=== PATIENT | male | born 1935 | race Caucasian/White ===

== ENCOUNTER 2017-02-15 12:23 | Inpatient (IN) | payer BC, OTHER ==
[~2017-02-15] VITALS: Ht 182.9 cm; Wt 60.8 kg
[~2017-02-15 12:23] MED LIST: ACET-1256 PO; ASPCH81X PO; B-COTAB53 PO; DUTA0.5C PO; GLC500 PO; GLUC500C4 PO; IRBE-37 PO; METO1TAB31 PO; MINEOIL26; MULT-506 PO; OMEGCAP2 PO
[2017-02-15] MEDS ORDERED: SODIUM CHLORIDE 0.9% 1000ML 1,000 ML IV SCH (13:22)
--- NOTE | 2017-02-15 13:40 | EMERGENCY ROOM VISIT NOTE ---
History Report prepared by Elizabeth: Neal Whitaker Under the Supervision of: Dr. Silvio Otoole M.D. First contact with patient: 13:17 Chief Complaint: ILLNESS Stated Complaint: CHEST PAIN,SOB,NUMBNESS IN HAND,CONFUSION History of Present Illness The patient is an 81 year old male who presents to the Emergency Room with complaints of sudden, constant, shortness of breath and word searching beginning 3.5 hours ago. The patient states that he has trouble finding his words and chest pain that radiates into his shoulders. He reports that both of his hands felt an electric charge that was more severe in the left hand than right. The patient notes that he has a history of a cranial bleed after a fall several years ago requiring a Chloe hole procedure. He denies vision changes, hearing changes, headaches, and difficulty walking. The patient states that he has a history of chronic leukemia and is on chemotherapy. 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 The patient states that he is on Procrit because he has a chronic hemoglobin of 10.8. He denies a history of a blood transfusion. He reports that he returned home from a cruise to [place] and visiting friends in [place] within the past month. Source of History: patient Onset: 3.5 hours ago Position: head, chest Quality: other (word searching and SOB) Timing: constant, other (sudden) Associated Symptoms: + chest pain, No headache Note: Associated symptoms: shoulder pain, electrical shot to both hands Denies: vision changes, hearing changes, and difficulty walking Review of Systems All systems have been listed, reviewed, and are negative other than those previously mentioned. Please see Additional Medical History Sheet. Past Medical & Surgical Medical Problems: (1) Benign hypertension (2) Chronic leukemia (3) Diabetes Surgical Problems: (1) History of chloe hole surgery Family History Diabetes mellitus Heart disease Hypertension Social History Smoking Status: Never Smoker Marital Status: Housing Status: lives with family Occupation Status: employed Current/Historical Medications Scheduled Acetaminophen (Tylenol), 500 MG PO TID PRN Allopurinol (Allopurinol), 200 MG PO DAILY Aspirin (Aspirin Chewable), 81 MG PO DAILY B-Complex W/ Folic Acid (B Complex), 1 TAB PO DAILY Dutasteride (Avodart), 0.5 MG PO DAILY Glucosamine Sulfate (Glucosamine), 1 CAP PO DAILY Hydroxyurea (Hydrea Cap), 1,000 MG PO QDD Irbesartan (Irbesartan), 37.5 MG PO DAILY Megestrol Acetate (Megace Oral), 20 MG PO DAILY Multivitamin (Multivitamin), 1 TAB PO DAILY Allergies Coded Allergies: Lisinopril (Verified Allergy, Unknown, ., 02/15/17) Tamsulosin (Unverified Allergy, Unknown, EDEMA FACE,LIPS,TONGUE, 02/15/17) Physical Exam Vital Signs Date Time Temp Pulse Resp B/P (MAP) Pulse Ox O2 Delivery O2 Flow Rate FiO2 02/15/17 16:17 124/78 02/15/17 16:08 110 25 97 02/15/17 16:02 121/74 02/15/17 15:53 118 22 98 02/15/17 15:47 130/75 02/15/17 15:38 103 24 98 02/15/17 15:23 102 26 100 02/15/17 15:17 133/90 02/15/17 15:08 102 23 02/15/17 15:02 121/80 02/15/17 14:53 104 21 02/15/17 14:47 131/78 02/15/17 14:47 104 22 131/78 99 Room Air 02/15/17 14:38 102 23 02/15/17 14:32 143/86 02/15/17 14:29 106 21 140/77 99 Room Air 02/15/17 14:23 101 24 99 02/15/17 14:17 140/77 02/15/17 14:12 102 23 114/80 99 Room Air 02/15/17 14:08 94 22 99 02/15/17 14:02 114/80 02/15/17 14:01 99 29 122/70 99 Room Air 02/15/17 13:53 105 22 99 02/15/17 13:47 122/70 02/15/17 13:42 99 29 130/75 94 Room Air 02/15/17 13:40 130/75 02/15/17 13:27 107 02/15/17 13:23 99 22 98 02/15/17 13:08 96 21 99 02/15/17 13:02 116/69 02/15/17 12:53 99 21 98 02/15/17 12:50 99 Room Air 02/15/17 12:43 130/70 02/15/17 12:35 36.7 115 20 121/67 99 Room Air Physical Exam GENERAL: Patient awake, alert, oriented x 3. Patient follows commands. Patient does not appear toxic. Patient is adequately hydrated and well- nourished. Patient is in no distress and word searching. SKIN: No erythema, pallor, cyanosis or rash HEENT: Normal head, pupils equal, reactive to light and accommodation. Oral cavity and posterior pharynx appear normal. Neck: Without adenopathy, no neck vein distention. LUNGS: Clear to auscultation. No wheezes, no rales, no rhonchi. HEART: Regular rate. No murmurs. No gallops. No rubs CHEST: Monitor on the left upper chest wall. ABDOMEN: No masses, no rebound, no hepatomegaly or splenomegaly. EXTREMITIES: No signs of trauma. No pedal or pretibial edema. No calf or thigh tenderness. NEUROLOGIC: Cranial nerves II-XII within normal limits. No gross motor sensory function deficits. Patient is word searching Medical Decision & Procedures ER Provider Diagnostic Interpretation: Radiology results as stated below per my review and radiologist interpretation: HEAD WITHOUT CONTRAST (CT) CT DOSE: 537.48 mGy.cm HISTORY: Mental status change Stroke TECHNIQUE: Multiaxial CT images of the head were performed without the use of intravenous contrast. A dose lowering technique was utilized adhering to the principles of ALARA. Comparison: 05/18/2009 Findings: The paranasal sinuses and mastoid air cells are clear. Evidence for prior chloe holes involving the parietal convexities. Findings of cerebellar as well as cerebral atrophy. No evidence for acute intracranial hemorrhage. No midline shift. No evidence for an acute subdural hematoma. Impression: Chronic and postoperative change. No acute process. The above report was generated using voice recognition software. It may contain grammatical, syntax or spelling errors. Electronically signed by: Miles Barber M.D. 02/15/2017 1:39 PM Dictated Date/Time: 02/15/2017 1:37 PM CHEST ONE VIEW PORTABLE CLINICAL HISTORY: Stroke mental status change COMPARISON STUDY: 01/26/2009 FINDINGS: Mild cardiomegaly. Small parenchymal infiltrate left base. Small infiltrate right base. Lungs otherwise appear clear. IMPRESSION: Moderate cardiomegaly. Small bibasilar parenchymal infiltrates. The above report was generated using voice recognition software. It may contain grammatical, syntax or spelling errors. Electronically signed by: Miles Barber M.D. 02/15/2017 2:09 PM Dictated Date/Time: 02/15/2017 2:09 PM Laboratory Results 02/15/17 13:40 Red Blood Count 3.13, Mean Corpuscular Volume 94.9, Mean Corpuscular Hemoglobin 32.6, Mean Corpuscular Hemoglobin Concent 34.3 02/15/17 13:40 Test 02/15/17 13:40 02/15/17 13:46 White Blood Count 54.36 K/uL (4.8-10.8) Red Blood Count 3.13 M/uL (4.7-6.1) Hemoglobin 10.2 g/dL (14.0-18.0) Hematocrit 29.7 % (42-52) Mean Corpuscular Volume 94.9 fL (80-100) Mean Corpuscular Hemoglobin 32.6 pg (25-34) Mean Corpuscular Hemoglobin Concent 34.3 g/dl (32-36) Platelet Count 83 K/uL (130-400) RDW Standard Deviation 67.4 fL (36.4-46.3) RDW Coefficient of Variation 19.6 % (11.5-14.5) Neutrophils % (Manual) 27.3 % Lymphocytes % (Manual) 10.0 % Monocytes % (Manual) 55.5 % Basophils % (Manual) 0.9 % (0-2) Metamyelocytes % 1.8 % Myelocytes % 4.5 % Neutrophils # (Manual) 14.84 K/uL (1.4-6.5) Total Absolute Neutrophils 14.84 K/uL (1.4-6.5) Lymphocytes # (Manual) 5.44 K/uL (1.2-3.4) Total Absolute Lymphocytes 5.44 K/uL (1.2-3.4) Monocytes # (Manual) 30.17 K/uL (0.11-0.59) Basophils # (Manual) 0.49 K/uL (0-0.2) Metamyelocytes # 0.98 K/uL (0-0) Myelocytes # 2.45 K/uL (0-0) Hypogranular Neutrophils 2+ Platelet Estimate DECREASED Anisocytosis PRESENT Tear Drop Cells 1+ Prothrombin Time 11.2 SECONDS (9.0-12.0) Prothromb Time International Ratio 1.0 (0.9-1.1) Activated Partial Thromboplast Time 30.4 SECONDS (21.0-31.0) Partial Thromboplastin Ratio 1.2 Anion Gap 7.0 mmol/L (3-11) Est Creatinine Clear Calc Drug Dose 36.6 ml/min Estimated GFR () 49.9 Estimated GFR (Non- 43.0 BUN/Creatinine Ratio 22.6 (10-20) Calcium Level 8.5 mg/dl (8.5-10.1) Total Creatine Kinase 58 U/L (39-308) Creatine Kinase MB 1.9 ng/ml (0.5-3.6) Creatine Kinase MB Ratio 3.3 (0-3.0) Troponin I < 0.015 ng/ml (0-0.045) Bedside Prothrombin Time INR 1.2 (0.9-1.1) Laboratory results as stated above per my review. Medications Administered Medications (Trade) Dose Ordered Sig/Jarvis Route Start Time Stop Time Status Last Admin Dose Admin Sodium Chloride 1,000 ml @ 50 mls/hr Q20H IV 02/15/17 13:22 02/15/17 17:56 DC 02/15/17 13:22 50 MLS/HR Aspirin (Aspirin Chew) 81 mg NOW STAT PO 02/15/17 15:00 02/15/17 15:03 DC 02/15/17 15:53 81 MG Sodium Chloride 1,000 ml @ 300 mls/hr Q3H20M STAT IV 02/15/17 15:00 02/15/17 17:56 DC 02/15/17 16:02 300 MLS/HR Levetiracetam (Keppra Tab) 500 mg ONE ONCE PO 02/15/17 15:00 02/15/17 15:03 DC 02/15/17 15:54 500 MG ECG Indication: chest pain Rate (beats per minute): 99 Rhythm: normal sinus Findings: no acute ischemic change, no ectopy ED Course 1318: Past medical records reviewed. The patient was evaluated in room C01B. A complete history and physical examination was performed. 1322: Ordered Sodium Chloride 1000 ml @ 50 mls/hr IV 1457: I discussed the patients case with [facility]. He suggested that patient be evaluated by the hospitalist, given 81mg of aspirin, 500mg of Keppra now and in six hours, and IV fluid. He also suggests the patient have an EEG within the next day or two. 1500: Ordered Levetiracetam 500mg PO, Sodium Chloride 1000 ml @ 300 mls/hr IV, Aspirin 81mg PO 1507: I discussed the patient's case with Maciej [facility] Hospitalist. The patient will be evaluated for further treatment. 1532: Upon reevaluation, the patient is resting.I discussed today's findings with him. He verbalized agreement of the treatment plan. The patient will be evaluated for further treatment. Medical Decision I considered multiple diagnoses including: CVA, TIA, anemia, metabolic disorder , anxiety, hyperventilation, chronic leukemia. The patient had a phasic episode which began around 11 AM associated with some numbness primarily in the left hand. The patient arrived here less than 2 hours later and a stroke alert was called. NIH stroke score was very low and therefore the patient was not a good candidate for TPA. Consultation was obtained of the [facility] neurologist via [facility]. Multiple labs, EKG and imaging were evaluated. Please see above. The patient' s symptoms improved markedly while here in the ED. The patient was given Keppra for possible seizure-type activity. He was also given 81 mg of aspirin and a fluid bolus. I discussed care with the patient, his , the [facility] neurologist and the hospitalist. Medication Reconcilliation Current Medication List: was personally reviewed by me Blood Pressure Screening Patient's blood pressure: Normal blood pressure Blood pressure disposition: Did not require urgent referral Consults Time Called: 1456 Consulting Physician: [facility] Returned Call: [phone] I discussed the patients case with [facility]. He suggested that patient be evaluated by the hospitalist, given 80mg of aspirin, 500mg of Keppra now and in six hours, and IV fluid. He also suggests the patient have an EEG within the next day or two. Additional Consults: Time Called: 1505 Consulted Physician: Damien Pratt Hospitalist Returned Call: [phone] Additional Comments: I discussed the patient's case with Dr. Denis, [facility] Hospitalist. The patient will be evaluated for further treatment. Impression Primary Impression: Aphasia Critical Care I have personally spent greater than 35 minutes of critical care time in the direct management of this patient. This includes bedside care, interpretation of diagnostic studies, and testing, discussion with consultants, patient, and family members, and other required patient management activities. This 35 minutes is in excess of all separately billable procedures. Scribe Attestation The scribe's documentation has been prepared under my direction and personally reviewed by me in its entirety. I confirm that the note above accurately reflects all work, treatment, procedures, and medical decision making performed by me. Departure Information Dispostion Being Evaluated By Hospitalist Referrals Jones Stone (PCP) Patient Instructions My [facility]
[2017-02-15] MEDS ORDERED: HYDR500C3 PO (13:45)
[2017-02-15] MEDS ORDERED: ALL100 PO (13:45)
[2017-02-15] MEDS ORDERED: IRBE1TAB46 PO (13:45)
[2017-02-15] MEDS ORDERED: MEGE40SU PO (13:45)
[2017-02-15 14:07] LABS: PARTIAL THROMBOPLASTIN RATIO 1.2; PROTHROMBIN TIME (PATIENT) 11.2 SECONDS (9.0-12.0)
[2017-02-15 14:11] LABS: BLOOD UREA NITROGEN 34 mg/dl (7-18); BUN/CREATININE RATIO 22.6 (10-20); CALCIUM 8.5 mg/dl (8.5-10.1); CARBON DIOXIDE 23 mmol/L (21-32); CHLORIDE 102 mmol/L (98-107); GLUCOSE 125 mg/dl (70-99); POTASSIUM 4.9 mmol/L (3.5-5.1); SODIUM 132 mmol/L (136-145)
--- NOTE | 2017-02-15 14:11 | DIAGNOSTIC IMAGING REPORT ---
CHEST ONE VIEW PORTABLE CLINICAL HISTORY: Stroke mental status change COMPARISON STUDY: 01/26/2009 FINDINGS: Mild cardiomegaly. Small parenchymal infiltrate left base. Small infiltrate right base. Lungs otherwise appear clear. IMPRESSION: Moderate cardiomegaly. Small bibasilar parenchymal infiltrates. The above report was generated using voice recognition software. It may contain grammatical, syntax or spelling errors. Electronically signed by: Miles Barber M.D. 02/15/2017 2:09 PM Dictated Date/Time: 02/15/2017 2:09 PM
[2017-02-15 14:16] LABS: CKMB/CK RATIO 3.3 (0-3.0)
[2017-02-15 14:26] LABS: HEMATOCRIT 29.7 % (42-52); MEAN CELL VOLUME 94.9 fL (80-100); MEAN CORPUSCULAR HEMOGLOBIN 32.6 pg (25-34); MEAN CORPUSCULAR HGB CONC 34.3 g/dl (32-36); PLATELET COUNT 83 K/uL (130-400); RED BLOOD COUNT 3.13 M/uL (4.7-6.1); WHITE BLOOD COUNT 54.36 K/uL (4.8-10.8)
[2017-02-15 14:40] LABS: ANISOCYTOSIS PRESENT; BASO ABS # 0.49 K/uL (0-0.2); BASOPHIL % 0.9 % (0-2); COMPLETE YES; LYMPH ABS # 5.44 K/uL (1.2-3.4); META ABS # 0.98 K/uL (0-0); METAMYELOCYTE % 1.8 %; MYELOCYTE % 4.5 %; NEUTROPHILS % 27.3 %; PLT ESTIMATE DECREASED; TEAR DROP CELLS 1+
[2017-02-15] MEDS ORDERED: SODIUM CHLORIDE 0.9% 1000ML 1,000 ML IV STA (15:00)
[2017-02-15] MEDS ORDERED: ASPIRIN 81 MG CHEW PO STA (15:00)
[2017-02-15] MEDS ORDERED: LEVETIRACETAM 500 MG TAB PO ONE (15:00)
[2017-02-15] MEDS ORDERED: METOPROLOL TARTRATE 25 MG TAB PO ONE (17:04)
[2017-02-15 17:34] VITALS: BP 99/69; PULSE 117; TEMP 36.8; Ht 182.9 cm; Wt 60.8 kg
[2017-02-15] MEDS ORDERED: HydrALAZINE HCL 20 MG/ML VIAL IV. PRN (17:45)
[2017-02-15] MEDS ORDERED: METOPROLOL TARTRATE 1 MG/ML VIAL IV PRN (17:45)
--- NOTE | 2017-02-15 17:53 | Cardiology Consultation ---
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 I had recent seen the patient is a new outpatient consult a few days ago on 02/12/17. He is a resident of [facility] and at baseline is very physically active. He recently traveled to [place] in [place]. He typically spends the winter on [place] in [place]. At the time of his recent visit, he was concerned about shortness of breath that occurred been progressive over the last 2 weeks. He described an event that occurred a few days before the appointment when he was sitting upright in a reclining chair. He went to get up and suddenly "saw black "and lost postural tone. He had no prolonged loss of consciousness was backed to being himself within a few minutes. He has a long-standing history of being treated with metoprolol succinate 25 mg daily as well as irbesartan for tachycardia and hypertension. Recently his medications were reduced due to concerns of low blood pressure and ultimately the metoprolol was discontinued and Avapro dose had been cut in half. It is noted that he does have a history of frequent ventricular ectopy as well as frequent supraventricular ectopy as noted on a previous outpatient Holter monitor in 2014. 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 He had been placed on Hydrea under the guidance of Dr. Fox of hematology and his white blood cell count had improved from the 80,000 range to the 37,000 range recently. He has a history of anemia with recent baseline hemoglobin in the 10 g/dL range, and has a history of recent thrombocytopenia. He had been receiving Procrit on an as-needed basis for anemia because he also has stage III chronic kidney disease. The patient had been counseled to participate in a two-week 0 teletypesetter monitor which she is wearing, and he was tentatively scheduled for an outpatient echocardiogram in our office next week. In the interim time, today he complained of chest discomfort to his spouse this morning, and was found to have difficulty finding his words. I noted when I saw him the other day that he had a little bit of trouble telling me about his history and his spouse needed to fill in many of the details, but today he is significantly different as he is having difficulty expressing his thoughts. He recognizes me, and otherwise is able to move his extremities and to follow commands such as showing 2 fingers with each hand on command. 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 Past Medical/Surgical History Problem List: Medical Problems: (1) Benign hypertension (2) Chronic leukemia (3) Diabetes Surgical Problems: (1) History of chloe hole surgery History Past Medical History: 1. Frequent supraventricular and ventricular ectopy noted on prior Holter monitor 2. Hypertension 3. Anemia in the setting of stage III chronic kidney disease 4. Myeloproliferative disorder, chronic myelomonocytic leukemia with leukocytosis, and thrombus and a PT Past Surgical History: 1. Carpal tunnel surgery 2011 2. Right cataract removal 2009 3. Left cataract removal 2010 4. Right total hip replacement 2001 5. 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 Family History: Mother: in her 80's, of stroke. Father: at age 56, of massive myocardial infarction Siblings: sister, as infant , 3 days old Review Of Systems See above for pertinent positives & negatives. A total of 10 systems reviewed and were otherwise negative. Allergies Coded Allergies: Lisinopril (Verified Allergy, Unknown, ., 02/15/17) Tamsulosin (Unverified Allergy, Unknown, EDEMA FACE,LIPS,TONGUE, 02/15/17) Medications Reported Home Medications Medications Dose Route/Sig Max Daily Dose Days Date Category Hydrea Cap (Hydroxyurea) 500 Mg Cap 1,000 Mg PO QDD 02/15/17 Reported Allopurinol 100 Mg Tab 200 Mg PO DAILY 02/15/17 Reported Megace Oral (Megestrol Acetate) 40 Mg/Ml Kristen 20 Mg PO DAILY 02/15/17 Reported Irbesartan 75 Mg Tab 37.5 Mg PO DAILY 02/15/17 Reported B Complex (B-Complex W/ Folic Acid) 1 Tab Tab 1 Tab PO DAILY 01/22/15 Reported Glucosamine (Glucosamine Sulfate) 500 Mg Cap 1 Cap PO DAILY 11/20/14 Reported Aspirin Chewable (Aspirin) 81 Mg Chew 81 Mg PO DAILY 11/20/14 Reported Avodart (Dutasteride) 0.5 Mg Cap 0.5 Mg PO DAILY 11/20/14 Reported Multivitamin (Multivitamins) Tab 1 Tab PO DAILY 01/26/09 Reported Tylenol (Acetaminophen) 500 Mg Tab 500 Mg PO TID PRN 01/26/09 Reported Physical Exam Vital Signs (Last 8hrs): Last 8 Hrs Date Time Temp Pulse Resp B/P (MAP) Pulse Ox O2 Delivery O2 Flow Rate FiO2 02/15/17 17:25 115 18 119/79 96 02/15/17 17:02 119/80 02/15/17 16:53 125 27 97 02/15/17 16:47 128/78 02/15/17 16:38 121 25 97 02/15/17 16:32 111/91 02/15/17 16:23 120 26 97 02/15/17 16:17 124/78 02/15/17 16:08 110 25 97 02/15/17 16:02 121/74 02/15/17 15:53 118 22 98 02/15/17 15:47 130/75 02/15/17 15:38 103 24 98 02/15/17 15:23 102 26 100 02/15/17 15:17 133/90 02/15/17 15:08 102 23 02/15/17 15:02 121/80 02/15/17 14:53 104 21 02/15/17 14:47 131/78 02/15/17 14:47 104 22 131/78 99 Room Air 02/15/17 14:38 102 23 02/15/17 14:32 143/86 02/15/17 14:29 106 21 140/77 99 Room Air 02/15/17 14:23 101 24 99 02/15/17 14:17 140/77 02/15/17 14:12 102 23 114/80 99 Room Air 02/15/17 14:08 94 22 99 02/15/17 14:02 114/80 02/15/17 14:01 99 29 122/70 99 Room Air 02/15/17 13:53 105 22 99 02/15/17 13:47 122/70 02/15/17 13:42 99 29 130/75 94 Room Air 02/15/17 13:40 130/75 02/15/17 13:27 107 02/15/17 13:23 99 22 98 02/15/17 13:08 96 21 99 02/15/17 13:02 116/69 02/15/17 12:53 99 21 98 02/15/17 12:50 99 Room Air 02/15/17 12:43 130/70 02/15/17 12:35 36.7 115 20 121/67 99 Room Air General Appearance: awake , oriented Head: Normocephalic Atraumatic. Eyes: PERRLA, EOMI, conjunctiva and sclera clear Neck: Supple. No carotid bruits noted. No JVD. No HJD. Respiratory: Breath sounds clear to auscultation bilaterally. No w/r/r. Cardiovascular: tachycardic, no murmurs Abdomen: Normal bowel sounds, soft nontender. no abdominal bruits. Extremities: No edema, no clubbing or cyanosis. distal pulses 2/4 bilaterally. Neuro: expressive aphasia, moves all 4 extremities. Data Last Resulted 02/15/17 13:40 Red Blood Count 3.13, Mean Corpuscular Volume 94.9, Mean Corpuscular Hemoglobin 32.6, Mean Corpuscular Hemoglobin Concent 34.3 Last Resulted 02/15/17 13:40 Past 24 Hours Test 02/15/17 13:40 Range/Units Creatine Kinase MB 1.9 0.5-3.6 ng/ml Creatine Kinase MB Ratio 3.3 H 0-3.0 Prothromb Time International Ratio 1.0 0.9-1.1 Prothrombin Time 11.2 9.0-12.0 SECONDS Total Creatine Kinase 58 39-308 U/L Troponin I < 0.015 0-0.045 ng/ml EKG performed the emergency department today revealed sinus tachycardia at 130 bpm, with significant ST segment changes. A limited, focused, bedside echocardiogram was performed independently at the bedside in the emergency room by the undersigned and revealed normal to hyperdynamic biventricular systolic function with a small circumferential pericardial effusion, tenderness stranding was noted in the pericardial space adjacent to the right atrium. There is no evident tamponade physiology. Assessment & Plan CT of the brain revealed postoperative changes with past history of peripheral holes due to remote traumatic subdural hematoma. No acute changes Impression: 1. Chest discomfort, per patient, it is worse when he lies supine and when he takes a deep breath and, and given echocardiogram findings, is consistent with pericarditis 2. Sinus tachycardia 3. Change in mental status, dysarthria 4. Chronic myelomonocytic leukemia, anemia, leukocytosis, thrombocytopenia Recommendations: Per review of his emergency room chart, emergency room provider had discussed his case with thelneurologist at [facility] who recommended administering aspirin and Keppra as well as IV fluids and to consider an EEG. I would recommend we have neurology see him here tomorrow. My personal impression is that the patient has new dysarthria that is an acute change compared to when I had seen him on 02/12/17, I would recommend proceeding with an MRI of the brain with and without contrast for workup of stroke. Given his sinus tachycardia and small circumflex pericardial effusion, I had advised Dr. Stephens , that since that visit as already 5:47 PM Thursday, the perhaps we should try to schedule the MRI for tomorrow morning because I would be concerned that if we made arrangements now that he would end up going off the floor for a prolonged period of time in the middle of the night and I think that would be ill-advised at present. For the sinus tachycardia, I recommend proceeding with low dose metoprolol 12.5 mg twice a day, first dose tonight, and neck cyst is tomorrow morning. I discussed this with his nurse in the emergency room and asked for to be administered as soon as it was available. We have to be careful not to suppress his blood pressure too much because of the small circumferential pericardial effusion. Unfortunately, the typical treatments for this are contraindicated in this patient. He is not a candidate for nonsteroidal anti-inflammatory treatment because of his kidney disease and concerns of acute stroke, he is not a candidate for high-dose aspirin due to potential for bleeding complications given his thrombocytopenia, he is not a candidate for colchicine because it has the potential for myelosuppression, and I would not want to give him corticosteroids until we have the MRI of the brain back rule out acute stroke. This was explained to the patient, and he is comfortable enough with this that he did not feel he needed additional treatment for the chest pain at present. Case discussed with Dr Stephens by phone. Will obtain formal complete echocardiogram tomorrow. It is OK to remove the Zio monitor for the MRI. Nolan Pollard,
--- NOTE | 2017-02-15 19:27 | History and Physical ---
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 Clayton Fox of hemeoncology who presented with multiple cardiac and neurological symptoms from home with early differential diagnosis of seizure as per emergency room physician in coordination with neurology teleconference with neurologist at [facility] vs stroke vs hyperviscosity complications from leukemia and also found to have tachycardia. There are various histories of what happened at home prior to admission. As per the HPI given to me from the patient and his at bedside ([phone]), patient was reading a book when he found that the text did not make sense to him. Denies changes in vision. Started having difficulty with finding words with his speech, but no obvious facial motor weakness or slurred speech or facial droop as per the patient's . Patient's denies that he was staring into space. Patient appears by this history to recognize these symptoms and did not lose consciousness and was able to follow directions and ambulate. But with these symptoms, also developed concurrently left upper extremity tremors which are new in onset. When patient evaluated in the ED, stroke alert was called. Patient had negative head CT for intracranial bleed (of note patient had history of subdural hematoma around 7 years ago which needed to be relieved by chloe holes). Was given aspirin. After consultation and evaluation with [facility] neurology by the ED physician, it was decided that patient more likely had seizure symptoms rather than stroke and the patient was given Keppra 500 mg per oral x 1 as loading dose for seizure treatment. This was also happening in context of tachycardia between 110s to 120s which was not treated in the emergency department and also chest discomfort. At the request of internal medicine hospitalist, patient then evaluated by financial operations consultant Dr. Pollard who had previously placed a Zio XT monitor as outpatient recently when patient had been seen for tachycardia and also history of relative hypotension and presyncopal symptoms. Production Metal Sprayer obtained bedside transthoracic echo of the heart and preliminary results communicated to me by Dr. Pollard of pericarditis and he also started patient on Beta juani. Have consulted neurology Dr. Niño who recommended brain MRI and carotid ultrasound when patient less tachycardic. However patent has titanium rip hip as per history and likely contraindicated for MRI. Have consulted hemoncology with Dr. Gregg who has low suspicion that patient's elevated cell counts would lead to hyperviscosity related neurological/vascular etiologies explaining for symptoms. Patient passed dysphagia screening by nursing but will keep NPO except medications Past Medical/Surgical History Medical Problems: (1) Benign hypertension Status: Chronic (2) Chronic leukemia Status: Chronic (3) Diabetes Status: Chronic Surgical Problems: (1) History of chloe hole surgery Status: Resolved Family History Diabetes mellitus Heart disease Hypertension Social History Smoking Status: Never Smoker Marital Status: Occupational Status: employed Immunizations History of Influenza Vaccine: N/A History of Tetanus Vaccine?: Unknown History of Pneumococcal: Yes Pneumococcal Date: Dec 22, 2008 History of Hepatitis B Vaccine: No Multi-Drug Resistant Organisms History of MDRO: No Allergies Coded Allergies: Lisinopril (Verified Allergy, Unknown, ., 02/15/17) Tamsulosin (Unverified Allergy, Unknown, EDEMA FACE,LIPS,TONGUE, 02/15/17) Home Medications Scheduled Acetaminophen (Tylenol), 500 MG PO TID PRN Allopurinol (Allopurinol), 200 MG PO DAILY Aspirin (Aspirin Chewable), 81 MG PO DAILY B-Complex W/ Folic Acid (B Complex), 1 TAB PO DAILY Dutasteride (Avodart), 0.5 MG PO DAILY Glucosamine Sulfate (Glucosamine), 1 CAP PO DAILY Hydroxyurea (Hydrea Cap), 1,000 MG PO QDD Irbesartan (Irbesartan), 37.5 MG PO DAILY Megestrol Acetate (Megace Oral), 20 MG PO DAILY Multivitamin (Multivitamin), 1 TAB PO DAILY Review of Systems Constitutional: No fever Eyes: + problem reported (comprehension of reading text without vision deficits ) ENT: + problem reported (word finding difficulties without slurred speech), No sore throat, No trouble swallowing Respiratory: No cough, No shortness of breath, No dyspnea on exertion, No dyspnea at rest Cardiovascular: + chest pain (pain with deep breaths), + palpitations ( tachycardia) Abdomen: No pain, No nausea, No vomiting, No diarrhea, No constipation Neurologic: + problem reported (left upper extremity tremors) Psychiatric: No substance abuse Hematologic / Lymphatic: No abnormal bleeding/bruising Integumentary: No rash Physical Exam Vital Signs Date Time Temp Pulse Resp B/P (MAP) Pulse Ox O2 Delivery O2 Flow Rate FiO2 02/15/17 17:34 36.8 117 16 99/69 Room Air 02/15/17 17:25 115 18 119/79 96 02/15/17 17:02 119/80 02/15/17 16:53 125 27 97 02/15/17 16:47 128/78 02/15/17 16:38 121 25 97 02/15/17 16:32 111/91 02/15/17 16:23 120 26 97 02/15/17 16:17 124/78 02/15/17 16:08 110 25 97 02/15/17 16:02 121/74 02/15/17 15:53 118 22 98 02/15/17 15:47 130/75 02/15/17 15:38 103 24 98 02/15/17 15:23 102 26 100 02/15/17 15:17 133/90 02/15/17 15:08 102 23 02/15/17 15:02 121/80 02/15/17 14:53 104 21 02/15/17 14:47 131/78 02/15/17 14:47 104 22 131/78 99 Room Air 02/15/17 14:38 102 23 02/15/17 14:32 143/86 02/15/17 14:29 106 21 140/77 99 Room Air 02/15/17 14:23 101 24 99 02/15/17 14:17 140/77 02/15/17 14:12 102 23 114/80 99 Room Air 02/15/17 14:08 94 22 99 02/15/17 14:02 114/80 02/15/17 14:01 99 29 122/70 99 Room Air 02/15/17 13:53 105 22 99 02/15/17 13:47 122/70 02/15/17 13:42 99 29 130/75 94 Room Air 02/15/17 13:40 130/75 02/15/17 13:27 107 02/15/17 13:23 99 22 98 02/15/17 13:08 96 21 99 02/15/17 13:02 116/69 02/15/17 12:53 99 21 98 02/15/17 12:50 99 Room Air 02/15/17 12:43 130/70 02/15/17 12:35 36.7 115 20 121/67 99 Room Air General Appearance: no apparent distress Head: normocephalic, atraumatic Eyes: normal inspection, PERRL, EOMI ENT: hearing grossly normal, pharynx normal Neck: supple, trachea midline Respiratory/Chest: chest non-tender, lungs clear, normal breath sounds, no respiratory distress, no accessory muscle use Cardiovascular: + tachycardia Abdomen/GI: normal bowel sounds, non tender, soft Back: normal inspection Extremities/Musculoskelatal: normal inspection, no calf tenderness, normal range of motion, non-tender Neurologic/Psych: 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 turbine 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 nml as tested, no motor/sensory deficits, alert, normal mood/affect, oriented x 3 Skin: warm/dry, no rash Diagnostics Laboratory Results Results Past 24 Hours Test 02/15/17 13:40 02/15/17 13:42 02/15/17 13:46 02/15/17 18:10 Range/Units White Blood Count 54.36 4.8-10.8 K/uL Red Blood Count 3.13 4.7-6.1 M/uL Hemoglobin 10.2 14.0-18.0 g/dL Hematocrit 29.7 42-52 % Mean Corpuscular Volume 94.9 80-100 fL Mean Corpuscular Hemoglobin 32.6 25-34 pg Mean Corpuscular Hemoglobin Concent 34.3 32-36 g/dl Platelet Count 83 130-400 K/uL RDW Standard Deviation 67.4 36.4-46.3 fL RDW Coefficient of Variation 19.6 11.5-14.5 % Neutrophils % (Manual) 27.3 % Lymphocytes % (Manual) 10.0 % Monocytes % (Manual) 55.5 % Basophils % (Manual) 0.9 0-2 % Metamyelocytes % 1.8 % Myelocytes % 4.5 % Neutrophils # (Manual) 14.84 1.4-6.5 K/uL Total Absolute Neutrophils 14.84 1.4-6.5 K/uL Lymphocytes # (Manual) 5.44 1.2-3.4 K/uL Total Absolute Lymphocytes 5.44 1.2-3.4 K/uL Monocytes # (Manual) 30.17 0.11-0.59 K/uL Basophils # (Manual) 0.49 0-0.2 K/uL Metamyelocytes # 0.98 0-0 K/uL Myelocytes # 2.45 0-0 K/uL Hypogranular Neutrophils 2+ Platelet Estimate DECREASED Anisocytosis PRESENT Tear Drop Cells 1+ Prothrombin Time 11.2 9.0-12.0 SECONDS Prothromb Time International Ratio 1.0 0.9-1.1 Activated Partial Thromboplast Time 30.4 21.0-31.0 SECONDS Partial Thromboplastin Ratio 1.2 Sodium Level 132 136-145 mmol/L Potassium Level 4.9 3.5-5.1 mmol/L Chloride Level 102 98-107 mmol/L Carbon Dioxide Level 23 21-32 mmol/L Anion Gap 7.0 3-11 mmol/L Blood Urea Nitrogen 34 7-18 mg/dl Creatinine 1.50 0.60-1.40 mg/dl Est Creatinine Clear Calc Drug Dose 36.6 ml/min Estimated GFR () 49.9 Estimated GFR (Non- 43.0 BUN/Creatinine Ratio 22.6 10-20 Random Glucose 125 70-99 mg/dl Calcium Level 8.5 8.5-10.1 mg/dl Total Creatine Kinase 58 39-308 U/L Creatine Kinase MB 1.9 0.5-3.6 ng/ml Creatine Kinase MB Ratio 3.3 0-3.0 Troponin I < 0.015 0-0.045 ng/ml Bedside Glucose 116 188 70-99 mg/dl Bedside Prothrombin Time INR 1.2 0.9-1.1 Diagnostic Radiology CXR negative for infiltrates or congestion CXR normal EKG 12 lead EKG ordered Impression Assessment and Plan 81 year old M with symptoms of word finding difficulties and left upper extremity tremors which are new onset with tachycardia. Neurological symptoms possibly seizure, stroke, hyperviscosity. Tachycardia possible pericarditis/ pericardial effusion Neurological -After consultation and evaluation with [facility] by the ED physician, it was decided that patient more likely had seizure symptoms rather than stroke and the patient was given Keppra 500 mg per oral x 1 as loading dose for seizure treatment -appreciate further neurology consult on Keppra dosing -Have consulted neurology Dr. Niño who recommended brain MRI for stroke workup and carotid ultrasound when patient less tachycardic. However patent has titanium rip hip as per history and likely contraindicated for MRI. -carotid ultrasound ordered when tachycardia resolves -Patient passed dysphagia screening by nursing but will keep NPO except essential oral medications Hydration with IV fluids with dextrose when NPO Cardiology -preliminary TTE results pericarditis , small circumferential pericardial effusion -tachycardia noted before as outpatient and has outpatient Zio XT monitor on left chest -telemetry monitoring -sinus tachycardia: low dose metoprolol 12.5 mg twice a day, parameters for prn IV metoprolol and IV hydralazine for heart and blood pressure control in order sets Hemoncology -Chronic myelomonocytic leukemia -WBC > 50,000 on admission, 1 month ago as per outpatient records WBC around 80, 000 -anemia Hgb 10, thrombocytopenia less than 100,000 platelets -Have consulted hemoncology with Dr. Gregg who has low suspicion that patient's elevated cell counts would lead to hyperviscosity related neurological/vascular etiologies explaining for symptoms. -hold oral hydroxyurea and procrit for now -IV fluids DVT ppx: SCDs Full Code status ([phone], [phone]) Level of Care Telemetry Advanced Directives Existing Living Will: Yes Existing Power of Associate Vice President: Yes Resuscitation Status FULL RESUSCITATION VTE Prophylaxis VTE Risk Assessment Done? Y/N: Yes Risk Level: Moderate Given or contraindicated: SCD's
[2017-02-15 19:50] VITALS: BP 104/69; PULSE 100; TEMP 37; O2SAT 97
[2017-02-15] MEDS: D5W AND NSS 1,000 ML IV SCH (20:40)
[2017-02-15 21:55] LABS: URINE APPEARANCE TURBID (CLEAR); URINE BILIRUBIN NEG (NEG); URINE COLOR DK YELLOW; URINE EPITHELIAL CELL AUTO >30 /lpf (0-5); URINE NITRITE NEG (NEG); URINE SPECIFIC GRAVITY 1.027 (1.000-1.030); UROBILINOGEN NEG (NEG); ZZUR CULT IF INDIC CLEAN CATCH YES
[2017-02-15 21:58] LABS: MANUAL MICROSCOPIC REQUIRED? NO; REVIEW REQ? YES
[2017-02-15 22:07] LABS: URINE PATH CASTS >30 GRANULAR CASTS /lpf (0)
[2017-02-15 23:14] VITALS: BP 93/63; PULSE 99; TEMP 37.1; O2SAT 95
[2017-02-16] VITALS (41 sets, daily range): BP systolic 76–123; BP diastolic 44–75; PULSE 100–143; TEMP 36.6–36.7; O2SAT 93–98
[2017-02-16 06:30] LABS: BUN/CREATININE RATIO 18.7 (10-20); CALCIUM 8.4 mg/dl (8.5-10.1); CREATININE 2.1 mg/dl (0.60-1.40); POTASSIUM 4.4 mmol/L (3.5-5.1)
[2017-02-16 06:33] LABS: ALB/GLOB RATIO 0.6 (0.9-2)
[2017-02-16 06:36] LABS: HEMATOCRIT 29.7 % (42-52); MEAN CELL VOLUME 94.3 fL (80-100); PLATELET COUNT 72 K/uL (130-400); RED BLOOD COUNT 3.15 M/uL (4.7-6.1); WHITE BLOOD COUNT 78.01 K/uL (4.8-10.8)
[2017-02-16 06:37] LABS: COMPLETE YES; LYMPH ABS # 2.03 K/uL (1.2-3.4); LYMPHOCYTE % 2.6 %; MYELOCYTE % 0.4 %; NEUTROPHILS % 27.4 %; PLT ESTIMATE DECREASED; SCHISTOCYTES OCCASIONAL; TEAR DROP CELLS 1+
[2017-02-16] MEDS: D5W AND NSS 1,000 ML IV SCH ×2 (07:40→21:12)
[2017-02-16] MEDS: METOPROLOL TARTRATE 25 MG TAB PO SCH ×2 (07:40→21:42)
--- NOTE | 2017-02-16 12:10 | ECHOCARDIOGRAM REPORT ---
*NOTICE TO RECEIVING [employer] This information is strictly Confidential and protected under [place] law. [place] law prohibits you from making any further disclosure of this information unless further disclosure is expressly permitted by the written consent of the person to whom it pertains or is authorized by law. A general authorization for the release of medical or other information is not sufficient for this purpose. Hospital accepts no responsibility if the information is made available to any other person, INCLUDING THE PATIENT. Interpretation Summary * Name: FÁTIMA RAMIREZ Study Date: 02/16/2017 06:43 AM BP: 110/75 mmHg * Patient Location: C.2T\S\E215\S\1 HR: 113 * : 1935 (M/d/yyy) Gender: Male Height: 72 in * Age: 81 yrs Ethnicity: [place] Weight: 147 lb * Ordering Physician: Adrian Pollard * Referring Physician: Jones Stone * Performed By: Mary Loyola RDCS * * Reason For Study: SINUS TACHYCARDIA, STROKE, PERICARDIAL EFFUSION * BSA: 1.9 m2 * The study was technically adequate. * -- Conclusions -- * Sinsus tachycardia at 115 bpm was present during the echocardiogram examination. * There is a moderate circumferential pericardial effusion. * There is mild diastolic collapse of the left atrium. 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 * The right ventricle is small and underfilled. * Although the pericardial effusion is small in size, findings of interventricular interdependence are concerning for early tamponade physiology. Procedure Details * A contrast injection of Definity was performed to improve assessment of LV function. * Contrast was injected into an intravenous site in the left arm. * One vial of Definity ultrasound contrast was diluted in normal saline to a total volume of 10 ml. A total of '2' ml of solution was administered during imaging. * Lot # [id number] of Definity utilized for procedure. * Expiration date MAR 25. * A saline contrast injection was performed to assess for cardiac shunting. * The injection was performed through an intravenous line in the left arm. * The attending nurse who injected the saline contrast was DARON KLEIN RN. * A total of 20 cc of agitated saline was given. * The attending nurse who injected the contrast agent was DARON KLEIN RN. * A complete two-dimensional transthoracic echocardiogram was performed (2D, M-mode, Doppler and color flow Doppler). Left Ventricle * The left ventricle is normal in size. * There is mild concentric left ventricular hypertrophy. * Left ventricular systolic function is normal. * Ejection Fraction = 50-55%. * Abnormal septal motion is presnet consistent with interventricualar interdependence. Right Ventricle * The right ventricle is small and underfilled. * The right ventricle is hyperdynamic. Atria * The left atrial size is normal. * Right atrial size is normal. * There is no evidence of atrial septal defect, but resolution does not allow assessment for a patent foramen ovale. * The atrial septum is aneurysmal. Mitral Valve * There is moderate mitral annular calcification. * There is no mitral valve stenosis. * There is mild mitral regurgitation. Tricuspid Valve * The tricuspid valve is normal. * There is no tricuspid stenosis. * There is mild tricuspid regurgitation. * Doppler findings do not suggest pulmonary hypertension. Aortic Valve * The aortic valve is trileaflet. * The aortic valve is mildly calcified. * Borderline to mild aortic valve stenosis is present. * There is no significant aortic regurgitation. Pulmonic Valve * The pulmonary valve is not well seen, but the Doppler examination is normal without significant regurgitation or stenosis. Great Vessels * The aortic root and proximal ascending aorta are normal sized. Pericardium/Pleural * There is a moderate circumferential pericardial effusion. There is mild diastolic collapse of the left atrium. Great Vessels * Normal inferior vena cava diameter and respiratory variation suggests normal central venous pressure. * Normal inferior vena cava size and collapsability with sniff indicates a normal right atrial pressure of 3 mmHg Left Ventricular Diastolic Function * Grade I diastolic dysfunction, (abnormal relaxation pattern). MMode 2D Measurements and Calculations IVSd 1.4 cm IVSs 1.8 cm LVIDd 3.7 cm LVIDs 2.6 cm LVPWd 1.6 cm LVPWs 1.8 cm IVS/LVPW 0.87 FS 30.5 % EDV(Teich) 59.2 ml ESV(Teich) 24.4 ml EF(Teich) 58.8 % EDV(cubed) 51.9 ml ESV(cubed) 17.4 ml EF(cubed) 66.5 % % IVS thick 30.2 % % LVPW thick 17.7 % LV mass(C)d 200.3 grams LV mass(C)dI 107.2 grams/m\S\2 LV mass(C)s 182.4 grams LV mass(C)sI 97.6 grams/m\S\2 SV(Teich) 34.8 ml SI(Teich) 18.6 ml/m\S\2 SV(cubed) 34.5 ml SI(cubed) 18.4 ml/m\S\2 Ao root diam 4.1 cm Ao root area 13.3 cm\S\2 LA dimension 3.2 cm LA/Ao 0.78 LVAd ap4 29.7 cm\S\2 LVLd ap4 7.8 cm EDV(MOD-sp4) 91.4 ml EDV(sp4-el) 95.4 ml LVAs ap4 18.2 cm\S\2 LVLs ap4 7.0 cm ESV(MOD-sp4) 39.9 ml ESV(sp4-el) 40.2 ml EF(MOD-sp4) 56.4 % EF(sp4-el) 57.8 % LVAd ap2 29.6 cm\S\2 LVLd ap2 8.4 cm EDV(MOD-sp2) 83.2 ml EDV(sp2-el) 88.6 ml LVAs ap2 19.5 cm\S\2 LVLs ap2 7.6 cm ESV(MOD-sp2) 44.5 ml ESV(sp2-el) 42.6 ml EF(MOD-sp2) 46.5 % EF(sp2-el) 51.9 % LVLd %diff 6.8 % EDV(MOD-bp) 88.8 ml LVLs %diff 7.7 % ESV(MOD-bp) 42.6 ml EF(MOD-bp) 52.0 % SV(MOD-sp4) 51.5 ml SI(MOD-sp4) 27.6 ml/m\S\2 SV(MOD-sp2) 38.6 ml SI(MOD-sp2) 20.7 ml/m\S\2 SV(MOD-bp) 46.2 ml SI(MOD-bp) 24.7 ml/m\S\2 SV(sp4-el) 55.2 ml SI(sp4-el) 29.5 ml/m\S\2 SV(sp2-el) 46.0 ml SI(sp2-el) 24.6 ml/m\S\2 Doppler Measurements and Calculations MV E max crystal 49.5 cm/sec MV A max crystal 76.2 cm/sec MV E/A 0.65 MV dec time 0.15 sec Ao V2 max 121.2 cm/sec Ao max PG 5.9 mmHg Ao max PG (full) 3.3 mmHg LV V1 max PG 2.6 mmHg LV V1 max 80.5 cm/sec TR max crystal 218.5 cm/sec
--- NOTE | 2017-02-16 12:19 | Cardiology Follow-Up ---
Subjective General Date of Service: Feb 16, 2017. Chief Complaint: follow up chest pain, tachycardia Pt evaluation today including: conversation w/ patient History of Present Illness The patient is a 81 year old male seen in cardiology follow-up. He had done well overnight, continued sinus tachycardia in the 115 bpm range was noted overnight, he over did have an episode of nausea status after walking to the bathroom this morning and has vomited) that time he had a change in his rhythm, and repeat EKG revealed atrial fibrillation with rapid ventricular rate. The initial rate was up to 170 bpm, but this is improved to 124 bpm at present. When I talked to the patient in his room, he was comfortable. His expressive aphasia has improved dramatically compared to when I spoke to him yesterday in the emergency room. He is back to the mental status that I observed when I had seen him as an outpatient on 02/12/17. His most recent blood pressure was 104/75 . His leukocytosis is worse in the 70,000 today with hemoglobin of 10??4, and platelet count of 72,000. Erythrocyte sedimentation rate is elevated at 61 mm/ h. Allergies Coded Allergies: Lisinopril (Verified Allergy, Unknown, ., 02/15/17) Tamsulosin (Unverified Allergy, Unknown, EDEMA FACE,LIPS,TONGUE, 02/15/17) Social History Smoking Status: Never Smoker Hx Tobacco Use In Past Year?: No Hx Alcohol Use - Type And Amou: Yes (2oz of scotch daily) Hx Substance Use - Type And Am: No ( ) Problem List Medical Problems: (1) Aphasia Status: Acute Physical Exam Vital Signs Last Vital Signs Documentation Date Time Temp Pulse Resp B/P (MAP) Pulse Ox O2 Delivery O2 Flow Rate FiO2 02/16/17 11:47 36.6 112 19 102/72 (82) 95 Room Air 109 116/70 (85) 117 90/62 (71) Physical Exam Constitutional: Level of Distress: acutely ill Head: normocephalic ENMT: normal ENT inspection, hearing grossly normal Neck: supple Lungs: Auscultation: no wheezing, no rales/crackles, no rhonchi Cardiovascular: Heart Auscultation: tachycardia, II/ ELIZABETH Musculoskeletal: normal Extremities: no edema Neurologic: Gait & Station: pertinent finding (word finding difficulty has resolved..) Assessment and Plan Assessment and Plan Impression: 81-year-old male 1. The patient presented yesterday due to concerns of difficulty expressing himself.- which has improved. 2. Sinus tachycardia, likely physiologic and in response to the pericardial effusion 3. Secondary complaint yesterday was pleuritic chest discomfort, a formal echocardiogram today and interpreted by the undersigned revealed a moderate size circumferential pericardial effusion, with evidence of interventricular independence, concerning for pre-tamponade physiology 4 Sinus tachycardia has now converted to atrial fibrillation Discussion/plan: The patient has a history of chronic myelomonocytic leukemia. Although the amount of pericardial fluid is somewhat small and not amenable to pericardiocentesis, it certainly seems to be having a physiologic effective heart and I think it is driving his tachycardia. The patient had been seen as an outpatient by the undersigned last week for persistent sinus tachycardia and syncopal episode. I do not think the pericardial effusion explains his problems with finding words , it does explain his chest discomfort and recent syncopal episode, likely explains his tachycardia. Unfortunately because of his comorbidities, he is not a candidate for typical medication therapy for pericarditis. He is not a candidate for nonsteroidal anti-inflammatory treatment because of his age and renal insufficiency. He is not a candidate for high-dose aspirin therapy due to thrombocytopenia, and I'm hesitant to treat him with steroids due to his neurologic symptoms. He also reports a past possible allergy or intolerance to prednisone with facial swelling although he is not certain if this was the prednisone or Flomax because apparently he started them both around the same time. I discussed his case with Dr. Bailey thoracic surgery who is going to assess the patient regarding candidacy for pericardial window. Patient is not eaten today because he is nauseous. I'm going to make him nothing by mouth except for medications for the time being pending surgery evaluation, for possible surgical intervention which may take place tomorrow pending optimization of his platelet count. Although he is now noted to have atrial fibrillation, he is not a candidate for anticoagulation. Will hold off on aspirin pending surgery evaluation. I am going to attempt to reach the patient's spouse by cell phone. Await neurology input. Nolan Pollard, DO Laboratory Results Last 24 Hours Test 02/15/17 13:40 02/15/17 13:42 02/15/17 13:46 02/15/17 18:10 White Blood Count 54.36 K/uL Red Blood Count 3.13 M/uL Hemoglobin 10.2 g/dL Hematocrit 29.7 % Mean Corpuscular Volume 94.9 fL Mean Corpuscular Hemoglobin 32.6 pg Mean Corpuscular Hemoglobin Concent 34.3 g/dl Platelet Count 83 K/uL RDW Standard Deviation 67.4 fL RDW Coefficient of Variation 19.6 % Neutrophils % (Manual) 27.3 % Lymphocytes % (Manual) 10.0 % Monocytes % (Manual) 55.5 % Basophils % (Manual) 0.9 % Metamyelocytes % 1.8 % Myelocytes % 4.5 % Neutrophils # (Manual) 14.84 K/uL Total Absolute Neutrophils 14.84 K/uL Lymphocytes # (Manual) 5.44 K/uL Total Absolute Lymphocytes 5.44 K/uL Monocytes # (Manual) 30.17 K/uL Basophils # (Manual) 0.49 K/uL Metamyelocytes # 0.98 K/uL Myelocytes # 2.45 K/uL Hypogranular Neutrophils 2+ Platelet Estimate DECREASED Anisocytosis PRESENT Tear Drop Cells 1+ Prothrombin Time 11.2 SECONDS Prothromb Time International Ratio 1.0 Activated Partial Thromboplast Time 30.4 SECONDS Partial Thromboplastin Ratio 1.2 Sodium Level 132 mmol/L Potassium Level 4.9 mmol/L Chloride Level 102 mmol/L Carbon Dioxide Level 23 mmol/L Anion Gap 7.0 mmol/L Blood Urea Nitrogen 34 mg/dl Creatinine 1.50 mg/dl Est Creatinine Clear Calc Drug Dose 36.6 ml/min Estimated GFR () 49.9 Estimated GFR (Non- 43.0 BUN/Creatinine Ratio 22.6 Random Glucose 125 mg/dl Calcium Level 8.5 mg/dl Total Creatine Kinase 58 U/L Creatine Kinase MB 1.9 ng/ml Creatine Kinase MB Ratio 3.3 Troponin I < 0.015 ng/ml Bedside Glucose 116 mg/dl 188 mg/dl Bedside Prothrombin Time INR 1.2 Test 02/15/17 21:30 02/16/17 05:35 02/16/17 07:16 02/16/17 11:11 Urine Color DK YELLOW Urine Appearance TURBID Urine pH 5.0 Urine Specific [place] 1.027 Urine Protein 2+ Urine Glucose (UA) NEG Urine Ketones TRACE Urine Occult Blood TRACE Urine Nitrite NEG Urine Bilirubin NEG Urine Urobilinogen NEG Urine Leukocyte Esterase NEG Urine WBC (Auto) >30 /hpf Urine RBC (Auto) 0-4 /hpf Urine Hyaline Casts (Auto) >30 /lpf Urine Epithelial Cells (Auto) >30 /lpf Urine Bacteria (Auto) NEG Urine Renal Epithelial Cells /lpf Urine Crystals AMORPHOUS SEDIMENT Urine Pathogenic Casts >30 GRANULAR CASTS /lpf Urine Yeast (Auto) White Blood Count 78.01 K/uL Red Blood Count 3.15 M/uL Hemoglobin 10.4 g/dL Hematocrit 29.7 % Mean Corpuscular Volume 94.3 fL Mean Corpuscular Hemoglobin 33.0 pg Mean Corpuscular Hemoglobin Concent 35.0 g/dl Platelet Count 72 K/uL RDW Standard Deviation 66.1 fL RDW Coefficient of Variation 19.4 % Neutrophils % (Manual) 27.4 % Lymphocytes % (Manual) 2.6 % Monocytes % (Manual) 69.6 % Myelocytes % 0.4 % Neutrophils # (Manual) 21.37 K/uL Total Absolute Neutrophils 21.37 K/uL Lymphocytes # (Manual) 2.03 K/uL Total Absolute Lymphocytes 2.03 K/uL Monocytes # (Manual) 54.29 K/uL Myelocytes # 0.31 K/uL Platelet Estimate DECREASED Tear Drop Cells 1+ Schistocytes OCCASIONAL Erythrocyte Sedimentation Rate 61 mm/hr Sodium Level 131 mmol/L Potassium Level 4.4 mmol/L Chloride Level 102 mmol/L Carbon Dioxide Level 19 mmol/L Anion Gap 10.0 mmol/L Blood Urea Nitrogen 39 mg/dl Creatinine 2.10 mg/dl Est Creatinine Clear Calc Drug Dose 25.8 ml/min Estimated GFR () 33.2 Estimated GFR (Non- 28.7 BUN/Creatinine Ratio 18.7 Random Glucose 169 mg/dl Calcium Level 8.4 mg/dl Total Bilirubin 0.7 mg/dl Aspartate Amino Transf (AST/SGOT) 172 U/L Alanine Aminotransferase (ALT/SGPT) 139 U/L Alkaline Phosphatase 134 U/L Total Protein 7.3 gm/dl Albumin 2.7 gm/dl Globulin 4.6 gm/dl Albumin/Globulin Ratio 0.6 Bedside Glucose 169 mg/dl 194 mg/dl
--- NOTE | 2017-02-16 13:01 | DIAGNOSTIC IMAGING REPORT ---
(LIVER) ABDOMEN LIMITED CLINICAL HISTORY: transaminitis abnormal liver function tests TECHNIQUE: Ultrasound COMPARISON STUDY: None FINDINGS: Small right pleural effusion. Fatty infiltration of the liver. Moderately contracted gallbladder with mild gallbladder wall thickening at 5 mm. No shadowing gallstones. Common bile duct 5 mm. Right kidney is negative for hydronephrosis. IMPRESSION: 1. Small right effusion. 2. Fatty infiltration of liver. 3. Contracted gallbladder. The above report was generated using voice recognition software. It may contain grammatical, syntax or spelling errors. Electronically signed by: Miles Barber M.D. 02/16/2017 1:00 PM Dictated Date/Time: 02/16/2017 12:58 PM
[2017-02-16] MEDS ORDERED: SODIUM CHLORIDE 0.9% PF 50 ML VIAL ONE (13:53)
[2017-02-16] MEDS ORDERED: BUPIVACAINE LIPOSOME 1/3% 266 MG/20 ML VIAL INFIL ONE (13:53)
[2017-02-16] MEDS ORDERED: LIDOCAINE HCL 2% 2 ML VIAL (20MG/ML) ONE (14:00)
[2017-02-16] MEDS ORDERED: GLYCOPYRROLATE INJ 0.2 MG/ML VIAL ONE (14:00)
[2017-02-16] MEDS ORDERED: DEXAMETHASONE SOD INJ 4 MG/ML VIAL ONE (14:00)
[2017-02-16] MEDS ORDERED: ONDANSETRON INJ 2 MG/ML 2 ML VIAL ONE (14:00)
[2017-02-16] MEDS ORDERED: PROPOFOL IV EMULSION 10 MG/ML 20 ML VIAL IV ONE (14:00)
[2017-02-16] MEDS ORDERED: NEOSTIGMINE METHYLSULFATE 5 MG/5 ML SYR ONE (14:00)
[2017-02-16] MEDS ORDERED: FENTANYL CITRATE INJ 50 MCG/1 ML 2 ML VIAL ONE (14:01)
[2017-02-16] MEDS ORDERED: ETOMIDATE 2 MG/ML 20 ML VIAL IV ONE (14:04)
[2017-02-16] MEDS ORDERED: SUCCINYLCHOLINE CHLORIDE 20 MG/ML 10 ML VIAL IV ONE (14:04)
[2017-02-16] MEDS ORDERED: CISATRACURIUM BESYLATE IV SOLN 2 MG/ML 10 ML VIAL ONE (14:04)
--- NOTE | 2017-02-16 14:19 | Medical Consult ---
Consultation Note Date of Service Feb 16, 2017. 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 Clayton Fox. He recently visited [facility] and felt "fine" while he was there. Recently he developed chest pain and had a syncopal episode about 5 days ago. He's been feeling a bit "more tired" over the last 2 weeks has had increasing dyspnea on exertion. He denied peripheral edema. She has had a 30 pound weight loss over the last several months. Denies a change in his bowel habits. He was seen by Dr. Pollard from a cardiology standpoint for sinus tachycardia. An echocardiogram showed some pericardial fluid but its concerning because he has diastolic collapse of the right atrium. I reviewed the echocardiogram with Dr. Pollard and we are concerned about the symptoms from his small pericardial effusion. He has neck vein distention. 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 He has a bump in his liver functions and his creatinine is increasing. I was asked to see him after he went into atrial fibrillation this morning. The patient is awake and alert And by his at the bedside. We had a long discussion. I've been asked to evaluate him for thoracic surgery standpoint for pericardial window. Past medical history: Past medical history 1 myeloproliferative disorder (CML) #2 is strong cytopenia inserted with #1 #3 diabetes mellitus #4 is osteoarthritis 5 is a remote history of pipe smoking surgical history 1 bone marrow about biopsy number next right total hip are passed 2 number next bur holes after subdural hematoma 15 years ago. appendectomy. tonsillectomy. Medications see chart Allergies: Lisinopril, Flomax Social history patient lives with his of many years. He is originally from the [facility]. 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 He taught in [place] for many years. 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 He is active. He lives in [place] [place] and spends his sanchez in [place]. Family medical history: History daughters are healthy. His mother at 83 after a stroke. Father at 53 from a "massive heart attack". His 4 grandchildren are healthy. Review of systems: Patient has weight loss as noted above. She denies any skin breakdown. He's had no visual auditory symptoms. His feels he's been a bit more confused. He does have a bump in his liver function studies as well as his creatinine. He denies fevers or chills. He's had no nausea or vomiting. Does have some chest pain with his dyspnea. Physical exam: This elderly male is awake alert and pleasant. He does have some mild confusion about his past medical history. His is here to fill in the details. His extra ocular movements are intact. His sclerae are pale. Anicteric. He has no nasolabial flattening. His teeth are in good repair. He has evidence of candidiasis. Tongue is midline. He has marked neck vein distention at 0. I detect no carotid bruits. He is moving air fairly well without wheezing. He does have some muffled heart tones. He was also seen to have pulsus paradoxus upon deep inspiration. His abdomen is soft nontender. Has no surgical incisions. He really doesn't have much in way of tenderness except over his right upper quadrant has mild tenderness to deep palpation. I do not detect hepatosplenomegaly. He has palpable femoral pulses. His feet are warm and well perfused has very faint dorsalis pedis pulses. He has no peripheral edema no joint effusions. Neurologically he's awake alert and mildly confused about some details of his social and medical history. He has no focal deficits. He understood 2 through 12 appear to be intact. Assessment/ Plan: Symptomatic pericardial effusion. I had a very long discussion with the patient and his . Regular proceed with a thoracoscopic pericardial window for treatment today. Given the changes in his labs I am hesitant to wait till tomorrow. Dr. Pollard and I discussed this in detail.
[2017-02-16] MEDS ORDERED: KETAMINE HCL INJ 50 MG/ML 10 ML VIAL ONE (14:32)
[2017-02-16] MEDS ORDERED: FENTANYL CITRATE INJ 50 MCG/1 ML 2 ML VIAL IV PRN (15:00)
[2017-02-16] MEDS ORDERED: EpHEDrine SULFATE INJ 50 MG/ML AMP IV PRN ×2 (15:00→17:00)
[2017-02-16] MEDS ORDERED: HYDROmorphone INJ 2 MG/ML SYR/VIAL IV PRN (15:00)
[2017-02-16] MEDS ORDERED: FLUMAZENIL 0.1 MG/1 ML 10 ML VIAL IV PRN (15:00)
[2017-02-16] MEDS ORDERED: NALOXONE HCL 0.4 MG/1 ML VIAL/CARP IV PRN (15:00)
[2017-02-16] MEDS ORDERED: ONDANSETRON INJ 2 MG/ML 2 ML VIAL IV PRN ×2 (15:00→16:00)
[2017-02-16] MEDS ORDERED: PHENYLEPHRINE 100MCG/ML 5ML SYR IV PRN (15:00)
[2017-02-16] MEDS ORDERED: ATROPINE SULFATE 0.1 MG/ML 5ML SYR IV PRN ×2 (15:00→17:00)
[2017-02-16] MEDS ORDERED: LABETALOL HCL IV 5 MG/ML 20ML IV PRN (15:00)
[2017-02-16] MEDS ORDERED: MEPERIDINE HCL 25 MG/ML CARP IV PRN (15:00)
[2017-02-16] MEDS ORDERED: PHENYLEPHRINE 100MCG/ML 5ML SYR ONE (15:57)
[2017-02-16] MEDS ORDERED: EpHEDrine SULFATE 50MG/5ML SYR ONE (15:57)
[2017-02-16] MEDS ORDERED: EpHEDrine SULFATE INJ 50 MG/ML AMP ONE (15:57)
[2017-02-16] MEDS ORDERED: VASOPRESSIN 20 UNIT/ML VIAL ONE (15:57)
[2017-02-16] MEDS ORDERED: MoRPHine SULFATE 2 MG/ML CARP IV PRN (16:00)
--- NOTE | 2017-02-16 16:40 | Progress Note ---
Internal Med Progress Note Date of Service: Feb 16, 2017. Provider Documentation: SUBJECTIVE: at the time of this note, patient still in surgery for pericardial window for treatment of pericardial effusion. patient may be going directly from surgery to ICU when assessed in the morning prior to surgery, patient s/p presyncopal episode when walking from bed to bathroom. patient examined afterwards in bedrest General: was responding well to questions Cardiac: was tachycardic to 120s Lungs: was breathing on room and not hypoxic Abdomen: was nontender, + bowel sounds Exremities: was no edema ASSESSMENT & PLAN: 81 year old M with symptoms of word finding difficulties and left upper extremity tremors which are new onset with tachycardia. Neurological symptoms possibly seizure, stroke, hyperviscosity. Tachycardia possible due to pericarditis/pericardial effusion Cardiology -in surgery for pericardial window - f/u results -heart rate and blood pressure management for post-op Neurological -After consultation and evaluation with [facility] neurology by the ED physician, it was decided that patient more likely had seizure symptoms rather than stroke and the patient was given Keppra 500 mg per oral x 1 as loading dose for seizure treatment -appreciate further neurology consult on Keppra dosing Hydration with IV fluids with dextrose when NPO Hemoncology -Chronic myelomonocytic leukemia on hydroxyurea and procrit at home -WBC > 50,000 on admission, 1 month ago as per outpatient records WBC around 80, 000, prior to surgery his WBC was 80,000 -anemia Hgb 10, thrombocytopenia less than 100,000 platelets on admission -Have consulted hemoncology with Dr. Gregg who has low suspicion that patient's elevated cell counts would lead to hyperviscosity related neurological/vascular etiologies explaining for symptoms. -further hemoncology consultation appreciated DVT ppx: SCDs Full Code status ([id number], [id number]) DISPOSITION: in surgery for pericardial effusion, disposition to ICU afterwards post op. Vital Signs: Date Time Temp Pulse Resp B/P (MAP) Pulse Ox O2 Delivery O2 Flow Rate FiO2 02/16/17 12:00 Room Air 02/16/17 11:47 36.6 112 19 102/72 (82) 95 Room Air 109 116/70 (85) 117 90/62 (71) 02/16/17 08:00 Room Air 02/16/17 07:42 36.7 113 19 110/75 (87) 97 Room Air 02/16/17 04:00 Room Air 02/16/17 04:00 36.7 104 18 104/70 (81) 97 Room Air 02/15/17 23:59 Room Air 02/15/17 23:14 37.1 99 18 93/63 (73) 95 Room Air 02/15/17 20:00 Room Air 02/15/17 19:50 37.0 100 20 104/69 (81) 97 Room Air 02/15/17 17:34 36.8 117 16 99/69 Room Air 02/15/17 17:25 115 18 119/79 96 02/15/17 17:02 119/80 02/15/17 16:53 125 27 97 02/15/17 16:47 128/78 Lab Results: Results Past 24 Hours Test 02/15/17 18:10 02/15/17 21:30 02/16/17 05:35 02/16/17 07:16 Range/Units Bedside Glucose 188 169 70-99 mg/dl Urine Color DK YELLOW Urine Appearance TURBID CLEAR Urine pH 5.0 4.5-7.5 Urine Specific [place] 1.027 1.000-1.030 Urine Protein 2+ NEG Urine Glucose (UA) NEG NEG Urine Ketones TRACE NEG Urine Occult Blood TRACE NEG Urine Nitrite NEG NEG Urine Bilirubin NEG NEG Urine Urobilinogen NEG NEG Urine Leukocyte Esterase NEG NEG Urine WBC (Auto) >30 0-5 /hpf Urine RBC (Auto) 0-4 0-4 /hpf Urine Hyaline Casts (Auto) >30 0-5 /lpf Urine Epithelial Cells (Auto) >30 0-5 /lpf Urine Bacteria (Auto) NEG NEG Urine Renal Epithelial Cells 0-5 /lpf Urine Crystals AMORPHOUS SEDIMENT NONE PRSENT Urine Pathogenic Casts >30 GRANULAR CASTS 0 /lpf Urine Yeast (Auto) NONE PRSENT White Blood Count 78.01 4.8-10.8 K/uL Red Blood Count 3.15 4.7-6.1 M/uL Hemoglobin 10.4 14.0-18.0 g/dL Hematocrit 29.7 42-52 % Mean Corpuscular Volume 94.3 80-100 fL Mean Corpuscular Hemoglobin 33.0 25-34 pg Mean Corpuscular Hemoglobin Concent 35.0 32-36 g/dl Platelet Count 72 130-400 K/uL RDW Standard Deviation 66.1 36.4-46.3 fL RDW Coefficient of Variation 19.4 11.5-14.5 % Neutrophils % (Manual) 27.4 % Lymphocytes % (Manual) 2.6 % Monocytes % (Manual) 69.6 % Myelocytes % 0.4 % Neutrophils # (Manual) 21.37 1.4-6.5 K/uL Total Absolute Neutrophils 21.37 1.4-6.5 K/uL Lymphocytes # (Manual) 2.03 1.2-3.4 K/uL Total Absolute Lymphocytes 2.03 1.2-3.4 K/uL Monocytes # (Manual) 54.29 0.11-0.59 K/uL Myelocytes # 0.31 0-0 K/uL Platelet Estimate DECREASED Tear Drop Cells 1+ Schistocytes OCCASIONAL Erythrocyte Sedimentation Rate 61 0-14 mm/hr Sodium Level 131 136-145 mmol/L Potassium Level 4.4 3.5-5.1 mmol/L Chloride Level 102 98-107 mmol/L Carbon Dioxide Level 19 21-32 mmol/L Anion Gap 10.0 3-11 mmol/L Blood Urea Nitrogen 39 7-18 mg/dl Creatinine 2.10 0.60-1.40 mg/dl Est Creatinine Clear Calc Drug Dose 25.8 ml/min Estimated GFR () 33.2 Estimated GFR (Non- 28.7 BUN/Creatinine Ratio 18.7 10-20 Random Glucose 169 70-99 mg/dl Calcium Level 8.4 8.5-10.1 mg/dl Total Bilirubin 0.7 0.2-1 mg/dl Aspartate Amino Transf (AST/SGOT) 172 15-37 U/L Alanine Aminotransferase (ALT/SGPT) 139 12-78 U/L Alkaline Phosphatase 134 45-117 U/L Total Protein 7.3 6.4-8.2 gm/dl Albumin 2.7 3.4-5.0 gm/dl Globulin 4.6 2.5-4.0 gm/dl Albumin/Globulin Ratio 0.6 0.9-2 Test 02/16/17 11:11 Range/Units Bedside Glucose 194 70-99 mg/dl Microbiology Results 02/15/17 Urine Culture - Preliminary, Resulted NO GROWTH - LESS THAN 1,000 COLONIES/... 02/16/17 Acid Fast Stain, Received Pending 02/16/17 Mycobacterial Culture, Received Pending 02/16/17 Fungal Smear, Received Pending 02/16/17 Fungal Culture, Received Pending 02/16/17 Gram Stain, Received Pending 02/16/17 Bacterial Culture, Received Pending 02/16/17 Fungal Smear, Received Pending 02/16/17 Fungal Culture, Received Pending 02/16/17 Acid Fast Stain, Received Pending 02/16/17 Mycobacterial Culture, Received Pending 02/16/17 Gram Stain, Received Pending 02/16/17 Bacterial Culture, Received Pending 02/16/17 Fungal Smear, Received Pending 02/16/17 Fungal Culture, Received Pending 02/16/17 Acid Fast Stain, Received Pending 02/16/17 Mycobacterial Culture, Received Pending 02/16/17 Gram Stain, Received Pending 02/16/17 Bacterial Culture, Received Pending
--- NOTE | 2017-02-16 16:56 | Nephrology Consultation ---
Nephrology Consultation Date of Consultation: Feb 16, 2017. Attending Physician: Dr Stephens Requesting Physician: Dr Stephens Reason for Consultation: ANOOP History of Present Illness 81 year old male w/ CMML admitted yesterday w/ concern for seizure versus stroke at home after he developed word finding difficulties and difficulties understanding written words as well as LUE tremors. No motor weakness or changes in sensation/vision. 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 His baseline creatinine is mid 1's for at least the past year, with proteinuria in the 1-2 gm daily range. He is on an ARB as an outpt. His WBC in january 2017 as outpt ranged 50K-111K. Note also that in the past month he and his flew to [facility] and took a cruise to [place] then flew home. No leg swelling or severe dyspnea though he does note chronic dry cough (predates trip) and more exertional dyspnea lately as tachycardia has worsened (since arriving home). Has been having progressive wt loss 30 lb for a few mos prior to admission. he had recently been evaluated by cardiology as an outpt for tachycardia and 2 wks of blacking out/orthostatic sx. His BB had been stopped d /t these sx and avapro dose halved. Cardiology evaluated him in ER yesterday and noted to have small pericardial effusion, sinus tach on bedside TTE. MRI was considered but ultimately not done d/t hip hardware; for formal TTE today. he has had a small amount of IVF <> less than 1L overall; currently getting D5NS at 75 mL hourly and is NPO for possible tests. SBP have been 90-120s; HR about the same. His is at bedside and provides much of the hx. Past Medical/Surgical History Medical Problems: (1) Aphasia Status: Acute -proteinuric CKD 3 baseline creatinine mid 1's -CMML follows w/ Dr Pérez -HTN -anemia multifactorial -frequent SVT/ ventricular ectopy on alarm security or surveillance monitor -chloe hole for i-c bleed 2008 w/ head trauma -BL cataracts -R total hip 2002 -carpal tunnel surgery 2012 -remote tobacco abuse Family History Diabetes mellitus Heart disease Hypertension Social History Smoking Status: Never Smoker Alcohol Use: none Drug Use: none Marital Status: Housing Status: lives with family Occupation Status: retired Allergies Coded Allergies: Lisinopril (Verified Allergy, Unknown, ., 02/15/17) Tamsulosin (Unverified Allergy, Unknown, EDEMA FACE,LIPS,TONGUE, 02/15/17) Medications Current Inpatient Medications Medications (Trade) Dose Ordered Sig/Jarvis Route Start Time Stop Time Status Last Admin Dose Admin Metoprolol Tartrate (Lopressor Tab) 12.5 mg BID PO 02/16/17 09:00 03/18/17 08:59 02/16/17 07:40 12.5 MG Metoprolol Tartrate (Lopressor Iv) 5 mg Q6 PRN IV 02/15/17 17:45 03/17/17 17:44 Hydralazine HCl (HydrALAZINE INJ) 5 mg Q6 PRN IV. 02/15/17 17:45 03/17/17 17:44 Dextrose/Sodium Chloride 1,000 ml @ 75 mls/hr [id number] IV 02/15/17 18:24 03/17/17 18:23 02/16/17 07:40 75 MLS/HR Home Meds and Scripts Medications Dose Route/Sig Max Daily Dose Days Date Category Hydrea Cap (Hydroxyurea) 500 Mg Cap 1,000 Mg PO QDD 02/15/17 Reported Allopurinol 100 Mg Tab 200 Mg PO DAILY 02/15/17 Reported Megace Oral (Megestrol Acetate) 40 Mg/Ml Kristen 20 Mg PO DAILY 02/15/17 Reported Irbesartan 75 Mg Tab 37.5 Mg PO DAILY 02/15/17 Reported B Complex (B-Complex W/ Folic Acid) 1 Tab Tab 1 Tab PO DAILY 01/22/15 Reported Glucosamine (Glucosamine Sulfate) 500 Mg Cap 1 Cap PO DAILY 11/20/14 Reported Aspirin Chewable (Aspirin) 81 Mg Chew 81 Mg PO DAILY 11/20/14 Reported Avodart (Dutasteride) 0.5 Mg Cap 0.5 Mg PO DAILY 11/20/14 Reported Multivitamin (Multivitamins) Tab 1 Tab PO DAILY 01/26/09 Reported Tylenol (Acetaminophen) 500 Mg Tab 500 Mg PO TID PRN 01/26/09 Reported Review of Systems Constitutional: + weight loss, + weakness, + fatigue, No fever Eyes: No worsening of vision ENT: No hearing loss, No trouble swallowing, No pain on swallowing Respiratory: + cough, + dyspnea on exertion, No dyspnea at rest Cardiac: + chest pain (BL anterior chest/ cape like, unrelated to exertion or eating), + palpitations, No edema Abdomen: No pain, No nausea, No vomiting, No diarrhea, No constipation Musculoskeletal: No joint pain, No muscle pain, No calf pain Male : + nocturia more than once/night, No dysuria, No urinary frequency, No hematuria Neuro: + see HPI, + balance problems, No memory loss, No weakness Psych: No depression symptoms, No anxiety Heme: No abnormal bleeding/bruising Endo: + fatigue Skin: No rash, No new/changing skin lesions Physical Exam Date Time Temp Pulse Resp B/P (MAP) Pulse Ox O2 Delivery O2 Flow Rate FiO2 02/16/17 08:00 Room Air 02/16/17 07:42 36.7 113 19 110/75 (87) 97 Room Air 02/16/17 04:00 Room Air 02/16/17 04:00 36.7 104 18 104/70 (81) 97 Room Air 02/15/17 23:59 Room Air 02/15/17 23:14 37.1 99 18 93/63 (73) 95 Room Air 02/15/17 20:00 Room Air 02/15/17 19:50 37.0 100 20 104/69 (81) 97 Room Air 02/15/17 17:34 36.8 117 16 99/69 Room Air 02/15/17 17:25 115 18 119/79 96 02/15/17 17:02 119/80 02/15/17 16:53 125 27 97 02/15/17 16:47 128/78 02/15/17 16:38 121 25 97 02/15/17 16:32 111/91 02/15/17 16:23 120 26 97 02/15/17 16:17 124/78 02/15/17 16:08 110 25 97 02/15/17 16:02 121/74 02/15/17 15:53 118 22 98 02/15/17 15:47 130/75 02/15/17 15:38 103 24 98 02/15/17 15:23 102 26 100 02/15/17 15:17 133/90 02/15/17 15:08 102 23 02/15/17 15:02 121/80 02/15/17 14:53 104 21 02/15/17 14:47 131/78 02/15/17 14:47 104 22 131/78 99 Room Air 02/15/17 14:38 102 23 02/15/17 14:32 143/86 02/15/17 14:29 106 21 140/77 99 Room Air 02/15/17 14:23 101 24 99 02/15/17 14:17 140/77 02/15/17 14:12 102 23 114/80 99 Room Air 02/15/17 14:08 94 22 99 02/15/17 14:02 114/80 02/15/17 14:01 99 29 122/70 99 Room Air 02/15/17 13:53 105 22 99 02/15/17 13:47 122/70 02/15/17 13:42 99 29 130/75 94 Room Air 02/15/17 13:40 130/75 02/15/17 13:27 107 02/15/17 13:23 99 22 98 02/15/17 13:08 96 21 99 02/15/17 13:02 116/69 02/15/17 12:53 99 21 98 02/15/17 12:50 99 Room Air 02/15/17 12:43 130/70 02/15/17 12:35 36.7 115 20 121/67 99 Room Air General Appearance: WD/WN, no apparent distress, + thin, + pertinent finding ( on RA, oriented x 3, no obvious word finding problems but ? slight psychomotor delay) Eyes: EOMI ENT: normal ENT inspection Neck: supple Respiratory/Chest: lungs clear, + decreased breath sounds Cardiovascular: no edema, + tachycardia (regularly spaced) Abdomen: normal bowel sounds, non tender, soft, + pertinent finding (no vega) Extremities: normal inspection, no pedal edema Neurologic/Psych: alert, normal mood/affect, oriented x 3, + pertinent finding (no rash) Skin: no jaundice, warm/dry, no rash, + pallor Diagnostics Last 24 Hours Test 02/15/17 13:40 02/15/17 13:42 02/15/17 13:46 02/15/17 18:10 White Blood Count 54.36 K/uL Red Blood Count 3.13 M/uL Hemoglobin 10.2 g/dL Hematocrit 29.7 % Mean Corpuscular Volume 94.9 fL Mean Corpuscular Hemoglobin 32.6 pg Mean Corpuscular Hemoglobin Concent 34.3 g/dl Platelet Count 83 K/uL RDW Standard Deviation 67.4 fL RDW Coefficient of Variation 19.6 % Neutrophils % (Manual) 27.3 % Lymphocytes % (Manual) 10.0 % Monocytes % (Manual) 55.5 % Basophils % (Manual) 0.9 % Metamyelocytes % 1.8 % Myelocytes % 4.5 % Neutrophils # (Manual) 14.84 K/uL Total Absolute Neutrophils 14.84 K/uL Lymphocytes # (Manual) 5.44 K/uL Total Absolute Lymphocytes 5.44 K/uL Monocytes # (Manual) 30.17 K/uL Basophils # (Manual) 0.49 K/uL Metamyelocytes # 0.98 K/uL Myelocytes # 2.45 K/uL Hypogranular Neutrophils 2+ Platelet Estimate DECREASED Anisocytosis PRESENT Tear Drop Cells 1+ Prothrombin Time 11.2 SECONDS Prothromb Time International Ratio 1.0 Activated Partial Thromboplast Time 30.4 SECONDS Partial Thromboplastin Ratio 1.2 Sodium Level 132 mmol/L Potassium Level 4.9 mmol/L Chloride Level 102 mmol/L Carbon Dioxide Level 23 mmol/L Anion Gap 7.0 mmol/L Blood Urea Nitrogen 34 mg/dl Creatinine 1.50 mg/dl Est Creatinine Clear Calc Drug Dose 36.6 ml/min Estimated GFR () 49.9 Estimated GFR (Non- 43.0 BUN/Creatinine Ratio 22.6 Random Glucose 125 mg/dl Calcium Level 8.5 mg/dl Total Creatine Kinase 58 U/L Creatine Kinase MB 1.9 ng/ml Creatine Kinase MB Ratio 3.3 Troponin I < 0.015 ng/ml Bedside Glucose 116 mg/dl 188 mg/dl Bedside Prothrombin Time INR 1.2 Test 02/15/17 21:30 02/16/17 05:35 02/16/17 07:16 Urine Color DK YELLOW Urine Appearance TURBID Urine pH 5.0 Urine Specific [place] 1.027 Urine Protein 2+ Urine Glucose (UA) NEG Urine Ketones TRACE Urine Occult Blood TRACE Urine Nitrite NEG Urine Bilirubin NEG Urine Urobilinogen NEG Urine Leukocyte Esterase NEG Urine WBC (Auto) >30 /hpf Urine RBC (Auto) 0-4 /hpf Urine Hyaline Casts (Auto) >30 /lpf Urine Epithelial Cells (Auto) >30 /lpf Urine Bacteria (Auto) NEG Urine Renal Epithelial Cells /lpf Urine Crystals AMORPHOUS SEDIMENT Urine Pathogenic Casts >30 GRANULAR CASTS /lpf Urine Yeast (Auto) White Blood Count 78.01 K/uL Red Blood Count 3.15 M/uL Hemoglobin 10.4 g/dL Hematocrit 29.7 % Mean Corpuscular Volume 94.3 fL Mean Corpuscular Hemoglobin 33.0 pg Mean Corpuscular Hemoglobin Concent 35.0 g/dl Platelet Count 72 K/uL RDW Standard Deviation 66.1 fL RDW Coefficient of Variation 19.4 % Neutrophils % (Manual) 27.4 % Lymphocytes % (Manual) 2.6 % Monocytes % (Manual) 69.6 % Myelocytes % 0.4 % Neutrophils # (Manual) 21.37 K/uL Total Absolute Neutrophils 21.37 K/uL Lymphocytes # (Manual) 2.03 K/uL Total Absolute Lymphocytes 2.03 K/uL Monocytes # (Manual) 54.29 K/uL Myelocytes # 0.31 K/uL Platelet Estimate DECREASED Tear Drop Cells 1+ Schistocytes OCCASIONAL Erythrocyte Sedimentation Rate 61 mm/hr Sodium Level 131 mmol/L Potassium Level 4.4 mmol/L Chloride Level 102 mmol/L Carbon Dioxide Level 19 mmol/L Anion Gap 10.0 mmol/L Blood Urea Nitrogen 39 mg/dl Creatinine 2.10 mg/dl Est Creatinine Clear Calc Drug Dose 25.8 ml/min Estimated GFR () 33.2 Estimated GFR (Non- 28.7 BUN/Creatinine Ratio 18.7 Random Glucose 169 mg/dl Calcium Level 8.4 mg/dl Total Bilirubin 0.7 mg/dl Aspartate Amino Transf (AST/SGOT) 172 U/L Alanine Aminotransferase (ALT/SGPT) 139 U/L Alkaline Phosphatase 134 U/L Total Protein 7.3 gm/dl Albumin 2.7 gm/dl Globulin 4.6 gm/dl Albumin/Globulin Ratio 0.6 Bedside Glucose 169 mg/dl Diagnostic Radiology: cxr > moderate cardiomegaly head CT > no acute i-c process; +chronic and post op changes renal u/s 2016 > symmetric kidneys; no hydro; one small nonbstructing stone; ++ bladder debris/stones EKG: ECG sinus tach Assessment & Plan 81 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 His urine sediment is suggestive of ATN > he is dehydrated w/ poor po intake; this is a contaminated specimen. no evidence of infection; no change in chronic proteinuria. His blood tests of renal function were at baseline on presentation but worsened today. ANOOP nonoliguric on CKD 3 most consistent with ATN based on urine sediment; this may however prove difficult to interpret given bladder stone hx. electrolytes acceptable; ARB appropriately held -strict I/O -bladder scan q shift x 2>str cath for >300 mL retained urine -cont D5NS at 75 ml hourly as tolerated -check orthostatic VS if not already done -cont to hold ARB -daily bmp -no indication for renal diet or dialysis at this point -no indication at this time for renal imaging but low threshold to pursue this if he worsens clinically -doubt pericardial effusion relates to ANOOP hyponatremia suspect mild volume depletion or may relate to transaminitis -check serum osms in am or w/ next labs tachycardia, concern for pericardial effusion -consider closer eval given travel hx for PE > LE dopplers and VQ scan -f/u formal TTE and cardiology recs CMML -no indication that leukocytosis affects renal parameters at this time Appreciate consult; will follow with you. care coordinated w/ Dr Setphens
[2017-02-16] MEDS ORDERED: SODIUM CHLORIDE 0.9% INJ 10 ML VIAL ONE (17:06)
[2017-02-16] MEDS ORDERED: CEFAZOLIN SOD 1 GM VIAL ONE (17:06)
--- NOTE | 2017-02-16 17:14 | DIAGNOSTIC IMAGING REPORT ---
CHEST ONE VIEW PORTABLE CLINICAL HISTORY: pericardial window postoperative evaluation COMPARISON STUDY: 02/15/2017 FINDINGS: Right-sided chest tube in good position. No significant pneumothorax. Subcutaneous emphysema over the right hemithoracic region. Moderate stable cardiomegaly. Mild increase in density left base possibly secondary to a small left effusion versus atelectatic change. IMPRESSION: 1. Postoperative changes right hemithorax with no significant pneumothorax. 2. Right-sided chest tube in good position. 3. Subcutaneous emphysema overlying the right hemithorax. 4. Small left effusion and/or slightly progressive left basilar infiltrate The above report was generated using voice recognition software. It may contain grammatical, syntax or spelling errors. Electronically signed by: Miles Barber M.D. 02/16/2017 5:12 PM Dictated Date/Time: 02/16/2017 5:11 PM
[2017-02-16 17:18] LABS: ISTAT ARTERIAL BLOOD GAS HCO3 16 meq/L (19-24); ISTAT ARTERIAL BLOOD GAS PCO2 89 mmHg (35-46); ISTAT ARTERIAL BLOOD GAS PO2 93 mmHg (80-95); ISTAT ARTERIAL BLOOD GAS pH 6.86 (7.35-7.45); ISTAT CARBON DIOXIDE 18 mEq/l (24-31)
[2017-02-16 17:48] LABS: ARTERIAL BLD GAS O2 SATURATION 92.2 % (90-95); ARTERIAL BLOOD GAS BASE EXCESS -8.6 mEq/L (-9-1.8); ARTERIAL BLOOD GAS HCO3 16 mmol/L (19-24); ARTERIAL BLOOD GAS PO2 72 mm/Hg (80-95); ARTERIAL BLOOD GAS pH 7.35 (7.35-7.45)
[2017-02-16 17:49] LABS: ALLEN TEST ARTLINE (POS); O2 ADMINISTRATION 15 L
--- NOTE | 2017-02-16 17:57 | Anesthesiology Progress Note ---
Anesthesia Post Op Note Date & Time Feb 16, 2017 at 17:57 Vital Signs Pain Intensity: 0 Vital Signs Past 12 Hours Date Time Temp Pulse Resp B/P (MAP) Pulse Ox O2 Delivery O2 Flow Rate FiO2 02/16/17 17:45 107 21 02/16/17 17:45 106 21 106/71 94 02/16/17 17:40 105 16 110/68 96 02/16/17 17:40 106 16 02/16/17 17:35 108 20 106/66 97 02/16/17 17:35 108 20 02/16/17 17:30 107 19 122/66 98 02/16/17 17:30 108 19 02/16/17 17:29 105 18 02/16/17 17:29 105 18 02/16/17 17:29 105 18 104/67 98 02/16/17 17:29 105 18 104/67 98 02/16/17 17:25 36.6 107 17 104/67 98 Mask 4 02/16/17 17:24 104 12 97 02/16/17 17:24 103 12 02/16/17 17:24 104 12 97 02/16/17 17:24 103 12 02/16/17 17:15 113 18 109/76 97 Mask 10 02/16/17 17:05 111 23 132/51 96 Mask 15 02/16/17 16:55 111 24 134/81 94 Mask 15 02/16/17 16:49 36.2 105 26 133/89 27 Mask 15 02/16/17 12:00 Room Air 02/16/17 11:47 36.6 112 19 102/72 (82) 95 Room Air 109 116/70 (85) 117 90/62 (71) 02/16/17 08:00 Room Air 02/16/17 07:42 36.7 113 19 110/75 (87) 97 Room Air Notes Mental Status: alert / awake / arousable, participated in evaluation Pt Amnestic to Procedure: Yes Nausea / Vomiting: adequately controlled Pain: adequately controlled Airway Patency, RR, SpO2: stable & adequate BP & HR: stable & adequate Hydration State: stable & adequate Anesthetic Complications: no major complications apparent
--- NOTE | 2017-02-16 18:00 | Anesthesiology Progress Note ---
Anesthesia Progress Note Date of Service Feb 16, 2017. Progress Notes This patient shall be transferred to ICU from PACU as per Dr Bailey's plan.I have spoken with Dr Zamora and have have given him report verbally on the intraop and PACU course.
--- NOTE | 2017-02-16 18:39 | Cardiology Progress Note ---
Cardiology Progress Note Date of Service Feb 16, 2017. Cardiology Progress Note I checked up on patient's post operative progress from my office by telephone. I spoke to Dr Bailey , reviewed pt's vital signs remotely, and reviewed his telemetry now that he has been transferred from PACU to SICU room 107. I spoke to his nurse in the ICU on the phone. Pt has reverted from AFib to sinus tachycardia at 110 bpm (improvement) BP stable at 101/46. Pt reportedly resting comfortably with chest tube in place. Plan for repeat EKG and limited echo to follow up effusion in am 02/17/17. Pt received vigorous IVF resuscitation, will monitor is I/ O's. Nolan Pollard DO
--- NOTE | 2017-02-16 19:11 | Critical Care Consultation ---
Critical Care Consultation Date of Consultation: Feb 16, 2017. Attending Physician: Krishna Stephens M.D. Reason for Consultation: Post-op Pericardial Window History of Present Illness The patient is an 81 year old male resident at [facility] with a pmh of CML, DM, and HTN that presented to the ED with chest pain radiating to his shoulders and confusion with difficulty finding words to say. Tele-stroke at [place] was called and made the diagnosis of seizure and the patient was loaded with Keppra. Other possible differentials at the time included hyperviscosity syndrome from the leukemia. CT head revealed no intracranial abnormalities in the ED. On admission the WBC > 50,000 and is currently being treated by Dr. Gregg with Hydroxyurea and Procrit. Patient also developed new onset tremors along with neurological symptoms. The patient in the ED was found to be tachycardic in the ED and Dr. Pollard had been following him for the last 2 weeks with cardiac monitoring, due to a recent history of progressive shortness of breath and syncopal episode. The patient's mental status significantly improved today and the patient stated he was having improved cognitive function. The echocardiogram ordered by Dr. Pollard revealed mild to moderate circumferential pericardial effusion with partial collapse of the left atrium. The patient was found to have distended neck veins, pulsus paradoxicus, and elevated LFT and Cr. Based on the findings of symptomatic pericardial effusion, the patient was taken to the OR by Dr. Bailey to perform a thoracoscopic pericardial window Past Medical/Surgical History HTN, Chronic Myeloid Leukemia, Diabetes Family History Diabetes mellitus Heart disease Hypertension Social History Smoking Status: Never Smoker Drug Use: none Marital Status: Housing Status: lives with family Occupation Status: retired Allergies Coded Allergies: Lisinopril (Verified Allergy, Unknown, ., 02/15/17) Tamsulosin (Unverified Allergy, Unknown, EDEMA FACE,LIPS,TONGUE, 02/15/17) Home Medications Scheduled Acetaminophen (Tylenol), 500 MG PO TID PRN Allopurinol (Allopurinol), 200 MG PO DAILY Aspirin (Aspirin Chewable), 81 MG PO DAILY B-Complex W/ Folic Acid (B Complex), 1 TAB PO DAILY Dutasteride (Avodart), 0.5 MG PO DAILY Glucosamine Sulfate (Glucosamine), 1 CAP PO DAILY Hydroxyurea (Hydrea Cap), 1,000 MG PO QDD Irbesartan (Irbesartan), 37.5 MG PO DAILY Megestrol Acetate (Megace Oral), 20 MG PO DAILY Multivitamin (Multivitamin), 1 TAB PO DAILY Current Inpatient Medications Current Inpatient Medications Medications (Trade) Dose Ordered Sig/Jarvis Route Start Time Stop Time Status Last Admin Dose Admin Metoprolol Tartrate (Lopressor Tab) 12.5 mg BID PO 02/16/17 09:00 03/18/17 08:59 02/16/17 07:40 12.5 MG Metoprolol Tartrate (Lopressor Iv) 5 mg Q6 PRN IV 02/15/17 17:45 03/17/17 17:44 Dextrose/Sodium Chloride 1,000 ml @ 75 mls/hr [id number] IV 02/15/17 18:24 03/17/17 18:23 02/16/17 07:40 75 MLS/HR Allopurinol (Zyloprim Tab) 200 mg DAILY PO 02/17/17 09:00 03/19/17 08:59 Hydroxyurea (Hydrea Cap) 1,000 mg QDD PO 02/16/17 16:45 03/18/17 16:44 Vitamin B Complex (Vitamin B Complex) 1 tab DAILY PO 02/17/17 09:00 03/19/17 08:59 Levetiracetam 500 mg/Dextrose 105 ml @ 420 mls/hr Q12H IV 02/16/17 18:00 03/18/17 17:59 Hydromorphone HCl (Dilaudid Inj) 0.5 mg Q5M PRN IV 02/16/17 15:00 02/16/17 20:00 Fentanyl Citrate (Fentanyl Inj) 25 mcg Q5M PRN IV 02/16/17 15:00 02/16/17 20:00 Naloxone HCl (Narcan Inj) 0.2 mg Q2M PRN IV 02/16/17 15:00 02/16/17 20:00 Meperidine HCl (Demerol Inj) 12.5 mg Q5M PRN IV 02/16/17 15:00 02/16/17 20:00 Ondansetron HCl (Zofran Inj) 4 mg ONE PRN IV 02/16/17 15:00 02/16/17 20:00 Flumazenil (Romazicon Inj) 0.2 mg Q2M PRN IV 02/16/17 15:00 02/16/17 20:00 Labetalol HCl (Normodyne IV) 5 mg Q5M PRN IV 02/16/17 15:00 02/16/17 20:00 Ephedrine Sulfate (EpHEDrine SULFATE INJ) 5 mg Q5M PRN IV 02/16/17 15:00 02/16/17 20:00 Atropine Sulfate (Atropine Sulfate 0.1MG/Ml Inj) 0.5 mg Q1M PRN IV 02/16/17 15:00 02/16/17 20:00 Phenylephrine HCl (Bob-Synephrine 500MCG/5ML Syr) 100 mcg Q5M PRN IV 02/16/17 15:00 02/16/17 20:00 Ondansetron HCl (Zofran Inj) 4 mg Q4H PRN IV 02/16/17 16:00 03/18/17 15:59 Cefazolin Sodium 2000 mg/Dextrose 110 ml @ 100 mls/hr Q8H IV 02/16/17 22:00 02/17/17 07:05 Morphine Sulfate (MoRPHine SULFATE INJ) Q1H PRN IV 02/16/17 16:00 03/02/17 15:59 Ephedrine Sulfate (EpHEDrine SULFATE INJ) 5 mg Q5M PRN IV 02/16/17 17:00 02/16/17 22:00 Atropine Sulfate (Atropine Sulfate 0.1MG/Ml Inj) 0.5 mg Q1M PRN IV 02/16/17 17:00 02/16/17 22:00 Review of Systems Constitutional: No fever, No chills, No fatigue Respiratory: + cough, + sputum (yellow), No shortness of breath Cardiovascular: No chest pain, No palpitations Abdomen: No pain, No nausea, No vomiting Neurologic: No memory loss, No numbness/tingling Physical Exam Date Time Temp Pulse Resp B/P (MAP) Pulse Ox O2 Delivery O2 Flow Rate FiO2 02/16/17 18:06 108 20 94 02/16/17 18:06 108 20 02/16/17 18:05 106/64 02/16/17 18:01 108 19 02/16/17 18:01 108 19 94 02/16/17 18:00 92/67 02/16/17 17:56 106 18 9/11/17 17:56 106 18 94 02/16/17 17:55 107/66 02/16/17 17:51 107 16 02/16/17 17:51 107 16 94 02/16/17 17:50 107/65 02/16/17 17:46 107 20 94 02/16/17 17:46 107 20 02/16/17 17:45 107 21 02/16/17 17:45 106 21 106/71 94 02/16/17 17:40 105 16 110/68 96 02/16/17 17:40 106 16 02/16/17 17:35 108 20 106/66 97 02/16/17 17:35 108 20 02/16/17 17:30 107 19 122/66 98 02/16/17 17:30 108 19 02/16/17 17:29 105 18 02/16/17 17:29 105 18 02/16/17 17:29 105 18 104/67 98 02/16/17 17:29 105 18 104/67 98 02/16/17 17:25 36.6 107 17 104/67 98 Mask 4 02/16/17 17:24 104 12 97 02/16/17 17:24 103 12 02/16/17 17:24 104 12 97 02/16/17 17:24 103 12 02/16/17 17:15 113 18 109/76 97 Mask 10 02/16/17 17:05 111 23 132/51 96 Mask 15 02/16/17 16:55 111 24 134/81 94 Mask 15 02/16/17 16:49 36.2 105 26 133/89 27 Mask 15 02/16/17 12:00 Room Air 02/16/17 11:47 36.6 112 19 102/72 (82) 95 Room Air 109 116/70 (85) 117 90/62 (71) 02/16/17 08:00 Room Air 02/16/17 07:42 36.7 113 19 110/75 (87) 97 Room Air 02/16/17 04:00 Room Air 02/16/17 04:00 36.7 104 18 104/70 (81) 97 Room Air 02/15/17 23:59 Room Air 02/15/17 23:14 37.1 99 18 93/63 (73) 95 Room Air 02/15/17 20:00 Room Air 02/15/17 19:50 37.0 100 20 104/69 (81) 97 Room Air General Appearance: no apparent distress, thin Head: normocephalic, atraumatic Eyes: sclerae normal, conjunctivae normal ENT: normal mouth exam Neck: trachea midline, supple, no nuchal rigidity Respiratory: no respiratory distress, no tenderness, other (decreased breath sounds) Cardiovasular: regular rate/rhythm, normal S1S2, no M/G/R, no murmur, no JVD, other (Chest tube over right side of chest draining serosanguinous fluid) Abdomen: non tender, normal bowel sounds, no rebound Genitourinary - Male: other (Noble Catheter) Upper Extremities: no edema Lower Extremities: no edema Neuro: alert, oriented x 3, normal speech Psychiatric: normal affect Laboratory Results Last 24 Hours Test 02/15/17 21:30 02/16/17 05:35 02/16/17 07:16 02/16/17 11:11 Urine Color DK YELLOW Urine Appearance TURBID Urine pH 5.0 Urine Specific [place] 1.027 Urine Protein 2+ Urine Glucose (UA) NEG Urine Ketones TRACE Urine Occult Blood TRACE Urine Nitrite NEG Urine Bilirubin NEG Urine Urobilinogen NEG Urine Leukocyte Esterase NEG Urine WBC (Auto) >30 /hpf Urine RBC (Auto) 0-4 /hpf Urine Hyaline Casts (Auto) >30 /lpf Urine Epithelial Cells (Auto) >30 /lpf Urine Bacteria (Auto) NEG Urine Renal Epithelial Cells /lpf Urine Crystals AMORPHOUS SEDIMENT Urine Pathogenic Casts >30 GRANULAR CASTS /lpf Urine Yeast (Auto) White Blood Count 78.01 K/uL Red Blood Count 3.15 M/uL Hemoglobin 10.4 g/dL Hematocrit 29.7 % Mean Corpuscular Volume 94.3 fL Mean Corpuscular Hemoglobin 33.0 pg Mean Corpuscular Hemoglobin Concent 35.0 g/dl Platelet Count 72 K/uL RDW Standard Deviation 66.1 fL RDW Coefficient of Variation 19.4 % Neutrophils % (Manual) 27.4 % Lymphocytes % (Manual) 2.6 % Monocytes % (Manual) 69.6 % Myelocytes % 0.4 % Neutrophils # (Manual) 21.37 K/uL Total Absolute Neutrophils 21.37 K/uL Lymphocytes # (Manual) 2.03 K/uL Total Absolute Lymphocytes 2.03 K/uL Monocytes # (Manual) 54.29 K/uL Myelocytes # 0.31 K/uL Platelet Estimate DECREASED Tear Drop Cells 1+ Schistocytes OCCASIONAL Erythrocyte Sedimentation Rate 61 mm/hr Sodium Level 131 mmol/L Potassium Level 4.4 mmol/L Chloride Level 102 mmol/L Carbon Dioxide Level 19 mmol/L Anion Gap 10.0 mmol/L Blood Urea Nitrogen 39 mg/dl Creatinine 2.10 mg/dl Est Creatinine Clear Calc Drug Dose 25.8 ml/min Estimated GFR () 33.2 Estimated GFR (Non- 28.7 BUN/Creatinine Ratio 18.7 Random Glucose 169 mg/dl Calcium Level 8.4 mg/dl Total Bilirubin 0.7 mg/dl Aspartate Amino Transf (AST/SGOT) 172 U/L Alanine Aminotransferase (ALT/SGPT) 139 U/L Alkaline Phosphatase 134 U/L Total Protein 7.3 gm/dl Albumin 2.7 gm/dl Globulin 4.6 gm/dl Albumin/Globulin Ratio 0.6 Bedside Glucose 169 mg/dl 194 mg/dl Test 02/16/17 15:40 02/16/17 17:31 Bedside Blood Gas pH (LAB) 6.86 Bedside Blood Gas pCO2 (LAB) 89 mmHg Bedside Blood Gas pO2 (LAB) 93 mmHg Bedside Blood Gas HCO3 (LAB) 16 meq/L Bedside Blood Gas Total CO2 18 mEq/l Bedside Blood Gas Base Excess (LAB) -18.0 meq/L Bedside Blood Gas O2 Saturation 86.0 % Arterial Blood pH 7.35 Arterial Blood Partial Pressure CO2 30 mmHg Arterial Blood Partial Pressure O2 72 mm/Hg Arterial Blood HCO3 16 mmol/L Arterial Blood Oxygen Saturation 92.2 % Arterial Blood Base Excess -8.6 mEq/L Arterial Blood Gas Delivery 15 L [place] Test ARTLINE Assessment & Plan Patient is an 81 year old male that presents with chest pain and difficulty finding words found to have a pericardial effusion and is currently s/p transthoracic pericardial window Neuro - A&O x 3 - CAM-ICU Negative - Received Keppra 500mg x 1 as loading dose for possible seizure - AMS from ED seems to have resolved this morning - CT head showed no acute intracranial abnormalities CV - NSR s/p transthoracic pericardial window - Admit to the ICU - Troponin < 0.015 - Holding home metoprolol and Irbesartan - Follow up Echo and EKG scheduled for tomorrow - 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 - ABG significantly improved after procedure - pH 7.35, pCO2 30, HCO3 16 GI - Transaminitis --> AST 172, ALT 139, Alk Phos 134 Nephro - ANOOP nonoliguric on CKD stage 3 - Creatinine 2.1 (1.5 on Admission) - Monitor I/O --> Urine production appears to have improved since procedure - Currently running LR @ 50cc/hr - Continue to hold home ARB, also currently holding home metoprolol - Hyponatremia most likely related to volume depletion Heme - 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 Castro was resident physician during care of patient. I separately evaluated patient and did history and exam. I discussed the case with the resident and generally agree with the findings and plan. During my evaluation no air leak seen from chest tube, minimal drainage. Pain well controlled Documented By: Eladio Zamora DO Resident Tracking Resident Involvement: Resident Care Provided Care Provided: Adult Hospital Medicine
[2017-02-16] MEDS: LEVETIRACETAM IV 500 MG in DEXTROSE 5% 100ML 100 ML IV SCH (21:11)
[2017-02-16] MEDS: CEFAZOLIN IV 2,000 MG in DEXTROSE 5% 50ML 100 ML IV SCH (21:36)
[2017-02-16] MEDS ORDERED: AMIODARONE IV BOLUS / DRIP IV STA (22:06)
[2017-02-16] MEDS ORDERED: AMIODARONE / D5W 100 ML IV SCH (22:15)
[2017-02-16] MEDS ORDERED: AMIODARONE / D5W 200 ML IV SCH (22:30)
[2017-02-17] VITALS (19 sets, daily range): BP systolic 81–134; BP diastolic 45–82; PULSE 79–119; TEMP 36.4–37; O2SAT 95–99
--- NOTE | 2017-02-17 | NEUROLOGY PROGRESS NOTE ---
DATE: 02/16/2017 Mr. Tobar was in the operating room today when we attempted to pay a visit; therefore, he has not yet been seen. I did speak to Dr. Stephens about him yesterday about a clinical question of a seizure versus a transient ischemic attack associated with a seizure. The patient had a pericardial window today. When clinically able, I would recommend an EEG, MRI of the brain, carotid ultrasound. We will see patient tomorrow. Please contact us if there are any questions. CATRINA
[2017-02-17] MEDS: AMIODARONE / D5W 200 ML IV SCH ×2 (03:40→14:20)
--- NOTE | 2017-02-17 04:14 | OPERATIVE REPORT ---
DATE OF OPERATION: 02/16/2017 PREOPERATIVE DIAGNOSIS: Symptomatic pericardial effusion. POSTOPERATIVE DIAGNOSIS: Same. PROCEDURE: 1. Right thoracoscopy with pericardial window: 2. Drainage of pleural effusion. SURGEON: Dr. Bailey. OLIVE PITTER: GOLDY Roque. ANESTHESIA: General anesthesia with endotracheal intubation. 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 He also has a history of myeloproliferative disorder. He has a white count that is extremely high. His platelet count was also low, but at 72,000, was adequate for us to proceed with surgery. I reviewed his echocardiogram by Dr. Guero Pollard from cardiology. We were quite concerned about the echocardiographic evidence of symptomatic pericardial fluid. For this reason, I took the patient to the operating room and did an uncomplicated right thoracoscopy with a pericardial window. I used two 5 mm ports and a 12 mm port. We got a nice segment of the pericardium and sent it for histology and some for cultures. I also cultured pleural fluid and pericardial fluid. Upon opening the sac, we think that the fluid was under a tremendous amount of pressure. It sprayed back, and after we opened this, it was much improved. The pericardium was a bit shaggy in appearance on the distal side but I did not see evidence of malignancy such as studding. We suctioned this out. He was extubated in the room. PROCEDURE IN DETAIL: The patient was brought to the operating room and laid in supine position. General anesthesia was induced and endotracheal intubation was performed with a single-lumen tube. The patient was placed in the left lateral decubitus position, his right chest prepped and draped in the usual sterile fashion. Just below the tip of the scapula, a 5 mm port was placed, and with the patient not ventilating, it should be noted that he was intubated with a single-lumen tube. We then insufflated carbon dioxide, and upon entering the other interspaces under thoracoscopic guidance, it could be seen that we had good collapse of the lung. We then proceeded to take down a few adhesions by using the Harmonic scalpel and then got to the pericardium. I carefully identified the phrenic nerve and went far anterior to this. I did remove some pericardial fat with the Harmonic scalpel and with retraction in order to help our visualization better. I then used a cautery hook to go into the pericardial cavity. This fluid was under a tremendous amount of pressure. It should be noted that I suctioned off some pleural fluid. About 80-100 mL was suctioned off and sent to the lab. I then suctioned off another 150-200 mL of fluid after I opened the pericardium, it was clear and yellow. With cautery, I was able to open this up until I could get the Harmonic scalpel and then I made a very generous pericardial window over the right atrium and part of the right ventricle. There really did not appear to be any adhesions. The pericardium was thickened and a bit "shaggy" along the visceral surface. We really got into no bleeding. 266 mg of Exparel were mixed with 60 mL total of normal saline and injected from the 2nd to the 11th rib under thoracoscopic guidance. A 24-[place] chest tube was then directed toward the apex and brought out through the anterior thoracoscopy port which was a 12 mm port. I sutured this in place with a heavy silk suture and then closed the rest of the incisions with 4-0 Monocryl in a running subcuticular fashion. The chest tube was attached and there was no air leak. He tolerated it well, though he was a bit slow to wake up. I attest to the content of the Intraoperative Record and any orders documented therein. Any exceptions are noted below. CATRINA
[2017-02-17] MEDS: CEFAZOLIN IV 2,000 MG in DEXTROSE 5% 50ML 100 ML IV SCH (05:50)
[2017-02-17] MEDS: LEVETIRACETAM IV 500 MG in DEXTROSE 5% 100ML 100 ML IV SCH (06:00)
[2017-02-17 06:25] LABS: HEMATOCRIT 25.2 % (42-52); MEAN CELL VOLUME 91.6 fL (80-100); MEAN CORPUSCULAR HEMOGLOBIN 33.8 pg (25-34); MEAN CORPUSCULAR HGB CONC 36.9 g/dl (32-36); PLATELET COUNT 66 K/uL (130-400); PLT ESTIMATE DECREASED; RED BLOOD COUNT 2.75 M/uL (4.7-6.1); WHITE BLOOD COUNT 61.09 K/uL (4.8-10.8)
[2017-02-17 06:35] LABS: ALB/GLOB RATIO 0.6 (0.9-2); BUN/CREATININE RATIO 24.7 (10-20); CALCIUM 7.7 mg/dl (8.5-10.1); CREATININE 2.1 mg/dl (0.60-1.40); MAGNESIUM 1.8 mg/dl (1.8-2.4); PHOSPHORUS 5.8 mg/dl (2.5-4.9); POTASSIUM 4.4 mmol/L (3.5-5.1)
--- NOTE | 2017-02-17 07:03 | DIAGNOSTIC IMAGING REPORT ---
CHEST ONE VIEW PORTABLE CLINICAL HISTORY: pericardial window postoperative evaluation. A window. COMPARISON STUDY: 02/16/2017 FINDINGS: Improved aeration right hemithorax. No postprocedural pneumothorax of significance. Right sagittal chest tube unchanged in position. Improving subcutaneous emphysema. Moderate stable cardiomegaly. Persistent consolidative change left base. IMPRESSION: Moderately improved exam with near complete resolution of the right subcutaneous emphysema. Right-sided chest tube in good position with no significant postprocedural pneumothorax. Persistent consolidative change left base. The above report was generated using voice recognition software. It may contain grammatical, syntax or spelling errors. Electronically signed by: Miles Barber M.D. 02/17/2017 7:02 AM Dictated Date/Time: 02/17/2017 7:01 AM
--- NOTE | 2017-02-17 08:04 | Anesthesiology Progress Note ---
Anesthesia Post Op Note Date & Time Feb 17, 2017 at 08:03 Vital Signs Vital Signs Past 12 Hours Date Time Temp Pulse Resp B/P (MAP) Pulse Ox O2 Delivery O2 Flow Rate FiO2 02/17/17 06:01 86 20 97/67 (77) 98 2.0 02/17/17 04:00 98 Nasal Cannula 2.0 02/17/17 04:00 36.5 88 19 102/70 (81) 98 Nasal Cannula 2.0 02/17/17 03:15 87 20 102/64 (77) 97 Nasal Cannula 2.0 02/17/17 02:00 97 23 90/54 (66) 97 Nasal Cannula 2.0 02/17/17 01:03 109 25 91/54 (66) 96 02/17/17 00:30 104 22 88/59 (69) 97 02/17/17 00:17 114 24 81/45 (57) 97 02/17/17 00:00 36.7 114 18 88/59 (69) 97 Nasal Cannula 2.0 02/17/17 00:00 119 27 92/60 (71) 97 02/17/17 00:00 97 Nasal Cannula 2.0 02/16/17 23:00 107 22 81/46 (58) 97 Nasal Cannula 2.0 02/16/17 22:30 117 24 93/59 (70) 95 02/16/17 22:24 121 25 77/44 (55) 96 02/16/17 22:00 122 22 123/49 (73) 96 02/16/17 21:35 125 26 90/60 (70) 96 02/16/17 21:30 143 22 76/64 (68) 96 02/16/17 21:25 105 22 91/47 (62) 97 02/16/17 21:20 109 23 98/66 (77) 96 02/16/17 21:10 104 22 92/61 (71) 97 02/16/17 21:00 110 23 104/62 (76) 96 02/16/17 20:55 100 23 96/49 (65) 97 02/16/17 20:50 112 22 99/62 (74) 96 02/16/17 20:40 115 21 97/60 (72) 96 02/16/17 20:30 113 21 102/63 (76) 96 02/16/17 20:25 105 21 93/50 (64) 96 02/16/17 20:20 109 21 98/61 (73) 96 02/16/17 20:10 109 23 101/58 (72) 96 Notes Mental Status: alert / awake / arousable, participated in evaluation Pt Amnestic to Procedure: Yes Nausea / Vomiting: adequately controlled Pain: adequately controlled Airway Patency, RR, SpO2: stable & adequate BP & HR: stable & adequate Hydration State: stable & adequate Anesthetic Complications: no major complications apparent
--- NOTE | 2017-02-17 08:19 | SURGERY PROGRESS NOTE ---
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 He is sitting up having just finished his breakfast. He is greatly improved. He is awake, alert and his mentation is clear. His neck vein distention has resolved. He has had good aeration of both sides. His dressings are dry. I removed his chest tube. He had no air leak and minimal drainage. His x-ray looked very good. His abdomen is soft. He has had no peripheral edema. His Nobel is draining clear urine. LABORATORY DATA: His BUN and creatinine are 52 and 2.10, which compares favorably to his preoperative BUN and creatinine of 39 and 2.1. His carbon dioxide was 19 yesterday morning and is 20 today. His white count is down to 61,090 with hemoglobin of 9.3. Platelet count is 66,000. The Gram stain of the pleural fluid shows no organisms from yesterday. He had a small amount of pleural fluid. ASSESSMENT AND PLAN: Postoperative day #1, status post thoracoscopic pericardial window. He looks very good. I removed his chest tube. He went into atrial fibrillation last night, but was started on amiodarone and is now back in a sinus rhythm. He is being followed by Dr. Mj Pollard from cardiology.
--- NOTE | 2017-02-17 08:55 | ECHOCARDIOGRAM REPORT ---
*NOTICE TO RECEIVING REPUBLICAN AGENCY This information is strictly Confidential and protected under [place] law. [place] law prohibits you from making any further disclosure of this information unless further disclosure is expressly permitted by the written consent of the person to whom it pertains or is authorized by law. A general authorization for the release of medical or other information is not sufficient for this purpose. Hospital accepts no responsibility if the information is made available to any other person, INCLUDING THE PATIENT. Interpretation Summary * Name: FÁTIMA RAMIREZ Study Date: 02/17/2017 06:28 AM BP: 97/67 mmHg * Patient Location: C.2T\S\E215\S\1 HR: 86 * : 1935 (M/d/yyy) Gender: Male Height: 72 in * Age: 81 yrs Ethnicity: [place] Weight: 145 lb * Ordering Physician: Adrian Pollard * Referring Physician: SIENA * Performed By: Mray Loyola RDCS * * Reason For Study: FOLLOW UP PERICARDIAL EFFUSION S/P SURGICAL DRAINAGE * BSA: 1.9 m2 * -- Conclusions -- * A focused study was performed to reassess pericardial effusion and LV function, in comparison to the prior study , performed 02/16/17. * Sinus tachycardia has been replaced by sinus rhythm at 84 bpm. * The pericardial effusion and findings of tamponade physiology have resolved post pericardial window drainage performed . * Refer to below for details. Procedure Details * Left Ventricle Left ventricular systolic function is low normal. Ejection Fraction = 50-55%. The LV septal motion is abnormal with a septal bounce concerning for possible constrictive physiology. The LV wall motion is othwerwise normal. * Right Ventricle The right ventricle is normal in size and function. * Mitral Valve There is moderate mitral annular calcification. * Great Vessels Mild aortic root dilatation. * Pericardium/Pleural A very tiny trivial amount of residual pericardial fluid is noted adjacent to the posterior wall and right ventricular free wall. Tamonade is absent. A small left pleural effusion is present. A small right pleural effusion is present. * Great Vessels Dilated inferior vena cava with reduced collapsability with sniff indicates an elevated right atrial pressure of 15 mmHg *
[2017-02-17] MEDS ORDERED: HYDROmorphone INJ 2 MG/ML SYR/VIAL IV PRN (09:00)
[2017-02-17] MEDS ORDERED: FENTANYL CITRATE INJ 50 MCG/1 ML 2 ML VIAL IV PRN (09:00)
[2017-02-17] MEDS: METOPROLOL TARTRATE 25 MG TAB PO SCH ×2 (09:00→20:27)
[2017-02-17] MEDS ORDERED: MEPERIDINE HCL 25 MG/ML CARP IV PRN (09:00)
[2017-02-17] MEDS ORDERED: NALOXONE HCL 0.4 MG/1 ML VIAL/CARP IV PRN (09:00)
[2017-02-17] MEDS ORDERED: ONDANSETRON INJ 2 MG/ML 2 ML VIAL IV PRN (09:00)
[2017-02-17] MEDS ORDERED: ASPIRIN 81 MG ECTAB PO STA (09:02)
--- NOTE | 2017-02-17 09:25 | Cardiology Follow-Up ---
Subjective General Date of Service: Feb 17, 2017. Chief Complaint: follow up chest pain, tachycardia Pt evaluation today including: conversation w/ patient, physical exam, conversation w/ industry consultant History of Present Illness The patient is a 81 year old male seen in cardiology follow up. Patient feels well this am. SR noted on EKG and telemetry. He was in SR when arriving from this PACU to the SICU on 02/16, then reverted to AF RVR at 10 pm. Amiodarone infusion started, and has been in SR since 313 am on 02/17/17. He felt short of breath with the AF and feels well now. Allergies Coded Allergies: Lisinopril (Verified Allergy, Unknown, ., 02/15/17) Tamsulosin (Unverified Allergy, Unknown, EDEMA FACE,LIPS,TONGUE, 02/15/17) Social History Smoking Status: Never Smoker Hx Tobacco Use In Past Year?: No Hx Alcohol Use - Type And Amou: Yes (2oz of scotch daily) Hx Substance Use - Type And Am: No ( ) Problem List Medical Problems: (1) Aphasia Status: Acute Physical Exam Vital Signs Last Vital Signs Documentation Date Time Temp Pulse Resp B/P (MAP) Pulse Ox O2 Delivery O2 Flow Rate FiO2 02/17/17 06:01 86 20 97/67 (77) 98 2.0 02/17/17 04:00 Nasal Cannula 02/17/17 04:00 36.5 Physical Exam Constitutional: Level of Distress: NAD Head: normocephalic ENMT: normal ENT inspection, hearing grossly normal Neck: supple Lungs: Auscultation: no wheezing, no rhonchi, pertinent finding (decreased breath sounds at the bases bilaterally. ) Cardiovascular: Heart Auscultation: tachycardia, II/ ELIZABETH Musculoskeletal: normal Extremities: no edema Neurologic: Gait & Station: pertinent finding (word finding difficulty has resolved..) Assessment and Plan Assessment and Plan Impression: 81-year-old male 1. Acute idiopathic pericarditis with pericardial effusion/ early tamponade physiology for which patient is status post thoracoscopic pericardial window on . 2. Paroxysmal atrial fibrillation, pre op and post op-in SR now on amiodarone infusion 3. ANOOP on CKD, creatinine 1.5-->2.1-->2.1 today, likely prerenal / ATN from hemodynamic effect of tachycardia , pericardial effusion 4. chronic myelomonocytic leukemia, WBC 61, Hgb 9.3, Platelet count 66k 5. Small bilateral pleural effusions visualized on echo 02/17 6. Elevated LFTs, likely due to congestive hepatopathy transient high RA pressures Discussion/plan: Repeat echo this am reveals resolution of the effusion / tamponade with a trivial amount of residual pericardial fluid. There is a septal bounce concerning for underlying constrictive physiology, however the pericardial thickness appears normal. LFTs will elevated and will continue to follow. Needs the amiodarone for rhythm control. Will continue IV amiodarone for now. Will transition to oral if LFTs improve tomorrow. AF-continue low dose metoprolol (limited by SBP in the 90-100 mm Hg range), IV amiodarone, start low dose aspirin. Pt is very symptomatic with the AF and he is not a candidate for anticoagulation due to low platelets so rhythm control is ideal. Check TSH for baseline given new amio start. Repeat LFTs tomorrow. Pericarditis, perhaps constrictive component , to prevent recurrent inflammation , would like to start medication therapy. Not candidate for high dose ASA given low platelets, not candidate for NSAIDs given renal insufficiency. Colchicine is not ideal given blood count problems, but will start low dose with caution. Also will start low dose glucocorticoid therapy, pt states possible past intolerance of prednisone, will start with caution in the ICU. Nolan Pollard, DO Laboratory Results Last 24 Hours Test 02/16/17 11:11 02/16/17 15:40 02/16/17 17:31 02/17/17 05:44 Bedside Glucose 194 mg/dl Bedside Blood Gas pH (LAB) 6.86 Bedside Blood Gas pCO2 (LAB) 89 mmHg Bedside Blood Gas pO2 (LAB) 93 mmHg Bedside Blood Gas HCO3 (LAB) 16 meq/L Bedside Blood Gas Total CO2 18 mEq/l Bedside Blood Gas Base Excess (LAB) -18.0 meq/L Bedside Blood Gas O2 Saturation 86.0 % Arterial Blood pH 7.35 Arterial Blood Partial Pressure CO2 30 mmHg Arterial Blood Partial Pressure O2 72 mm/Hg Arterial Blood HCO3 16 mmol/L Arterial Blood Oxygen Saturation 92.2 % Arterial Blood Base Excess -8.6 mEq/L Arterial Blood Gas Delivery 15 L [place] Test ARTLINE White Blood Count 61.09 K/uL Red Blood Count 2.75 M/uL Hemoglobin 9.3 g/dL Hematocrit 25.2 % Mean Corpuscular Volume 91.6 fL Mean Corpuscular Hemoglobin 33.8 pg Mean Corpuscular Hemoglobin Concent 36.9 g/dl RDW Standard Deviation 64.3 fL RDW Coefficient of Variation 19.5 % Platelet Count 66 K/uL Platelet Estimate DECREASED Sodium Level 134 mmol/L Potassium Level 4.4 mmol/L Chloride Level 104 mmol/L Carbon Dioxide Level 20 mmol/L Anion Gap 10.0 mmol/L Blood Urea Nitrogen 52 mg/dl Creatinine 2.10 mg/dl Est Creatinine Clear Calc Drug Dose 25.8 ml/min Estimated GFR () 33.2 Estimated GFR (Non- 28.7 BUN/Creatinine Ratio 24.7 Random Glucose 151 mg/dl Calcium Level 7.7 mg/dl Phosphorus Level 5.8 mg/dl Magnesium Level 1.8 mg/dl Total Bilirubin 0.4 mg/dl Aspartate Amino Transf (AST/SGOT) 377 U/L Alanine Aminotransferase (ALT/SGPT) 313 U/L Alkaline Phosphatase 107 U/L Total Protein 6.2 gm/dl Albumin 2.3 gm/dl Globulin 3.9 gm/dl Albumin/Globulin Ratio 0.6 Test 02/17/17 07:51 Lactic Acid Level 1.5 mmol/L
[2017-02-17] MEDS ORDERED: COLCHICINE 0.6 MG TAB PO ONE (09:30)
[2017-02-17] MEDS: HYDROXYUREA 500 MG CAP PO SCH ×3 (09:31→18:22)
[2017-02-17] MEDS: ALLOPURINOL 100 MG TAB PO SCH (09:32)
[2017-02-17] MEDS: VITAMIN B COMPLEX TAB PO SCH (09:32)
[2017-02-17] MEDS ORDERED: PANTOprazole SOD 40 MG TAB PO STA (09:52)
--- NOTE | 2017-02-17 09:59 | Nephrology Progress Note ---
Nephrology Progress Note Date of Service: Feb 17, 2017. Subjective TTE yesterday >early tamponade w/ small pericardial effusion >> yesterday afternoon had R thoracoscopy w/ pericardial window and pleural effusion drainage > multiple studies pending; chest tube removed this am; had AF w/ RVR last evening but improved w/ amiodarone; pt w/o c/o dyspnea, uncontrolled pain, N, further issues w/ word finding/reading Objective Date Time Temp Pulse Resp B/P (MAP) Pulse Ox O2 Delivery O2 Flow Rate FiO2 02/17/17 09:00 82 25 93/50 (64) 97 Nasal Cannula 2.0 02/17/17 08:00 37.0 89 25 119/61 (80) 98 Nasal Cannula 2.0 02/17/17 06:01 86 20 97/67 (77) 98 2.0 02/17/17 04:00 98 Nasal Cannula 2.0 02/17/17 04:00 36.5 88 19 102/70 (81) 98 Nasal Cannula 2.0 02/17/17 03:15 87 20 102/64 (77) 97 Nasal Cannula 2.0 02/17/17 02:00 97 23 90/54 (66) 97 Nasal Cannula 2.0 02/17/17 01:03 109 25 91/54 (66) 96 02/17/17 00:30 104 22 88/59 (69) 97 02/17/17 00:17 114 24 81/45 (57) 97 02/17/17 00:00 36.7 114 18 88/59 (69) 97 Nasal Cannula 2.0 02/17/17 00:00 119 27 92/60 (71) 97 02/17/17 00:00 97 Nasal Cannula 2.0 02/16/17 23:00 107 22 81/46 (58) 97 Nasal Cannula 2.0 02/16/17 22:30 117 24 93/59 (70) 95 02/16/17 22:24 121 25 77/44 (55) 96 02/16/17 22:00 122 22 123/49 (73) 96 02/16/17 21:35 125 26 90/60 (70) 96 02/16/17 21:30 143 22 76/64 (68) 96 02/16/17 21:25 105 22 91/47 (62) 97 02/16/17 21:20 109 23 98/66 (77) 96 02/16/17 21:10 104 22 92/61 (71) 97 02/16/17 21:00 110 23 104/62 (76) 96 02/16/17 20:55 100 23 96/49 (65) 97 02/16/17 20:50 112 22 99/62 (74) 96 02/16/17 20:40 115 21 97/60 (72) 96 02/16/17 20:30 113 21 102/63 (76) 96 02/16/17 20:25 105 21 93/50 (64) 96 02/16/17 20:20 109 21 98/61 (73) 96 02/16/17 20:10 109 23 101/58 (72) 96 02/16/17 20:02 110 22 91/47 (62) 96 02/16/17 20:00 110 22 79/63 (68) 96 02/16/17 20:00 96 Nasal Cannula 2.0 02/16/17 19:55 111 22 93/50 (64) 96 02/16/17 19:50 16 101/66 (78) 96 02/16/17 19:40 19 102/66 (78) 96 02/16/17 19:30 20 102/65 (77) 97 02/16/17 19:20 15 95/62 (73) 97 02/16/17 19:10 23 98/69 (79) 96 02/16/17 19:00 20 98/53 (68) 96 02/16/17 18:50 19 100/63 (75) 96 02/16/17 18:30 19 94/62 (73) 95 02/16/17 18:20 18 97/50 (66) 95 02/16/17 18:06 108 20 94 02/16/17 18:06 108 20 02/16/17 18:05 18 106/64 (78) 94 02/16/17 18:05 106/64 02/16/17 18:01 108 19 02/16/17 18:01 108 19 94 02/16/17 18:00 19 92/67 (75) 94 02/16/17 18:00 92/67 02/16/17 17:56 106 18 02/16/17 17:56 106 18 94 9/11/17 17:55 20 107/66 (80) 94 02/16/17 17:55 107/66 02/16/17 17:51 107 16 02/16/17 17:51 107 16 94 02/16/17 17:50 18 107/65 (79) 93 02/16/17 17:50 107/65 02/16/17 17:46 107 20 94 02/16/17 17:46 107 20 02/16/17 17:45 21 106/71 (83) 94 02/16/17 17:45 107 21 02/16/17 17:45 106 21 106/71 94 02/16/17 17:40 105 16 110/68 96 02/16/17 17:40 106 16 02/16/17 17:40 16 110/68 (82) 96 02/16/17 17:35 20 106/66 (79) 97 02/16/17 17:35 108 20 106/66 97 02/16/17 17:35 108 20 02/16/17 17:30 19 122/66 (84) 98 02/16/17 17:30 107 19 122/66 98 02/16/17 17:30 108 19 02/16/17 17:29 105 18 02/16/17 17:29 18 104/67 (79) 98 02/16/17 17:29 105 18 02/16/17 17:29 105 18 104/67 98 02/16/17 17:29 105 18 104/67 98 02/16/17 17:25 36.6 107 17 104/67 98 Mask 4 02/16/17 17:24 104 12 97 02/16/17 17:24 103 12 02/16/17 17:24 104 12 97 02/16/17 17:24 103 12 02/16/17 17:15 113 18 109/76 97 Mask 10 02/16/17 17:05 111 23 132/51 96 Mask 15 02/16/17 16:55 111 24 134/81 94 Mask 15 02/16/17 16:49 36.2 105 26 133/89 27 Mask 15 02/16/17 12:00 Room Air 02/16/17 11:47 36.6 112 19 102/72 (82) 95 Room Air 109 116/70 (85) 117 90/62 (71) Physical Exam: General Appearance: WD/WN, no apparent distress, + thin, + pertinent finding ( on 02NC2L, oriented x 3, no obvious word finding problems) Eyes: EOMI ENT: normal ENT inspection Neck: supple Respiratory/Chest: lungs clear, + decreased breath sounds at BL bases Cardiovascular: no edema, RRR Abdomen: normal bowel sounds, non tender, soft, + pertinent finding (+ vega w / cloudy urine) Extremities: normal inspection, no pedal edema Neurologic/Psych: alert, normal mood/affect, oriented x 3, + pertinent finding (no rash) Skin: no jaundice, warm/dry, no rash, + pallor Current Inpatient Medications Medications (Trade) Dose Ordered Sig/Jarvis Route Start Time Stop Time Status Last Admin Dose Admin Metoprolol Tartrate (Lopressor Tab) 12.5 mg BID PO 02/16/17 09:00 03/18/17 08:59 02/16/17 21:42 12.5 MG Metoprolol Tartrate (Lopressor Iv) 5 mg Q6 PRN IV 02/15/17 17:45 03/17/17 17:44 Allopurinol (Zyloprim Tab) 200 mg DAILY PO 02/17/17 09:00 03/19/17 08:59 02/17/17 09:32 200 MG Hydroxyurea (Hydrea Cap) 1,000 mg QDD PO 02/16/17 16:45 03/18/17 16:44 02/17/17 09:31 1,000 MG Vitamin B Complex (Vitamin B Complex) 1 tab DAILY PO 02/17/17 09:00 03/19/17 08:59 02/17/17 09:32 1 TAB Levetiracetam 500 mg/Dextrose 105 ml @ 420 mls/hr Q12H IV 02/16/17 18:00 03/18/17 17:59 02/17/17 06:00 420 MLS/HR Ondansetron HCl (Zofran Inj) 4 mg Q4H PRN IV 02/16/17 16:00 03/18/17 15:59 Morphine Sulfate (MoRPHine SULFATE INJ) Q1H PRN IV 02/16/17 16:00 03/02/17 15:59 Amiodarone HCL/ Dextrose 200 ml @ 16.7 mls/hr [id number] IV 02/17/17 04:30 03/19/17 04:29 02/17/17 03:40 16.7 MLS/HR Hydromorphone HCl (Dilaudid Inj) 0.5 mg Q5M PRN IV 02/17/17 09:00 03/03/17 08:59 UNV Fentanyl Citrate (Fentanyl Inj) 25 mcg Q5M PRN IV 02/17/17 09:00 03/03/17 08:59 UNV Naloxone HCl (Narcan Inj) 0.2 mg Q2M PRN IV 02/17/17 09:00 03/19/17 08:59 UNV Meperidine HCl (Demerol Inj) 12.5 mg Q5M PRN IV 02/17/17 09:00 03/03/17 08:59 UNV Ondansetron HCl (Zofran Inj) 4 mg ONE PRN IV 02/17/17 09:00 02/17/17 09:05 UNV Aspirin (Ecotrin Tab) 81 mg QAM PO 02/18/17 09:00 03/20/17 08:59 Pantoprazole Sodium (Protonix Tab) 40 mg QAM PO 02/18/17 09:00 03/20/17 08:59 UNV Pantoprazole Sodium (Protonix Tab) 40 mg BID PO 02/17/17 21:00 03/19/17 20:59 UNV Colchicine (Colchicine Tab) 0.6 mg QAM PO 02/18/17 09:00 03/20/17 08:59 Prednisone (PredniSONE TAB) 20 mg DAILY PO 02/18/17 09:00 03/20/17 08:59 Last 24 Hours Test 02/16/17 11:11 02/16/17 15:40 02/16/17 17:31 02/17/17 05:44 Bedside Glucose 194 mg/dl Bedside Blood Gas pH (LAB) 6.86 Bedside Blood Gas pCO2 (LAB) 89 mmHg Bedside Blood Gas pO2 (LAB) 93 mmHg Bedside Blood Gas HCO3 (LAB) 16 meq/L Bedside Blood Gas Total CO2 18 mEq/l Bedside Blood Gas Base Excess (LAB) -18.0 meq/L Bedside Blood Gas O2 Saturation 86.0 % Arterial Blood pH 7.35 Arterial Blood Partial Pressure CO2 30 mmHg Arterial Blood Partial Pressure O2 72 mm/Hg Arterial Blood HCO3 16 mmol/L Arterial Blood Oxygen Saturation 92.2 % Arterial Blood Base Excess -8.6 mEq/L Arterial Blood Gas Delivery 15 L [place] Test ARTLINE White Blood Count 61.09 K/uL Red Blood Count 2.75 M/uL Hemoglobin 9.3 g/dL Hematocrit 25.2 % Mean Corpuscular Volume 91.6 fL Mean Corpuscular Hemoglobin 33.8 pg Mean Corpuscular Hemoglobin Concent 36.9 g/dl RDW Standard Deviation 64.3 fL RDW Coefficient of Variation 19.5 % Platelet Count 66 K/uL Platelet Estimate DECREASED Sodium Level 134 mmol/L Potassium Level 4.4 mmol/L Chloride Level 104 mmol/L Carbon Dioxide Level 20 mmol/L Anion Gap 10.0 mmol/L Blood Urea Nitrogen 52 mg/dl Creatinine 2.10 mg/dl Est Creatinine Clear Calc Drug Dose 25.8 ml/min Estimated GFR () 33.2 Estimated GFR (Non- 28.7 BUN/Creatinine Ratio 24.7 Random Glucose 151 mg/dl Calcium Level 7.7 mg/dl Phosphorus Level 5.8 mg/dl Magnesium Level 1.8 mg/dl Total Bilirubin 0.4 mg/dl Aspartate Amino Transf (AST/SGOT) 377 U/L Alanine Aminotransferase (ALT/SGPT) 313 U/L Alkaline Phosphatase 107 U/L Total Protein 6.2 gm/dl Albumin 2.3 gm/dl Globulin 3.9 gm/dl Albumin/Globulin Ratio 0.6 Test 02/17/17 07:51 Lactic Acid Level 1.5 mmol/L Date/Time Source Procedure Growth Status 02/16/17 15:33 Tissue Pericardial Acid Fast Stain Pending Received 02/16/17 15:33 Tissue Pericardial Mycobacterial Culture Pending Received 02/16/17 15:33 Tissue Pericardial Fungal Smear - Final Resulted 02/16/17 15:33 Tissue Pericardial Fungal Culture Pending Resulted 02/16/17 15:33 Tissue Pericardial Gram Stain - Final Resulted 02/16/17 15:33 Tissue Pericardial Bacterial Culture Pending Resulted 02/16/17 15:10 Pericardial Fluid Fungal Smear - Final Resulted 02/16/17 15:10 Pericardial Fluid Fungal Culture Pending Resulted 02/16/17 15:10 Pericardial Fluid Acid Fast Stain Pending Received 02/16/17 15:10 Pericardial Fluid Mycobacterial Culture Pending Received 02/16/17 15:10 Pericardial Fluid Gram Stain - Final Resulted 02/16/17 15:10 Pericardial Fluid Bacterial Culture Pending Resulted 02/16/17 15:05 Pleural Fluid (Thoracentesis) Right Fungal Smear - Final Resulted 02/16/17 15:05 Pleural Fluid (Thoracentesis) Right Fungal Culture Pending Resulted 02/16/17 15:05 Pleural Fluid (Thoracentesis) Right Acid Fast Stain Pending Received 02/16/17 15:05 Pleural Fluid (Thoracentesis) Right Mycobacterial Culture Pending Received 02/16/17 15:05 Pleural Fluid (Thoracentesis) Right Gram Stain - Final Resulted 02/16/17 15:05 Pleural Fluid (Thoracentesis) Right Bacterial Culture Pending Resulted Assessment & Plan 81 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 His urine sediment is suggestive of ATN > he is dehydrated w/ poor po intake; this is a contaminated specimen. no evidence of infection; no change in chronic proteinuria. His blood tests of renal function were at baseline on presentation but worsened day after to 2.1, where creatinine remains today. Noted also to have early tamponade physiology on first full day of admission and on 02/16 had pericardial window and R thoracoscopy, w/ transient post op AF w / RVR, improved w/ amiodarone ANOOP nonoliguric on CKD 3 suspect ischemic ATN w/ diminished renal perfusion in setting of tachycardia/ early tamponade/a fib; most consistent with ATN based on urine sediment; this may however prove difficult to interpret given bladder stone hx. electrolytes acceptable; ARB appropriately held; did have some hypotension w/ AF w/ RVR >> may complicate or delay renal recovery but not an unexpected complication here; transaminitis also likely congestive etiology -strict I/O -continue vega for next 24 hrs if tolerated -agree w/ stopping ivf >> he is quite positive from yesterday -cont to hold ARB -daily bmp -no indication for renal diet or dialysis at this point -no indication at this time for renal imaging but low threshold to pursue this if he worsens clinically hyponatremia suspect mild volume depletion or may relate to transaminitis -check serum osms in am or w/ next labs acute idiopathic pericarditis w/ pericardial effusion/ early tamponade s/p 02/16 pericardial window -f/u pending cxs -on amio gtt for AF -on colchicine >> monitor carefully w/ both renal, liver impairment CMML -no indication that leukocytosis affects renal parameters at this time Appreciate consult; will follow with you. care coordinated w/ Juan Soto Shippert
[2017-02-17] MEDS ORDERED: DEXTROSE 50% 50 ML SYR IV PRN (10:00)
[2017-02-17] MEDS ORDERED: GLUCOSE 40% GEL 15 GM TUBE PO PRN (10:00)
[2017-02-17] MEDS ORDERED: GLUCAGON FOR INJ 1 MG VIAL SQ PRN (10:00)
[2017-02-17] MEDS ORDERED: GLUCOSE 10 TABS/TUBE PO PRN (10:00)
--- NOTE | 2017-02-17 10:28 | HEMATOLOGY CONSULTATION ---
DATE OF CONSULTATION: 02/17/2017 CONSULTATION WAS REQUESTED BY: Dr. Bailey. REASON FOR CONSULTATION: Patient known to you - CML. HISTORY OF PRESENT ILLNESS: Mr. Tobar is an 81-year-old gentleman whom I have followed as an outpatient for chronic myelomonocytic leukemia. He was emergently admitted to [facility] after apparently having a seizure at home. Subsequently, he was found to have a pericardial effusion with early tamponade physiology. He has since undergone pericardial window placement. At the present time, I have nothing to offer regarding his current admission. I am awaiting the pathology on the pericardial fluid. His Hydrea has been restarted. I will continue to follow along at a distance while he remains hospitalized. CATRINA
--- NOTE | 2017-02-17 10:38 | Critical Care Progress Note ---
Critical Care Progress Note Date of Service Feb 17, 2017. ICU Day ICU Day Number: [address] Zamora Subjective Patient states that he was short of breath yesterday evening during episode of atrial fibrillation that according to nursing lasted between 4330-6000 last night. His shortness of breath is now resolved after spontaneously converting overnight back to NSR. He has no other acute complaints and responds appropriately to all questions. Objective GENERAL: Awake, alert, well-appearing, in no distress HENT: Normocephalic, atraumatic. Moist oral mucosa. EYES: Normal conjunctiva. Sclera non-icteric. NECK: Supple. No nuchal rigidity. Nondistended neck veins. RESPIRATORY: Decreased breath sounds bilaterally. CARDIAC: Regular rate, normal rhythm. Extremities warm and well perfused. Pulses equal. ABDOMEN: Soft, non-distended. No tenderness to palpation. No rebound or guarding. No masses. No fluid wave. No abdominal distension. RECTAL: Deferred. MUSCULOSKELETAL: Chest examination reveals no tenderness. Chest tube over right side of chest this morning drained 65 cc of serosanguineous fluid. LOWER EXTREMITIES: Calves are equal size bilaterally and non-tender. No edema. No discoloration. NEURO: Normal sensorium. No sensory or motor deficits noted. SKIN: No rash or jaundice noted. Current SOFA Score SOFA Score Response (Comments) Value Platelets (x10) > 150 0 Bilirubin (mg/dL) < 1.2 0 Wing Coma Score 15 0 Level of Hypotension MAP less than 70 1 Creatinine (mg/dL) 2.0 - 3.4 2 Total 3 Assessment & Plan Patient is an 81 year old male that presents with chest pain and difficulty finding words found to have a pericardial effusion and is currently s/p transthoracic pericardial window Neuro - A&O x 3 - CAM-ICU Negative - Received Keppra 500mg x 1 as loading dose for possible seizure - Currently on Keppra Q12 IV - CT head showed no acute intracranial abnormalities - Neurology following --> Would like EEG, MRI, and Carotid US once patient stable CV - NSR s/p transthoracic pericardial window - Patient went back into Afib overnight between [id number] and patient was symptomatic during that time. Dr. Pollard started patient on amiodarone drip and converted back to NSR. - Currently on Amiodaron drip (200mls @ 16.7mls/hr) with plan to transition to PO Amiodarone tomorrow - Troponin < 0.015 - Holding home Irbesartan due to ANOOP - Metoprolol held this morning due to parameters (Dose currently 12.5mg BID) - Morning EKG shown patient in NSR - Repeat ECHO this morning shows pericardial fluid significantly improved in addition to dilation of IVC signifying adequate hydration status - radiation monitor over left side of chest - ABG significantly improved after procedure - pH 7.35, pCO2 30, HCO3 16 - Dr. Pollard added prednisone and colchicine to treat pericarditis - Aspirin Resp - Right sided chest tube removed by Dr. Bailey this morning --> Had drained 65 cc of serosanguineous fluid - Currently on 2L NC GI - Transaminitis worsening: AST 172 --> 377, ALT 139--> 313, Alk Phos 134-->107 - Patient denies abdominal pain, no physical findings including fluid wave or distension concerning for Hep C or clot - Will continue to trend LFTs - Protonix Nephro - ANOOP nonoliguric on CKD stage 3 - Creatinine 2.1 (1.5 on Admission) - Monitor I/O --> Patient producing clear yellow urine since procedure last night and 250cc in bedside collection - Discontinue fluids at this time due to adequate hydration - Continue to hold home ARB - Hyponatremia improved with hydration Heme - 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 Castro was resident physician during care of patient. I separately evaluated patient and did history and exam. I discussed the case with the resident and generally agree with the findings and plan. Normal sinus rhythm during my evaluation, stable for downgraded to telemetry status today. Documented By: Eladio Zamora DO Consults & Procedures Consultants: Dr. Atul Bailey Procedures: Transthoracic Pericardial Window Data Medications: Current Inpatient Medications Medications (Trade) Dose Ordered Sig/Jarvis Route Start Time Stop Time Status Last Admin Dose Admin Metoprolol Tartrate (Lopressor Tab) 12.5 mg BID PO 02/16/17 09:00 03/18/17 08:59 02/16/17 21:42 12.5 MG Metoprolol Tartrate (Lopressor Iv) 5 mg Q6 PRN IV 02/15/17 17:45 03/17/17 17:44 Allopurinol (Zyloprim Tab) 200 mg DAILY PO 02/17/17 09:00 03/19/17 08:59 02/17/17 09:32 200 MG Hydroxyurea (Hydrea Cap) 1,000 mg QDD PO 02/16/17 16:45 03/18/17 16:44 02/17/17 09:31 1,000 MG Vitamin B Complex (Vitamin B Complex) 1 tab DAILY PO 02/17/17 09:00 03/19/17 08:59 02/17/17 09:32 1 TAB Ondansetron HCl (Zofran Inj) 4 mg Q4H PRN IV 02/16/17 16:00 03/18/17 15:59 Morphine Sulfate (MoRPHine SULFATE INJ) Q1H PRN IV 02/16/17 16:00 03/02/17 15:59 Amiodarone HCL/ Dextrose 200 ml @ 16.7 mls/hr [id number] IV 02/17/17 04:30 03/19/17 04:29 02/17/17 03:40 16.7 MLS/HR Aspirin (Ecotrin Tab) 81 mg QAM PO 02/18/17 09:00 03/20/17 08:59 Pantoprazole Sodium (Protonix Tab) 40 mg QAM PO 02/18/17 09:00 03/20/17 08:59 Colchicine (Colchicine Tab) 0.6 mg QAM PO 02/18/17 09:00 03/20/17 08:59 Prednisone (PredniSONE TAB) 20 mg DAILY PO 02/18/17 09:00 03/20/17 08:59 Heparin Sodium (Porcine) (Heparin Sq 5000 Unit/0.5ml) 5,000 unit Q12 SQ 02/17/17 21:00 03/19/17 20:59 Levetiracetam (Keppra Tab) 500 mg BID@0600,1800 PO 02/17/17 18:00 03/19/17 17:59 Glucose (Glucose 40% Gel) 15-30 GRAMS 15 GRAMS... UD PRN PO 02/17/17 10:00 03/19/17 09:59 Glucose (Glucose Chew Tab) 4-8 Tablets 4 Tabl... UD PRN PO 02/17/17 10:00 03/19/17 09:59 Dextrose (Dextrose 50% 50ML Syringe) 25-50ML OF 50% DW IV FOR... UD PRN IV 02/17/17 10:00 03/19/17 09:59 Glucagon (Glucagon Inj) 1 mg UD PRN SQ 02/17/17 10:00 03/19/17 09:59 Insulin Aspart (novoLOG ASPART) SLIDING SCALE ACHS SC 02/17/17 11:00 03/19/17 10:59 Vital Signs: Date Time Temp Pulse Resp B/P (MAP) Pulse Ox O2 Delivery O2 Flow Rate FiO2 02/17/17 10:00 79 26 98/66 (77) 99 Nasal Cannula 2.0 02/17/17 09:00 82 25 93/50 (64) 97 Nasal Cannula 2.0 02/17/17 08:00 37.0 89 25 119/61 (80) 98 Nasal Cannula 2.0 02/17/17 08:00 Nasal Cannula 2.0 02/17/17 06:01 86 20 97/67 (77) 98 2.0 02/17/17 04:00 98 Nasal Cannula 2.0 02/17/17 04:00 36.5 88 19 102/70 (81) 98 Nasal Cannula 2.0 02/17/17 03:15 87 20 102/64 (77) 97 Nasal Cannula 2.0 02/17/17 02:00 97 23 90/54 (66) 97 Nasal Cannula 2.0 02/17/17 01:03 109 25 91/54 (66) 96 02/17/17 00:30 104 22 88/59 (69) 97 02/17/17 00:17 114 24 81/45 (57) 97 02/17/17 00:00 36.7 114 18 88/59 (69) 97 Nasal Cannula 2.0 02/17/17 00:00 119 27 92/60 (71) 97 02/17/17 00:00 97 Nasal Cannula 2.0 02/16/17 23:00 107 22 81/46 (58) 97 Nasal Cannula 2.0 02/16/17 22:30 117 24 93/59 (70) 95 02/16/17 22:24 121 25 77/44 (55) 96 02/16/17 22:00 122 22 123/49 (73) 96 02/16/17 21:35 125 26 90/60 (70) 96 02/16/17 21:30 143 22 76/64 (68) 96 02/16/17 21:25 105 22 91/47 (62) 97 02/16/17 21:20 109 23 98/66 (77) 96 02/16/17 21:10 104 22 92/61 (71) 97 02/16/17 21:00 110 23 104/62 (76) 96 02/16/17 20:55 100 23 96/49 (65) 97 02/16/17 20:50 112 22 99/62 (74) 96 02/16/17 20:40 115 21 97/60 (72) 96 02/16/17 20:30 113 21 102/63 (76) 96 02/16/17 20:25 105 21 93/50 (64) 96 02/16/17 20:20 109 21 98/61 (73) 96 02/16/17 20:10 109 23 101/58 (72) 96 02/16/17 20:02 110 22 91/47 (62) 96 02/16/17 20:00 110 22 79/63 (68) 96 02/16/17 20:00 96 Nasal Cannula 2.0 02/16/17 19:55 111 22 93/50 (64) 96 02/16/17 19:50 16 101/66 (78) 96 02/16/17 19:40 19 102/66 (78) 96 02/16/17 19:30 20 102/65 (77) 97 02/16/17 19:20 15 95/62 (73) 97 02/16/17 19:10 23 98/69 (79) 96 02/16/17 19:00 20 98/53 (68) 96 02/16/17 18:50 19 100/63 (75) 96 02/16/17 18:30 19 94/62 (73) 95 02/16/17 18:20 18 97/50 (66) 95 02/16/17 18:06 108 20 94 02/16/17 18:06 108 20 02/16/17 18:05 18 106/64 (78) 94 02/16/17 18:05 106/64 02/16/17 18:01 108 19 02/16/17 18:01 108 19 94 02/16/17 18:00 19 92/67 (75) 94 02/16/17 18:00 92/67 02/16/17 17:56 106 18 02/16/17 17:56 106 18 94 02/16/17 17:55 20 107/66 (80) 94 02/16/17 17:55 107/66 02/16/17 17:51 107 16 02/16/17 17:51 107 16 94 02/16/17 17:50 18 107/65 (79) 93 02/16/17 17:50 107/65 02/16/17 17:46 107 20 94 02/16/17 17:46 107 20 02/16/17 17:45 21 106/71 (83) 94 02/16/17 17:45 107 21 02/16/17 17:45 106 21 106/71 94 02/16/17 17:40 105 16 110/68 96 02/16/17 17:40 106 16 02/16/17 17:40 16 110/68 (82) 96 02/16/17 17:35 20 106/66 (79) 97 02/16/17 17:35 108 20 106/66 97 02/16/17 17:35 108 20 02/16/17 17:30 19 122/66 (84) 98 02/16/17 17:30 107 19 122/66 98 02/16/17 17:30 108 19 02/16/17 17:29 105 18 02/16/17 17:29 18 104/67 (79) 98 02/16/17 17:29 105 18 02/16/17 17:29 105 18 104/67 98 02/16/17 17:29 105 18 104/67 98 02/16/17 17:25 36.6 107 17 104/67 98 Mask 4 02/16/17 17:24 104 12 97 02/16/17 17:24 103 12 02/16/17 17:24 104 12 97 02/16/17 17:24 103 12 02/16/17 17:15 113 18 109/76 97 Mask 10 02/16/17 17:05 111 23 132/51 96 Mask 15 02/16/17 16:55 111 24 134/81 94 Mask 15 02/16/17 16:49 36.2 105 26 133/89 27 Mask 15 02/16/17 12:00 Room Air 02/16/17 11:47 36.6 112 19 102/72 (82) 95 Room Air 109 116/70 (85) 117 90/62 (71) Laboratory Results: Last 24 Hours Test 02/16/17 11:11 02/16/17 15:40 02/16/17 17:31 02/17/17 05:44 Bedside Glucose 194 mg/dl Bedside Blood Gas pH (LAB) 6.86 Bedside Blood Gas pCO2 (LAB) 89 mmHg Bedside Blood Gas pO2 (LAB) 93 mmHg Bedside Blood Gas HCO3 (LAB) 16 meq/L Bedside Blood Gas Total CO2 18 mEq/l Bedside Blood Gas Base Excess (LAB) -18.0 meq/L Bedside Blood Gas O2 Saturation 86.0 % Arterial Blood pH 7.35 Arterial Blood Partial Pressure CO2 30 mmHg Arterial Blood Partial Pressure O2 72 mm/Hg Arterial Blood HCO3 16 mmol/L Arterial Blood Oxygen Saturation 92.2 % Arterial Blood Base Excess -8.6 mEq/L Arterial Blood Gas Delivery 15 L [place] Test ARTLINE White Blood Count 61.09 K/uL Red Blood Count 2.75 M/uL Hemoglobin 9.3 g/dL Hematocrit 25.2 % Mean Corpuscular Volume 91.6 fL Mean Corpuscular Hemoglobin 33.8 pg Mean Corpuscular Hemoglobin Concent 36.9 g/dl RDW Standard Deviation 64.3 fL RDW Coefficient of Variation 19.5 % Platelet Count 66 K/uL Platelet Estimate DECREASED Sodium Level 134 mmol/L Potassium Level 4.4 mmol/L Chloride Level 104 mmol/L Carbon Dioxide Level 20 mmol/L Anion Gap 10.0 mmol/L Blood Urea Nitrogen 52 mg/dl Creatinine 2.10 mg/dl Est Creatinine Clear Calc Drug Dose 25.8 ml/min Estimated GFR () 33.2 Estimated GFR (Non- 28.7 BUN/Creatinine Ratio 24.7 Random Glucose 151 mg/dl Calcium Level 7.7 mg/dl Phosphorus Level 5.8 mg/dl Magnesium Level 1.8 mg/dl Total Bilirubin 0.4 mg/dl Aspartate Amino Transf (AST/SGOT) 377 U/L Alanine Aminotransferase (ALT/SGPT) 313 U/L Alkaline Phosphatase 107 U/L Total Protein 6.2 gm/dl Albumin 2.3 gm/dl Globulin 3.9 gm/dl Albumin/Globulin Ratio 0.6 Thyroid Stimulating Hormone (TSH) 2.290 uIu/ml Test 02/17/17 07:51 Lactic Acid Level 1.5 mmol/L Resident Tracking Resident Involvement: Resident Care Provided Care Provided: Adult Hospital Medicine
[2017-02-17] MEDS: INSULIN ASPART 100 UNITS/ML 3 ML PEN SC SCH ×3 (11:00→20:31)
--- NOTE | 2017-02-17 13:12 | Progress Note ---
Subjective Date of Service: Feb 17, 2017. Subjective Pt evaluation today including: conversation w/ patient, physical exam, lab review, review of studies, review of inpatient medication list Saw/examined the patient in room 107 He's doing well, no chest pain or shortness of breath Intermittent cough, which causes some pain No palpitations; denies fevers/chills Problem List Medical Problems: (1) Aphasia Status: Acute Review of Systems Constitutional: No fever, No chills Respiratory: + cough, No sputum, No wheezing, No shortness of breath (improved) , No dyspnea on exertion, No dyspnea at rest, No hemoptysis Cardiac: No chest pain (resolved), No edema, No palpitations Abdomen: No pain, No nausea, No vomiting, No diarrhea Heme: No abnormal bleeding/bruising Medications Current Inpatient Medications Medications (Trade) Dose Ordered Sig/Jarvis Route Start Time Stop Time Status Last Admin Dose Admin Metoprolol Tartrate (Lopressor Tab) 12.5 mg BID PO 02/16/17 09:00 03/18/17 08:59 02/16/17 21:42 12.5 MG Metoprolol Tartrate (Lopressor Iv) 5 mg Q6 PRN IV 02/15/17 17:45 03/17/17 17:44 Allopurinol (Zyloprim Tab) 200 mg DAILY PO 02/17/17 09:00 03/19/17 08:59 02/17/17 09:32 200 MG Hydroxyurea (Hydrea Cap) 1,000 mg QDD PO 02/16/17 16:45 03/18/17 16:44 02/17/17 09:31 1,000 MG Vitamin B Complex (Vitamin B Complex) 1 tab DAILY PO 02/17/17 09:00 03/19/17 08:59 02/17/17 09:32 1 TAB Ondansetron HCl (Zofran Inj) 4 mg Q4H PRN IV 02/16/17 16:00 03/18/17 15:59 Morphine Sulfate (MoRPHine SULFATE INJ) Q1H PRN IV 02/16/17 16:00 03/02/17 15:59 Amiodarone HCL/ Dextrose 200 ml @ 16.7 mls/hr [id number] IV 02/17/17 04:30 03/19/17 04:29 02/17/17 03:40 16.7 MLS/HR Aspirin (Ecotrin Tab) 81 mg QAM PO 02/18/17 09:00 03/20/17 08:59 Pantoprazole Sodium (Protonix Tab) 40 mg QAM PO 02/18/17 09:00 03/20/17 08:59 Colchicine (Colchicine Tab) 0.6 mg QAM PO 02/18/17 09:00 03/20/17 08:59 Prednisone (PredniSONE TAB) 20 mg DAILY PO 02/18/17 09:00 03/20/17 08:59 Heparin Sodium (Porcine) (Heparin Sq 5000 Unit/0.5ml) 5,000 unit Q12 SQ 02/17/17 21:00 03/19/17 20:59 Levetiracetam (Keppra Tab) 500 mg BID@0600,1800 PO 02/17/17 18:00 03/19/17 17:59 Glucose (Glucose 40% Gel) 15-30 GRAMS 15 GRAMS... UD PRN PO 02/17/17 10:00 03/19/17 09:59 Glucose (Glucose Chew Tab) 4-8 Tablets 4 Tabl... UD PRN PO 02/17/17 10:00 03/19/17 09:59 Dextrose (Dextrose 50% 50ML Syringe) 25-50ML OF 50% DW IV FOR... UD PRN IV 02/17/17 10:00 03/19/17 09:59 Glucagon (Glucagon Inj) 1 mg UD PRN SQ 02/17/17 10:00 03/19/17 09:59 Insulin Aspart (novoLOG ASPART) SLIDING SCALE ACHS SC 02/17/17 11:00 03/19/17 10:59 Objective Vital Signs Date Time Temp Pulse Resp B/P (MAP) Pulse Ox O2 Delivery O2 Flow Rate FiO2 02/17/17 10:00 79 26 98/66 (77) 99 Nasal Cannula 2.0 02/17/17 09:00 82 25 93/50 (64) 97 Nasal Cannula 2.0 02/17/17 08:00 37.0 89 25 119/61 (80) 98 Nasal Cannula 2.0 02/17/17 08:00 Nasal Cannula 2.0 02/17/17 06:01 86 20 97/67 (77) 98 2.0 02/17/17 04:00 98 Nasal Cannula 2.0 02/17/17 04:00 36.5 88 19 102/70 (81) 98 Nasal Cannula 2.0 02/17/17 03:15 87 20 102/64 (77) 97 Nasal Cannula 2.0 02/17/17 02:00 97 23 90/54 (66) 97 Nasal Cannula 2.0 02/17/17 01:03 109 25 91/54 (66) 96 02/17/17 00:30 104 22 88/59 (69) 97 02/17/17 00:17 114 24 81/45 (57) 97 02/17/17 00:00 36.7 114 18 88/59 (69) 97 Nasal Cannula 2.0 02/17/17 00:00 119 27 92/60 (71) 97 02/17/17 00:00 97 Nasal Cannula 2.0 02/16/17 23:00 107 22 81/46 (58) 97 Nasal Cannula 2.0 02/16/17 22:30 117 24 93/59 (70) 95 02/16/17 22:24 121 25 77/44 (55) 96 02/16/17 22:00 122 22 123/49 (73) 96 02/16/17 21:35 125 26 90/60 (70) 96 02/16/17 21:30 143 22 76/64 (68) 96 02/16/17 21:25 105 22 91/47 (62) 97 02/16/17 21:20 109 23 98/66 (77) 96 02/16/17 21:10 104 22 92/61 (71) 97 02/16/17 21:00 110 23 104/62 (76) 96 02/16/17 20:55 100 23 96/49 (65) 97 02/16/17 20:50 112 22 99/62 (74) 96 02/16/17 20:40 115 21 97/60 (72) 96 02/16/17 20:30 113 21 102/63 (76) 96 02/16/17 20:25 105 21 93/50 (64) 96 02/16/17 20:20 109 21 98/61 (73) 96 02/16/17 20:10 109 23 101/58 (72) 96 02/16/17 20:02 110 22 91/47 (62) 96 02/16/17 20:00 110 22 79/63 (68) 96 02/16/17 20:00 96 Nasal Cannula 2.0 02/16/17 19:55 111 22 93/50 (64) 96 02/16/17 19:50 16 101/66 (78) 96 02/16/17 19:40 19 102/66 (78) 96 02/16/17 19:30 20 102/65 (77) 97 02/16/17 19:20 15 95/62 (73) 97 02/16/17 19:10 23 98/69 (79) 96 02/16/17 19:00 20 98/53 (68) 96 02/16/17 18:50 19 100/63 (75) 96 02/16/17 18:30 19 94/62 (73) 95 02/16/17 18:20 18 97/50 (66) 95 02/16/17 18:06 108 20 94 02/16/17 18:06 108 20 02/16/17 18:05 18 106/64 (78) 94 02/16/17 18:05 106/64 02/16/17 18:01 108 19 02/16/17 18:01 108 19 94 02/16/17 18:00 19 92/67 (75) 94 02/16/17 18:00 92/67 02/16/17 17:56 106 18 02/16/17 17:56 106 18 94 02/16/17 17:55 20 107/66 (80) 94 02/16/17 17:55 107/66 02/16/17 17:51 107 16 02/16/17 17:51 107 16 94 02/16/17 17:50 18 107/65 (79) 93 02/16/17 17:50 107/65 02/16/17 17:46 107 20 94 02/16/17 17:46 107 20 02/16/17 17:45 21 106/71 (83) 94 02/16/17 17:45 107 21 02/16/17 17:45 106 21 106/71 94 02/16/17 17:40 105 16 110/68 96 02/16/17 17:40 106 16 02/16/17 17:40 16 110/68 (82) 96 02/16/17 17:35 20 106/66 (79) 97 02/16/17 17:35 108 20 106/66 97 02/16/17 17:35 108 20 02/16/17 17:30 19 122/66 (84) 98 02/16/17 17:30 107 19 122/66 98 02/16/17 17:30 108 19 02/16/17 17:29 105 18 02/16/17 17:29 18 104/67 (79) 98 02/16/17 17:29 105 18 02/16/17 17:29 105 18 104/67 98 02/16/17 17:29 105 18 104/67 98 02/16/17 17:25 36.6 107 17 104/67 98 Mask 4 02/16/17 17:24 104 12 97 02/16/17 17:24 103 12 02/16/17 17:24 104 12 97 02/16/17 17:24 103 12 02/16/17 17:15 113 18 109/76 97 Mask 10 02/16/17 17:05 111 23 132/51 96 Mask 15 02/16/17 16:55 111 24 134/81 94 Mask 15 02/16/17 16:49 36.2 105 26 133/89 27 Mask 15 Physical Exam General Appearance: no apparent distress, + thin Respiratory/Chest: lungs clear, normal breath sounds, no respiratory distress, no accessory muscle use Cardiovascular: regular rate, rhythm, no edema, no murmur Extremities: normal inspection, no pedal edema Neurologic/Psychiatric: no motor/sensory deficits, alert, normal mood/affect Laboratory Results Last 24 Hours Test 02/16/17 15:40 02/16/17 17:31 02/17/17 05:44 02/17/17 07:51 Bedside Blood Gas pH (LAB) 6.86 Bedside Blood Gas pCO2 (LAB) 89 mmHg Bedside Blood Gas pO2 (LAB) 93 mmHg Bedside Blood Gas HCO3 (LAB) 16 meq/L Bedside Blood Gas Total CO2 18 mEq/l Bedside Blood Gas Base Excess (LAB) -18.0 meq/L Bedside Blood Gas O2 Saturation 86.0 % Arterial Blood pH 7.35 Arterial Blood Partial Pressure CO2 30 mmHg Arterial Blood Partial Pressure O2 72 mm/Hg Arterial Blood HCO3 16 mmol/L Arterial Blood Oxygen Saturation 92.2 % Arterial Blood Base Excess -8.6 mEq/L Arterial Blood Gas Delivery 15 L [place] Test ARTLINE White Blood Count 61.09 K/uL Red Blood Count 2.75 M/uL Hemoglobin 9.3 g/dL Hematocrit 25.2 % Mean Corpuscular Volume 91.6 fL Mean Corpuscular Hemoglobin 33.8 pg Mean Corpuscular Hemoglobin Concent 36.9 g/dl RDW Standard Deviation 64.3 fL RDW Coefficient of Variation 19.5 % Platelet Count 66 K/uL Platelet Estimate DECREASED Sodium Level 134 mmol/L Potassium Level 4.4 mmol/L Chloride Level 104 mmol/L Carbon Dioxide Level 20 mmol/L Anion Gap 10.0 mmol/L Blood Urea Nitrogen 52 mg/dl Creatinine 2.10 mg/dl Est Creatinine Clear Calc Drug Dose 25.8 ml/min Estimated GFR () 33.2 Estimated GFR (Non- 28.7 BUN/Creatinine Ratio 24.7 Random Glucose 151 mg/dl Calcium Level 7.7 mg/dl Phosphorus Level 5.8 mg/dl Magnesium Level 1.8 mg/dl Total Bilirubin 0.4 mg/dl Aspartate Amino Transf (AST/SGOT) 377 U/L Alanine Aminotransferase (ALT/SGPT) 313 U/L Alkaline Phosphatase 107 U/L Total Protein 6.2 gm/dl Albumin 2.3 gm/dl Globulin 3.9 gm/dl Albumin/Globulin Ratio 0.6 Thyroid Stimulating Hormone (TSH) 2.290 uIu/ml Lactic Acid Level 1.5 mmol/L Test 02/17/17 11:12 Bedside Glucose 151 mg/dl Assessment and Plan This is an 81 year old male with a PMH of 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, anemia of chronic disease on Procrit, HTN, CKD stage 3, BPH presented with multiple symptoms including dyspnea on exertion, shortness of breath, chest pain, word finding difficulty - subsequently found to have pericardial effusion with tamponade physiology Acute Pericarditis with Pericardial Effusion concern on initial echo was early tamponade physiology s/p pericardial window on 02/16/17 by cardiothoracic surgery appreciate cardiology input on this matter - repeat echo shows improvement and near resolution of the effusion will continue a prednisone taper as per cardio, continue colchicine (avoid ibuprofen due to kidney function) clinically feeling better Paroxysmal A. Fib pre and post-operatively started on IV amiodarone as per cardiology with idea to transition to PO amiodarone LFTs elevating with amiodarone use; monitor Acute Kidney Injury superimposed on CKD stage 3 creatinine on admission 1.5 now creatinine is up to 2.1 appreciate nephrology input regarding fluid management likely kidney injury is due to tachycardia and hypoperfusion of the kidney Chronic Myelomonocytic Leukemia appreciate oncology input, continue chemo no acute management necessary Anemia of Chronic Disease continue Procrit as scheduled, monitor H/H Transient Aphasia - resolved actually had stroke alert called and telestroke from [place] recommended loading dose of Keppra Head CT negative possible need for Brain MRI? EEG? neurology consultation pending DVT ppx subq heparin FULL CODE
--- NOTE | 2017-02-17 13:42 | Neurology Consultation ---
Neurology Consultation Date of Consultation: Feb 17, 2017. 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 Clayton Fox of hematology who presented with multiple cardiac and neurological symptoms from home with early differential diagnosis of seizure as per emergency room physician in coordination with neurology teleconference with neurologist at [facility] vs stroke vs hyperviscosity complications from leukemia and also found to have tachycardia. There are various histories of what happened at home prior to admission. He was reading a book when he found that the text did not make sense to him. Denies changes in vision. Started having difficulty with finding words with his speech, but no obvious facial motor weakness or slurred speech or facial droop as per the patient's .He appears by this history to recognize these symptoms and did not lose consciousness and was able to follow directions and ambulate. His confirmed there was no tremors or jerking during this episode. When patient evaluated in the ED, stroke alert was called. He had negative head CT for intracranial bleed. In 2008 he had a SDH after falling off a ladder and had a bilateral chloe hole evacuation by Dr Huber. Was given aspirin. After consultation and evaluation with [facility] neurology by the ED physician, it was decided that patient more likely had seizure symptoms rather than stroke and the patient was given Keppra 500 mg per oral x 1 as loading dose for seizure treatment. This was also happening in context of tachycardia between 110s to 120s which was not treated in the emergency department and also chest discomfort. Yesterday he was taken to the OR by cardiology for a cardiac window and was not seen by neurology. He feels he is doing well today and recalls being placed on Keppra for seizures and also understands we will wait to do any further neurologic evaluation until he is stable from his cardiac surgery. denies CP, SOB, abdominal pain, one sided numbness, weakness, further slurred speech or loss of time. Past Medical/Surgical History Medical Problems: (1) Aphasia Status: Acute Social History Smoking Status: Never smoker Drug Use: none Marital Status: Housing Status: lives with family Occupation Status: retired Allergies Coded Allergies: Lisinopril (Verified Allergy, Unknown, ., 02/15/17) Tamsulosin (Unverified Allergy, Unknown, EDEMA FACE,LIPS,TONGUE, 02/15/17) Current Inpatient Medications Current Inpatient Medications Medications (Trade) Dose Ordered Sig/Jarvis Route Start Time Stop Time Status Last Admin Dose Admin Metoprolol Tartrate (Lopressor Tab) 12.5 mg BID PO 02/16/17 09:00 03/18/17 08:59 02/16/17 21:42 12.5 MG Metoprolol Tartrate (Lopressor Iv) 5 mg Q6 PRN IV 02/15/17 17:45 03/17/17 17:44 Allopurinol (Zyloprim Tab) 200 mg DAILY PO 02/17/17 09:00 03/19/17 08:59 02/17/17 09:32 200 MG Hydroxyurea (Hydrea Cap) 1,000 mg QDD PO 02/16/17 16:45 03/18/17 16:44 02/17/17 09:31 1,000 MG Vitamin B Complex (Vitamin B Complex) 1 tab DAILY PO 02/17/17 09:00 03/19/17 08:59 02/17/17 09:32 1 TAB Ondansetron HCl (Zofran Inj) 4 mg Q4H PRN IV 02/16/17 16:00 03/18/17 15:59 Morphine Sulfate (MoRPHine SULFATE INJ) Q1H PRN IV 02/16/17 16:00 03/02/17 15:59 Amiodarone HCL/ Dextrose 200 ml @ 16.7 mls/hr [id number] IV 02/17/17 04:30 03/19/17 04:29 02/17/17 03:40 16.7 MLS/HR Aspirin (Ecotrin Tab) 81 mg QAM PO 02/18/17 09:00 03/20/17 08:59 Pantoprazole Sodium (Protonix Tab) 40 mg QAM PO 02/18/17 09:00 03/20/17 08:59 Colchicine (Colchicine Tab) 0.6 mg QAM PO 02/18/17 09:00 03/20/17 08:59 Prednisone (PredniSONE TAB) 20 mg DAILY PO 02/18/17 09:00 03/20/17 08:59 Heparin Sodium (Porcine) (Heparin Sq 5000 Unit/0.5ml) 5,000 unit Q12 SQ 02/17/17 21:00 03/19/17 20:59 Levetiracetam (Keppra Tab) 500 mg BID@0600,1800 PO 02/17/17 18:00 03/19/17 17:59 Glucose (Glucose 40% Gel) 15-30 GRAMS 15 GRAMS... UD PRN PO 02/17/17 10:00 03/19/17 09:59 Glucose (Glucose Chew Tab) 4-8 Tablets 4 Tabl... UD PRN PO 02/17/17 10:00 03/19/17 09:59 Dextrose (Dextrose 50% 50ML Syringe) 25-50ML OF 50% DW IV FOR... UD PRN IV 02/17/17 10:00 03/19/17 09:59 Glucagon (Glucagon Inj) 1 mg UD PRN SQ 02/17/17 10:00 03/19/17 09:59 Insulin Aspart (novoLOG ASPART) SLIDING SCALE ACHS SC 02/17/17 11:00 03/19/17 10:59 Physical Exam Vital Signs (Past 24 Hrs): Date Time Temp Pulse Resp B/P (MAP) Pulse Ox O2 Delivery O2 Flow Rate FiO2 02/17/17 10:00 79 26 98/66 (77) 99 Nasal Cannula 2.0 02/17/17 09:00 82 25 93/50 (64) 97 Nasal Cannula 2.0 02/17/17 08:00 37.0 89 25 119/61 (80) 98 Nasal Cannula 2.0 02/17/17 08:00 Nasal Cannula 2.0 02/17/17 06:01 86 20 97/67 (77) 98 2.0 02/17/17 04:00 98 Nasal Cannula 2.0 02/17/17 04:00 36.5 88 19 102/70 (81) 98 Nasal Cannula 2.0 02/17/17 03:15 87 20 102/64 (77) 97 Nasal Cannula 2.0 02/17/17 02:00 97 23 90/54 (66) 97 Nasal Cannula 2.0 02/17/17 01:03 109 25 91/54 (66) 96 02/17/17 00:30 104 22 88/59 (69) 97 02/17/17 00:17 114 24 81/45 (57) 97 02/17/17 00:00 36.7 114 18 88/59 (69) 97 Nasal Cannula 2.0 02/17/17 00:00 119 27 92/60 (71) 97 02/17/17 00:00 97 Nasal Cannula 2.0 02/16/17 23:00 107 22 81/46 (58) 97 Nasal Cannula 2.0 02/16/17 22:30 117 24 93/59 (70) 95 02/16/17 22:24 121 25 77/44 (55) 96 02/16/17 22:00 122 22 123/49 (73) 96 02/16/17 21:35 125 26 90/60 (70) 96 02/16/17 21:30 143 22 76/64 (68) 96 02/16/17 21:25 105 22 91/47 (62) 97 02/16/17 21:20 109 23 98/66 (77) 96 02/16/17 21:10 104 22 92/61 (71) 97 02/16/17 21:00 110 23 104/62 (76) 96 02/16/17 20:55 100 23 96/49 (65) 97 02/16/17 20:50 112 22 99/62 (74) 96 02/16/17 20:40 115 21 97/60 (72) 96 02/16/17 20:30 113 21 102/63 (76) 96 02/16/17 20:25 105 21 93/50 (64) 96 02/16/17 20:20 109 21 98/61 (73) 96 02/16/17 20:10 109 23 101/58 (72) 96 02/16/17 20:02 110 22 91/47 (62) 96 02/16/17 20:00 110 22 79/63 (68) 96 02/16/17 20:00 96 Nasal Cannula 2.0 02/16/17 19:55 111 22 93/50 (64) 96 02/16/17 19:50 16 101/66 (78) 96 02/16/17 19:40 19 102/66 (78) 96 02/16/17 19:30 20 102/65 (77) 97 02/16/17 19:20 15 95/62 (73) 97 02/16/17 19:10 23 98/69 (79) 96 02/16/17 19:00 20 98/53 (68) 96 02/16/17 18:50 19 100/63 (75) 96 02/16/17 18:30 19 94/62 (73) 95 02/16/17 18:20 18 97/50 (66) 95 02/16/17 18:06 108 20 94 02/16/17 18:06 108 20 02/16/17 18:05 18 106/64 (78) 94 02/16/17 18:05 106/64 02/16/17 18:01 108 19 02/16/17 18:01 108 19 94 02/16/17 18:00 19 92/67 (75) 94 02/16/17 18:00 92/67 02/16/17 17:56 106 18 02/16/17 17:56 106 18 94 02/16/17 17:55 20 107/66 (80) 94 02/16/17 17:55 107/66 02/16/17 17:51 107 16 02/16/17 17:51 107 16 94 02/16/17 17:50 18 107/65 (79) 93 02/16/17 17:50 107/65 02/16/17 17:46 107 20 94 02/16/17 17:46 107 20 02/16/17 17:45 21 106/71 (83) 94 02/16/17 17:45 107 21 02/16/17 17:45 106 21 106/71 94 02/16/17 17:40 105 16 110/68 96 02/16/17 17:40 106 16 02/16/17 17:40 16 110/68 (82) 96 02/16/17 17:35 20 106/66 (79) 97 02/16/17 17:35 108 20 106/66 97 02/16/17 17:35 108 20 02/16/17 17:30 19 122/66 (84) 98 02/16/17 17:30 107 19 122/66 98 02/16/17 17:30 108 19 02/16/17 17:29 105 18 02/16/17 17:29 18 104/67 (79) 98 02/16/17 17:29 105 18 02/16/17 17:29 105 18 104/67 98 02/16/17 17:29 105 18 104/67 98 02/16/17 17:25 36.6 107 17 104/67 98 Mask 4 02/16/17 17:24 104 12 97 02/16/17 17:24 103 12 02/16/17 17:24 104 12 97 02/16/17 17:24 103 12 02/16/17 17:15 113 18 109/76 97 Mask 10 02/16/17 17:05 111 23 132/51 96 Mask 15 02/16/17 16:55 111 24 134/81 94 Mask 15 02/16/17 16:49 36.2 105 26 133/89 27 Mask 15 Physical Exam: Constitutional: appearance nourished, healthy and normal Ears, Nose, Mouth and Throat: mucous membranes moist, no injection and skin normal, eyes normal Cardiovascular: normal S-1 and S-2 and regular rate and rhythm Respiratory: clear to auscultation (CTA) and no rales, rhonchi or wheeze Musculoskeletal: no peripheral edema and good distal pulses Skin: no stigmata of neurocutaneous disease noted and normal and intact Eyes: extraocular muscles intact (EOMI) and pupils equal, round and reactive to light (PERRL) NEUROLOGIC EXAMINATION: Mental status: Alert and interactive Oriented to location Oriented to person Speech fluent with no evidence of aphasia Cranial Nerves smile eye brow raise symmetric, tongue midline Sensory: no sensory deficits to light touch Coordination: finger to nose without bipass Gait/Stance: Posture lying in bed Motor: Negative for pronator drift of out stretched arms with eyes closed. Strength: hand debt and budget counselor biceps triceps, hip flex plantar flex ext 5/5 bilaterally Laboratory Results Past 24 Hours: 02/17/17 05:44 02/17/17 05:44 Test 02/16/17 15:40 02/16/17 17:31 02/17/17 05:44 02/17/17 07:51 Bedside Blood Gas pH (LAB) 6.86 (7.35-7.45) Bedside Blood Gas pCO2 (LAB) 89 mmHg (35-46) Bedside Blood Gas pO2 (LAB) 93 mmHg (80-95) Bedside Blood Gas HCO3 (LAB) 16 meq/L (19-24) Bedside Blood Gas Total CO2 18 mEq/l (24-31) Bedside Blood Gas Base Excess (LAB) -18.0 meq/L (-9-1.8) Bedside Blood Gas O2 Saturation 86.0 % (90-95) Arterial Blood pH 7.35 (7.35-7.45) Arterial Blood Partial Pressure CO2 30 mmHg (35-46) Arterial Blood Partial Pressure O2 72 mm/Hg (80-95) Arterial Blood HCO3 16 mmol/L (19-24) Arterial Blood Oxygen Saturation 92.2 % (90-95) Arterial Blood Base Excess -8.6 mEq/L (-9-1.8) Arterial Blood Gas Delivery 15 L [place] Test ARTLINE (POS) Red Blood Count 2.75 M/uL (4.7-6.1) Mean Corpuscular Volume 91.6 fL (80-100) Mean Corpuscular Hemoglobin 33.8 pg (25-34) Mean Corpuscular Hemoglobin Concent 36.9 g/dl (32-36) RDW Standard Deviation 64.3 fL (36.4-46.3) RDW Coefficient of Variation 19.5 % (11.5-14.5) Platelet Estimate DECREASED Anion Gap 10.0 mmol/L (3-11) Est Creatinine Clear Calc Drug Dose 25.8 ml/min Estimated GFR () 33.2 Estimated GFR (Non- 28.7 BUN/Creatinine Ratio 24.7 (10-20) Calcium Level 7.7 mg/dl (8.5-10.1) Phosphorus Level 5.8 mg/dl (2.5-4.9) Magnesium Level 1.8 mg/dl (1.8-2.4) Total Bilirubin 0.4 mg/dl (0.2-1) Aspartate Amino Transf (AST/SGOT) 377 U/L (15-37) Alanine Aminotransferase (ALT/SGPT) 313 U/L (12-78) Alkaline Phosphatase 107 U/L (45-117) Total Protein 6.2 gm/dl (6.4-8.2) Albumin 2.3 gm/dl (3.4-5.0) Globulin 3.9 gm/dl (2.5-4.0) Albumin/Globulin Ratio 0.6 (0.9-2) Thyroid Stimulating Hormone (TSH) 2.290 uIu/ml (0.300-4.500) Lactic Acid Level 1.5 mmol/L (0.4-2.0) Test 02/17/17 11:12 Bedside Glucose 151 mg/dl (70-99) Imaging no new imaging Impression 81 year old male PMH CML, HTN, CKD, presentation cardiac and neurologic symptoms. POD #1 cardiac window Plan 1. will wait on further neurologic work up until patient is stable from cardiac surgery 2. as some point EEG MRI cardiac US will be helpful for further neurologic evaluation- if there is no radiographic issues or + EEG we can stop the Keppra. It does not appear there was a seizure during this episode 3. continue Keppra 500 mg BID with renal dosing - Cr Cl 28.7 he is currently at the max dosing for seizure management 4. seizure precautions 5. will follow with you 6. further recommendations to follow I have seen and discussed above patient with Dr Ela Rm, neurology Pt seen and examined. Had difficulty understanding what he was reading, had severe chest pressure and mild word finding difficulty. No tremor, shaking, ballistic movement or unresponsiveness. This is the setting of tachycardia, intermittent hypotension, chest pain with pericardial effusion. Rec EEG and if nml stop keppra. I do not hear anything by history that speaks of sz. The event sounds more global and related to hypoperfusion than it does focal. Rec carotid US, MRI brain for completion with any further intervention/testing based on the aforementioned results. REED Rm MD
[2017-02-17] MEDS ORDERED: ACETAMINOPHEN 325 MG TAB PO PRN (16:00)
[2017-02-17] MEDS: LEVETIRACETAM 500 MG TAB PO SCH (18:21)
[2017-02-17] MEDS: HEPARIN SOD 5000 UNIT/0.5 ML CARP SQ SCH (20:31)
[2017-02-18] VITALS (8 sets, daily range): BP systolic 115–125; BP diastolic 69–79; PULSE 73–93; TEMP 36.5–36.9; O2SAT 95–98
[2017-02-18] MEDS: AMIODARONE / D5W 200 ML IV SCH (03:47)
[2017-02-18] MEDS: LEVETIRACETAM 500 MG TAB PO SCH ×2 (06:14→18:03)
[2017-02-18] MEDS: INSULIN ASPART 100 UNITS/ML 3 ML PEN SC SCH ×4 (07:00→20:45)
--- NOTE | 2017-02-18 07:38 | DIAGNOSTIC IMAGING REPORT ---
CHEST ONE VIEW PORTABLE HISTORY: chest tube removal COMPARISON: Chest 02/17/2017. FINDINGS: Right-sided chest tube is been removed. No definite right pneumothorax. Small bilateral pleural effusions and bibasilar densities persist. The heart remains mildly enlarged. The lungs and are clear. There is a stimulator pack overlying the left upper chest. IMPRESSION: 1. Interval removal of the right-sided chest tube. No definite pneumothorax. 2. Small bilateral pleural effusions and bibasilar densities persist. Electronically signed by: Ed Landrum M.D. 02/18/2017 7:37 AM Dictated Date/Time: 02/18/2017 7:35 AM
[2017-02-18 07:40] LABS: HEMATOCRIT 26.5 % (42-52); MEAN CELL VOLUME 90.8 fL (80-100); MEAN CORPUSCULAR HEMOGLOBIN 32.9 pg (25-34); MEAN CORPUSCULAR HGB CONC 36.2 g/dl (32-36); RED BLOOD COUNT 2.92 M/uL (4.7-6.1); WHITE BLOOD COUNT 52.14 K/uL (4.8-10.8)
[2017-02-18 07:41] LABS: BUN/CREATININE RATIO 25.6 (10-20); CALCIUM 7.6 mg/dl (8.5-10.1); CREATININE 1.9 mg/dl (0.60-1.40); POTASSIUM 3.7 mmol/L (3.5-5.1)
[2017-02-18 07:45] LABS: ALB/GLOB RATIO 0.5 (0.9-2)
[2017-02-18 07:50] LABS: PLATELET COUNT 53 K/uL (130-400)
[2017-02-18 07:51] LABS: PLT ESTIMATE DECREASED
[2017-02-18] MEDS: COLCHICINE 0.6 MG TAB PO SCH (08:43)
[2017-02-18] MEDS: ASPIRIN 81 MG ECTAB PO SCH (08:43)
[2017-02-18] MEDS: METOPROLOL TARTRATE 25 MG TAB PO SCH ×2 (08:43→20:47)
[2017-02-18] MEDS: ALLOPURINOL 100 MG TAB PO SCH (08:43)
[2017-02-18] MEDS: PANTOprazole SOD 40 MG TAB PO SCH (08:43)
[2017-02-18] MEDS: HEPARIN SOD 5000 UNIT/0.5 ML CARP SQ SCH ×2 (08:44→20:51)
[2017-02-18] MEDS: VITAMIN B COMPLEX TAB PO SCH (08:44)
--- NOTE | 2017-02-18 09:22 | Cardiology Follow-Up ---
Subjective General Date of Service: Feb 18, 2017. Chief Complaint: follow up chest pain, tachycardia Pt evaluation today including: conversation w/ patient, physical exam History of Present Illness The patient is a 81 year old male seen in cardiology follow-up. The patient was transferred from the surgical intensive care unit [facility] yesterday afternoon. Review of telemetry reveals that he has remained in sinus rhythm with a yesterday, overnight, and so far today. He remains on amiodarone infusion. He reports feeling well. He is sitting upright. He denies any chest discomfort with inspiration. Shortness of breath has improved significantly. His blood pressure has also trended toward significant improvement with recent readings including systolic blood pressure above 120 on serial measurements. Noble catheter is in place with noted 1 L of urine output recorded on 02/17/17 and 1 L of urine output noted so far today since midnight last night. His platelet count remains low at 53,000 today compared 66,000 yesterday. Blood cell count has trended toward improvement at 52,000 as compared to 61,000 yesterday. Creatinine is improved from 2.1 to 1.9 milligrams per deciliter. His transaminases are trending toward improvement. Allergies Coded Allergies: Lisinopril (Verified Allergy, Unknown, ., 02/15/17) Tamsulosin (Unverified Allergy, Unknown, EDEMA FACE,LIPS,TONGUE, 02/15/17) Social History Smoking Status: Never Smoker Hx Tobacco Use In Past Year?: No Hx Alcohol Use - Type And Amou: Yes (2oz of scotch daily) Hx Substance Use - Type And Am: No ( ) Problem List Medical Problems: (1) Aphasia Status: Acute Physical Exam Vital Signs Last Vital Signs Documentation Date Time Temp Pulse Resp B/P (MAP) Pulse Ox O2 Delivery O2 Flow Rate FiO2 02/18/17 07:58 36.6 89 16 121/76 (91) 97 Nasal Cannula 3.0 Physical Exam Constitutional: Level of Distress: NAD Head: normocephalic ENMT: normal ENT inspection, hearing grossly normal Neck: supple Lungs: Auscultation: no wheezing, no rhonchi, pertinent finding (decreased breath sounds at the bases bilaterally. ) Cardiovascular: Heart Auscultation: RRR, pertinent finding (1/6 systolic murmur) Musculoskeletal: normal Extremities: no edema Neurologic: Gait & Station: pertinent finding (word finding difficulty has resolved..) Assessment and Plan Assessment and Plan Impression: 81-year-old male 1. Acute idiopathic pericarditis with pericardial effusion/ early tamponade physiology for which patient is status post thoracoscopic pericardial window on .-Pathology in pericardial fluid is pending 2. Paroxysmal atrial fibrillation, pre op and post op-in SR now on amiodarone infusion 3. ANOOP on CKD, creatinine 1.5-->2.1-->2.1 -->1.9, likely prerenal / ATN from hemodynamic effect of tachycardia , pericardial effusion 4. chronic myelomonocytic leukemia, with leukocytosis, thrombocytopenia 5. Small bilateral pleural effusions visualized on echo 02/17, chest x-ray 6. Elevated LFTs, likely due to congestive hepatopathy transient high RA pressures Discussion/plan: LFTs were trending toward improvement, monitor closely given amiodarone therapy AF-EKG performed today 02/18/17, sinus rhythm at 81 bpm, stable intervals. No ischemic changes. Increase metoprolol tartrate to 25 mg BID, DC IV amiodarone, and transition to oral amiodarone 200 mg TID with meals. ASA for stroke prophylaxis. Not candidate for anticoagulation due to thrombocytopenia, anemia. Pericarditis, perhaps constrictive component , to prevent recurrent inflammation , on low dose colchicine (with caution given renal function impairment, risk of myelosuppression) Low-dose prednisone, plan to start with 20 mg per day, and taper slowly over 3 weeks to 2.5 mg and then off. DVT prophylaxis: He is on knee-high sequential pneumatic compression devices while in bed. He is also on subcutaneous subcutaneous every heparin 5000 units every 12 hours. Need to be vigilant to prevent DVT, also have to monitor closely for worsening platelet count and bleeding. Continue subcutaneous heparin for now, but this may need to be reassessed as the patient's activity level increases and he becomes more ambulatory. Overall, the patient appears much improved especially compared to prior to the pericardial window. His neurologic status appears improved. Noble catheter is to be discontinued. Plan to try to keep his intake and output even as he was markedly positive around the time of surgery. If his renal function continues to improve, his blood pressure continues to improve, will consider low-dose diuretic in future to help with pleural effusions. We' ll likely send him off the floor for a formal PA and lateral chest x-ray after I see him. Repeat focused echocardiogram will be planned for a.m. of 02/19/17. Patient's to remain hospitalized, on telemetry. Adrian Pollard DO, FACC, FACOI Associate Inspector [employer] [facility] Nolan Pollard DO Laboratory Results Last 24 Hours Test 02/17/17 11:12 02/17/17 16:22 02/17/17 17:17 02/17/17 20:01 Bedside Glucose 151 mg/dl 199 mg/dl 190 mg/dl 218 mg/dl Test 02/18/17 06:23 02/18/17 06:42 White Blood Count 52.14 K/uL Red Blood Count 2.92 M/uL Hemoglobin 9.6 g/dL Hematocrit 26.5 % Mean Corpuscular Volume 90.8 fL Mean Corpuscular Hemoglobin 32.9 pg Mean Corpuscular Hemoglobin Concent 36.2 g/dl RDW Standard Deviation 62.4 fL RDW Coefficient of Variation 19.2 % Platelet Count 53 K/uL Platelet Estimate DECREASED Sodium Level 133 mmol/L Potassium Level 3.7 mmol/L Chloride Level 104 mmol/L Carbon Dioxide Level 20 mmol/L Anion Gap 9.0 mmol/L Blood Urea Nitrogen 49 mg/dl Creatinine 1.90 mg/dl Est Creatinine Clear Calc Drug Dose 30.4 ml/min Estimated GFR () 37.5 Estimated GFR (Non- 32.3 BUN/Creatinine Ratio 25.6 Random Glucose 110 mg/dl Calcium Level 7.6 mg/dl Total Bilirubin 0.4 mg/dl Direct Bilirubin 0.2 mg/dl Aspartate Amino Transf (AST/SGOT) 225 U/L Alanine Aminotransferase (ALT/SGPT) 165 U/L Alkaline Phosphatase 112 U/L Total Protein 6.2 gm/dl Albumin 2.1 gm/dl Globulin 4.1 gm/dl Albumin/Globulin Ratio 0.5 Bedside Glucose 116 mg/dl
[2017-02-18] MEDS ORDERED: METOPROLOL TARTRATE 25 MG TAB PO ONE (09:45)
--- NOTE | 2017-02-18 09:48 | Progress Note ---
Subjective Date of Service: Feb 18, 2017. Subjective Pt evaluation today including: conversation w/ patient, physical exam, lab review, review of studies, review of inpatient medication list Saw/examined the patient in room 218 He is resting comfortably in bed No distress Denies chest pain/shortness of breath Good PO intake Problem List Medical Problems: (1) Aphasia Status: Acute Review of Systems Constitutional: No fever, No chills Respiratory: No cough, No sputum, No wheezing, No shortness of breath, No dyspnea at rest Cardiac: No chest pain, No edema, No palpitations Abdomen: No pain, No nausea, No vomiting, No diarrhea, No constipation, No GI bleeding Musculoskeletal: No joint pain Medications Current Inpatient Medications Medications (Trade) Dose Ordered Sig/Jarvis Route Start Time Stop Time Status Last Admin Dose Admin Metoprolol Tartrate (Lopressor Iv) 5 mg Q6 PRN IV 02/15/17 17:45 03/17/17 17:44 Allopurinol (Zyloprim Tab) 200 mg DAILY PO 02/17/17 09:00 03/19/17 08:59 02/18/17 08:43 200 MG Hydroxyurea (Hydrea Cap) 1,000 mg QDD PO 02/16/17 16:45 03/18/17 16:44 02/17/17 18:22 1,000 MG Vitamin B Complex (Vitamin B Complex) 1 tab DAILY PO 02/17/17 09:00 03/19/17 08:59 02/18/17 08:44 1 TAB Ondansetron HCl (Zofran Inj) 4 mg Q4H PRN IV 02/16/17 16:00 03/18/17 15:59 Morphine Sulfate (MoRPHine SULFATE INJ) Q1H PRN IV 02/16/17 16:00 03/02/17 15:59 Aspirin (Ecotrin Tab) 81 mg QAM PO 02/18/17 09:00 03/20/17 08:59 02/18/17 08:43 81 MG Pantoprazole Sodium (Protonix Tab) 40 mg QAM PO 02/18/17 09:00 03/20/17 08:59 02/18/17 08:43 40 MG Colchicine (Colchicine Tab) 0.6 mg QAM PO 02/18/17 09:00 03/20/17 08:59 02/18/17 08:43 0.6 MG Prednisone (PredniSONE TAB) 20 mg DAILY PO 02/18/17 09:00 03/20/17 08:59 02/18/17 08:43 20 MG Heparin Sodium (Porcine) (Heparin Sq 5000 Unit/0.5ml) 5,000 unit Q12 SQ 02/17/17 21:00 03/19/17 20:59 02/18/17 08:44 5,000 UNIT Levetiracetam (Keppra Tab) 500 mg BID@0600,1800 PO 02/17/17 18:00 03/19/17 17:59 02/18/17 06:14 500 MG Glucose (Glucose 40% Gel) 15-30 GRAMS 15 GRAMS... UD PRN PO 02/17/17 10:00 03/19/17 09:59 Glucose (Glucose Chew Tab) 4-8 Tablets 4 Tabl... UD PRN PO 02/17/17 10:00 03/19/17 09:59 Dextrose (Dextrose 50% 50ML Syringe) 25-50ML OF 50% DW IV FOR... UD PRN IV 02/17/17 10:00 03/19/17 09:59 Glucagon (Glucagon Inj) 1 mg UD PRN SQ 02/17/17 10:00 03/19/17 09:59 Insulin Aspart (novoLOG ASPART) SLIDING SCALE ACHS SC 02/17/17 11:00 03/19/17 10:59 02/17/17 20:31 1 UNITS Acetaminophen (Tylenol Tab) 650 mg Q4H PRN PO 02/17/17 16:00 03/19/17 15:59 Metoprolol Tartrate (Lopressor Tab) 25 mg BID PO 02/18/17 21:00 03/20/17 20:59 Metoprolol Tartrate (Lopressor Tab) 12.5 mg 0945 ONCE PO 02/18/17 09:45 02/18/17 09:46 Amiodarone HCl (Cordarone Tab) 200 mg TIDM PO 02/18/17 11:30 03/20/17 11:29 Potassium Chloride (Klor-Con M10) 10 meq NOW ONCE PO 02/18/17 10:00 02/18/17 10:01 Objective Vital Signs Date Time Temp Pulse Resp B/P (MAP) Pulse Ox O2 Delivery O2 Flow Rate FiO2 02/18/17 07:58 36.6 89 16 121/76 (91) 97 Nasal Cannula 3.0 02/18/17 04:00 97 Nasal Cannula 3.0 02/18/17 03:25 36.5 80 21 125/79 (94) 97 Nasal Cannula 3.0 02/18/17 00:00 98 Nasal Cannula 3.0 02/17/17 23:49 36.5 81 21 122/78 (93) 98 Nasal Cannula 3.0 02/17/17 20:23 84 134/78 (96) 02/17/17 20:00 98 Nasal Cannula 02/17/17 19:16 36.4 86 20 114/71 (85) 98 Nasal Cannula 3.0 02/17/17 16:30 36.8 85 20 134/82 (99) 98 Nasal Cannula 3.0 02/17/17 16:00 Nasal Cannula 2.0 02/17/17 14:00 85 29 114/78 (90) 96 Nasal Cannula 2.0 02/17/17 12:00 Nasal Cannula 2.0 02/17/17 12:00 36.8 87 25 108/62 (77) 95 Nasal Cannula 2.0 02/17/17 10:00 79 26 98/66 (77) 99 Nasal Cannula 2.0 Physical Exam General Appearance: no apparent distress Respiratory/Chest: chest non-tender, lungs clear, normal breath sounds, no respiratory distress, no accessory muscle use Cardiovascular: regular rate, rhythm, no edema, no murmur Abdomen: normal bowel sounds, non tender, soft Extremities: normal inspection, no pedal edema, + pertinent finding (SCDs in place) Laboratory Results Last 24 Hours Test 02/17/17 11:12 02/17/17 16:22 02/17/17 17:17 02/17/17 20:01 Bedside Glucose 151 mg/dl 199 mg/dl 190 mg/dl 218 mg/dl Test 02/18/17 06:23 02/18/17 06:42 White Blood Count 52.14 K/uL Red Blood Count 2.92 M/uL Hemoglobin 9.6 g/dL Hematocrit 26.5 % Mean Corpuscular Volume 90.8 fL Mean Corpuscular Hemoglobin 32.9 pg Mean Corpuscular Hemoglobin Concent 36.2 g/dl RDW Standard Deviation 62.4 fL RDW Coefficient of Variation 19.2 % Platelet Count 53 K/uL Platelet Estimate DECREASED Sodium Level 133 mmol/L Potassium Level 3.7 mmol/L Chloride Level 104 mmol/L Carbon Dioxide Level 20 mmol/L Anion Gap 9.0 mmol/L Blood Urea Nitrogen 49 mg/dl Creatinine 1.90 mg/dl Est Creatinine Clear Calc Drug Dose 30.4 ml/min Estimated GFR () 37.5 Estimated GFR (Non- 32.3 BUN/Creatinine Ratio 25.6 Random Glucose 110 mg/dl Calcium Level 7.6 mg/dl Total Bilirubin 0.4 mg/dl Direct Bilirubin 0.2 mg/dl Aspartate Amino Transf (AST/SGOT) 225 U/L Alanine Aminotransferase (ALT/SGPT) 165 U/L Alkaline Phosphatase 112 U/L Total Protein 6.2 gm/dl Albumin 2.1 gm/dl Globulin 4.1 gm/dl Albumin/Globulin Ratio 0.5 Bedside Glucose 116 mg/dl Assessment and Plan This is an 81 year old male with a PMH of 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 colchicine for now pleural effusions noted on CXR from today; possibly low dose diuretics as per cardiology if BP is stable 02/17 concern on initial echo was early tamponade physiology s/p pericardial window on 02/16/17 by cardiothoracic surgery appreciate cardiology input on this matter - repeat echo shows improvement and near resolution of the effusion will continue a prednisone taper as per cardio, continue colchicine (avoid ibuprofen due to kidney function) clinically feeling better Paroxysmal A. Fib 02/18 metoprolol increased as per cardiology to 25mg BID amiodarone drip will be stopped and switched to oral amiodarone as the LFTs are now trending down appreciate cardiology management no anticoagulation due to anemia/thrombocytopenia 02/17 pre and post-operatively started on IV amiodarone as per cardiology with idea to transition to PO amiodarone LFTs elevating with amiodarone use; monitor Acute Kidney Injury superimposed on CKD stage 3 creatinine on admission 1.5 now creatinine is up to 2.1 appreciate nephrology input regarding fluid management likely kidney injury is due to tachycardia and hypoperfusion of the kidney Chronic Myelomonocytic Leukemia appreciate oncology input, continue chemo no acute management necessary Anemia of Chronic Disease continue Procrit as scheduled, monitor H/H Thrombocytopenia monitor platelet count as it is trending down for now continue subq heparin, but may need to d/c, especially if he is ambulating Transient Aphasia - resolved 02/18 will hold off on further evaluation due to his condition appreciate neurology input 02/17 actually had stroke alert called and telestroke from [place] recommended loading dose of Keppra Head CT negative possible need for Brain MRI? EEG? neurology consultation pending DVT ppx subq heparin + SCDs FULL CODE
[2017-02-18] MEDS ORDERED: POTASSIUM CHLORIDE 10 MEQ TABCR PO ONE (10:00)
[2017-02-18] MEDS: AMIODARONE 200 MG TAB PO SCH ×2 (11:33→16:39)
--- NOTE | 2017-02-18 12:00 | Nephrology Progress Note ---
Nephrology Progress Note Date of Service: Feb 18, 2017. Subjective seen on rounds this am 0715 w/o c/o. remains on amio gtt and 3L 02NC; pericardial window specimens remain NGTD. no c/o dyspnea, uncontrolled pain, N, further issues w/ word finding/reading Objective Date Time Temp Pulse Resp B/P (MAP) Pulse Ox O2 Delivery O2 Flow Rate FiO2 02/18/17 11:21 36.6 93 18 115/69 (84) 98 Nasal Cannula 3.0 02/18/17 08:00 97 Nasal Cannula 3.0 02/18/17 07:58 36.6 89 16 121/76 (91) 97 Nasal Cannula 3.0 02/18/17 04:00 97 Nasal Cannula 3.0 02/18/17 03:25 36.5 80 21 125/79 (94) 97 Nasal Cannula 3.0 02/18/17 00:00 98 Nasal Cannula 3.0 02/17/17 23:49 36.5 81 21 122/78 (93) 98 Nasal Cannula 3.0 02/17/17 20:23 84 134/78 (96) 02/17/17 20:00 98 Nasal Cannula 02/17/17 19:16 36.4 86 20 114/71 (85) 98 Nasal Cannula 3.0 02/17/17 16:30 36.8 85 20 134/82 (99) 98 Nasal Cannula 3.0 02/17/17 16:00 Nasal Cannula 2.0 02/17/17 14:00 85 29 114/78 (90) 96 Nasal Cannula 2.0 02/17/17 12:00 Nasal Cannula 2.0 02/17/17 12:00 36.8 87 25 108/62 (77) 95 Nasal Cannula 2.0 Physical Exam: General Appearance: WD/WN, no apparent distress, + thin, + pertinent finding ( on 02NC3L, oriented x 3, no obvious word finding problems) Eyes: EOMI ENT: normal ENT inspection Neck: supple Respiratory/Chest: lungs clear, + decreased breath sounds at BL bases R>L Cardiovascular: no edema, RRR Abdomen: normal bowel sounds, non tender, soft, + pertinent finding (+ vega w / cloudy urine) Extremities: normal inspection, no pedal edema Neurologic/Psych: alert, normal mood/affect, oriented x 3, + pertinent finding (no rash) Skin: no jaundice, warm/dry, no rash, + pallor Current Inpatient Medications Medications (Trade) Dose Ordered Sig/Jarvis Route Start Time Stop Time Status Last Admin Dose Admin Metoprolol Tartrate (Lopressor Iv) 5 mg Q6 PRN IV 02/15/17 17:45 03/17/17 17:44 Allopurinol (Zyloprim Tab) 200 mg DAILY PO 02/17/17 09:00 03/19/17 08:59 02/18/17 08:43 200 MG Hydroxyurea (Hydrea Cap) 1,000 mg QDD PO 02/16/17 16:45 03/18/17 16:44 02/17/17 18:22 1,000 MG Vitamin B Complex (Vitamin B Complex) 1 tab DAILY PO 02/17/17 09:00 03/19/17 08:59 02/18/17 08:44 1 TAB Ondansetron HCl (Zofran Inj) 4 mg Q4H PRN IV 02/16/17 16:00 03/18/17 15:59 Morphine Sulfate (MoRPHine SULFATE INJ) Q1H PRN IV 02/16/17 16:00 03/02/17 15:59 Aspirin (Ecotrin Tab) 81 mg QAM PO 02/18/17 09:00 03/20/17 08:59 02/18/17 08:43 81 MG Pantoprazole Sodium (Protonix Tab) 40 mg QAM PO 02/18/17 09:00 03/20/17 08:59 02/18/17 08:43 40 MG Colchicine (Colchicine Tab) 0.6 mg QAM PO 02/18/17 09:00 03/20/17 08:59 02/18/17 08:43 0.6 MG Prednisone (PredniSONE TAB) 20 mg DAILY PO 02/18/17 09:00 03/20/17 08:59 02/18/17 08:43 20 MG Heparin Sodium (Porcine) (Heparin Sq 5000 Unit/0.5ml) 5,000 unit Q12 SQ 02/17/17 21:00 03/19/17 20:59 02/18/17 08:44 5,000 UNIT Levetiracetam (Keppra Tab) 500 mg BID@0600,1800 PO 02/17/17 18:00 03/19/17 17:59 02/18/17 06:14 500 MG Glucose (Glucose 40% Gel) 15-30 GRAMS 15 GRAMS... UD PRN PO 02/17/17 10:00 03/19/17 09:59 Glucose (Glucose Chew Tab) 4-8 Tablets 4 Tabl... UD PRN PO 02/17/17 10:00 03/19/17 09:59 Dextrose (Dextrose 50% 50ML Syringe) 25-50ML OF 50% DW IV FOR... UD PRN IV 02/17/17 10:00 03/19/17 09:59 Glucagon (Glucagon Inj) 1 mg UD PRN SQ 02/17/17 10:00 03/19/17 09:59 Insulin Aspart (novoLOG ASPART) SLIDING SCALE ACHS SC 02/17/17 11:00 03/19/17 10:59 02/17/17 20:31 1 UNITS Acetaminophen (Tylenol Tab) 650 mg Q4H PRN PO 02/17/17 16:00 03/19/17 15:59 Metoprolol Tartrate (Lopressor Tab) 25 mg BID PO 02/18/17 21:00 03/20/17 20:59 Amiodarone HCl (Cordarone Tab) 200 mg TIDM PO 02/18/17 11:30 03/20/17 11:29 02/18/17 11:33 200 MG Last 24 Hours Test 02/17/17 16:22 02/17/17 17:17 02/17/17 20:01 02/18/17 06:23 Bedside Glucose 199 mg/dl 190 mg/dl 218 mg/dl White Blood Count 52.14 K/uL Red Blood Count 2.92 M/uL Hemoglobin 9.6 g/dL Hematocrit 26.5 % Mean Corpuscular Volume 90.8 fL Mean Corpuscular Hemoglobin 32.9 pg Mean Corpuscular Hemoglobin Concent 36.2 g/dl RDW Standard Deviation 62.4 fL RDW Coefficient of Variation 19.2 % Platelet Count 53 K/uL Platelet Estimate DECREASED Sodium Level 133 mmol/L Potassium Level 3.7 mmol/L Chloride Level 104 mmol/L Carbon Dioxide Level 20 mmol/L Anion Gap 9.0 mmol/L Blood Urea Nitrogen 49 mg/dl Creatinine 1.90 mg/dl Est Creatinine Clear Calc Drug Dose 30.4 ml/min Estimated GFR () 37.5 Estimated GFR (Non- 32.3 BUN/Creatinine Ratio 25.6 Random Glucose 110 mg/dl Calcium Level 7.6 mg/dl Total Bilirubin 0.4 mg/dl Direct Bilirubin 0.2 mg/dl Aspartate Amino Transf (AST/SGOT) 225 U/L Alanine Aminotransferase (ALT/SGPT) 165 U/L Alkaline Phosphatase 112 U/L Total Protein 6.2 gm/dl Albumin 2.1 gm/dl Globulin 4.1 gm/dl Albumin/Globulin Ratio 0.5 Test 02/18/17 06:42 02/18/17 11:05 Bedside Glucose 116 mg/dl 141 mg/dl Assessment & Plan 81 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 His urine sediment is suggestive of ATN > he is dehydrated w/ poor po intake; this is a contaminated specimen. no evidence of infection; no change in chronic proteinuria. His blood tests of renal function were at baseline on presentation but worsened day after to 2.1, trending down slightly today. Noted also to have early tamponade physiology on first full day of admission and on 02/16 had pericardial window and R thoracoscopy, w/ transient post op AF w / RVR, improved w/ amiodarone ANOOP nonoliguric on CKD 3 suspect ischemic ATN w/ diminished renal perfusion in setting of tachycardia/ early tamponade/a fib; most consistent with ATN based on urine sediment; this may however prove difficult to interpret given bladder stone hx. electrolytes remain acceptable; ARB appropriately held; did have some hypotension w/ AF w/ RVR >> may complicate or delay renal recovery but not an unexpected complication here; transaminitis also likely congestive etiology -strict I/O -continue vega for one more day if tolerated -cont to hold ARB -daily bmp -no indication for renal diet or dialysis at this point -no indication at this time for renal imaging but low threshold to pursue this if he worsens clinically hyponatremia suspect mild volume depletion or may relate to transaminitis -would not work up further unless worsens acute idiopathic pericarditis w/ pericardial effusion/ early tamponade s/p 02/16 pericardial window -f/u pending cxs -on amio gtt for AF -on colchicine >> monitor carefully w/ both renal, liver impairment CMML -no indication that leukocytosis affects renal parameters at this time Appreciate consult; will follow with you.
--- NOTE | 2017-02-18 12:00 | SURGERY PROGRESS NOTE ---
DATE: 02/18/2017 DATE: 02/18/2017 Dr. Tobar was seen today on 02/18/2017. He is now postop day 2 status post a thoracoscopic pericardial window. He looks good. 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 His white count is down to 52,140. Hemoglobin stable at 96. Platelet count is 53,000 and decreased. We looked at his pathology and there was no evidence of malignancy. There was an inflammatory component. We did not grow anything thus far from any of the fluid from the pleura or the pericardium or the pericardial tissue itself. At any rate, he looks very good today. He is sitting up. He denies pain. I think he is going to slowly but steadily improve.
--- NOTE | 2017-02-18 14:02 | Neurology Progress Notes ---
Neurology Progress Note Date of Service Feb 18, 2017. 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 Clayton Fox of hematology who presented with multiple cardiac and neurological symptoms from home with early differential diagnosis of seizure as per emergency room physician in coordination with neurology teleconference with neurologist at [facility] vs stroke vs hyperviscosity complications from leukemia and also found to have tachycardia. There are various histories of what happened at home prior to admission. He was reading a book when he found that the text did not make sense to him. Denies changes in vision. Started having difficulty with finding words with his speech, but no obvious facial motor weakness or slurred speech or facial droop as per the patient's .He appears by this history to recognize these symptoms and did not lose consciousness and was able to follow directions and ambulate. His confirmed there was no tremors or jerking during this episode. When patient evaluated in the ED, stroke alert was called. He had negative head CT for intracranial bleed. In 2008 he had a SDH after falling off a ladder and had a bilateral chloe hole evacuation by Dr Huber. Was given aspirin. After consultation and evaluation with [facility] neurology by the ED physician, it was decided that patient more likely had seizure symptoms rather than stroke and the patient was given Keppra 500 mg per oral x 1 as loading dose for seizure treatment. This was also happening in context of tachycardia between 110s to 120s which was not treated in the emergency department and also chest discomfort. 02/16 he was taken to the OR by cardiology for a cardiac window and was not seen by neurology. He feels he is doing well today and recalls being placed on Keppra for seizures and also understands we will wait to do any further neurologic evaluation until he is stable from his cardiac surgery. denies CP, SOB, abdominal pain, one sided numbness, weakness, further slurred speech or loss of time. Objective Date Time Temp Pulse Resp B/P (MAP) Pulse Ox O2 Delivery O2 Flow Rate FiO2 02/18/17 12:00 Nasal Cannula 3.0 02/18/17 11:21 36.6 93 18 115/69 (84) 98 Nasal Cannula 3.0 02/18/17 08:00 97 Nasal Cannula 3.0 02/18/17 07:58 36.6 89 16 121/76 (91) 97 Nasal Cannula 3.0 02/18/17 04:00 97 Nasal Cannula 3.0 02/18/17 03:25 36.5 80 21 125/79 (94) 97 Nasal Cannula 3.0 02/18/17 00:00 98 Nasal Cannula 3.0 02/17/17 23:49 36.5 81 21 122/78 (93) 98 Nasal Cannula 3.0 02/17/17 20:23 84 134/78 (96) 02/17/17 20:00 98 Nasal Cannula 02/17/17 19:16 36.4 86 20 114/71 (85) 98 Nasal Cannula 3.0 02/17/17 16:30 36.8 85 20 134/82 (99) 98 Nasal Cannula 3.0 02/17/17 16:00 Nasal Cannula 2.0 02/17/17 14:00 85 29 114/78 (90) 96 Nasal Cannula 2.0 Last 24 Hours Test 02/17/17 16:22 02/17/17 17:17 02/17/17 20:01 02/18/17 06:23 Bedside Glucose 199 mg/dl 190 mg/dl 218 mg/dl White Blood Count 52.14 K/uL Red Blood Count 2.92 M/uL Hemoglobin 9.6 g/dL Hematocrit 26.5 % Mean Corpuscular Volume 90.8 fL Mean Corpuscular Hemoglobin 32.9 pg Mean Corpuscular Hemoglobin Concent 36.2 g/dl RDW Standard Deviation 62.4 fL RDW Coefficient of Variation 19.2 % Platelet Count 53 K/uL Platelet Estimate DECREASED Sodium Level 133 mmol/L Potassium Level 3.7 mmol/L Chloride Level 104 mmol/L Carbon Dioxide Level 20 mmol/L Anion Gap 9.0 mmol/L Blood Urea Nitrogen 49 mg/dl Creatinine 1.90 mg/dl Est Creatinine Clear Calc Drug Dose 30.4 ml/min Estimated GFR () 37.5 Estimated GFR (Non- 32.3 BUN/Creatinine Ratio 25.6 Random Glucose 110 mg/dl Calcium Level 7.6 mg/dl Total Bilirubin 0.4 mg/dl Direct Bilirubin 0.2 mg/dl Aspartate Amino Transf (AST/SGOT) 225 U/L Alanine Aminotransferase (ALT/SGPT) 165 U/L Alkaline Phosphatase 112 U/L Total Protein 6.2 gm/dl Albumin 2.1 gm/dl Globulin 4.1 gm/dl Albumin/Globulin Ratio 0.5 Test 02/18/17 06:42 02/18/17 11:05 Bedside Glucose 116 mg/dl 141 mg/dl Imaging: no new imaging Exam: Physical Exam: Constitutional: appearance nourished, healthy and normal Ears, Nose, Mouth and Throat: mucous membranes moist, no injection and skin normal, eyes normal Cardiovascular: normal S-1 and S-2 and regular rate and rhythm Respiratory: clear to auscultation (CTA) and no rales, rhonchi or wheeze Musculoskeletal: no peripheral edema Skin: no stigmata of neurocutaneous disease noted and normal and intact Eyes: extraocular muscles intact (EOMI) and pupils equal, round and reactive to light (PERRL) NEUROLOGIC EXAMINATION: Mental status: Alert and interactive Oriented to full date and location Oriented to person Speech fluent with no evidence of aphasia, abraham Latham is president, 2017, [facility] Cranial Nerves smile symmetric, eye brow raise symmetric, tongue midline Sensory: no sensory deficits with light touch Coordination: finger to nose without bi pass Gait/Stance: Posture normal. steady tandem gait with walker Strength: biceps triceps hand transformer maker 5/5 bilaterally hip flex against gravity and resistance Current Inpatient Medications Medications (Trade) Dose Ordered Sig/Jarvis Route Start Time Stop Time Status Last Admin Dose Admin Metoprolol Tartrate (Lopressor Iv) 5 mg Q6 PRN IV 02/15/17 17:45 03/17/17 17:44 Allopurinol (Zyloprim Tab) 200 mg DAILY PO 02/17/17 09:00 03/19/17 08:59 02/18/17 08:43 200 MG Hydroxyurea (Hydrea Cap) 1,000 mg QDD PO 02/16/17 16:45 03/18/17 16:44 02/17/17 18:22 1,000 MG Vitamin B Complex (Vitamin B Complex) 1 tab DAILY PO 02/17/17 09:00 03/19/17 08:59 02/18/17 08:44 1 TAB Ondansetron HCl (Zofran Inj) 4 mg Q4H PRN IV 02/16/17 16:00 03/18/17 15:59 Morphine Sulfate (MoRPHine SULFATE INJ) Q1H PRN IV 02/16/17 16:00 03/02/17 15:59 Aspirin (Ecotrin Tab) 81 mg QAM PO 02/18/17 09:00 03/20/17 08:59 02/18/17 08:43 81 MG Pantoprazole Sodium (Protonix Tab) 40 mg QAM PO 02/18/17 09:00 03/20/17 08:59 02/18/17 08:43 40 MG Colchicine (Colchicine Tab) 0.6 mg QAM PO 02/18/17 09:00 03/20/17 08:59 02/18/17 08:43 0.6 MG Prednisone (PredniSONE TAB) 20 mg DAILY PO 02/18/17 09:00 03/20/17 08:59 02/18/17 08:43 20 MG Heparin Sodium (Porcine) (Heparin Sq 5000 Unit/0.5ml) 5,000 unit Q12 SQ 02/17/17 21:00 03/19/17 20:59 02/18/17 08:44 5,000 UNIT Levetiracetam (Keppra Tab) 500 mg BID@0600,1800 PO 02/17/17 18:00 03/19/17 17:59 02/18/17 06:14 500 MG Glucose (Glucose 40% Gel) 15-30 GRAMS 15 GRAMS... UD PRN PO 02/17/17 10:00 03/19/17 09:59 Glucose (Glucose Chew Tab) 4-8 Tablets 4 Tabl... UD PRN PO 02/17/17 10:00 03/19/17 09:59 Dextrose (Dextrose 50% 50ML Syringe) 25-50ML OF 50% DW IV FOR... UD PRN IV 02/17/17 10:00 03/19/17 09:59 Glucagon (Glucagon Inj) 1 mg UD PRN SQ 02/17/17 10:00 03/19/17 09:59 Insulin Aspart (novoLOG ASPART) SLIDING SCALE ACHS SC 02/17/17 11:00 03/19/17 10:59 02/17/17 20:31 1 UNITS Acetaminophen (Tylenol Tab) 650 mg Q4H PRN PO 02/17/17 16:00 03/19/17 15:59 Metoprolol Tartrate (Lopressor Tab) 25 mg BID PO 02/18/17 21:00 03/20/17 20:59 Amiodarone HCl (Cordarone Tab) 200 mg TIDM PO 02/18/17 11:30 03/20/17 11:29 02/18/17 11:33 200 MG Impression 81 year old male PMH CML, HTN, CKD, presentation cardiac and neurologic symptoms. POD #1 cardiac window Plan 1. will wait on further neurologic work up until patient is stable from cardiac surgery 2. as some point EEG (ordered will be done bedside) MRI carotid US will be helpful for further neurologic evaluation- if there is no radiographic issues or + EEG we can stop the Keppra. It does not appear there was a seizure during this episode 3. continue Keppra 500 mg BID with renal dosing - Cr Cl 28.7 he is currently at the max dosing for seizure management 4. seizure precautions 5. will follow with you 6. further recommendations to follow I have seen and discussed above patient with Dr Ela Rm, neurolog Pt seen and examined, doubt sz, await EEG, please order MRI brain with and without once you feel pt is stable to go to MRI, REED Rm MD
[2017-02-18] MEDS: HYDROXYUREA 500 MG CAP PO SCH (16:41)
[2017-02-19] VITALS (7 sets, daily range): BP systolic 112–127; BP diastolic 70–80; PULSE 72–80; TEMP 36.5–36.8; O2SAT 94–98
[2017-02-19] MEDS: LEVETIRACETAM 500 MG TAB PO SCH ×2 (05:58→18:25)
[2017-02-19] MEDS: INSULIN ASPART 100 UNITS/ML 3 ML PEN SC SCH ×4 (07:00→21:00)
[2017-02-19 08:01] LABS: BUN/CREATININE RATIO 27.9 (10-20); CALCIUM 7.5 mg/dl (8.5-10.1); CREATININE 1.5 mg/dl (0.60-1.40); MAGNESIUM 1.4 mg/dl (1.8-2.4); POTASSIUM 3.7 mmol/L (3.5-5.1)
[2017-02-19 08:03] LABS: HEMATOCRIT 27.9 % (42-52); MEAN CELL VOLUME 91.2 fL (80-100); MEAN CORPUSCULAR HEMOGLOBIN 32.7 pg (25-34); MEAN CORPUSCULAR HGB CONC 35.8 g/dl (32-36); PLATELET COUNT 60 K/uL (130-400); PLT ESTIMATE DECREASED; RED BLOOD COUNT 3.06 M/uL (4.7-6.1); WHITE BLOOD COUNT 43.79 K/uL (4.8-10.8)
[2017-02-19] MEDS: AMIODARONE 200 MG TAB PO SCH ×3 (08:26→17:36)
[2017-02-19] MEDS: COLCHICINE 0.6 MG TAB PO SCH (08:26)
[2017-02-19] MEDS: PANTOprazole SOD 40 MG TAB PO SCH (08:27)
[2017-02-19] MEDS: ALLOPURINOL 100 MG TAB PO SCH (08:27)
[2017-02-19] MEDS: METOPROLOL TARTRATE 25 MG TAB PO SCH ×2 (08:27→20:54)
[2017-02-19] MEDS: VITAMIN B COMPLEX TAB PO SCH (08:28)
[2017-02-19] MEDS: HEPARIN SOD 5000 UNIT/0.5 ML CARP SQ SCH ×2 (08:30→21:14)
[2017-02-19] MEDS: ASPIRIN 81 MG ECTAB PO SCH (08:34)
--- NOTE | 2017-02-19 08:55 | ECHOCARDIOGRAM REPORT ---
*NOTICE TO RECEIVING [employer] This information is strictly Confidential and protected under [place] law. [place] law prohibits you from making any further disclosure of this information unless further disclosure is expressly permitted by the written consent of the person to whom it pertains or is authorized by law. A general authorization for the release of medical or other information is not sufficient for this purpose. Hospital accepts no responsibility if the information is made available to any other person, INCLUDING THE PATIENT. Interpretation Summary * Name: FÁTIMA RAMIREZ Study Date: 02/19/2017 06:14 AM BP: 113/70 mmHg * Patient Location: C.2T\S\E218\S\1 HR: 76 * : 1935 (M/d/yyyy) Gender: Male Height: 72 in * Age: 81 yrs Ethnicity: CA Weight: 155 lb * Ordering Physician: Adrian Pollard * Referring Physician: Jones Stone * Performed By: Latrice Bar RCS * * Reason For Study: ASSESS FOR PERICARDIAL EFFUSION / IVC SIZE / MV INFLOW * BSA: 1.9 m2 * -- Conclusions -- * A focused study was performed for reassessment of pericardial effusion with patient having had surgical pericardial drainage 3 days prior. * Sinsus rhythm at 76 bpm was present during the echocardiogram study. * Left ventricular systolic function is as the lower limit of normal. * The LV Ejection Fraction = 50-55%. * The LV septal motion is abnormal with a septal bounce concerning for possible restrictive physiology. * The LV wall motion is othwerwise normal. * There is no pericardial effusion. * A moderateto large sized left pleural effusion is present. * Small right pleural effusion is present. * Compared to the prior study dated 02/17/17, the peridcardial effusion has resolved. * The left pleural effusion has progressed. * The inferior vena cava diameter has normalized, consistent with normal right atrial pressure. Procedure Details * Limited views were obtained. Left Ventricle * Left ventricular systolic function is as the lower limit of normal. The LV Ejection Fraction = 50-55%. The LV septal motion is abnormal with a septal bounce concerning for possible restrictive physiology. The LV wall motion is othwerwise normal. Mitral Valve * There is moderate mitral annular calcification. Great Vessels * Mild aortic root dilatation. Pericardium/Pleural * There is no pericardial effusion. * A moderateto large sized left pleural effusion is present. * Small right pleural effusion. Great Vessels * Normal inferior vena cava size and collapsability with sniff indicates a normal right atrial pressure of 3 mmHg
[2017-02-19] MEDS ORDERED: POTASSIUM CHLORIDE 10 MEQ TABCR PO STA (09:03)
[2017-02-19] MEDS ORDERED: MAGNESIUM CHLORIDE 64MG DELAYED REL TAB PO ONE (09:06)
[2017-02-19] MEDS ORDERED: FUROSEMIDE INJ 20 MG in SYRINGE 0 ML IV ONE (09:15)
--- NOTE | 2017-02-19 09:24 | Cardiology Follow-Up ---
Subjective General Date of Service: Feb 19, 2017. Chief Complaint: follow up chest pain, tachycardia Pt evaluation today including: conversation w/ patient, physical exam History of Present Illness The patient is a 81 year old male seen in follow up. He continues to improved clinically. Telemetry reveals SR in the 70-80 bpm. No AF. Allergies Coded Allergies: Lisinopril (Verified Allergy, Unknown, ., 02/15/17) Tamsulosin (Unverified Allergy, Unknown, EDEMA FACE,LIPS,TONGUE, 02/15/17) Social History Smoking Status: Never Smoker Hx Tobacco Use In Past Year?: No Hx Alcohol Use - Type And Amou: Yes (2oz of scotch daily) Hx Substance Use - Type And Am: No ( ) Problem List Medical Problems: (1) Aphasia Status: Acute Physical Exam Vital Signs Last Vital Signs Documentation Date Time Temp Pulse Resp B/P (MAP) Pulse Ox O2 Delivery O2 Flow Rate FiO2 02/19/17 07:23 36.6 74 18 116/71 (86) 97 Nasal Cannula 2.0 Physical Exam Constitutional: Level of Distress: NAD Head: normocephalic ENMT: normal ENT inspection, hearing grossly normal Neck: supple Lungs: Auscultation: no wheezing, no rhonchi, pertinent finding (Decreased BS bilatterally at the bases) Cardiovascular: Heart Auscultation: RRR, pertinent finding (1/6 systolic murmur) Musculoskeletal: normal Extremities: no edema Neurologic: Gait & Station: pertinent finding (word finding difficulty has resolved..) Assessment and Plan Assessment and Plan Follow up echo performed today, 02/19/17: -- Conclusions -- * A focused study was performed for reassessment of pericardial effusion with patient having had surgical pericardial drainage 3 days prior. * Sinus rhythm at 76 bpm was present during the echocardiogram study. * Left ventricular systolic function is as the lower limit of normal. * The LV Ejection Fraction = 50-55%. * The LV septal motion is abnormal with a septal bounce concerning for possible constrictive physiology. * The LV wall motion is othwerwise normal. * There is no pericardial effusion. * A moderateto large sized left pleural effusion is present. * Small right pleural effusion is present. * Compared to the prior study dated 02/17/17, the peridcardial effusion has resolved. * The left pleural effusion has progressed. * The inferior vena cava diameter has normalized, consistent with normal right atrial pressure. Impression: 81-year-old male 1. Acute idiopathic pericarditis with pericardial effusion/ early tamponade physiology for which patient is status post thoracoscopic pericardial window on .-Pathology in pericardial fluid is pending 2. Paroxysmal atrial fibrillation, pre op and post op-in SR now on amiodarone infusion 3. ANOOP on CKD, creatinine 1.5-->2.1-->2.1 -->1.9-->1.5 mg/dl, likely ATN from hemodynamic effect of tachycardia , pericardial effusion 4. chronic myelomonocytic leukemia, with leukocytosis, thrombocytopenia 5. Small bilateral pleural effusions visualized on echo 02/17, chest x-ray 6. Elevated LFTs, likely due to congestive hepatopathy transient high RA pressures Discussion/plan: LFTs-trending toward improvement, monitor given amiodarone therapy AF-continue amiodarone and metoprolol for rhythm control. Aspirin for stroke prophylaxis. He is not a candidate for anticoagulation given low platelets. Idiopathic inflammatory pericarditis, perhaps constrictive component , to prevent recurrent inflammation, on low dose colchicine (with caution given renal function impairment, risk of myelosuppression) Low-dose prednisone, 20 mg per day, and taper slowly over 3 weeks to 2.5 mg and then off. DVT prophylaxis: He is on knee-high sequential pneumatic compression devices while in bed. He is also on subcutaneous subcutaneous every heparin 5000 units every 12 hours. Need to be vigilant to prevent DVT, also have to monitor closely for worsening platelet count and bleeding. Continue subcutaneous heparin for now, but this may need to be reassessed as the patient's activity level increases and he becomes more ambulatory. Fully catheter has been discontinued. His kidney function continues to improve with improving creatinine. He has bilateral pleural effusions, left greater than right. I had debated sending him to radiology for formal chest x-ray, but based on what I saw on the echocardiogram, the left pleural effusion has increased in size compared to 2 days ago, at this point, plan to supplement his potassium and give a single dose of IV furosemide. He'll be reassessed by laboratory and clinical assessment tomorrow before consideration toward a second dose. Case discussed with Dr. Martinez at the bedside Nolan Pollard, DO Laboratory Results Last 24 Hours Test 02/18/17 11:05 02/18/17 16:27 02/18/17 20:14 02/19/17 06:24 Bedside Glucose 141 mg/dl 178 mg/dl 153 mg/dl 101 mg/dl Test 02/19/17 06:53 White Blood Count 43.79 K/uL Red Blood Count 3.06 M/uL Hemoglobin 10.0 g/dL Hematocrit 27.9 % Mean Corpuscular Volume 91.2 fL Mean Corpuscular Hemoglobin 32.7 pg Mean Corpuscular Hemoglobin Concent 35.8 g/dl RDW Standard Deviation 61.6 fL RDW Coefficient of Variation 19.1 % Platelet Count 60 K/uL Platelet Estimate DECREASED Sodium Level 135 mmol/L Potassium Level 3.7 mmol/L Chloride Level 107 mmol/L Carbon Dioxide Level 19 mmol/L Anion Gap 9.0 mmol/L Blood Urea Nitrogen 42 mg/dl Creatinine 1.50 mg/dl Est Creatinine Clear Calc Drug Dose 38.1 ml/min Estimated GFR () 49.9 Estimated GFR (Non- 43.0 BUN/Creatinine Ratio 27.9 Random Glucose 89 mg/dl Calcium Level 7.5 mg/dl Magnesium Level 1.4 mg/dl Total Bilirubin 0.6 mg/dl Direct Bilirubin 0.2 mg/dl Aspartate Amino Transf (AST/SGOT) 180 U/L Alanine Aminotransferase (ALT/SGPT) 138 U/L Alkaline Phosphatase 136 U/L Total Protein 6.2 gm/dl Albumin 2.2 gm/dl
[2017-02-19] MEDS: MAGNESIUM SULFATE 1GM / D5W 1 GM in PREMIXED IN D5W 100 ML IV SCH ×2 (09:29→10:39)
--- NOTE | 2017-02-19 09:56 | SURGERY PROGRESS NOTE ---
DATE: 02/19/2017 Mr. Tobar is seen today. He is in the process of getting an EEG which was ordered when he first came in with a questionable seizure versus a transient ischemic attack. Mr. Tobar looks great. He appears lucid. His lungs sound good. He has a good appetite and states that he has been eating well. He is afebrile. His vital signs are stable. Saturations are 97% on 2 liters. His lungs sound good. I reviewed all of his incisions and they all looked quite good. The patient had an echocardiogram done today which shows that his pericardial effusion has resolved completely. However, he has a moderate to large left pleural effusion. Chest x-ray yesterday was underwhelming however, I am going to ask the CT scan of his chest without contrast be performed. I was happy look to see his labs are improving. His white count is down to 43,709, hemoglobin 10. His platelet count is coming back up at 60,000. In addition, his sodium is 135, bicarbonate is 19, but this has been relatively stable for the last 3 days. His BUN and creatinine were down to 42 and 1.50 respectively. In addition, his transaminases are improving.
--- NOTE | 2017-02-19 11:30 | Progress Note ---
Subjective Date of Service: Feb 19, 2017. Subjective Pt evaluation today including: conversation w/ patient, physical exam, lab review, review of studies, review of inpatient medication list Saw/examined the patient in room 218 He's doing well today, no chest pain, no shortness of breath Feels well, eating breakfast, no other issues to note Problem List Medical Problems: (1) Aphasia Status: Acute Review of Systems Constitutional: No fever, No chills Respiratory: No cough, No sputum, No shortness of breath Cardiac: No chest pain, No edema, No palpitations Medications Current Inpatient Medications Medications (Trade) Dose Ordered Sig/Jarvsi Route Start Time Stop Time Status Last Admin Dose Admin Metoprolol Tartrate (Lopressor Iv) 5 mg Q6 PRN IV 02/15/17 17:45 03/17/17 17:44 Allopurinol (Zyloprim Tab) 200 mg DAILY PO 02/17/17 09:00 03/19/17 08:59 02/19/17 08:27 200 MG Hydroxyurea (Hydrea Cap) 1,000 mg QDD PO 02/16/17 16:45 03/18/17 16:44 02/18/17 16:41 1,000 MG Vitamin B Complex (Vitamin B Complex) 1 tab DAILY PO 02/17/17 09:00 03/19/17 08:59 02/19/17 08:28 1 TAB Ondansetron HCl (Zofran Inj) 4 mg Q4H PRN IV 02/16/17 16:00 03/18/17 15:59 Morphine Sulfate (MoRPHine SULFATE INJ) Q1H PRN IV 02/16/17 16:00 03/02/17 15:59 Aspirin (Ecotrin Tab) 81 mg QAM PO 02/18/17 09:00 03/20/17 08:59 02/19/17 08:34 81 MG Pantoprazole Sodium (Protonix Tab) 40 mg QAM PO 02/18/17 09:00 03/20/17 08:59 02/19/17 08:27 40 MG Colchicine (Colchicine Tab) 0.6 mg QAM PO 02/18/17 09:00 03/20/17 08:59 02/19/17 08:26 0.6 MG Prednisone (PredniSONE TAB) 20 mg DAILY PO 02/18/17 09:00 03/20/17 08:59 02/19/17 08:27 20 MG Heparin Sodium (Porcine) (Heparin Sq 5000 Unit/0.5ml) 5,000 unit Q12 SQ 02/17/17 21:00 03/19/17 20:59 02/19/17 08:30 5,000 UNIT Levetiracetam (Keppra Tab) 500 mg BID@0600,1800 PO 02/17/17 18:00 03/19/17 17:59 02/19/17 05:58 500 MG Glucose (Glucose 40% Gel) 15-30 GRAMS 15 GRAMS... UD PRN PO 02/17/17 10:00 03/19/17 09:59 Glucose (Glucose Chew Tab) 4-8 Tablets 4 Tabl... UD PRN PO 02/17/17 10:00 03/19/17 09:59 Dextrose (Dextrose 50% 50ML Syringe) 25-50ML OF 50% DW IV FOR... UD PRN IV 02/17/17 10:00 03/19/17 09:59 Glucagon (Glucagon Inj) 1 mg UD PRN SQ 02/17/17 10:00 03/19/17 09:59 Insulin Aspart (novoLOG ASPART) SLIDING SCALE ACHS SC 02/17/17 11:00 03/19/17 10:59 02/17/17 20:31 1 UNITS Acetaminophen (Tylenol Tab) 650 mg Q4H PRN PO 02/17/17 16:00 03/19/17 15:59 Metoprolol Tartrate (Lopressor Tab) 25 mg BID PO 02/18/17 21:00 03/20/17 20:59 02/19/17 08:27 25 MG Amiodarone HCl (Cordarone Tab) 200 mg TIDM PO 02/18/17 11:30 03/20/17 11:29 02/19/17 08:26 200 MG Potassium Chloride (Klor-Con Tab) 20 meq QAM PO 02/20/17 09:00 03/22/17 08:59 Magnesium Chloride (Slow-Mag Tab) 64 mg BID PO 02/19/17 21:00 03/21/17 20:59 Objective Vital Signs Date Time Temp Pulse Resp B/P (MAP) Pulse Ox O2 Delivery O2 Flow Rate FiO2 02/19/17 07:23 36.6 74 18 116/71 (86) 97 Nasal Cannula 2.0 02/19/17 04:45 Room Air 02/19/17 03:17 36.5 76 20 113/70 (84) 96 Nasal Cannula 2.0 02/19/17 00:10 36.8 80 18 118/75 (89) 94 Room Air 02/19/17 00:10 Room Air 02/18/17 20:15 Room Air 02/18/17 19:11 36.7 81 22 121/74 (90) 96 Room Air 02/18/17 16:00 Nasal Cannula 3.0 02/18/17 15:19 36.9 73 20 118/75 (89) 95 Room Air 02/18/17 12:00 Nasal Cannula 3.0 02/18/17 11:21 36.6 93 18 115/69 (84) 98 Nasal Cannula 3.0 Physical Exam General Appearance: no apparent distress, + thin Respiratory/Chest: no respiratory distress, no accessory muscle use, + decreased breath sounds Cardiovascular: regular rate, rhythm, no edema, no murmur Abdomen: normal bowel sounds, non tender, soft Extremities: non-tender, normal inspection, no pedal edema Laboratory Results Last 24 Hours Test 02/18/17 16:27 02/18/17 20:14 02/19/17 06:24 02/19/17 06:53 Bedside Glucose 178 mg/dl 153 mg/dl 101 mg/dl White Blood Count 43.79 K/uL Red Blood Count 3.06 M/uL Hemoglobin 10.0 g/dL Hematocrit 27.9 % Mean Corpuscular Volume 91.2 fL Mean Corpuscular Hemoglobin 32.7 pg Mean Corpuscular Hemoglobin Concent 35.8 g/dl RDW Standard Deviation 61.6 fL RDW Coefficient of Variation 19.1 % Platelet Count 60 K/uL Platelet Estimate DECREASED Sodium Level 135 mmol/L Potassium Level 3.7 mmol/L Chloride Level 107 mmol/L Carbon Dioxide Level 19 mmol/L Anion Gap 9.0 mmol/L Blood Urea Nitrogen 42 mg/dl Creatinine 1.50 mg/dl Est Creatinine Clear Calc Drug Dose 38.1 ml/min Estimated GFR () 49.9 Estimated GFR (Non- 43.0 BUN/Creatinine Ratio 27.9 Random Glucose 89 mg/dl Calcium Level 7.5 mg/dl Magnesium Level 1.4 mg/dl Total Bilirubin 0.6 mg/dl Direct Bilirubin 0.2 mg/dl Aspartate Amino Transf (AST/SGOT) 180 U/L Alanine Aminotransferase (ALT/SGPT) 138 U/L Alkaline Phosphatase 136 U/L Total Protein 6.2 gm/dl Albumin 2.2 gm/dl Assessment and Plan This is an 81 year old male with a PMH of 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, anemia of chronic disease on Procrit, HTN, CKD stage 3, BPH presented with multiple symptoms including dyspnea on exertion, shortness of breath, chest pain, word finding difficulty - subsequently found to have pericardial effusion with tamponade physiology Acute Pericarditis with Pericardial Effusion 02/19 appreciate cardiology management will continue a prednisone taper over 3 weeks colchicine Lasix started due to Pleural effusions noted on CXR 02/18 patient is doing much better low dose prednisone taper; cont. colchicine for now pleural effusions noted on CXR from today; possibly low dose diuretics as per cardiology if BP is stable 02/17 concern on initial echo was early tamponade physiology s/p pericardial window on 02/16/17 by cardiothoracic surgery appreciate cardiology input on this matter - repeat echo shows improvement and near resolution of the effusion will continue a prednisone taper as per cardio, continue colchicine (avoid ibuprofen due to kidney function) clinically feeling better Paroxysmal A. Fib 02/19 continues to be in sinus rhythm continue b-juani 02/18 metoprolol increased as per cardiology to 25mg BID amiodarone drip will be stopped and switched to oral amiodarone as the LFTs are now trending down appreciate cardiology management no anticoagulation due to anemia/thrombocytopenia 02/17 pre and post-operatively started on IV amiodarone as per cardiology with idea to transition to PO amiodarone LFTs elevating with amiodarone use; monitor Acute Kidney Injury superimposed on CKD stage 3 02/19 creatinine back to 1.5 will do low dose Lasix monitor kidney function 02/18 creatinine on admission 1.5 now creatinine is up to 2.1 appreciate nephrology input regarding fluid management likely kidney injury is due to tachycardia and hypoperfusion of the kidney Chronic Myelomonocytic Leukemia appreciate oncology input, continue chemo no acute management necessary Anemia of Chronic Disease continue Procrit as scheduled, monitor H/H Thrombocytopenia monitor platelet count as it is trending down for now continue subq heparin, but may need to d/c, especially if he is ambulating Transient Aphasia - resolved 02/19 appreciate neurology input EEG done and results pending possible MRI/MRA will need PT/OT 02/18 will hold off on further evaluation due to his condition appreciate neurology input 02/17 actually had stroke alert called and telestroke from [place] recommended loading dose of Keppra Head CT negative possible need for Brain MRI? EEG? neurology consultation pending DVT ppx subq heparin + SCDs FULL CODE
--- NOTE | 2017-02-19 12:48 | DIAGNOSTIC IMAGING REPORT ---
(CHEST) THORAX WITHOUT CLINICAL HISTORY: 81 years-old Male presenting with s/p pericardial window and left pleural effusion. TECHNIQUE: Multidetector CT imaging of the chest was performed without the use of intravenous contrast. IV contrast: None. A dose lowering technique was used consistent with the principles of ALARA (as low as reasonably achievable). COMPARISON: Chest x-ray from 02/18/2017. CT DOSE (mGy.cm): The estimated cumulative dose is 213.17 mGy.cm. FINDINGS: High Risk Case Manager topogram: Cardiomegaly. On soft tissue windows, normal thyroid and thoracic inlet. Scattered small mediastinal lymph nodes likely reactive. Evaluation of the terry is limited without intravenous contrast. Mild ectasia of the ascending aorta, which measures 4.2 cm in maximal transverse dimension. Minimal atherosclerosis of the aorta. Slight pectus deformity results in apparent prominence of the heart size. Mitral annular and aortic valve calcification noted. Thickening of the pericardium. No focal pericardial fluid. Bilateral moderate pleural effusions. Lentiform high density along the posterior right pleura does not appear to layer and is most suggestive of an extrapleural hematoma. Small amount of soft tissue emphysema along the right lateral chest wall could likely from recent pleural drain, which may also be the cause of hematoma. No pneumothorax. The most inferior portion of the posterior costophrenic sulci are not included within the [id number]. Upper abdomen normal. On lung windows, extensive dependent consolidation with volume loss likely passive atelectasis. Fat noted within the major fissure on the right. Nodular opacity in the right lower lobe measuring 20 mm (series 4 image 171). Additional apparent subpleural nodular opacity at the superior segment of the right lower lobe measuring 8 mm (series 4 image 99). Additional sites of nodular opacities in the right middle lobe. Airways patent. On bone windows, degenerative changes of the spine. IMPRESSION: 1. No pericardial effusion status post reported pericardial window. 2. Moderate bilateral pleural effusions with associated extensive passive atelectasis. 3. Nodular opacities in the right lung. An infectious process cannot be excluded. Follow-up is warranted to ensure resolution. 4. Small extrapleural hematoma along the posterior right pleura, which could relate to prior intervention given the absence of rib fracture. 5. Soft tissue emphysema likely relates to recent pleural drain. No pneumothorax. Electronically signed by: Lc Vogt M.D. 02/19/2017 12:47 PM Dictated Date/Time: 02/19/2017 12:38 PM
--- NOTE | 2017-02-19 13:08 | EEG Procedure Note ---
EEG Procedure Note Date of Service Feb 19, 2017. Start / End Times Start Time: 8:33 AM End Time: 8:53 AM Referring Physician GOLDY Bradley History This is a 81-year-old female with syncope. EEG for further evaluation of possible seizure etiology. Home Medication List Scheduled Acetaminophen (Tylenol), 500 MG PO TID PRN Allopurinol (Allopurinol), 200 MG PO DAILY Aspirin (Aspirin Chewable), 81 MG PO DAILY B-Complex W/ Folic Acid (B Complex), 1 TAB PO DAILY Dutasteride (Avodart), 0.5 MG PO DAILY Glucosamine Sulfate (Glucosamine), 1 CAP PO DAILY Hydroxyurea (Hydrea Cap), 1,000 MG PO QDD Irbesartan (Irbesartan), 37.5 MG PO DAILY Megestrol Acetate (Megace Oral), 20 MG PO DAILY Multivitamin (Multivitamin), 1 TAB PO DAILY Inpatient Medication List Current Inpatient Medications Medications (Trade) Dose Ordered Sig/Jarvis Route Start Time Stop Time Status Last Admin Dose Admin Metoprolol Tartrate (Lopressor Iv) 5 mg Q6 PRN IV 02/15/17 17:45 03/17/17 17:44 Allopurinol (Zyloprim Tab) 200 mg DAILY PO 02/17/17 09:00 03/19/17 08:59 02/19/17 08:27 200 MG Hydroxyurea (Hydrea Cap) 1,000 mg QDD PO 02/16/17 16:45 03/18/17 16:44 02/18/17 16:41 1,000 MG Vitamin B Complex (Vitamin B Complex) 1 tab DAILY PO 02/17/17 09:00 03/19/17 08:59 02/19/17 08:28 1 TAB Ondansetron HCl (Zofran Inj) 4 mg Q4H PRN IV 02/16/17 16:00 03/18/17 15:59 Morphine Sulfate (MoRPHine SULFATE INJ) Q1H PRN IV 02/16/17 16:00 03/02/17 15:59 Aspirin (Ecotrin Tab) 81 mg QAM PO 02/18/17 09:00 03/20/17 08:59 02/19/17 08:34 81 MG Pantoprazole Sodium (Protonix Tab) 40 mg QAM PO 02/18/17 09:00 03/20/17 08:59 02/19/17 08:27 40 MG Colchicine (Colchicine Tab) 0.6 mg QAM PO 02/18/17 09:00 03/20/17 08:59 02/19/17 08:26 0.6 MG Prednisone (PredniSONE TAB) 20 mg DAILY PO 02/18/17 09:00 03/20/17 08:59 02/19/17 08:27 20 MG Heparin Sodium (Porcine) (Heparin Sq 5000 Unit/0.5ml) 5,000 unit Q12 SQ 02/17/17 21:00 03/19/17 20:59 02/19/17 08:30 5,000 UNIT Levetiracetam (Keppra Tab) 500 mg BID@0600,1800 PO 02/17/17 18:00 03/19/17 17:59 02/19/17 05:58 500 MG Glucose (Glucose 40% Gel) 15-30 GRAMS 15 GRAMS... UD PRN PO 02/17/17 10:00 03/19/17 09:59 Glucose (Glucose Chew Tab) 4-8 Tablets 4 Tabl... UD PRN PO 02/17/17 10:00 03/19/17 09:59 Dextrose (Dextrose 50% 50ML Syringe) 25-50ML OF 50% DW IV FOR... UD PRN IV 02/17/17 10:00 03/19/17 09:59 Glucagon (Glucagon Inj) 1 mg UD PRN SQ 02/17/17 10:00 03/19/17 09:59 Insulin Aspart (novoLOG ASPART) SLIDING SCALE ACHS SC 02/17/17 11:00 03/19/17 10:59 02/17/17 20:31 1 UNITS Acetaminophen (Tylenol Tab) 650 mg Q4H PRN PO 02/17/17 16:00 03/19/17 15:59 Metoprolol Tartrate (Lopressor Tab) 25 mg BID PO 02/18/17 21:00 03/20/17 20:59 02/19/17 08:27 25 MG Amiodarone HCl (Cordarone Tab) 200 mg TIDM PO 02/18/17 11:30 03/20/17 11:29 02/19/17 11:55 200 MG Potassium Chloride (Klor-Con Tab) 20 meq QAM PO 02/20/17 09:00 03/22/17 08:59 Magnesium Chloride (Slow-Mag Tab) 64 mg BID PO 02/19/17 21:00 03/21/17 20:59 Description This is a 21 electrode EEG with a single channel dedicated to limited EKG. The electrodes were placed in accordance with the International 10-20 system. At the start of this recording the patient was in an awake state. There was noted to be frequent diffuse muscle artifact which sometimes mildly limited read of this EEG. Background was well organized and composed of symmetric mixed alpha and beta frequencies. There was a symmetric well-formed moderate amplitude up to 8-9 Hz posterior dominant rhythm that was reactive to eye opening and closure. Hyperventilation was not done. Intermittent photic stimulation at various frequencies produced no abnormalities. There was no state changes or sleep transients. Interpretation This is a normal awake only routine EEG. There was no electrographic seizures or epileptiform discharges. Clinical Correlation A normal EEG does not rule out epilepsy if there is a strong clinical suspicion.
--- NOTE | 2017-02-19 13:58 | Neurology Progress Notes ---
Neurology Progress Note Date of Service Feb 19, 2017. 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 Clayton Fox of hematology who presented with multiple cardiac and neurological symptoms from home with early differential diagnosis of seizure as per emergency room physician in coordination with neurology teleconference with neurologist at [facility] vs stroke vs hyperviscosity complications from leukemia and also found to have tachycardia. There are various histories of what happened at home prior to admission. He was reading a book when he found that the text did not make sense to him. Denies changes in vision. Started having difficulty with finding words with his speech, but no obvious facial motor weakness or slurred speech or facial droop as per the patient's .He appears by this history to recognize these symptoms and did not lose consciousness and was able to follow directions and ambulate. His confirmed there was no tremors or jerking during this episode. When patient evaluated in the ED, stroke alert was called. He had negative head CT for intracranial bleed. In 2008 he had a SDH after falling off a ladder and had a bilateral chloe hole evacuation by Dr Huber. Was given aspirin. After consultation and evaluation with [facility] neurology by the ED physician, it was decided that patient more likely had seizure symptoms rather than stroke and the patient was given Keppra 500 mg per oral x 1 as loading dose for seizure treatment. This was also happening in context of tachycardia between 110s to 120s which was not treated in the emergency department and also chest discomfort. 02/16 he was taken to the OR by cardiology for a cardiac window and was not seen by neurology. is bedside and states he has been up all morning. His is being given diuretics due to some fluid around right lung. He has been somewhat raspy in his voice but it does clear with cough. denies CP, SOB, abdominal pain, weakness , numbness, tingling, starring spells, LOC, vision changes N, V. Objective Date Time Temp Pulse Resp B/P (MAP) Pulse Ox O2 Delivery O2 Flow Rate FiO2 02/19/17 11:47 36.6 72 18 127/80 (96) 97 Room Air 02/19/17 07:23 36.6 74 18 116/71 (86) 97 Nasal Cannula 2.0 02/19/17 04:45 Room Air 02/19/17 03:17 36.5 76 20 113/70 (84) 96 Nasal Cannula 2.0 02/19/17 00:10 36.8 80 18 118/75 (89) 94 Room Air 02/19/17 00:10 Room Air 02/18/17 20:15 Room Air 02/18/17 19:11 36.7 81 22 121/74 (90) 96 Room Air 02/18/17 16:00 Nasal Cannula 3.0 02/18/17 15:19 36.9 73 20 118/75 (89) 95 Room Air Last 24 Hours Test 02/18/17 16:27 02/18/17 20:14 02/19/17 06:24 02/19/17 06:53 Bedside Glucose 178 mg/dl 153 mg/dl 101 mg/dl White Blood Count 43.79 K/uL Red Blood Count 3.06 M/uL Hemoglobin 10.0 g/dL Hematocrit 27.9 % Mean Corpuscular Volume 91.2 fL Mean Corpuscular Hemoglobin 32.7 pg Mean Corpuscular Hemoglobin Concent 35.8 g/dl RDW Standard Deviation 61.6 fL RDW Coefficient of Variation 19.1 % Platelet Count 60 K/uL Platelet Estimate DECREASED Sodium Level 135 mmol/L Potassium Level 3.7 mmol/L Chloride Level 107 mmol/L Carbon Dioxide Level 19 mmol/L Anion Gap 9.0 mmol/L Blood Urea Nitrogen 42 mg/dl Creatinine 1.50 mg/dl Est Creatinine Clear Calc Drug Dose 38.1 ml/min Estimated GFR () 49.9 Estimated GFR (Non- 43.0 BUN/Creatinine Ratio 27.9 Random Glucose 89 mg/dl Calcium Level 7.5 mg/dl Magnesium Level 1.4 mg/dl Total Bilirubin 0.6 mg/dl Direct Bilirubin 0.2 mg/dl Aspartate Amino Transf (AST/SGOT) 180 U/L Alanine Aminotransferase (ALT/SGPT) 138 U/L Alkaline Phosphatase 136 U/L Total Protein 6.2 gm/dl Albumin 2.2 gm/dl Test 02/19/17 11:14 Bedside Glucose 141 mg/dl Imaging: EEG- A normal EEG does not rule out epilepsy if there is a strong clinical suspicion. Exam: Physical Exam: Constitutional:appearance thin pale Ears, Nose, Mouth and Throat: mucous membranes moist, no injection and skin normal, eyes normal Cardiovascular: normal S-1 and S-2 and regular rate and rhythm Respiratory: clear to auscultation (CTA) and raspy breath sound clears with cough Musculoskeletal: bilateral peripheral edema Skin: no stigmata of neurocutaneous disease noted and normal and intact Eyes: extraocular muscles intact (EOMI) and pupils equal, round and reactive to light (PERRL) NEUROLOGIC EXAMINATION: Mental status: Alert and interactive Oriented to full date and location Oriented to person Speech fluent with no evidence of aphasia Cranial Nerves smile eye brow raise symmetric Gait/Stance: Posture normal lying in bed able to move and sit without assistance Motor: Negative for pronator drift of out stretched arms with eyes closed. 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 hip flex 5/5 Current Inpatient Medications Medications (Trade) Dose Ordered Sig/Jarvis Route Start Time Stop Time Status Last Admin Dose Admin Metoprolol Tartrate (Lopressor Iv) 5 mg Q6 PRN IV 02/15/17 17:45 03/17/17 17:44 Allopurinol (Zyloprim Tab) 200 mg DAILY PO 02/17/17 09:00 03/19/17 08:59 02/19/17 08:27 200 MG Hydroxyurea (Hydrea Cap) 1,000 mg QDD PO 02/16/17 16:45 03/18/17 16:44 02/18/17 16:41 1,000 MG Vitamin B Complex (Vitamin B Complex) 1 tab DAILY PO 02/17/17 09:00 03/19/17 08:59 02/19/17 08:28 1 TAB Ondansetron HCl (Zofran Inj) 4 mg Q4H PRN IV 02/16/17 16:00 03/18/17 15:59 Morphine Sulfate (MoRPHine SULFATE INJ) Q1H PRN IV 02/16/17 16:00 03/02/17 15:59 Aspirin (Ecotrin Tab) 81 mg QAM PO 02/18/17 09:00 03/20/17 08:59 02/19/17 08:34 81 MG Pantoprazole Sodium (Protonix Tab) 40 mg QAM PO 02/18/17 09:00 03/20/17 08:59 02/19/17 08:27 40 MG Colchicine (Colchicine Tab) 0.6 mg QAM PO 02/18/17 09:00 03/20/17 08:59 02/19/17 08:26 0.6 MG Prednisone (PredniSONE TAB) 20 mg DAILY PO 02/18/17 09:00 03/20/17 08:59 02/19/17 08:27 20 MG Heparin Sodium (Porcine) (Heparin Sq 5000 Unit/0.5ml) 5,000 unit Q12 SQ 02/17/17 21:00 03/19/17 20:59 02/19/17 08:30 5,000 UNIT Levetiracetam (Keppra Tab) 500 mg BID@0600,1800 PO 02/17/17 18:00 03/19/17 17:59 02/19/17 05:58 500 MG Glucose (Glucose 40% Gel) 15-30 GRAMS 15 GRAMS... UD PRN PO 02/17/17 10:00 03/19/17 09:59 Glucose (Glucose Chew Tab) 4-8 Tablets 4 Tabl... UD PRN PO 02/17/17 10:00 03/19/17 09:59 Dextrose (Dextrose 50% 50ML Syringe) 25-50ML OF 50% DW IV FOR... UD PRN IV 02/17/17 10:00 03/19/17 09:59 Glucagon (Glucagon Inj) 1 mg UD PRN SQ 02/17/17 10:00 03/19/17 09:59 Insulin Aspart (novoLOG ASPART) SLIDING SCALE ACHS SC 02/17/17 11:00 03/19/17 10:59 02/17/17 20:31 1 UNITS Acetaminophen (Tylenol Tab) 650 mg Q4H PRN PO 02/17/17 16:00 03/19/17 15:59 Metoprolol Tartrate (Lopressor Tab) 25 mg BID PO 02/18/17 21:00 03/20/17 20:59 02/19/17 08:27 25 MG Amiodarone HCl (Cordarone Tab) 200 mg TIDM PO 02/18/17 11:30 03/20/17 11:29 02/19/17 11:55 200 MG Potassium Chloride (Klor-Con Tab) 20 meq QAM PO 02/20/17 09:00 03/22/17 08:59 Magnesium Chloride (Slow-Mag Tab) 64 mg BID PO 02/19/17 21:00 03/21/17 20:59 Impression 81 year old male PMH CML, HTN, CKD, presentation cardiac and neurologic symptoms. POD #1 cardiac window Plan 1. will wait on further neurologic work up until patient is stable from cardiac surgery 2. EEG no seizure focus seen 3. MRI carotid US will be helpful for further neurologic evaluation- EEG no seizure activity will stop Keppra after tomorrow am dosing It does not appear there was a seizure during this episode 4. stop keppa after tomorrow am dosing 5. seizure precautions 6. will follow with you 7. further recommendations once cardiology clears patient to has MRI and carotid doppler I have seen and discussed above patient with Dr Ela Rm, neurology Pt seen examined, EEG nml, await MRI brain. REED Rm MD
[2017-02-19] MEDS: HYDROXYUREA 500 MG CAP PO SCH (17:40)
--- NOTE | 2017-02-19 18:34 | DIAGNOSTIC IMAGING REPORT ---
CAROTID DOPPLER NECK ART HISTORY: Mental status change posse ti COMPARISON: None. TECHNIQUE: Real-time, grayscale, and color Doppler sonography of the carotid arteries was performed. Imaging reviewed in the transverse and longitudinal planes. All measurements were calculated based on NASCET criteria. FINDINGS: Antegrade flow is seen in the bilateral vertebral arteries. The brachial pressures are hemodynamically similar. Moderate plaque formation bilaterally The peak systolic velocity within the right ICA is 71. The right systolic ratio is 1.5. The peak systolic velocity within the left ICA is 81. The left systolic ratio is 1.4. IMPRESSION: No hemodynamically significant stenosis seen within the carotid arteries. Moderate plaque formation bilaterally The above report was generated using voice recognition software. It may contain grammatical, syntax or spelling errors. Electronically signed by: Miles Barber M.D. 02/19/2017 6:33 PM Dictated Date/Time: 02/19/2017 6:31 PM
[2017-02-19] MEDS: MAGNESIUM CHLORIDE 64MG DELAYED REL TAB PO SCH (20:53)
[2017-02-20] VITALS (7 sets, daily range): BP systolic 119–135; BP diastolic 73–84; PULSE 70–109; TEMP 36.3–36.8; O2SAT 95–99
[2017-02-20] MEDS: LEVETIRACETAM 500 MG TAB PO SCH (06:28)
[2017-02-20] MEDS: INSULIN ASPART 100 UNITS/ML 3 ML PEN SC SCH ×4 (07:00→20:10)
[2017-02-20 07:41] LABS: CALCIUM 7.7 mg/dl (8.5-10.1); CREATININE 1.4 mg/dl (0.60-1.40); MAGNESIUM 1.5 mg/dl (1.8-2.4); POTASSIUM 3.9 mmol/L (3.5-5.1)
[2017-02-20] MEDS: PANTOprazole SOD 40 MG TAB PO SCH (07:43)
[2017-02-20 07:44] LABS: ALB/GLOB RATIO 0.6 (0.9-2)
[2017-02-20] MEDS: METOPROLOL TARTRATE 25 MG TAB PO SCH ×2 (07:44→20:16)
[2017-02-20] MEDS: ASPIRIN 81 MG ECTAB PO SCH (07:44)
[2017-02-20] MEDS: AMIODARONE 200 MG TAB PO SCH ×3 (07:44→17:05)
[2017-02-20] MEDS: MAGNESIUM CHLORIDE 64MG DELAYED REL TAB PO SCH ×2 (07:44→20:16)
[2017-02-20] MEDS: COLCHICINE 0.6 MG TAB PO SCH (07:45)
[2017-02-20] MEDS: VITAMIN B COMPLEX TAB PO SCH (07:46)
[2017-02-20] MEDS: POTASSIUM CHLORIDE 20 MEQ TABCR PO SCH (07:46)
[2017-02-20] MEDS: ALLOPURINOL 100 MG TAB PO SCH (07:47)
--- NOTE | 2017-02-20 08:42 | Surgery Progress Note ---
Subjective Date of Service: Feb 20, 2017. Pt. states his breathing has markedly improved since surgery. No CP reported. Objective Vitals Date Time Temp Pulse Resp B/P (MAP) Pulse Ox O2 Delivery O2 Flow Rate FiO2 02/20/17 07:29 36.5 109 18 135/84 (101) 95 Room Air 02/20/17 04:00 36.8 75 16 132/80 (97) 97 Room Air 02/20/17 04:00 Room Air 02/20/17 00:00 Room Air 02/19/17 23:38 36.6 76 17 119/73 (88) 98 Room Air 02/19/17 20:00 Room Air 02/19/17 19:52 36.5 78 20 112/70 (84) 97 Room Air 02/19/17 16:00 Room Air 02/19/17 15:45 36.6 73 18 116/72 (87) 96 Room Air 02/19/17 12:00 Nasal Cannula 2.0 97 02/19/17 11:47 36.6 72 18 127/80 (96) 97 Room Air Physical Exam General: + well developed, + well nourished, No distress CV: + RRR Pulmonary: + pertinent finding (decreased at bases bilaterally ), No accessory muscle use, No respiratory distress Extremities: No calf tenderness Neurologic: + alert & oriented x 3 Assessment & Plan 81 year old male s/p RVATS with pericardial window -path from surgery (-) for malignancy -cultures are (-) -most recent CT scan () shows moderate bilateral pleural effusion: -will continue to follow and drain in the future if clinically indicated
[2017-02-20] MEDS: MAGNESIUM SULFATE 1GM / D5W 1 GM in PREMIXED IN D5W 100 ML IV SCH ×2 (09:18→10:31)
[2017-02-20] MEDS: HEPARIN SOD 5000 UNIT/0.5 ML CARP SQ SCH ×2 (09:20→20:15)
--- NOTE | 2017-02-20 09:27 | Nephrology Progress Note ---
Nephrology Progress Note Date of Service: Feb 20, 2017. Subjective on oral amio now and RA; pericardial window specimens remain NGTD; cytology not c/w CMML complications or malignancy; could be worrisome for infection though. no c/o dyspnea, uncontrolled pain, N, no further issues w/ word finding/reading Objective Date Time Temp Pulse Resp B/P (MAP) Pulse Ox O2 Delivery O2 Flow Rate FiO2 02/20/17 07:29 36.5 109 18 135/84 (101) 95 Room Air 02/20/17 04:00 36.8 75 16 132/80 (97) 97 Room Air 02/20/17 04:00 Room Air 02/20/17 00:00 Room Air 02/19/17 23:38 36.6 76 17 119/73 (88) 98 Room Air 02/19/17 20:00 Room Air 02/19/17 19:52 36.5 78 20 112/70 (84) 97 Room Air 02/19/17 16:00 Room Air 02/19/17 15:45 36.6 73 18 116/72 (87) 96 Room Air 02/19/17 12:00 Nasal Cannula 2.0 97 02/19/17 11:47 36.6 72 18 127/80 (96) 97 Room Air Physical Exam: General Appearance: WD/WN, no apparent distress, + thin, + pertinent finding ( on RA, oriented x 3, no obvious word finding problems) Eyes: EOMI ENT: normal ENT inspection Neck: supple Respiratory/Chest: lungs clear, + decreased breath sounds at BL bases R>L Cardiovascular: no edema, RRR Abdomen: normal bowel sounds, non tender, soft Extremities: normal inspection, no pedal edema Neurologic/Psych: alert, normal mood/affect, oriented x 3, + pertinent finding (no rash) Skin: no jaundice, warm/dry, no rash, + pallor Current Inpatient Medications Medications (Trade) Dose Ordered Sig/Jarvis Route Start Time Stop Time Status Last Admin Dose Admin Metoprolol Tartrate (Lopressor Iv) 5 mg Q6 PRN IV 02/15/17 17:45 03/17/17 17:44 Allopurinol (Zyloprim Tab) 200 mg DAILY PO 02/17/17 09:00 03/19/17 08:59 02/19/17 08:27 200 MG Hydroxyurea (Hydrea Cap) 1,000 mg QDD PO 02/16/17 16:45 03/18/17 16:44 02/19/17 17:40 1,000 MG Vitamin B Complex (Vitamin B Complex) 1 tab DAILY PO 02/17/17 09:00 03/19/17 08:59 02/19/17 08:28 1 TAB Ondansetron HCl (Zofran Inj) 4 mg Q4H PRN IV 02/16/17 16:00 03/18/17 15:59 Morphine Sulfate (MoRPHine SULFATE INJ) Q1H PRN IV 02/16/17 16:00 03/02/17 15:59 Aspirin (Ecotrin Tab) 81 mg QAM PO 02/18/17 09:00 03/20/17 08:59 02/19/17 08:34 81 MG Pantoprazole Sodium (Protonix Tab) 40 mg QAM PO 02/18/17 09:00 03/20/17 08:59 02/19/17 08:27 40 MG Colchicine (Colchicine Tab) 0.6 mg QAM PO 02/18/17 09:00 03/20/17 08:59 02/19/17 08:26 0.6 MG Prednisone (PredniSONE TAB) 20 mg DAILY PO 02/18/17 09:00 03/20/17 08:59 02/19/17 08:27 20 MG Heparin Sodium (Porcine) (Heparin Sq 5000 Unit/0.5ml) 5,000 unit Q12 SQ 02/17/17 21:00 03/19/17 20:59 02/19/17 21:14 5,000 UNIT Glucose (Glucose 40% Gel) 15-30 GRAMS 15 GRAMS... UD PRN PO 02/17/17 10:00 03/19/17 09:59 Glucose (Glucose Chew Tab) 4-8 Tablets 4 Tabl... UD PRN PO 02/17/17 10:00 03/19/17 09:59 Dextrose (Dextrose 50% 50ML Syringe) 25-50ML OF 50% DW IV FOR... UD PRN IV 02/17/17 10:00 03/19/17 09:59 Glucagon (Glucagon Inj) 1 mg UD PRN SQ 02/17/17 10:00 03/19/17 09:59 Insulin Aspart (novoLOG ASPART) SLIDING SCALE ACHS SC 02/17/17 11:00 03/19/17 10:59 02/17/17 20:31 1 UNITS Acetaminophen (Tylenol Tab) 650 mg Q4H PRN PO 02/17/17 16:00 03/19/17 15:59 Metoprolol Tartrate (Lopressor Tab) 25 mg BID PO 02/18/17 21:00 03/20/17 20:59 02/19/17 20:54 25 MG Amiodarone HCl (Cordarone Tab) 200 mg TIDM PO 02/18/17 11:30 03/20/17 11:29 02/19/17 17:36 200 MG Potassium Chloride (Klor-Con Tab) 20 meq QAM PO 02/20/17 09:00 03/22/17 08:59 Magnesium Chloride (Slow-Mag Tab) 64 mg BID PO 02/19/17 21:00 03/21/17 20:59 02/19/17 20:53 64 MG Levetiracetam (Keppra Tab) 500 mg TODAY@0600 PO 02/21/17 06:00 02/21/17 06:01 Magnesium Sulfate 1 gm/Prmx 100 ml @ 100 mls/hr 0900,1000 IV 02/20/17 09:00 02/20/17 10:59 Furosemide 20 mg/ Syringe 2 ml @ 4 mls/min ONE IV 02/20/17 09:15 03/22/17 09:14 UNV Last 24 Hours Test 02/19/17 11:14 02/19/17 16:25 02/19/17 20:50 02/20/17 06:29 Bedside Glucose 141 mg/dl 179 mg/dl 164 mg/dl Sodium Level 135 mmol/L Potassium Level 3.9 mmol/L Chloride Level 105 mmol/L Carbon Dioxide Level 21 mmol/L Anion Gap 9.0 mmol/L Blood Urea Nitrogen 38 mg/dl Creatinine 1.40 mg/dl Est Creatinine Clear Calc Drug Dose 40.3 ml/min Estimated GFR () 54.2 Estimated GFR (Non- 46.8 BUN/Creatinine Ratio 27.0 Random Glucose 94 mg/dl Calcium Level 7.7 mg/dl Magnesium Level 1.5 mg/dl Total Bilirubin 0.8 mg/dl Aspartate Amino Transf (AST/SGOT) 128 U/L Alanine Aminotransferase (ALT/SGPT) 119 U/L Alkaline Phosphatase 157 U/L Total Protein 6.7 gm/dl Albumin 2.5 gm/dl Globulin 4.2 gm/dl Albumin/Globulin Ratio 0.6 Test 02/20/17 06:44 Bedside Glucose 115 mg/dl Assessment & Plan 81 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 His urine sediment is suggestive of ATN > he is dehydrated w/ poor po intake; this is a contaminated specimen. no evidence of infection; no change in chronic proteinuria. His blood tests of renal function were at baseline on presentation but worsened day after to 2.1, trending down slightly today. Noted also to have early tamponade physiology on first full day of admission and on 02/16 had pericardial window and R thoracoscopy, w/ transient post op AF w / RVR, improved w/ amiodarone ANOOP nonoliguric on CKD 3 suspect ischemic ATN w/ diminished renal perfusion in setting of tachycardia/ early tamponade/a fib; most consistent with ATN based on urine sediment; this may however prove difficult to interpret given bladder stone hx. electrolytes remain acceptable; ARB appropriately held; did have some hypotension w/ AF w/ RVR >> may complicate or delay renal recovery but not an unexpected complication here; transaminitis also likely congestive etiology -strict I/O -cont to hold ARB -daily bmp -no indication for renal diet or dialysis at this point -no indication at this time for renal imaging but low threshold to pursue this if he worsens clinically BL pleural effusions >gave lasix 20 mg Iv this am; will start 12/1399 10 mg IV this afternoon and follow bmp daily; K adequately supplemented/monitored hypomagnesemia -on oral supplements fairly aggressive and prn iV; monitor daily; should improve if he eats better though he was not eating especially well prior to admission acute idiopathic pericarditis w/ pericardial effusion/ early tamponade s/p 02/16 pericardial window -f/u pending cxs -on amio for AF -on colchicine & prednisone >> monitor carefully w/ both renal, liver impairment CMML -no indication that leukocytosis affects renal parameters at this time Appreciate consult; will follow with you.
[2017-02-20] MEDS ORDERED: FUROSEMIDE INJ 20 MG in SYRINGE 0 ML IV ONE (10:00)
--- NOTE | 2017-02-20 10:19 | Cardiology Follow-Up ---
Subjective General Date of Service: Feb 20, 2017. Chief Complaint: follow up chest pain, tachycardia Pt evaluation today including: conversation w/ patient, physical exam History of Present Illness The patient is a 81 year old male seen in follow up. Telemetry reveals stable sinus rhythm, no additional AF since overnight immediately after the pericardial window during which time he converted to SR at ~3 am while on an amiodarone effusion. He notes continued occasional episodic shortness of breath it seems to happen at night, I'm guessing it happens when he is supine. He responded well to low- dose furosemide IV yesterday, with 3 L of urine output. CT scan revealed bilateral moderate pleural effusions. Allergies Coded Allergies: Lisinopril (Verified Allergy, Unknown, ., 02/15/17) Tamsulosin (Unverified Allergy, Unknown, EDEMA FACE,LIPS,TONGUE, 02/15/17) Social History Smoking Status: Never Smoker Hx Tobacco Use In Past Year?: No Hx Alcohol Use - Type And Amou: Yes (2oz of scotch daily) Hx Substance Use - Type And Am: No ( ) Problem List Medical Problems: (1) Aphasia Status: Acute Physical Exam Vital Signs Last Vital Signs Documentation Date Time Temp Pulse Resp B/P (MAP) Pulse Ox O2 Delivery O2 Flow Rate FiO2 02/20/17 07:29 36.5 109 18 135/84 (101) 95 Room Air 02/19/17 12:00 2.0 97 Physical Exam Constitutional: Level of Distress: NAD Head: normocephalic ENMT: normal ENT inspection, hearing grossly normal Neck: supple Lungs: Auscultation: no wheezing, no rhonchi, pertinent finding (Decreased BS bilatterally at the bases) Cardiovascular: Heart Auscultation: RRR, pertinent finding (1/6 systolic murmur) Musculoskeletal: normal Extremities: no edema Neurologic: Gait & Station: pertinent finding (word finding difficulty has resolved..) Assessment and Plan Assessment and Plan Follow-up echocardiogram 02/19/17, no residual pericardial effusion, left greater than right pleural effusions noted. Impression: 81-year-old male 1. Acute idiopathic (likely post viral inflammatory) pericarditis with pericardial effusion/ early tamponade physiology for which patient is status post thoracoscopic pericardial window on .-Pathology in pericardial fluid is negative thus far with the exception of findings consistent with inflammation 2. Paroxysmal atrial fibrillation, pre op and post op-in SR now on amiodarone infusion 3. ANOOP on CKD, creatinine 1.5-->2.1-->2.1 -->1.9-->1.5-->1.4 mg/dl, likely ATN from hemodynamic effect of tachycardia , pericardial effusion 4. chronic myelomonocytic leukemia, with leukocytosis, thrombocytopenia 5. Moderate bilateral pleural effusions noted on CT scan , likely due to aggressive volume resuscitation perioperatively 6. Elevated LFTs, likely due to congestive hepatopathy transient high RA pressures trending toward improvement Discussion/plan: LFTs-trending toward improvement, monitor given amiodarone therapy AF-continue amiodarone and metoprolol for rhythm control. Aspirin for stroke prophylaxis. He is not a candidate for anticoagulation given low platelets. Continue amiodarone load 200 mg 3 times a day while on telemetry. Plan to discharge patient on amiodarone 200 mg twice a day , and the dose will be tapered down to once daily outpatient follow-up Idiopathic inflammatory pericarditis, perhaps constrictive component : to prevent recurrent inflammation, he is on low dose colchicine (with caution given renal function impairment, risk of myelosuppression) Low-dose prednisone taper. Continue with prednisone 20 mg by mouth times one more dose on 02/21/17. Start taper: Prednisone 15 mg daily 5 days, started on 02/22/17. Prednisone 10 mg daily 5 days Prednisone 5 mg daily 5 days Prednisone 2.5 mg daily 5 days Prednisone 2.5 mg every other day 3 doses. DVT prophylaxis: He is on knee-high sequential pneumatic compression devices while in bed. He is also on subcutaneous subcutaneous every heparin 5000 units every 12 hours. Need to be vigilant to prevent DVT, also have to monitor closely for worsening platelet count and bleeding. Continue cautious diuresis with furosemide. Despite 3 L of urine output after diuretic dose on 02/19/70, his blood pressure is actually improved, renal function continues to trend toward improvement. Replace potassium and magnesium. Thoracic surgery, nephrology, neurology input noted and appreciated. Hold off on thoracentesis for pleural effusions for now, and we'll reassess response to diuretic therapy. Plan for repeat CBC, partial renal panel, liver profile, and magnesium tomorrow. Repeat EKG in a.m. 02/21/17 Repeat chest x-ray tomorrow 02/21/17 to reassess pleural effusions. Dr. Marie is rounding for the weekend. Nolan Pollard DO Laboratory Results Last 24 Hours Test 02/19/17 11:14 02/19/17 16:25 02/19/17 20:50 02/20/17 06:29 Bedside Glucose 141 mg/dl 179 mg/dl 164 mg/dl Sodium Level 135 mmol/L Potassium Level 3.9 mmol/L Chloride Level 105 mmol/L Carbon Dioxide Level 21 mmol/L Anion Gap 9.0 mmol/L Blood Urea Nitrogen 38 mg/dl Creatinine 1.40 mg/dl Est Creatinine Clear Calc Drug Dose 40.3 ml/min Estimated GFR () 54.2 Estimated GFR (Non- 46.8 BUN/Creatinine Ratio 27.0 Random Glucose 94 mg/dl Calcium Level 7.7 mg/dl Magnesium Level 1.5 mg/dl Total Bilirubin 0.8 mg/dl Aspartate Amino Transf (AST/SGOT) 128 U/L Alanine Aminotransferase (ALT/SGPT) 119 U/L Alkaline Phosphatase 157 U/L Total Protein 6.7 gm/dl Albumin 2.5 gm/dl Globulin 4.2 gm/dl Albumin/Globulin Ratio 0.6 Test 02/20/17 06:44 Bedside Glucose 115 mg/dl
--- NOTE | 2017-02-20 12:47 | Neurology Progress Notes ---
"Neurology Progress Note Date of Service Feb 20, 2017. 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 Clayton Fox of hematology who presented with multiple cardiac and neurological symptoms from home with early differential diagnosis of seizure as per emergency room physician in coordination with neurology teleconference with neurologist at [facility] vs stroke vs hyperviscosity complications from leukemia and also found to have tachycardia. There are various histories of what happened at home prior to admission. He was reading a book when he found that the text did not make sense to him. Denies changes in vision. Started having difficulty with finding words with his speech, but no obvious facial motor weakness or slurred speech or facial droop as per the patient's .He appears by this history to recognize these symptoms and did not lose consciousness and was able to follow directions and ambulate. His confirmed there was no tremors or jerking during this episode. When patient evaluated in the ED, stroke alert was called. He had negative head CT for intracranial bleed. In 2008 he had a SDH after falling off a ladder and had a bilateral chloe hole evacuation by Dr Huber. Was given aspirin. After consultation and evaluation with [facility] neurology by the ED physician, it was decided that patient more likely had seizure symptoms rather than stroke and the patient was given Keppra 500 mg per oral x 1 as loading dose for seizure treatment. This was also happening in context of tachycardia between 110s to 120s which was not treated in the emergency department and also chest discomfort. 02/16 he was taken to the OR by cardiology for a cardiac window and was not seen by neurology. is bedside and feels he is improving every day. He has been up walking the halls with PT and walker again today. He is currently sitting bedside eating his lunch and states he has a fair appetite. Discussed tapering down and off Keppra since EEG was normal and patient in agreement. Looking forward to transitioning back to [place] when medically stable. denies CP, SOB, abdominal pain, headache, N, V, falls. Objective Date Time Temp Pulse Resp B/P (MAP) Pulse Ox O2 Delivery O2 Flow Rate FiO2 02/20/17 11:52 36.3 70 19 131/78 (95) 99 Room Air 02/20/17 08:00 Room Air 02/20/17 07:29 36.5 109 18 135/84 (101) 95 Room Air 02/20/17 04:00 36.8 75 16 132/80 (97) 97 Room Air 02/20/17 04:00 Room Air 02/20/17 00:00 Room Air 02/19/17 23:38 36.6 76 17 119/73 (88) 98 Room Air 02/19/17 20:00 Room Air 02/19/17 19:52 36.5 78 20 112/70 (84) 97 Room Air 02/19/17 16:00 Room Air 02/19/17 15:45 36.6 73 18 116/72 (87) 96 Room Air Last 24 Hours Test 02/19/17 16:25 02/19/17 20:50 02/20/17 06:29 02/20/17 06:44 Bedside Glucose 179 mg/dl 164 mg/dl 115 mg/dl Sodium Level 135 mmol/L Potassium Level 3.9 mmol/L Chloride Level 105 mmol/L Carbon Dioxide Level 21 mmol/L Anion Gap 9.0 mmol/L Blood Urea Nitrogen 38 mg/dl Creatinine 1.40 mg/dl Est Creatinine Clear Calc Drug Dose 40.3 ml/min Estimated GFR () 54.2 Estimated GFR (Non- 46.8 BUN/Creatinine Ratio 27.0 Random Glucose 94 mg/dl Calcium Level 7.7 mg/dl Magnesium Level 1.5 mg/dl Total Bilirubin 0.8 mg/dl Aspartate Amino Transf (AST/SGOT) 128 U/L Alanine Aminotransferase (ALT/SGPT) 119 U/L Alkaline Phosphatase 157 U/L Total Protein 6.7 gm/dl Albumin 2.5 gm/dl Globulin 4.2 gm/dl Albumin/Globulin Ratio 0.6 Test 02/20/17 11:18 Bedside Glucose 144 mg/dl Imaging: no new imaging Exam: Physical Exam: Constitutional: BP 110/78 | Pulse 68 | Temp (Src) 96.4 (Tympanic) | Resp 12 | Wt 175 lbs 12.8 oz (79.742kg) | BMI 32.15 kg/m | BSA 1.87 m, appearance nourished, healthy and normal Ears, Nose, Mouth and Throat: mucous membranes moist, no injection and skin normal, eyes normal Cardiovascular: normal S-1 and S-2 and regular rate and rhythm Respiratory: clear to auscultation (CTA) and no rales, ronchi or wheeze Musculoskeletal: no peripheral edema and good distal pulses Skin: no stigmata of neurocutaneous disease noted and normal and intact Eyes: extraocular muscles intact (EOMI) and pupils equal, round and reactive to light (PERRL) NEUROLOGIC EXAMINATION: Mental status: Alert and interactive Oriented to full date and location Oriented to person Speech fluent with no evidence of aphasia Cranial Nerves smile eye brow raise symmetric Gait/Stance: Posture sitting bedside 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 5/5 Current Inpatient Medications Medications (Trade) Dose Ordered Sig/Jarvis Route Start Time Stop Time Status Last Admin Dose Admin Metoprolol Tartrate (Lopressor Iv) 5 mg Q6 PRN IV 02/15/17 17:45 03/17/17 17:44 Allopurinol (Zyloprim Tab) 200 mg DAILY PO 02/17/17 09:00 03/19/17 08:59 02/20/17 07:47 200 MG Hydroxyurea (Hydrea Cap) 1,000 mg QDD PO 02/16/17 16:45 03/18/17 16:44 02/19/17 17:40 1,000 MG Vitamin B Complex (Vitamin B Complex) 1 tab DAILY PO 02/17/17 09:00 03/19/17 08:59 02/20/17 07:46 1 TAB Ondansetron HCl (Zofran Inj) 4 mg Q4H PRN IV 02/16/17 16:00 03/18/17 15:59 Morphine Sulfate (MoRPHine SULFATE INJ) Q1H PRN IV 02/16/17 16:00 03/02/17 15:59 Aspirin (Ecotrin Tab) 81 mg QAM PO 02/18/17 09:00 03/20/17 08:59 02/20/17 07:44 81 MG Pantoprazole Sodium (Protonix Tab) 40 mg QAM PO 02/18/17 09:00 03/20/17 08:59 02/20/17 07:43 40 MG Colchicine (Colchicine Tab) 0.6 mg QAM PO 02/18/17 09:00 03/20/17 08:59 02/20/17 07:45 0.6 MG Prednisone (PredniSONE TAB) 20 mg DAILY PO 02/18/17 09:00 02/21/17 11:59 02/20/17 07:43 20 MG Heparin Sodium (Porcine) (Heparin Sq 5000 Unit/0.5ml) 5,000 unit Q12 SQ 02/17/17 21:00 03/19/17 20:59 02/20/17 09:20 5,000 UNIT Glucose (Glucose 40% Gel) 15-30 GRAMS 15 GRAMS... UD PRN PO 02/17/17 10:00 03/19/17 09:59 Glucose (Glucose Chew Tab) 4-8 Tablets 4 Tabl... UD PRN PO 02/17/17 10:00 03/19/17 09:59 Dextrose (Dextrose 50% 50ML Syringe) 25-50ML OF 50% DW IV FOR... UD PRN IV 02/17/17 10:00 03/19/17 09:59 Glucagon (Glucagon Inj) 1 mg UD PRN SQ 02/17/17 10:00 03/19/17 09:59 Insulin Aspart (novoLOG ASPART) SLIDING SCALE ACHS SC 02/17/17 11:00 03/19/17 10:59 02/17/17 20:31 1 UNITS Acetaminophen (Tylenol Tab) 650 mg Q4H PRN PO 02/17/17 16:00 03/19/17 15:59 Metoprolol Tartrate (Lopressor Tab) 25 mg BID PO 02/18/17 21:00 03/20/17 20:59 02/20/17 07:44 25 MG Amiodarone HCl (Cordarone Tab) 200 mg TIDM PO 02/18/17 11:30 03/20/17 11:29 02/20/17 07:44 200 MG Potassium Chloride (Klor-Con Tab) 20 meq QAM PO 02/20/17 09:00 03/22/17 08:59 02/20/17 07:46 20 MEQ Magnesium Chloride (Slow-Mag Tab) 64 mg BID PO 02/19/17 21:00 03/21/17 20:59 02/20/17 07:44 64 MG Levetiracetam (Keppra Tab) 500 mg TODAY@0600 PO 02/21/17 06:00 02/21/17 06:01 Furosemide 10 mg/ Syringe 1 ml @ 4 mls/min [id number] IV 02/20/17 14:00 03/22/17 13:59 Prednisone (PredniSONE TAB) 15 mg DAILY PO 02/22/17 09:00 03/24/17 08:59 Impression 81 year old male PMH CML, HTN, CKD, presentation cardiac and neurologic symptoms. cardiac window on 02/16-improving Plan 1. will wait on further neurologic work up until patient is stable from cardiac surgery 2. EEG no seizure focus seen 3. MRI carotid US will be helpful for further neurologic evaluation- EEG no seizure activity will stop Keppra after tomorrow am dosing. It does not appear there was a seizure during this episode 4. stop Keppra after tomorrow am dosing 5. seizure precautions 6. will follow with you I have seen and discussed above patient with Dr Ela Rm, neurology Pt seen and examined, suspect initial presentation related to cardiovascular compromise and not primary [employer] event such as TIA. EEG was normal, keppra stopped. Await MRI when able. REED Rm MD"
[2017-02-20] MEDS: FUROSEMIDE INJ 10 MG in SYRINGE 0 ML IV SCH (13:53)
--- NOTE | 2017-02-20 15:41 | Progress Note ---
Subjective Date of Service: Feb 20, 2017. Subjective Pt evaluation today including: conversation w/ patient, physical exam, lab review, review of studies, review of inpatient medication list Saw/examined the patient in room 218 He's doing well, no shortness of breath or chest pain +dry cough No fevers/chills - good PO intake and is ambulating the hallways Problem List Medical Problems: (1) Aphasia Status: Acute Review of Systems Constitutional: No fever, No chills Respiratory: + cough, No sputum, No wheezing, No shortness of breath, No dyspnea on exertion, No dyspnea at rest Cardiac: No chest pain Abdomen: No pain, No nausea, No vomiting, No diarrhea Heme: No abnormal bleeding/bruising Medications Current Inpatient Medications Medications (Trade) Dose Ordered Sig/Jarvis Route Start Time Stop Time Status Last Admin Dose Admin Metoprolol Tartrate (Lopressor Iv) 5 mg Q6 PRN IV 02/15/17 17:45 03/17/17 17:44 Allopurinol (Zyloprim Tab) 200 mg DAILY PO 02/17/17 09:00 03/19/17 08:59 02/20/17 07:47 200 MG Hydroxyurea (Hydrea Cap) 1,000 mg QDD PO 02/16/17 16:45 03/18/17 16:44 02/19/17 17:40 1,000 MG Vitamin B Complex (Vitamin B Complex) 1 tab DAILY PO 02/17/17 09:00 03/19/17 08:59 02/20/17 07:46 1 TAB Ondansetron HCl (Zofran Inj) 4 mg Q4H PRN IV 02/16/17 16:00 03/18/17 15:59 Morphine Sulfate (MoRPHine SULFATE INJ) Q1H PRN IV 02/16/17 16:00 03/02/17 15:59 Aspirin (Ecotrin Tab) 81 mg QAM PO 02/18/17 09:00 03/20/17 08:59 02/20/17 07:44 81 MG Pantoprazole Sodium (Protonix Tab) 40 mg QAM PO 02/18/17 09:00 03/20/17 08:59 02/20/17 07:43 40 MG Colchicine (Colchicine Tab) 0.6 mg QAM PO 02/18/17 09:00 03/20/17 08:59 02/20/17 07:45 0.6 MG Prednisone (PredniSONE TAB) 20 mg DAILY PO 02/18/17 09:00 02/21/17 11:59 02/20/17 07:43 20 MG Heparin Sodium (Porcine) (Heparin Sq 5000 Unit/0.5ml) 5,000 unit Q12 SQ 02/17/17 21:00 03/19/17 20:59 02/20/17 09:20 5,000 UNIT Glucose (Glucose 40% Gel) 15-30 GRAMS 15 GRAMS... UD PRN PO 02/17/17 10:00 03/19/17 09:59 Glucose (Glucose Chew Tab) 4-8 Tablets 4 Tabl... UD PRN PO 02/17/17 10:00 03/19/17 09:59 Dextrose (Dextrose 50% 50ML Syringe) 25-50ML OF 50% DW IV FOR... UD PRN IV 02/17/17 10:00 03/19/17 09:59 Glucagon (Glucagon Inj) 1 mg UD PRN SQ 02/17/17 10:00 03/19/17 09:59 Insulin Aspart (novoLOG ASPART) SLIDING SCALE ACHS SC 02/17/17 11:00 03/19/17 10:59 02/17/17 20:31 1 UNITS Acetaminophen (Tylenol Tab) 650 mg Q4H PRN PO 02/17/17 16:00 03/19/17 15:59 Metoprolol Tartrate (Lopressor Tab) 25 mg BID PO 02/18/17 21:00 03/20/17 20:59 02/20/17 07:44 25 MG Amiodarone HCl (Cordarone Tab) 200 mg TIDM PO 02/18/17 11:30 03/20/17 11:29 02/20/17 13:59 200 MG Potassium Chloride (Klor-Con Tab) 20 meq QAM PO 02/20/17 09:00 03/22/17 08:59 02/20/17 07:46 20 MEQ Magnesium Chloride (Slow-Mag Tab) 64 mg BID PO 02/19/17 21:00 03/21/17 20:59 02/20/17 07:44 64 MG Levetiracetam (Keppra Tab) 500 mg TODAY@0600 PO 02/21/17 06:00 02/21/17 06:01 Furosemide 10 mg/ Syringe 1 ml @ 4 mls/min [id number] IV 02/20/17 14:00 03/22/17 13:59 02/20/17 13:53 4 MLS/MIN Prednisone (PredniSONE TAB) 15 mg DAILY PO 02/22/17 09:00 03/24/17 08:59 Objective Vital Signs Date Time Temp Pulse Resp B/P (MAP) Pulse Ox O2 Delivery O2 Flow Rate FiO2 02/20/17 12:00 Room Air 02/20/17 11:52 36.3 70 19 131/78 (95) 99 Room Air 02/20/17 08:00 Room Air 02/20/17 07:29 36.5 109 18 135/84 (101) 95 Room Air 02/20/17 04:00 36.8 75 16 132/80 (97) 97 Room Air 02/20/17 04:00 Room Air 02/20/17 00:00 Room Air 02/19/17 23:38 36.6 76 17 119/73 (88) 98 Room Air 02/19/17 20:00 Room Air 02/19/17 19:52 36.5 78 20 112/70 (84) 97 Room Air 02/19/17 16:00 Room Air 02/19/17 15:45 36.6 73 18 116/72 (87) 96 Room Air Physical Exam General Appearance: no apparent distress Respiratory/Chest: no respiratory distress, no accessory muscle use, + decreased breath sounds Cardiovascular: regular rate, rhythm, no edema, no murmur Abdomen: normal bowel sounds, non tender, soft Extremities: normal inspection, no pedal edema Neurologic/Psychiatric: no motor/sensory deficits, alert, normal mood/affect Skin: normal color Laboratory Results Last 24 Hours Test 02/19/17 16:25 02/19/17 20:50 02/20/17 06:29 02/20/17 06:44 Bedside Glucose 179 mg/dl 164 mg/dl 115 mg/dl Sodium Level 135 mmol/L Potassium Level 3.9 mmol/L Chloride Level 105 mmol/L Carbon Dioxide Level 21 mmol/L Anion Gap 9.0 mmol/L Blood Urea Nitrogen 38 mg/dl Creatinine 1.40 mg/dl Est Creatinine Clear Calc Drug Dose 40.3 ml/min Estimated GFR () 54.2 Estimated GFR (Non- 46.8 BUN/Creatinine Ratio 27.0 Random Glucose 94 mg/dl Calcium Level 7.7 mg/dl Magnesium Level 1.5 mg/dl Total Bilirubin 0.8 mg/dl Aspartate Amino Transf (AST/SGOT) 128 U/L Alanine Aminotransferase (ALT/SGPT) 119 U/L Alkaline Phosphatase 157 U/L Total Protein 6.7 gm/dl Albumin 2.5 gm/dl Globulin 4.2 gm/dl Albumin/Globulin Ratio 0.6 Test 02/20/17 11:18 Bedside Glucose 144 mg/dl Assessment and Plan This is an 81 year old male with a PMH of 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, anemia of chronic disease on Procrit, HTN, CKD stage 3, BPH presented with multiple symptoms including dyspnea on exertion, shortness of breath, chest pain, word finding difficulty - subsequently found to have pericardial effusion with tamponade physiology Acute Pericarditis with Pericardial Effusion Pleural Effusions 02/20 patient is doing much better, prednisone taper as per cardiology did well with IV Lasix, can do another dose today and then monitor over the weekend repeat CXR in AM 02/19 appreciate cardiology management will continue a prednisone taper over 3 weeks colchicine Lasix started due to Pleural effusions noted on CXR 02/18 patient is doing much better low dose prednisone taper; cont. colchicine for now pleural effusions noted on CXR from today; possibly low dose diuretics as per cardiology if BP is stable 02/17 concern on initial echo was early tamponade physiology s/p pericardial window on 02/16/17 by cardiothoracic surgery appreciate cardiology input on this matter - repeat echo shows improvement and near resolution of the effusion will continue a prednisone taper as per cardio, continue colchicine (avoid ibuprofen due to kidney function) clinically feeling better Paroxysmal A. Fib 02/19 continues to be in sinus rhythm continue b-juani 02/18 metoprolol increased as per cardiology to 25mg BID amiodarone drip will be stopped and switched to oral amiodarone as the LFTs are now trending down appreciate cardiology management no anticoagulation due to anemia/thrombocytopenia 02/17 pre and post-operatively started on IV amiodarone as per cardiology with idea to transition to PO amiodarone LFTs elevating with amiodarone use; monitor Acute Kidney Injury superimposed on CKD stage 3 02/19 creatinine back to 1.5 will do low dose Lasix monitor kidney function 02/18 creatinine on admission 1.5 now creatinine is up to 2.1 appreciate nephrology input regarding fluid management likely kidney injury is due to tachycardia and hypoperfusion of the kidney Chronic Myelomonocytic Leukemia appreciate oncology input, continue chemo no acute management necessary Anemia of Chronic Disease continue Procrit as scheduled, monitor H/H Thrombocytopenia monitor platelet count as it is trending down for now continue subq heparin, but may need to d/c, especially if he is ambulating Transient Aphasia - resolved 02/19 appreciate neurology input EEG done and results pending possible MRI/MRA will need PT/OT 02/18 will hold off on further evaluation due to his condition appreciate neurology input 02/17 actually had stroke alert called and telestroke from [facility] recommended loading dose of Keppra Head CT negative possible need for Brain MRI? EEG? neurology consultation pending DVT ppx subq heparin + SCDs FULL CODE
[2017-02-20] MEDS: HYDROXYUREA 500 MG CAP PO SCH (17:06)
[2017-02-21] VITALS (10 sets, daily range): BP systolic 105–135; BP diastolic 68–81; PULSE 74–86; TEMP 36.6–36.9; O2SAT 96–99
[2017-02-21] MEDS ORDERED: LEVETIRACETAM 500 MG TAB PO SCH (06:00)
[2017-02-21 06:43] LABS: HEMATOCRIT 29.5 % (42-52); MEAN CELL VOLUME 93.9 fL (80-100); MEAN CORPUSCULAR HEMOGLOBIN 33.1 pg (25-34); MEAN CORPUSCULAR HGB CONC 35.3 g/dl (32-36); PLATELET COUNT 74 K/uL (130-400); RED BLOOD COUNT 3.14 M/uL (4.7-6.1); WHITE BLOOD COUNT 76.28 K/uL (4.8-10.8)
[2017-02-21 07:13] LABS: BUN/CREATININE RATIO 27.2 (10-20); CALCIUM 7.3 mg/dl (8.5-10.1); CREATININE 1.3 mg/dl (0.60-1.40); MAGNESIUM 1.5 mg/dl (1.8-2.4); POTASSIUM 3.9 mmol/L (3.5-5.1)
[2017-02-21] MEDS: VITAMIN B COMPLEX TAB PO SCH (07:58)
[2017-02-21] MEDS: MAGNESIUM CHLORIDE 64MG DELAYED REL TAB PO SCH ×2 (07:58→21:18)
[2017-02-21] MEDS: METOPROLOL TARTRATE 25 MG TAB PO SCH ×2 (07:58→21:18)
[2017-02-21] MEDS: ASPIRIN 81 MG ECTAB PO SCH (07:58)
[2017-02-21] MEDS: AMIODARONE 200 MG TAB PO SCH ×3 (07:58→18:15)
[2017-02-21] MEDS: ALLOPURINOL 100 MG TAB PO SCH (07:58)
[2017-02-21] MEDS: PANTOprazole SOD 40 MG TAB PO SCH (07:58)
[2017-02-21] MEDS: POTASSIUM CHLORIDE 20 MEQ TABCR PO SCH (07:58)
[2017-02-21] MEDS: COLCHICINE 0.6 MG TAB PO SCH (07:58)
[2017-02-21] MEDS: INSULIN ASPART 100 UNITS/ML 3 ML PEN SC SCH ×4 (07:59→21:00)
[2017-02-21] MEDS: FUROSEMIDE INJ 10 MG in SYRINGE 0 ML IV SCH ×2 (07:59→14:03)
[2017-02-21] MEDS: HEPARIN SOD 5000 UNIT/0.5 ML CARP SQ SCH ×2 (08:00→21:25)
--- NOTE | 2017-02-21 08:15 | DIAGNOSTIC IMAGING REPORT ---
CHEST ONE VIEW PORTABLE CLINICAL HISTORY: Pleural effusions COMPARISON STUDY: 02/18/2017 FINDINGS: The cardiac and mediastinal contours remain stable. There are improving bibasilar airspace opacities. There are decreasing bilateral pleural effusions.[ IMPRESSION: Suspected interval decrease in the size of subpulmonic pleural effusions with improving basilar atelectasis. Electronically signed by: Bimal Gayle M.D. 02/21/2017 8:14 AM Dictated Date/Time: 02/21/2017 8:13 AM
[2017-02-21] MEDS: MAGNESIUM SULFATE 1GM / D5W 1 GM in PREMIXED IN D5W 100 ML IV SCH ×2 (08:33→09:27)
--- NOTE | 2017-02-21 09:05 | Progress Note ---
Subjective Date of Service: Feb 21, 2017. Subjective Pt evaluation today including: conversation w/ patient, physical exam, lab review, review of studies, conversation w/ consultant internship, review of inpatient medication list Saw/examined the patient in room 218 Feels good; denies chest pain +intermittent dry cough No shortness of breath, no fevers/chills Problem List Medical Problems: (1) Aphasia Status: Acute Review of Systems Constitutional: + weakness, No fever, No chills Respiratory: + cough, No sputum, No wheezing, No shortness of breath, No dyspnea on exertion, No dyspnea at rest, No hemoptysis Cardiac: No chest pain, No edema, No palpitations Abdomen: No pain, No nausea, No vomiting, No diarrhea Heme: No abnormal bleeding/bruising Medications Current Inpatient Medications Medications (Trade) Dose Ordered Sig/Jarvis Route Start Time Stop Time Status Last Admin Dose Admin Metoprolol Tartrate (Lopressor Iv) 5 mg Q6 PRN IV 02/15/17 17:45 03/17/17 17:44 Allopurinol (Zyloprim Tab) 200 mg DAILY PO 02/17/17 09:00 03/19/17 08:59 02/21/17 07:58 200 MG Hydroxyurea (Hydrea Cap) 1,000 mg QDD PO 02/16/17 16:45 03/18/17 16:44 02/20/17 17:06 1,000 MG Vitamin B Complex (Vitamin B Complex) 1 tab DAILY PO 02/17/17 09:00 03/19/17 08:59 02/21/17 07:58 1 TAB Ondansetron HCl (Zofran Inj) 4 mg Q4H PRN IV 02/16/17 16:00 03/18/17 15:59 Morphine Sulfate (MoRPHine SULFATE INJ) Q1H PRN IV 02/16/17 16:00 03/02/17 15:59 Aspirin (Ecotrin Tab) 81 mg QAM PO 02/18/17 09:00 03/20/17 08:59 02/21/17 07:58 81 MG Pantoprazole Sodium (Protonix Tab) 40 mg QAM PO 02/18/17 09:00 03/20/17 08:59 02/21/17 07:58 40 MG Colchicine (Colchicine Tab) 0.6 mg QAM PO 02/18/17 09:00 03/20/17 08:59 9/16/17 07:58 0.6 MG Prednisone (PredniSONE TAB) 20 mg DAILY PO 02/18/17 09:00 02/21/17 11:59 02/21/17 07:58 20 MG Heparin Sodium (Porcine) (Heparin Sq 5000 Unit/0.5ml) 5,000 unit Q12 SQ 02/17/17 21:00 03/19/17 20:59 02/21/17 08:00 5,000 UNIT Glucose (Glucose 40% Gel) 15-30 GRAMS 15 GRAMS... UD PRN PO 02/17/17 10:00 03/19/17 09:59 Glucose (Glucose Chew Tab) 4-8 Tablets 4 Tabl... UD PRN PO 02/17/17 10:00 03/19/17 09:59 Dextrose (Dextrose 50% 50ML Syringe) 25-50ML OF 50% DW IV FOR... UD PRN IV 02/17/17 10:00 03/19/17 09:59 Glucagon (Glucagon Inj) 1 mg UD PRN SQ 02/17/17 10:00 03/19/17 09:59 Insulin Aspart (novoLOG ASPART) SLIDING SCALE ACHS SC 02/17/17 11:00 03/19/17 10:59 02/20/17 17:04 1 UNITS Acetaminophen (Tylenol Tab) 650 mg Q4H PRN PO 02/17/17 16:00 03/19/17 15:59 Metoprolol Tartrate (Lopressor Tab) 25 mg BID PO 02/18/17 21:00 03/20/17 20:59 02/21/17 07:58 25 MG Amiodarone HCl (Cordarone Tab) 200 mg TIDM PO 02/18/17 11:30 03/20/17 11:29 02/21/17 07:58 200 MG Potassium Chloride (Klor-Con Tab) 20 meq QAM PO 02/20/17 09:00 03/22/17 08:59 02/21/17 07:58 20 MEQ Magnesium Chloride (Slow-Mag Tab) 64 mg BID PO 02/19/17 21:00 03/21/17 20:59 02/21/17 07:58 64 MG Furosemide 10 mg/ Syringe 1 ml @ 4 mls/min [id number] IV 02/20/17 14:00 03/22/17 13:59 02/21/17 07:59 4 MLS/MIN Prednisone (PredniSONE TAB) 15 mg DAILY PO 02/22/17 09:00 03/24/17 08:59 Magnesium Sulfate 1 gm/Prmx 100 ml @ 100 mls/hr Q1H IV 02/21/17 08:00 02/21/17 09:59 02/21/17 08:33 100 MLS/HR Objective Vital Signs Date Time Temp Pulse Resp B/P (MAP) Pulse Ox O2 Delivery O2 Flow Rate FiO2 02/21/17 07:09 36.7 79 20 118/77 (91) 99 Room Air 02/21/17 04:14 Room Air 02/21/17 04:00 36.6 78 18 132/78 (96) 97 Room Air 02/21/17 00:00 Room Air 02/21/17 00:00 36.6 86 20 135/81 (99) 97 Room Air 02/20/17 20:00 97 Room Air 02/20/17 19:31 36.4 82 20 122/73 (89) 99 Room Air 02/20/17 16:00 97 Room Air 02/20/17 15:44 36.6 78 18 119/73 (88) 97 Room Air 02/20/17 12:00 Room Air 02/20/17 11:52 36.3 70 19 131/78 (95) 99 Room Air Physical Exam General Appearance: no apparent distress Respiratory/Chest: no respiratory distress, no accessory muscle use, + decreased breath sounds Cardiovascular: regular rate, rhythm, no edema, no murmur Abdomen: normal bowel sounds, non tender, soft Extremities: normal inspection, no pedal edema Neurologic/Psychiatric: no motor/sensory deficits, alert, normal mood/affect Laboratory Results Last 24 Hours Test 02/20/17 11:18 02/20/17 16:36 02/20/17 20:09 02/21/17 06:15 Bedside Glucose 144 mg/dl 191 mg/dl 162 mg/dl White Blood Count 76.28 K/uL Red Blood Count 3.14 M/uL Hemoglobin 10.4 g/dL Hematocrit 29.5 % Mean Corpuscular Volume 93.9 fL Mean Corpuscular Hemoglobin 33.1 pg Mean Corpuscular Hemoglobin Concent 35.3 g/dl RDW Standard Deviation 65.8 fL RDW Coefficient of Variation 19.8 % Platelet Count 74 K/uL Sodium Level 135 mmol/L Potassium Level 3.9 mmol/L Chloride Level 106 mmol/L Carbon Dioxide Level 23 mmol/L Anion Gap 6.0 mmol/L Blood Urea Nitrogen 35 mg/dl Creatinine 1.30 mg/dl Est Creatinine Clear Calc Drug Dose 43.3 ml/min Estimated GFR () 59.3 Estimated GFR (Non- 51.2 BUN/Creatinine Ratio 27.2 Random Glucose 87 mg/dl Calcium Level 7.3 mg/dl Magnesium Level 1.5 mg/dl Total Bilirubin 0.8 mg/dl Direct Bilirubin 0.3 mg/dl Aspartate Amino Transf (AST/SGOT) 88 U/L Alanine Aminotransferase (ALT/SGPT) 103 U/L Alkaline Phosphatase 143 U/L Total Protein 6.4 gm/dl Albumin 2.4 gm/dl Test 02/21/17 06:33 Bedside Glucose 90 mg/dl Assessment and Plan This is an 81 year old male with a PMH of 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 colchicine 02/20 patient is doing much better, prednisone taper as per cardiology did well with IV Lasix, can do another dose today and then monitor over the weekend repeat CXR in AM 02/19 appreciate cardiology management will continue a prednisone taper over 3 weeks colchicine Lasix started due to Pleural effusions noted on CXR 02/18 patient is doing much better low dose prednisone taper; cont. colchicine for now pleural effusions noted on CXR from today; possibly low dose diuretics as per cardiology if BP is stable 02/17 concern on initial echo was early tamponade physiology s/p pericardial window on 02/16/17 by cardiothoracic surgery appreciate cardiology input on this matter - repeat echo shows improvement and near resolution of the effusion will continue a prednisone taper as per cardio, continue colchicine (avoid ibuprofen due to kidney function) clinically feeling better Paroxysmal A. Fib 02/21 continue amiodarone and b-juani as per cardiology 02/19 continues to be in sinus rhythm continue b-juani 02/18 metoprolol increased as per cardiology to 25mg BID amiodarone drip will be stopped and switched to oral amiodarone as the LFTs are now trending down appreciate cardiology management no anticoagulation due to anemia/thrombocytopenia 02/17 pre and post-operatively started on IV amiodarone as per cardiology with idea to transition to PO amiodarone LFTs elevating with amiodarone use; monitor Acute Kidney Injury superimposed on CKD stage 3 02/21 kidney function improving monitor with diuretic use 02/19 creatinine back to 1.5 will do low dose Lasix monitor kidney function 02/18 creatinine on admission 1.5 now creatinine is up to 2.1 appreciate nephrology input regarding fluid management likely kidney injury is due to tachycardia and hypoperfusion of the kidney Chronic Myelomonocytic Leukemia appreciate oncology input, continue chemo no acute management necessary Anemia of Chronic Disease continue Procrit as scheduled, monitor H/H Thrombocytopenia monitor platelet count as it is trending down for now continue subq heparin, but may need to d/c, especially if he is ambulating Transient Aphasia - resolved 02/19 appreciate neurology input EEG done and results pending possible MRI/MRA will need PT/OT 02/18 will hold off on further evaluation due to his condition appreciate neurology input 02/17 actually had stroke alert called and telestroke from [facility] recommended loading dose of Keppra Head CT negative possible need for Brain MRI? EEG? neurology consultation pending DVT ppx subq heparin + SCDs FULL CODE
--- NOTE | 2017-02-21 09:52 | SURGERY PROGRESS NOTE ---
DATE: 02/21/2017 DATE: 02/21/2017 Mr. Tobar was seen today. He looks great. His incisions are clean. He is on room air. His numbers have normalized. All in all I am quite happy with him. He tolerated the procedure very well. I would like to see him back 1 more time 2 weeks after discharge with an x-ray, but his x-ray today looked very good.
--- NOTE | 2017-02-21 09:56 | PROGRESS NOTE ---
DATE: 02/21/2017 DATE: 02/21/2017 I am seeing Mr. Tobar in followup of some confusion and dysarthria in the setting of a pericardial effusion. There was initially some question about whether or not there was seizure activity. Having spoken to his I did not believe that to be so. An EEG is normal. He had a carotid ultrasound and we have been waiting for him to have an MRI. He has not yet had his MRI. He is well today, awake, alert. His speech and language are normal. IMPRESSION: An episode of dysarthria, confusion likely related to medical illness. The patient is doing well. Await cardiology's permission to do MRI. CATRINA
--- NOTE | 2017-02-21 10:42 | CARDIOLOGY PROGRESS NOTE ---
DATE: 02/21/2017 DATE: 02/21/2017 FOLLOW-UP VISIT SUBJECTIVE: The patient is an 81-year-old with a history of chronic myelomonocytic leukemia who presented with an inflammatory pericarditis and underwent a thorascopic pericardial window earlier in the admission. Following that procedure he has done well. He was having paroxysmal atrial fibrillation, but postop and with an amiodarone infusion he has been maintaining sinus rhythm. He has been given diuretics and is diuresing. Bilateral pleural effusions are slowly improving. The patient feels that he is getting better and is sitting at his bedside reading the newspaper. He has no complaints today. OBJECTIVE: GENERAL: He is alert and oriented in no acute distress. VITAL SIGNS: Blood pressure is 118/70, pulse is regular at 80 beats per minute. He is afebrile. I&O is minus 2 liters yesterday and minus 700 mL for today. His weight is down from 70 kilograms to 68 kilograms. HEAD, EYES, EARS, NOSE, AND THROAT: Normocephalic. Pupils are equal and reactive to light. Extraocular muscles are intact bilaterally. NECK: The neck veins are flat. Carotids have good upstrokes bilaterally without bruits. Thyroid is nonpalpable. RESPIRATORY: Breath sounds equal bilaterally and clear to auscultation. CARDIOVASCULAR: Heart has a regular rhythm. Normal S1, S2. No S3, S4. No cardiac rubs or murmurs. GASTROINTESTINAL: Abdomen is soft, nontender without organomegaly. EXTREMITIES: Free of edema, digit clubbing, or cyanosis. NEUROLOGIC: Grossly intact. SKIN: Warm to touch. LYMPH NODES: Negative to palpation. LABORATORY DATA: Hemoglobin is 10.4, WBC count is 76, potassium is 3.9, creatinine is 1.3. IMPRESSION: 1. Pericarditis. 2. Paroxysmal atrial fibrillation. 3. Chronic myelomonocytic leukemia. 4. Chronic kidney disease. RECOMMENDATIONS: At this point, the patient seems to be moving in the right direction. He should continue with a tapering dose of steroids. His amiodarone is currently 200 mg t.i.d. and I anticipate that tomorrow. We will decrease that to b.i.d. Otherwise, the patient continues to improve.
--- NOTE | 2017-02-21 13:20 | DIAGNOSTIC IMAGING REPORT ---
MRI OF THE BRAIN WITHOUT CONTRAST CLINICAL HISTORY: Stroke like symptoms COMPARISON STUDY: Noncontrast head CT dated 02/15/2017 FINDINGS: Sagittal T1, axial diffusion, proton density and T2 weighted axial, coronal FLAIR, and axial T1-weighted images were acquired. No intra or extra-axial mass lesions are visualized There is minimal left convexity dural thickening versus a tiny chronic subdural hematoma Axial diffusion-weighted images reveal punctate foci of restricted water diffusion within the high left parietal convexity. An equivocal focus of restricted water diffusion within the right parietal convexity, is likely not definitively artifactual. There is no evidence of ventricular dilatation. Proton density T2-weighted and FLAIR images reveal scattered foci of increased T2 signal within the white matter, likely on a small vessel basis. There are no abnormal flow voids. IMPRESSION: 1. Punctate foci of restricted water diffusion within the high left parietal convexity, consistent with tiny areas of acute/subacute infarction 2. Minimal left convexity dural thickening versus tiny chronic subdural hematoma Electronically signed by: Bimal Gayle M.D. 02/21/2017 1:19 PM Dictated Date/Time: 02/21/2017 1:14 PM
[2017-02-21] MEDS: HYDROXYUREA 500 MG CAP PO SCH (18:16)
[2017-02-22] VITALS (8 sets, daily range): BP systolic 104–127; BP diastolic 69–75; PULSE 77–89; TEMP 36.4–36.9; O2SAT 95–98
[2017-02-22 06:51] LABS: BUN/CREATININE RATIO 21.5 (10-20); CALCIUM 7.3 mg/dl (8.5-10.1); CREATININE 1.4 mg/dl (0.60-1.40); MAGNESIUM 1.6 mg/dl (1.8-2.4); POTASSIUM 4.1 mmol/L (3.5-5.1)
[2017-02-22 06:54] LABS: ALB/GLOB RATIO 0.6 (0.9-2)
[2017-02-22] MEDS: METOPROLOL TARTRATE 25 MG TAB PO SCH ×2 (08:06→20:55)
[2017-02-22] MEDS: PANTOprazole SOD 40 MG TAB PO SCH (08:06)
[2017-02-22] MEDS: FUROSEMIDE INJ 10 MG in SYRINGE 0 ML IV SCH (08:06)
[2017-02-22] MEDS: MAGNESIUM CHLORIDE 64MG DELAYED REL TAB PO SCH ×2 (08:07→20:55)
[2017-02-22] MEDS: ASPIRIN 81 MG ECTAB PO SCH (08:07)
[2017-02-22] MEDS: COLCHICINE 0.6 MG TAB PO SCH (08:07)
[2017-02-22] MEDS: AMIODARONE 200 MG TAB PO SCH ×2 (08:07→16:55)
[2017-02-22] MEDS: ALLOPURINOL 100 MG TAB PO SCH (08:07)
[2017-02-22] MEDS: POTASSIUM CHLORIDE 20 MEQ TABCR PO SCH (08:08)
[2017-02-22] MEDS: VITAMIN B COMPLEX TAB PO SCH (08:08)
[2017-02-22] MEDS: INSULIN ASPART 100 UNITS/ML 3 ML PEN SC SCH ×4 (08:08→20:53)
[2017-02-22] MEDS: HEPARIN SOD 5000 UNIT/0.5 ML CARP SQ SCH ×2 (08:15→20:57)
[2017-02-22] MEDS ORDERED: MAGNESIUM SULFATE 1GM / D5W 1 GM in PREMIXED IN D5W 100 ML IV ONE (09:00)
[2017-02-22] MEDS: MAGNESIUM OXIDE 400 MG TAB PO SCH (09:17)
--- NOTE | 2017-02-22 10:39 | Progress Note ---
Subjective Date of Service: Feb 22, 2017. Subjective Pt evaluation today including: conversation w/ patient, physical exam, lab review, review of studies, review of inpatient medication list Saw/examined the patient in room 218 Dry cough persists No shortness of breath/chest pain No palpitations Problem List Medical Problems: (1) Aphasia Status: Acute Review of Systems Constitutional: No fever, No chills Respiratory: + cough, No sputum, No wheezing, No shortness of breath, No dyspnea on exertion, No dyspnea at rest, No hemoptysis Cardiac: No chest pain, No edema, No palpitations Abdomen: No pain, No nausea, No vomiting, No diarrhea Heme: No abnormal bleeding/bruising Medications Current Inpatient Medications Medications (Trade) Dose Ordered Sig/Jarvis Route Start Time Stop Time Status Last Admin Dose Admin Metoprolol Tartrate (Lopressor Iv) 5 mg Q6 PRN IV 02/15/17 17:45 03/17/17 17:44 Allopurinol (Zyloprim Tab) 200 mg DAILY PO 02/17/17 09:00 03/19/17 08:59 02/22/17 08:07 200 MG Hydroxyurea (Hydrea Cap) 1,000 mg QDD PO 02/16/17 16:45 03/18/17 16:44 02/21/17 18:16 1,000 MG Vitamin B Complex (Vitamin B Complex) 1 tab DAILY PO 02/17/17 09:00 03/19/17 08:59 02/22/17 08:08 1 TAB Ondansetron HCl (Zofran Inj) 4 mg Q4H PRN IV 02/16/17 16:00 03/18/17 15:59 Morphine Sulfate (MoRPHine SULFATE INJ) Q1H PRN IV 02/16/17 16:00 03/02/17 15:59 Aspirin (Ecotrin Tab) 81 mg QAM PO 02/18/17 09:00 03/20/17 08:59 02/22/17 08:07 81 MG Pantoprazole Sodium (Protonix Tab) 40 mg QAM PO 02/18/17 09:00 03/20/17 08:59 02/22/17 08:06 40 MG Colchicine (Colchicine Tab) 0.6 mg QAM PO 02/18/17 09:00 03/20/17 08:59 02/22/17 08:07 0.6 MG Heparin Sodium (Porcine) (Heparin Sq 5000 Unit/0.5ml) 5,000 unit Q12 SQ 02/17/17 21:00 03/19/17 20:59 02/22/17 08:15 5,000 UNIT Glucose (Glucose 40% Gel) 15-30 GRAMS 15 GRAMS... UD PRN PO 02/17/17 10:00 03/19/17 09:59 Glucose (Glucose Chew Tab) 4-8 Tablets 4 Tabl... UD PRN PO 02/17/17 10:00 03/19/17 09:59 Dextrose (Dextrose 50% 50ML Syringe) 25-50ML OF 50% DW IV FOR... UD PRN IV 02/17/17 10:00 03/19/17 09:59 Glucagon (Glucagon Inj) 1 mg UD PRN SQ 02/17/17 10:00 03/19/17 09:59 Insulin Aspart (novoLOG ASPART) SLIDING SCALE ACHS SC 02/17/17 11:00 03/19/17 10:59 02/21/17 18:00 1 UNITS Acetaminophen (Tylenol Tab) 650 mg Q4H PRN PO 02/17/17 16:00 03/19/17 15:59 Metoprolol Tartrate (Lopressor Tab) 25 mg BID PO 02/18/17 21:00 03/20/17 20:59 02/22/17 08:06 25 MG Amiodarone HCl (Cordarone Tab) 200 mg TIDM PO 02/18/17 11:30 03/20/17 11:29 02/22/17 08:07 200 MG Potassium Chloride (Klor-Con Tab) 20 meq QAM PO 02/20/17 09:00 03/22/17 08:59 02/22/17 08:08 20 MEQ Magnesium Chloride (Slow-Mag Tab) 64 mg BID PO 02/19/17 21:00 03/21/17 20:59 02/22/17 08:07 64 MG Furosemide 10 mg/ Syringe 1 ml @ 4 mls/min [id number] IV 02/20/17 14:00 03/22/17 13:59 02/22/17 08:06 4 MLS/MIN Prednisone (PredniSONE TAB) 15 mg DAILY PO 02/22/17 09:00 03/24/17 08:59 02/22/17 08:06 15 MG Magnesium Oxide (Mag-Ox Tab) 400 mg QAM PO 02/22/17 09:00 03/24/17 08:59 02/22/17 09:17 400 MG Objective Vital Signs Date Time Temp Pulse Resp B/P (MAP) Pulse Ox O2 Delivery O2 Flow Rate FiO2 02/22/17 08:15 36.5 89 17 104/69 (81) 96 Room Air 02/22/17 04:00 36.9 77 20 122/74 (90) 96 Room Air 02/22/17 04:00 Room Air 02/22/17 00:04 Room Air 02/21/17 23:32 36.7 74 20 120/76 (91) 98 Room Air 02/21/17 20:12 36.7 76 16 116/74 (88) 96 Room Air 02/21/17 20:00 Room Air 02/21/17 16:00 97 Room Air 02/21/17 15:23 36.9 74 20 116/72 (87) 98 Room Air 02/21/17 12:00 98 Room Air 02/21/17 10:56 36.6 75 20 105/68 (80) 97 Room Air Physical Exam General Appearance: no apparent distress ENT: hearing grossly normal Respiratory/Chest: lungs clear, normal breath sounds, no respiratory distress, no accessory muscle use Cardiovascular: regular rate, rhythm, no edema, no murmur Abdomen: normal bowel sounds, non tender, soft Extremities: normal inspection, no pedal edema Neurologic/Psychiatric: atlassian administrator II-XII nml as tested, no motor/sensory deficits, alert, normal mood/affect, oriented x 3 Laboratory Results Last 24 Hours Test 02/21/17 10:55 02/21/17 16:24 02/21/17 20:14 02/22/17 06:00 Bedside Glucose 189 mg/dl 189 mg/dl 173 mg/dl Sodium Level 137 mmol/L Potassium Level 4.1 mmol/L Chloride Level 107 mmol/L Carbon Dioxide Level 24 mmol/L Anion Gap 6.0 mmol/L Blood Urea Nitrogen 30 mg/dl Creatinine 1.40 mg/dl Est Creatinine Clear Calc Drug Dose 40.2 ml/min Estimated GFR () 54.2 Estimated GFR (Non- 46.8 BUN/Creatinine Ratio 21.5 Random Glucose 104 mg/dl Calcium Level 7.3 mg/dl Magnesium Level 1.6 mg/dl Total Bilirubin 0.7 mg/dl Direct Bilirubin 0.3 mg/dl Aspartate Amino Transf (AST/SGOT) 64 U/L Alanine Aminotransferase (ALT/SGPT) 92 U/L Alkaline Phosphatase 149 U/L Total Protein 6.3 gm/dl Albumin 2.4 gm/dl Globulin 3.9 gm/dl Albumin/Globulin Ratio 0.6 Test 02/22/17 06:49 Bedside Glucose 96 mg/dl Assessment and Plan This is an 81 year old male with a PMH of 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 colchicine 02/20 patient is doing much better, prednisone taper as per cardiology did well with IV Lasix, can do another dose today and then monitor over the weekend repeat CXR in AM 02/19 appreciate cardiology management will continue a prednisone taper over 3 weeks colchicine Lasix started due to Pleural effusions noted on CXR 02/18 patient is doing much better low dose prednisone taper; cont. colchicine for now pleural effusions noted on CXR from today; possibly low dose diuretics as per cardiology if BP is stable 02/17 concern on initial echo was early tamponade physiology s/p pericardial window on 02/16/17 by cardiothoracic surgery appreciate cardiology input on this matter - repeat echo shows improvement and near resolution of the effusion will continue a prednisone taper as per cardio, continue colchicine (avoid ibuprofen due to kidney function) clinically feeling better Paroxysmal A. Fib 02/22 taper amiodarone if okay with cardiology today 02/21 continue amiodarone and b-juani as per cardiology 02/19 continues to be in sinus rhythm continue b-juani 02/18 metoprolol increased as per cardiology to 25mg BID amiodarone drip will be stopped and switched to oral amiodarone as the LFTs are now trending down appreciate cardiology management no anticoagulation due to anemia/thrombocytopenia 02/17 pre and post-operatively started on IV amiodarone as per cardiology with idea to transition to PO amiodarone LFTs elevating with amiodarone use; monitor Acute CVA MRI done on 02/21, shows an acute/subacute infarct no residual neurological deficits likely due to the hypoxia/low perfusion continue current management, with neurology input pending cont. PT/OT with discharge to rehab Acute Kidney Injury superimposed on CKD stage 3 02/21 kidney function improving monitor with diuretic use 02/19 creatinine back to 1.5 will do low dose Lasix monitor kidney function 02/18 creatinine on admission 1.5 now creatinine is up to 2.1 appreciate nephrology input regarding fluid management likely kidney injury is due to tachycardia and hypoperfusion of the kidney Chronic Myelomonocytic Leukemia appreciate oncology input, continue chemo no acute management necessary Anemia of Chronic Disease continue Procrit as scheduled, monitor H/H Thrombocytopenia monitor platelet count as it is trending down for now continue subq heparin, but may need to d/c, especially if he is ambulating Transient Aphasia - resolved 02/19 appreciate neurology input EEG done and results pending possible MRI/MRA will need PT/OT 02/18 will hold off on further evaluation due to his condition appreciate neurology input 02/17 actually had stroke alert called and telestroke from [facility] recommended loading dose of Keppra Head CT negative possible need for Brain MRI? EEG? neurology consultation pending DVT ppx subq heparin + SCDs FULL CODE
--- NOTE | 2017-02-22 11:19 | SURGERY PROGRESS NOTE ---
DATE: 02/22/2017 SUBJECTIVE: Mr. Tobar is seen today on February 22. All of his incisions are clean. He looks very good. He is scheduled to go back to the facility. I will see him back in 2 weeks or so. CATRINA
--- NOTE | 2017-02-22 12:44 | PROGRESS NOTE ---
DATE: 02/22/2017 FOLLOWUP VISIT SUBJECTIVE: The patient is an 81-year-old with chronic myelomonocytic leukemia who presented with an inflammatory pericarditis and underwent thorascopic pericardial window earlier in this admission. He was experiencing paroxysmal atrial fibrillation which stopped after the pericardial window and amiodarone was started. He has been maintaining sinus rhythm. He has lost several pounds of fluid weight and is doing well. He has no complaints today. OBJECTIVE: GENERAL: He is alert and oriented, comfortably sitting in a chair. VITAL SIGNS: Blood pressure is 110/70, pulse is regular at 80 beats per minute. He is afebrile. He is currently in a sinus mechanism on the telemetry. HEENT: He is normocephalic. Pupils are equal and reactive to light. Extraocular muscles are intact bilaterally. NECK: The neck veins are flat. Carotids have good upstrokes bilaterally without bruits. Thyroid is nonpalpable. RESPIRATORY: Breath sounds equal bilaterally and clear to auscultation. CARDIOVASCULAR: Heart has a regular rhythm. Normal S1, S2. No S3, S4. No cardiac rubs or murmurs. GASTROINTESTINAL: Abdomen is soft, nontender without organomegaly. EXTREMITIES: Free of edema, digital clubbing, or cyanosis. NEUROLOGIC: Grossly intact. SKIN: Warm to touch. LYMPH NODES: Negative to palpation. IMPRESSION: 1. Pleural pericarditis. 2. Paroxysmal atrial fibrillation. 3. Chronic myelomonocytic leukemia. 4. Chronic kidney disease. 5. Recent embolic stroke. RECOMMENDATIONS: Per neurology, the patient appears by scan to have sustained 2 small embolic strokes, which are most likely due to his atrial fibrillation but could also be to his current illness including episodes of hypotension. In any case, he has not been fully anticoagulated due to his thrombocytopenia from his leukemia. One consideration at this point is whether or not he would benefit from long-term anticoagulation with consideration of the risks. That can be determined at a later date.
--- NOTE | 2017-02-22 14:32 | PROGRESS NOTE ---
DATE: 02/22/2017 HISTORY OF PRESENT ILLNESS: I am seeing Mr. Tobar in followup. He presented with an episode of some difficulty with reading and some brief language dysfunction. There was a question of whether or not there was some shaking of his left arm. Having spoken to his , I was not impressed. The admitting team had placed him on Keppra from the recommendations of the [place] stroke neurologist. We discontinued this once the EEG was normal. The patient has not had any ongoing speech or language dysfunction. An MRI of the brain was performed yesterday and shows 2 tiny acute infarcts in the high left parietal convexity, consistent with acute infarction, mild left convexity, dural thickening versus tiny chronic subdural hematoma. PHYSICAL EXAMINATION: GENERAL: The patient is awake, alert. Speech and language are unremarkable. Affect appropriate. Gait is unremarkable. IMPRESSION: This patient has had radiographic evidence of 2 tiny cortical infarctions in a middle cerebral artery distribution, raises question whether or not it is cardioembolic. The patient apparently had atrial fibrillation transiently around the time of his pericardial window. I spoke with Dr. Marie at length regarding anticoagulants and we will put that deicision off at present. That decision making is complex, in part because the patient has a CML thrombocytopenia. Radiographically, the radiologist felt there may be some meningeal thickening or a tiny subdural hematoma. CT of the head did not show a similar process. If anticoagulants are considered, to consider a repeat MRI of the brain with and without contrast to clarify the nature of the meningeal thickening. We will follow with you. CATRINA
[2017-02-22] MEDS: HYDROXYUREA 500 MG CAP PO SCH (16:56)
[2017-02-23] VITALS: BP 118/71; PULSE 70; TEMP 36.6; O2SAT 97
[2017-02-23 03:41] VITALS: BP 130/78; PULSE 76; TEMP 36.6; O2SAT 95
[2017-02-23] MEDS: INSULIN ASPART 100 UNITS/ML 3 ML PEN SC SCH ×4 (07:00→20:56)
--- NOTE | 2017-02-23 07:09 | Nephrology Progress Note ---
Nephrology Progress Note Date of Service: Feb 23, 2017. Subjective 81 yo male with complicated hospital course with pearl, pericarditis with pericardial window, stroke like symptoms on presentation. pt currently oob to chair. feels very good. still a little weak but no pain. no sob. reading and speaking well now. Objective Date Time Temp Pulse Resp B/P (MAP) Pulse Ox O2 Delivery O2 Flow Rate FiO2 02/23/17 04:15 Room Air 02/23/17 03:41 36.6 76 18 130/78 (95) 95 Room Air 02/23/17 00:02 Room Air 02/23/17 00:00 36.6 70 18 118/71 (87) 97 Room Air 02/22/17 20:00 Room Air 02/22/17 19:14 36.9 78 18 127/75 (92) 96 Room Air 02/22/17 16:14 36.4 80 20 105/70 (82) 97 Room Air 02/22/17 16:00 95 Room Air 02/22/17 12:23 36.9 78 16 116/72 (87) 98 Room Air 02/22/17 12:00 96 Room Air 02/22/17 08:15 36.5 89 17 104/69 (81) 96 Room Air 02/22/17 08:00 98 Room Air Physical Exam: General-aaox3 Eyes-no scleral icterus ENT-mmm Neck-supple Lungs-decreased at right base Heart-rrr Abdomen-bs+ s/nt/nd Extremities-no c/c/e Neuro-nonfocal Current Inpatient Medications Medications (Trade) Dose Ordered Sig/Jarvis Route Start Time Stop Time Status Last Admin Dose Admin Metoprolol Tartrate (Lopressor Iv) 5 mg Q6 PRN IV 02/15/17 17:45 03/17/17 17:44 Allopurinol (Zyloprim Tab) 200 mg DAILY PO 02/17/17 09:00 03/19/17 08:59 02/22/17 08:07 200 MG Hydroxyurea (Hydrea Cap) 1,000 mg QDD PO 02/16/17 16:45 03/18/17 16:44 02/22/17 16:56 1,000 MG Vitamin B Complex (Vitamin B Complex) 1 tab DAILY PO 02/17/17 09:00 03/19/17 08:59 02/22/17 08:08 1 TAB Ondansetron HCl (Zofran Inj) 4 mg Q4H PRN IV 02/16/17 16:00 03/18/17 15:59 Morphine Sulfate (MoRPHine SULFATE INJ) Q1H PRN IV 02/16/17 16:00 03/02/17 15:59 Aspirin (Ecotrin Tab) 81 mg QAM PO 02/18/17 09:00 03/20/17 08:59 02/22/17 08:07 81 MG Pantoprazole Sodium (Protonix Tab) 40 mg QAM PO 02/18/17 09:00 03/20/17 08:59 02/22/17 08:06 40 MG Colchicine (Colchicine Tab) 0.6 mg QAM PO 02/18/17 09:00 03/20/17 08:59 02/22/17 08:07 0.6 MG Heparin Sodium (Porcine) (Heparin Sq 5000 Unit/0.5ml) 5,000 unit Q12 SQ 02/17/17 21:00 03/19/17 20:59 02/22/17 20:57 5,000 UNIT Glucose (Glucose 40% Gel) 15-30 GRAMS 15 GRAMS... UD PRN PO 02/17/17 10:00 03/19/17 09:59 Glucose (Glucose Chew Tab) 4-8 Tablets 4 Tabl... UD PRN PO 02/17/17 10:00 03/19/17 09:59 Dextrose (Dextrose 50% 50ML Syringe) 25-50ML OF 50% DW IV FOR... UD PRN IV 02/17/17 10:00 03/19/17 09:59 Glucagon (Glucagon Inj) 1 mg UD PRN SQ 02/17/17 10:00 03/19/17 09:59 Insulin Aspart (novoLOG ASPART) SLIDING SCALE ACHS SC 02/17/17 11:00 03/19/17 10:59 02/22/17 13:10 2 UNITS Acetaminophen (Tylenol Tab) 650 mg Q4H PRN PO 02/17/17 16:00 03/19/17 15:59 Metoprolol Tartrate (Lopressor Tab) 25 mg BID PO 02/18/17 21:00 03/20/17 20:59 02/22/17 20:55 25 MG Potassium Chloride (Klor-Con Tab) 20 meq QAM PO 02/20/17 09:00 03/22/17 08:59 02/22/17 08:08 20 MEQ Magnesium Chloride (Slow-Mag Tab) 64 mg BID PO 02/19/17 21:00 03/21/17 20:59 02/22/17 20:55 64 MG Prednisone (PredniSONE TAB) 15 mg DAILY PO 02/22/17 09:00 03/24/17 08:59 02/22/17 08:06 15 MG Magnesium Oxide (Mag-Ox Tab) 400 mg QAM PO 02/22/17 09:00 03/24/17 08:59 02/22/17 09:17 400 MG Amiodarone HCl (Cordarone Tab) 200 mg BIDM PO 02/22/17 16:45 03/20/17 11:29 02/22/17 16:55 200 MG Last 24 Hours Test 02/22/17 11:03 02/22/17 16:15 02/22/17 20:40 Bedside Glucose 236 mg/dl 163 mg/dl 132 mg/dl Assessment & Plan [id number]-[id number]-bqbupcse-creatinine peaked at 2.1 and is now back to baseline of 1.4. volume status appears good. oxygenating well on room air and does not appear sob. does have decreased breath sounds at right base but no iv lasix needed at this time. greatly appreciate cardiology and primary hospitalist help in this complicated patient. no labs for today. pt doing well. no renal follow up needed at this time. hypomag-on both mag oxide and slow mag. mag has been stable in the 1.6 range.
[2017-02-23 07:39] VITALS: BP 115/75; PULSE 87; TEMP 37; O2SAT 97
[2017-02-23] MEDS: COLCHICINE 0.6 MG TAB PO SCH (07:55)
[2017-02-23] MEDS: AMIODARONE 200 MG TAB PO SCH ×2 (07:56→17:37)
[2017-02-23] MEDS: ALLOPURINOL 100 MG TAB PO SCH (07:56)
[2017-02-23] MEDS: VITAMIN B COMPLEX TAB PO SCH (07:56)
[2017-02-23] MEDS: POTASSIUM CHLORIDE 20 MEQ TABCR PO SCH (07:57)
[2017-02-23] MEDS: MAGNESIUM OXIDE 400 MG TAB PO SCH (07:57)
[2017-02-23] MEDS: ASPIRIN 81 MG ECTAB PO SCH (07:57)
[2017-02-23] MEDS: MAGNESIUM CHLORIDE 64MG DELAYED REL TAB PO SCH ×2 (07:57→20:56)
[2017-02-23] MEDS: METOPROLOL TARTRATE 25 MG TAB PO SCH ×2 (07:57→20:56)
[2017-02-23] MEDS: PANTOprazole SOD 40 MG TAB PO SCH (07:57)
[2017-02-23] MEDS: HEPARIN SOD 5000 UNIT/0.5 ML CARP SQ SCH ×2 (07:58→20:58)
--- NOTE | 2017-02-23 09:43 | SURGERY PROGRESS NOTE ---
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 His numbers have all gotten to just about back to baseline. His white count was elevated at 76,280 and his platelet count was 74,000. However, this is likely baseline for him with his CML. In addition, his kidney function was concerning upon his admission with creatinine up to 1.5 and then 2.1; however, this has slowly leveled off and is back down to 1.4 as of yesterday and he is making good urine. Blood sugars have been well controlled. 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 The MRI of his brain suggested possible embolic or possible ischemic areas of injury to his left parietal area. He also has a history of subdural hematoma which was drained, which may account for the dural thickening seen on MRI. At this point, the question has been raised about whether he should be anticoagulated or not. My personal opinion we have an etiology of this whether be his hypotension or transient atrial fibrillation, which I think would probably related to his pericarditis which is now resolved. I will leave the decision about anticoagulation to cardiology and neurology, but in my opinion, I would probably hold off in this 81-year-old male who was rather frail actually. I will see him back in the office in 2 weeks with a chest x-ray upon his discharge.
--- NOTE | 2017-02-23 11:49 | Cardiology Follow-Up ---
Subjective General Date of Service: Feb 23, 2017. Chief Complaint: follow up chest pain, tachycardia Pt evaluation today including: conversation w/ patient, conversation w/ family , physical exam History of Present Illness The patient is a 81 year old male seen in follow up. Patient feels well. We is accompanied by his spouse Daja at the bedside. Pt has been in SR for the most part since pericardial window, however a 14 beat roman of AF noted at 2:27 am on 02/23/17. Allergies Coded Allergies: Lisinopril (Verified Allergy, Unknown, ., 02/15/17) Tamsulosin (Unverified Allergy, Unknown, EDEMA FACE,LIPS,TONGUE, 02/15/17) Social History Smoking Status: Never Smoker Hx Tobacco Use In Past Year?: No Hx Alcohol Use - Type And Amou: Yes (2oz of scotch daily) Hx Substance Use - Type And Am: No ( ) Problem List Medical Problems: (1) Aphasia Status: Acute Physical Exam Vital Signs Last Vital Signs Documentation Date Time Temp Pulse Resp B/P (MAP) Pulse Ox O2 Delivery O2 Flow Rate FiO2 02/23/17 08:00 Room Air 02/23/17 07:39 37.0 87 20 115/75 (88) 97 02/19/17 12:00 2.0 97 Physical Exam Constitutional: Level of Distress: NAD Head: normocephalic ENMT: normal ENT inspection, hearing grossly normal Neck: supple Lungs: Auscultation: no wheezing, no rhonchi, pertinent finding (Decreased BS bilatterally at the bases) Cardiovascular: Heart Auscultation: RRR, pertinent finding (1/6 systolic murmur) Musculoskeletal: normal Extremities: no edema Neurologic: Gait & Station: pertinent finding (word finding difficulty has resolved..) Assessment and Plan Assessment and Plan Impression: 81-year-old male 1. Acute idiopathic (likely post viral inflammatory) pericarditis with pericardial effusion/ early tamponade physiology for which patient is status post thoracoscopic pericardial window on .-Pathology in pericardial fluid is negative thus far with the exception of findings consistent with inflammation 2. Paroxysmal atrial fibrillation, pre op and post op-in SR now on amiodarone infusion, 14 beats of breath through 2:29 am 02/23/17 3. ANOOP on CKD, creatinine 1.5-->2.1-->2.1 -->1.9-->1.5-->1.4 mg/dl, likely ATN from hemodynamic effect of tachycardia , pericardial effusion 4. chronic myelomonocytic leukemia, with leukocytosis, thrombocytopenia 5. Moderate bilateral pleural effusions noted on CT scan on, likely due to aggressive volume resuscitation perioperatively, improved with diuresis 6. Elevated LFTs, likely due to congestive hepatopathy transient high RA pressures trending toward improvement 7. Presented with expressive aphasia, MRI brain concerning for 2 small infarct foci, and dural thickening. -pt does have h/o traumatic SDH in 2008 when he fell from a ladder , with neurosurgical evacuation necessary at that time. Discussion/plan: I had a long discussion with the patient and his spouse at the bedside. Mrs Tobar has a history of atrial fibrillation and they both have knowledge of the risk of stroke. His CHADSVASC score is 4 (age over 75 and MRI evidence of prior stroke) predicting at high risk of recurrent stroke related to AF, 4% annular stroke risk. He is however at risk of bleeding , with thrombocytopenia, and generalized frailty. After long discussion (difficult decision clinically) -pt and spouse favor coumadin.Not a candidate for DOAC given labile renal function. 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 He values is cognitive abilities and favors trial of coumadin. goal INR 2-2.5, with out pt management with [facility]. Remain in hospital for now. Update MRI as recommended by Neuro. Idiopathic inflammatory pericarditis, perhaps constrictive component : to prevent recurrent inflammation, he is on low dose colchicine (with caution given renal function impairment, risk of myelosuppression) Low-dose prednisone taper. Continue with prednisone 20 mg by mouth times one more dose on 02/21/17. Start taper: Prednisone 15 mg daily 5 days, started on 02/22/17. Prednisone 10 mg daily 5 days Prednisone 5 mg daily 5 days Prednisone 2.5 mg daily 5 days Prednisone 2.5 mg every other day 3 doses. DVT prophylaxis: He is on knee-high sequential pneumatic compression devices while in bed. He is also on subcutaneous subcutaneous every heparin 5000 units every 12 hours. Need to be vigilant to prevent DVT, also have to monitor closely for worsening platelet count and bleeding. Monitor pleural effusions of diuretics. Nolan Pollard, DO Laboratory Results Last 24 Hours Test 02/22/17 16:15 02/22/17 20:40 02/23/17 11:33 Bedside Glucose 163 mg/dl 132 mg/dl
[2017-02-23 12:31] LABS: PROTHROMBIN TIME (PATIENT) 11.1 SECONDS (9.0-12.0)
--- NOTE | 2017-02-23 13:16 | Neurology Progress Notes ---
Neurology Progress Note Date of Service Feb 23, 2017. 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 Clayton Fox of hematology who presented with multiple cardiac and neurological symptoms from home with early differential diagnosis of seizure as per emergency room physician in coordination with neurology teleconference with neurologist at [facility] vs stroke vs hyperviscosity complications from leukemia and also found to have tachycardia. There are various histories of what happened at home prior to admission. He was reading a book when he found that the text did not make sense to him. Denies changes in vision. Started having difficulty with finding words with his speech, but no obvious facial motor weakness or slurred speech or facial droop as per the patient's .He appears by this history to recognize these symptoms and did not lose consciousness and was able to follow directions and ambulate. His confirmed there was no tremors or jerking during this episode. When patient evaluated in the ED, stroke alert was called. He had negative head CT for intracranial bleed. In 2008 he had a SDH after falling off a ladder and had a bilateral chloe hole evacuation by Dr Huber. Was given aspirin. After consultation and evaluation with [facility] neurology by the ED physician, it was decided that patient more likely had seizure symptoms rather than stroke and the patient was given Keppra 500 mg per oral x 1 as loading dose for seizure treatment. This was also happening in context of tachycardia between 110s to 120s which was not treated in the emergency department and also chest discomfort. 02/16 he was taken to the OR by cardiology for a cardiac window and was not seen by neurology. is in the room. discussion regarding Coumadin start and follow up MRI. Denies any further symptoms, CP, SOB, abdominal pain, weakness, numbness, tingling, N, V. reading comprehension continues to improve, no difficulty with appetite or swallowing Objective Date Time Temp Pulse Resp B/P (MAP) Pulse Ox O2 Delivery O2 Flow Rate FiO2 02/23/17 12:00 Room Air 02/23/17 08:00 Room Air 02/23/17 07:39 37.0 87 20 115/75 (88) 97 Room Air 02/23/17 04:15 Room Air 02/23/17 03:41 36.6 76 18 130/78 (95) 95 Room Air 02/23/17 00:02 Room Air 02/23/17 00:00 36.6 70 18 118/71 (87) 97 Room Air 02/22/17 20:00 Room Air 02/22/17 19:14 36.9 78 18 127/75 (92) 96 Room Air 02/22/17 16:14 36.4 80 20 105/70 (82) 97 Room Air 02/22/17 16:00 95 Room Air Last 24 Hours Test 02/22/17 16:15 02/22/17 20:40 02/23/17 11:52 Bedside Glucose 163 mg/dl 132 mg/dl Prothrombin Time 11.1 SECONDS Prothromb Time International Ratio 1.0 Imaging: no new imaging Exam: Gen: alert NAD facial symmetry lungs CTA CV RRR walking with walker to bathroom and back to chair with no assistance Current Inpatient Medications Medications (Trade) Dose Ordered Sig/Jarvis Route Start Time Stop Time Status Last Admin Dose Admin Metoprolol Tartrate (Lopressor Iv) 5 mg Q6 PRN IV 02/15/17 17:45 03/17/17 17:44 Allopurinol (Zyloprim Tab) 200 mg DAILY PO 02/17/17 09:00 03/19/17 08:59 02/23/17 07:56 200 MG Hydroxyurea (Hydrea Cap) 1,000 mg QDD PO 02/16/17 16:45 03/18/17 16:44 02/22/17 16:56 1,000 MG Vitamin B Complex (Vitamin B Complex) 1 tab DAILY PO 02/17/17 09:00 03/19/17 08:59 02/23/17 07:56 1 TAB Ondansetron HCl (Zofran Inj) 4 mg Q4H PRN IV 02/16/17 16:00 03/18/17 15:59 Morphine Sulfate (MoRPHine SULFATE INJ) Q1H PRN IV 02/16/17 16:00 03/02/17 15:59 Aspirin (Ecotrin Tab) 81 mg QAM PO 02/18/17 09:00 03/20/17 08:59 02/23/17 07:57 81 MG Pantoprazole Sodium (Protonix Tab) 40 mg QAM PO 02/18/17 09:00 03/20/17 08:59 02/23/17 07:57 40 MG Colchicine (Colchicine Tab) 0.6 mg QAM PO 02/18/17 09:00 03/20/17 08:59 02/23/17 07:55 0.6 MG Heparin Sodium (Porcine) (Heparin Sq 5000 Unit/0.5ml) 5,000 unit Q12 SQ 02/17/17 21:00 03/19/17 20:59 02/23/17 07:58 5,000 UNIT Glucose (Glucose 40% Gel) 15-30 GRAMS 15 GRAMS... UD PRN PO 02/17/17 10:00 03/19/17 09:59 Glucose (Glucose Chew Tab) 4-8 Tablets 4 Tabl... UD PRN PO 02/17/17 10:00 03/19/17 09:59 Dextrose (Dextrose 50% 50ML Syringe) 25-50ML OF 50% DW IV FOR... UD PRN IV 02/17/17 10:00 03/19/17 09:59 Glucagon (Glucagon Inj) 1 mg UD PRN SQ 02/17/17 10:00 03/19/17 09:59 Insulin Aspart (novoLOG ASPART) SLIDING SCALE ACHS SC 02/17/17 11:00 03/19/17 10:59 02/22/17 13:10 2 UNITS Acetaminophen (Tylenol Tab) 650 mg Q4H PRN PO 02/17/17 16:00 03/19/17 15:59 Metoprolol Tartrate (Lopressor Tab) 25 mg BID PO 02/18/17 21:00 03/20/17 20:59 02/23/17 07:57 25 MG Potassium Chloride (Klor-Con Tab) 20 meq QAM PO 02/20/17 09:00 03/22/17 08:59 02/23/17 07:57 20 MEQ Magnesium Chloride (Slow-Mag Tab) 64 mg BID PO 02/19/17 21:00 03/21/17 20:59 02/23/17 07:57 64 MG Prednisone (PredniSONE TAB) 15 mg DAILY PO 02/22/17 09:00 03/24/17 08:59 02/23/17 07:57 15 MG Magnesium Oxide (Mag-Ox Tab) 400 mg QAM PO 02/22/17 09:00 03/24/17 08:59 02/23/17 07:57 400 MG Amiodarone HCl (Cordarone Tab) 200 mg BIDM PO 02/22/17 16:45 03/20/17 11:29 02/23/17 07:56 200 MG Warfarin Sodium (Coumadin Tab) 2.5 mg DAILY@16 PO 02/23/17 16:00 03/25/17 15:59 UNV Impression 81 year old male PMH CML, HTN, CKD, presentation cardiac and neurologic symptoms. cardiac window on 02/16-improving Plan 1. will wait on further neurologic work up until patient is stable from cardiac surgery 2. EEG no seizure focus seen 3. MRI evidence of 2 tiny cortical infarcts 4. EEG no seizure activity Keppra was stopped It does not appear there was a seizure during this episode 5. cardiology -due to presents of a fib starting coumadin 2.5 mg daily with a goal of INR 2-2.5 5. follow up MRI to evaluate for meningeal thickening vs SDH after therapeutic INR 6. once stable will return to [facility] for physical therapy I have seen and discussed above patient with Dr Mykel Hsu, neurology Patient seen and examined prior notes reviewed and case discussed with Ela Maxwell Psyriny back to baseline post two small left hemispheric events likely embolic and is now on coumadin we will follw up mri with enhancement in about four weeks to check on the meningeal abnormality described by radiology which is in my opinion not due to underlying ca but only asecond mri can eliminate this Zoraida Hsu MD
[2017-02-23 15:59] VITALS: BP 138/83; PULSE 78; TEMP 36.9; O2SAT 96
[2017-02-23] MEDS ORDERED: WARFARIN SOD 2.5 MG TAB PO SCH (16:00)
--- NOTE | 2017-02-23 16:26 | Progress Note ---
Subjective Date of Service: Feb 23, 2017. Subjective Pt evaluation today including: conversation w/ patient, physical exam, lab review, review of studies, review of inpatient medication list Saw/examined the patient in room 218 is in the room with the patient He is doing well, no problems/issues to note Problem List Medical Problems: (1) Aphasia Status: Acute Review of Systems Constitutional: + weakness Respiratory: + cough, No sputum, No wheezing, No shortness of breath, No dyspnea on exertion, No dyspnea at rest, No hemoptysis Cardiac: No chest pain Abdomen: No pain, No nausea, No vomiting, No diarrhea Medications Current Inpatient Medications Medications (Trade) Dose Ordered Sig/Jarvis Route Start Time Stop Time Status Last Admin Dose Admin Metoprolol Tartrate (Lopressor Iv) 5 mg Q6 PRN IV 02/15/17 17:45 03/17/17 17:44 Allopurinol (Zyloprim Tab) 200 mg DAILY PO 02/17/17 09:00 03/19/17 08:59 02/23/17 07:56 200 MG Hydroxyurea (Hydrea Cap) 1,000 mg QDD PO 02/16/17 16:45 03/18/17 16:44 02/22/17 16:56 1,000 MG Vitamin B Complex (Vitamin B Complex) 1 tab DAILY PO 02/17/17 09:00 03/19/17 08:59 02/23/17 07:56 1 TAB Ondansetron HCl (Zofran Inj) 4 mg Q4H PRN IV 02/16/17 16:00 03/18/17 15:59 Morphine Sulfate (MoRPHine SULFATE INJ) Q1H PRN IV 02/16/17 16:00 03/02/17 15:59 Aspirin (Ecotrin Tab) 81 mg QAM PO 02/18/17 09:00 03/20/17 08:59 02/23/17 07:57 81 MG Pantoprazole Sodium (Protonix Tab) 40 mg QAM PO 02/18/17 09:00 03/20/17 08:59 02/23/17 07:57 40 MG Colchicine (Colchicine Tab) 0.6 mg QAM PO 02/18/17 09:00 03/20/17 08:59 02/23/17 07:55 0.6 MG Heparin Sodium (Porcine) (Heparin Sq 5000 Unit/0.5ml) 5,000 unit Q12 SQ 02/17/17 21:00 03/19/17 20:59 02/23/17 07:58 5,000 UNIT Glucose (Glucose 40% Gel) 15-30 GRAMS 15 GRAMS... UD PRN PO 02/17/17 10:00 03/19/17 09:59 Glucose (Glucose Chew Tab) 4-8 Tablets 4 Tabl... UD PRN PO 02/17/17 10:00 03/19/17 09:59 Dextrose (Dextrose 50% 50ML Syringe) 25-50ML OF 50% DW IV FOR... UD PRN IV 02/17/17 10:00 03/19/17 09:59 Glucagon (Glucagon Inj) 1 mg UD PRN SQ 02/17/17 10:00 03/19/17 09:59 Insulin Aspart (novoLOG ASPART) SLIDING SCALE ACHS SC 02/17/17 11:00 03/19/17 10:59 02/22/17 13:10 2 UNITS Acetaminophen (Tylenol Tab) 650 mg Q4H PRN PO 02/17/17 16:00 03/19/17 15:59 Metoprolol Tartrate (Lopressor Tab) 25 mg BID PO 02/18/17 21:00 03/20/17 20:59 02/23/17 07:57 25 MG Potassium Chloride (Klor-Con Tab) 20 meq QAM PO 02/20/17 09:00 03/22/17 08:59 02/23/17 07:57 20 MEQ Magnesium Chloride (Slow-Mag Tab) 64 mg BID PO 02/19/17 21:00 03/21/17 20:59 02/23/17 07:57 64 MG Prednisone (PredniSONE TAB) 15 mg DAILY PO 02/22/17 09:00 03/24/17 08:59 02/23/17 07:57 15 MG Magnesium Oxide (Mag-Ox Tab) 400 mg QAM PO 02/22/17 09:00 03/24/17 08:59 02/23/17 07:57 400 MG Amiodarone HCl (Cordarone Tab) 200 mg BIDM PO 02/22/17 16:45 03/20/17 11:29 02/23/17 07:56 200 MG Warfarin Sodium (Coumadin Tab) 2.5 mg DAILY@16 PO 02/23/17 16:00 03/25/17 15:59 Objective Vital Signs Date Time Temp Pulse Resp B/P (MAP) Pulse Ox O2 Delivery O2 Flow Rate FiO2 02/23/17 15:59 36.9 78 18 138/83 (101) 96 Room Air 02/23/17 12:00 Room Air 02/23/17 08:00 Room Air 02/23/17 07:39 37.0 87 20 115/75 (88) 97 Room Air 02/23/17 04:15 Room Air 02/23/17 03:41 36.6 76 18 130/78 (95) 95 Room Air 02/23/17 00:02 Room Air 02/23/17 00:00 36.6 70 18 118/71 (87) 97 Room Air 02/22/17 20:00 Room Air 02/22/17 19:14 36.9 78 18 127/75 (92) 96 Room Air Physical Exam General Appearance: no apparent distress, + thin Respiratory/Chest: chest non-tender, lungs clear, normal breath sounds, no respiratory distress, no accessory muscle use Cardiovascular: regular rate, rhythm, no edema, no murmur Extremities: normal inspection, no pedal edema Laboratory Results Last 24 Hours Test 02/22/17 20:40 02/23/17 11:52 Bedside Glucose 132 mg/dl Prothrombin Time 11.1 SECONDS Prothromb Time International Ratio 1.0 Assessment and Plan This is an 81 year old male with a PMH of 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, anemia of chronic disease on Procrit, HTN, CKD stage 3, BPH presented with multiple symptoms including dyspnea on exertion, shortness of breath, chest pain, word finding difficulty - subsequently found to have pericardial effusion with tamponade physiology Acute Pericarditis with Pericardial Effusion Pleural Effusions 02/23 appreciate cardiology input continue steroid taper 02/22 continue prednisone taper as per cardiology IV Lasix for now 02/21 CXR shows interval improvement of the pleural effusions currently on IV Lasix 10mg BID, which we can continue while he is inpatient prednisone taper as per cardiology; cont. colchicine 02/20 patient is doing much better, prednisone taper as per cardiology did well with IV Lasix, can do another dose today and then monitor over the weekend repeat CXR in AM 02/19 appreciate cardiology management will continue a prednisone taper over 3 weeks colchicine Lasix started due to Pleural effusions noted on CXR 02/18 patient is doing much better low dose prednisone taper; cont. colchicine for now pleural effusions noted on CXR from today; possibly low dose diuretics as per cardiology if BP is stable 02/17 concern on initial echo was early tamponade physiology s/p pericardial window on 02/16/17 by cardiothoracic surgery appreciate cardiology input on this matter - repeat echo shows improvement and near resolution of the effusion will continue a prednisone taper as per cardio, continue colchicine (avoid ibuprofen due to kidney function) clinically feeling better Paroxysmal A. Fib 02/23 as per cardiology, will be on amiodarone BID dosing now started on Coumadin due to acute CVA 02/22 taper amiodarone if okay with cardiology today 02/21 continue amiodarone and b-juani as per cardiology 02/19 continues to be in sinus rhythm continue b-juani 02/18 metoprolol increased as per cardiology to 25mg BID amiodarone drip will be stopped and switched to oral amiodarone as the LFTs are now trending down appreciate cardiology management no anticoagulation due to anemia/thrombocytopenia 02/17 pre and post-operatively started on IV amiodarone as per cardiology with idea to transition to PO amiodarone LFTs elevating with amiodarone use; monitor Acute CVA 02/23 will need rehab Coumadin started MRI combo pending 02/22 MRI done on 02/21, shows an acute/subacute infarct no residual neurological deficits likely due to the hypoxia/low perfusion continue current management, with neurology input pending cont. PT/OT with discharge to rehab Acute Kidney Injury superimposed on CKD stage 3 02/21 kidney function improving monitor with diuretic use 02/19 creatinine back to 1.5 will do low dose Lasix monitor kidney function 02/18 creatinine on admission 1.5 now creatinine is up to 2.1 appreciate nephrology input regarding fluid management likely kidney injury is due to tachycardia and hypoperfusion of the kidney Chronic Myelomonocytic Leukemia appreciate oncology input, continue chemo no acute management necessary Anemia of Chronic Disease continue Procrit as scheduled, monitor H/H Thrombocytopenia monitor platelet count as it is trending down for now continue subq heparin, but may need to d/c, especially if he is ambulating Transient Aphasia - resolved 02/19 appreciate neurology input EEG done and results pending possible MRI/MRA will need PT/OT 02/18 will hold off on further evaluation due to his condition appreciate neurology input 02/17 actually had stroke alert called and telestroke from [place] recommended loading dose of Keppra Head CT negative possible need for Brain MRI? EEG? neurology consultation pending DVT ppx subq heparin + SCDs FULL CODE
[2017-02-23] MEDS ORDERED: GADAVIST IV PRN (17:15)
--- NOTE | 2017-02-23 17:26 | DIAGNOSTIC IMAGING REPORT ---
MRI OF THE BRAIN COMBO CLINICAL HISTORY: Follow-up dural thickening. Recent stroke. COMPARISON STUDY: MRI of the brain dated 02/21/2017 and 08/25/2008. CT of the brain dated 02/15/2017. TECHNIQUE: MRI of the brain was performed utilizing various T1 and T2-weighted sequences in the axial, sagittal, and coronal planes. Contrast-enhanced sequences were acquired following the administration of 6.5 cc of Gadavist. FINDINGS: Brain parenchyma: There are age-related involutional changes noting mild to moderate patchy subcortical and periventricular microangiopathic disease. There is no hemorrhage or mass effect. A subcentimeter focus of restricted diffusion in the high left parietal white matter is again noted. This is significantly less apparent than previous. No additional foci of restricted diffusion are identified. No enhancing mass lesion is identified on the postcontrast images. There is a thin rim of thickening again seen along the left convexity. This measures between 2 to 3 mm and appears to enhance following contrasted administration. Trace subdural is considered unlikely. Mild dural thickening is also seen along the posterior right convexity. Gregg-white matter differentiation is preserved. The cerebellar tonsils are normal in configuration. Ventricles, sulci, and cisterns: Prominent secondary to involutional change. Pituitary and sella: Unremarkable. Intracranial vasculature: Normal flow voids are maintained at the skull base. Orbits: The bony orbits are grossly intact. Orbital contents are normal in appearance noting bilateral ocular lens implants. Sinuses and mastoids: Clear. Calvarium: There are biparietal chloe holes. No destructive calvarial lesion is seen. Cervical cord: Partially visualized cervical spinal cord is normal in morphology and signal intensity. IMPRESSION: 1. A subcentimeter focus of restricted diffusion is again seen in the high left parietal white matter. This has significantly decreased in conspicuity from 02/21/2017. 2. No new foci of restricted diffusion are identified. 3. Again seen is a 2 to 3 mm rim of thickening along the left convexity, unchanged from 02/21/2017. Mild similar appearing thickening is also seen along the posterior right convexity. These demonstrate contrast enhancement and likely represents dural thickening. Trace subdural hemorrhage is considered much less likely. Electronically signed by: Kamran Chavez M.D. 02/23/2017 5:25 PM Dictated Date/Time: 02/23/2017 5:11 PM
[2017-02-23] MEDS: HYDROXYUREA 500 MG CAP PO SCH (17:40)
[2017-02-23 19:36] VITALS: BP 117/72; PULSE 80; TEMP 36.9; O2SAT 96
[2017-02-24] VITALS (9 sets, daily range): BP systolic 109–143; BP diastolic 68–77; PULSE 72–89; TEMP 36.2–37.2; O2SAT 91–97
[2017-02-24 05:42] LABS: INR 1.1 (0.9-1.1); PROTHROMBIN TIME (PATIENT) 11.4 SECONDS (9.0-12.0)
[2017-02-24 06:37] LABS: HEMATOCRIT 29.8 % (42-52); MEAN CELL VOLUME 94.3 fL (80-100); MEAN CORPUSCULAR HEMOGLOBIN 32.9 pg (25-34); MEAN CORPUSCULAR HGB CONC 34.9 g/dl (32-36); PLATELET COUNT 75 K/uL (130-400); RED BLOOD COUNT 3.16 M/uL (4.7-6.1); WHITE BLOOD COUNT 95.41 K/uL (4.8-10.8)
[2017-02-24 06:38] LABS: PLT ESTIMATE DECREASED
[2017-02-24] MEDS: INSULIN ASPART 100 UNITS/ML 3 ML PEN SC SCH ×4 (07:00→21:00)
[2017-02-24] MEDS: MAGNESIUM CHLORIDE 64MG DELAYED REL TAB PO SCH ×2 (08:33→21:27)
[2017-02-24] MEDS: METOPROLOL TARTRATE 25 MG TAB PO SCH ×2 (08:33→21:27)
[2017-02-24] MEDS: POTASSIUM CHLORIDE 20 MEQ TABCR PO SCH (08:34)
[2017-02-24] MEDS: PANTOprazole SOD 40 MG TAB PO SCH (08:34)
[2017-02-24] MEDS: MAGNESIUM OXIDE 400 MG TAB PO SCH (08:34)
[2017-02-24] MEDS: VITAMIN B COMPLEX TAB PO SCH (08:34)
[2017-02-24] MEDS: COLCHICINE 0.6 MG TAB PO SCH (08:35)
[2017-02-24] MEDS: ALLOPURINOL 100 MG TAB PO SCH (08:35)
[2017-02-24] MEDS: AMIODARONE 200 MG TAB PO SCH ×2 (08:35→17:44)
--- NOTE | 2017-02-24 09:33 | Cardiology Progress Note ---
Cardiology Progress Note Date of Service Feb 24, 2017. Cardiology Progress Note I spoke with Dr Hsu of neurology by phone. MRI of brain with meningeal enhancement. Dr Hsu recommends stopping coumadin, ASA, heparin SQ for now, and proceeding with Lumbar puncture under fluoroscopy guidance in radiology. I held meds and discussed this with patient. I will let radiologist performing LP determine how long to wait until proceeding , given low platelets. Pt's initial presenting compliant was difficulty finding words and reading. Pericarditis, PAF, stroke, may explain all of patient's symptoms, but agree with evaluating for alternative neurologic process. Nolan Pollard, DO
--- NOTE | 2017-02-24 09:40 | DIAGNOSTIC IMAGING REPORT ---
CHEST 2 VIEWS ROUTINE CLINICAL HISTORY: Effusion. COMPARISON STUDY: Chest CT February 19, 2017 and chest radiograph February 21, 2017. FINDINGS: There is no pneumothorax. A moderate to large right pleural effusion has increased in size since prior exam. A small left pleural effusion is similar to prior study. There is no radiographic evidence of pulmonary edema. Cardiac size is stable IMPRESSION: 1. Increase in size of a moderate to large right pleural effusion. 2. No significant change in a small left pleural effusion. Electronically signed by: Finesse Jackson M.D. 02/24/2017 9:38 AM Dictated Date/Time: 02/24/2017 9:35 AM
[2017-02-24] MEDS ORDERED: FUROSEMIDE INJ 20 MG in SYRINGE 0 ML IV ONE (10:00)
--- NOTE | 2017-02-24 10:00 | Cardiology Follow-Up ---
Subjective General Date of Service: Feb 24, 2017. Chief Complaint: follow up chest pain, tachycardia Pt evaluation today including: conversation w/ patient, conversation w/ family History of Present Illness The patient is a 81 year old male seen in follow up. Telemetry reveals SR, no AF overnight. Pt's only complaint is cough, that is worse when he tries to lie flat. Allergies Coded Allergies: Lisinopril (Verified Allergy, Unknown, ., 02/15/17) Tamsulosin (Unverified Allergy, Unknown, EDEMA FACE,LIPS,TONGUE, 02/15/17) Social History Smoking Status: Never Smoker Hx Tobacco Use In Past Year?: No Hx Alcohol Use - Type And Amou: Yes (2oz of scotch daily) Hx Substance Use - Type And Am: No ( ) Problem List Medical Problems: (1) Aphasia Status: Acute Physical Exam Vital Signs Last Vital Signs Documentation Date Time Temp Pulse Resp B/P (MAP) Pulse Ox O2 Delivery O2 Flow Rate FiO2 02/24/17 07:29 36.8 89 18 122/74 (90) 91 Room Air 02/19/17 12:00 2.0 97 Physical Exam Constitutional: Level of Distress: NAD Head: normocephalic ENMT: normal ENT inspection, hearing grossly normal Neck: supple Lungs: Auscultation: no wheezing, no rhonchi, pertinent finding (Decreased BS bilatterally at the bases, R worse than Left ) Cardiovascular: Heart Auscultation: RRR, pertinent finding (1/6 systolic murmur) Musculoskeletal: normal Extremities: no edema Neurologic: Gait & Station: pertinent finding (word finding difficulty has resolved..) Assessment and Plan Assessment and Plan MRI of brain 02/23/17: foci suggestive of small stroke , unchanged compared to prior. Meningeal enhancement noted CXR: R sides mod to large pleural effusion, small Left pleural effusion Impression: 81-year-old male 1. Acute idiopathic (likely post viral inflammatory) pericarditis with pericardial effusion/ early tamponade physiology for which patient is status post thoracoscopic pericardial window on .-Pathology in pericardial fluid is negative thus far with the exception of findings consistent with inflammation 2. Paroxysmal atrial fibrillation, pre op and post op-in SR now on amiodarone infusion, 14 beats of break through 2:29 am 02/23/17 3. ANOOP on CKD, creatinine 1.5-->2.1-->2.1 -->1.9-->1.5-->1.4 mg/dl, likely ATN from hemodynamic effect of tachycardia , pericardial effusion 4. chronic myelomonocytic leukemia, with leukocytosis, thrombocytopenia 5. Moderate bilateral pleural effusions noted on CT scan on, likely due to aggressive volume resuscitation perioperatively, with residual mod to large R pleural effusion despite diuretic therapy 6. Elevated LFTs, likely due to congestive hepatopathy transient high RA pressures trending toward improvement 7. Presented with expressive aphasia, MRI brain concerning for 2 small infarct foci, and dural thickening. -pt does have h/o traumatic SDH in 2008 when he fell from a ladder , with neurosurgical evacuation necessary at that time. -Meningeal enhancement, per neuro possible infectious process, recommend lumbar puncture. Discussion/plan: I had a long discussion with the patient at bedside and spouse by phone, . Mrs Tobar has a history of atrial fibrillation and they both have knowledge of the risk of stroke. His CHADSVASC score is 4 (age over 75 and MRI evidence of prior stroke) predicting at high risk of recurrent stroke related to AF, 4% annular stroke risk. He is however at risk of bleeding , with thrombocytopenia, and generalized frailty. After long discussion (difficult decision clinically) -pt and spouse favor coumadin.Not a candidate for DOAC given labile renal function. 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 He values is cognitive abilities and favors trial of coumadin. goal INR 2-2.5, with out pt management with [facility]. Coumadin x 1 dose of 2.5 mg administered on 02/23/17, however given menigial enhancement, neuro recommended holding coumadin, ASA, SQ heparin for now for LP. Will resume furosemide. It may be time to consider bedside thoracentesis, depending on what thoracic surgery suggests. I believe his cough is due to the pleural effusion. Idiopathic inflammatory pericarditis, perhaps constrictive component : to prevent recurrent inflammation, he is on low dose colchicine (with caution given renal function impairment, risk of myelosuppression) Low-dose prednisone taper. Started with prednisone 20 mg daily. Prednisone 15 mg daily 5 days, started on 02/22/17. Prednisone 10 mg daily 5 days Prednisone 5 mg daily 5 days Prednisone 2.5 mg daily 5 days Prednisone 2.5 mg every other day 3 doses. DVT prophylaxis: Resume post LP Nolan Pollard DO Laboratory Results Last 24 Hours Test 02/23/17 11:46 02/23/17 11:52 02/23/17 17:40 02/23/17 20:02 Bedside Glucose 159 mg/dl 172 mg/dl 164 mg/dl Prothrombin Time 11.1 SECONDS Prothromb Time International Ratio 1.0 Test 02/24/17 05:21 02/24/17 06:42 02/24/17 08:56 02/24/17 09:50 White Blood Count 95.41 K/uL Red Blood Count 3.16 M/uL Hemoglobin 10.4 g/dL Hematocrit 29.8 % Mean Corpuscular Volume 94.3 fL Mean Corpuscular Hemoglobin 32.9 pg Mean Corpuscular Hemoglobin Concent 34.9 g/dl RDW Standard Deviation 68.1 fL RDW Coefficient of Variation 20.0 % Platelet Count 75 K/uL Platelet Estimate DECREASED Prothrombin Time 11.4 SECONDS Prothromb Time International Ratio 1.1 Bedside Glucose 107 mg/dl
[2017-02-24 11:55] LABS: ISTAT ALLEN TEST Pass; ISTAT ARTERIAL BLOOD GAS HCO3 15 meq/L (19-24); ISTAT ARTERIAL BLOOD GAS PCO2 49 mmHg (35-46); ISTAT ARTERIAL BLOOD GAS PO2 < 32 mmHg (80-95); ISTAT CARBON DIOXIDE 16 mEq/l (24-31); ISTAT SITE R Radial
--- NOTE | 2017-02-24 12:31 | DIAGNOSTIC IMAGING REPORT ---
CHEST ONE VIEW PORTABLE CLINICAL HISTORY: Post thoracentesis. COMPARISON STUDY: Chest radiograph February 24, 2017 at 9:22 AM. FINDINGS: There is no pneumothorax following right thoracentesis. The size of the right pleural effusion has significantly decreased. A small left pleural effusion is noted. There is no evidence of pulmonary edema. Cardiomediastinal silhouette is stable. IMPRESSION: No pneumothorax following right thoracentesis with significant decrease in size of the right pleural effusion. Electronically signed by: Finesse Jackson M.D. 02/24/2017 12:30 PM Dictated Date/Time: 02/24/2017 12:28 PM
--- NOTE | 2017-02-24 12:47 | Neurology Progress Notes ---
Neurology Progress Note Date of Service Feb 24, 2017. 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 Clayton Fox of hematology who presented with multiple cardiac and neurological symptoms from home with early differential diagnosis of seizure as per emergency room physician in coordination with neurology teleconference with neurologist at [facility] vs stroke vs hyperviscosity complications from leukemia and also found to have tachycardia. There are various histories of what happened at home prior to admission. He was reading a book when he found that the text did not make sense to him. Denies changes in vision. Started having difficulty with finding words with his speech, but no obvious facial motor weakness or slurred speech or facial droop as per the patient's .He appears by this history to recognize these symptoms and did not lose consciousness and was able to follow directions and ambulate. His confirmed there was no tremors or jerking during this episode. When patient evaluated in the ED, stroke alert was called. He had negative head CT for intracranial bleed. In 2008 he had a SDH after falling off a ladder and had a bilateral chloe hole evacuation by Dr Huber. Was given aspirin. After consultation and evaluation with [facility] neurology by the ED physician, it was decided that patient more likely had seizure symptoms rather than stroke and the patient was given Keppra 500 mg per oral x 1 as loading dose for seizure treatment. This was also happening in context of tachycardia between 110s to 120s which was not treated in the emergency department and also chest discomfort. 02/16 he was taken to the OR by cardiology for a cardiac window and was not seen by neurology. Patient is currently sitting bedside. States they removed the fluid from his lung. He is aware of the findings on the MRI and aware the LP will be done tomorrow. He has been up and walking to the bathroom and with physical therapy. denies CP, SOB, abdominal pain, weakness, numbness, tingling (one sided), N, V, falls Objective Date Time Temp Pulse Resp B/P (MAP) Pulse Ox O2 Delivery O2 Flow Rate FiO2 02/24/17 12:00 95 Room Air 02/24/17 11:28 37.2 73 18 109/69 (82) 97 Room Air 02/24/17 08:00 94 Room Air 02/24/17 07:29 36.8 89 18 122/74 (90) 91 Room Air 02/24/17 04:00 Room Air 02/24/17 04:00 36.7 78 18 143/76 (98) 96 Room Air 02/24/17 00:01 Room Air 02/24/17 00:00 36.6 72 18 130/77 (94) 97 Room Air 02/23/17 20:00 Room Air 02/23/17 19:36 36.9 80 18 117/72 (87) 96 Room Air 02/23/17 16:00 Room Air 02/23/17 15:59 36.9 78 18 138/83 (101) 96 Room Air Last 24 Hours Test 02/23/17 17:40 02/23/17 20:02 02/24/17 00:00 02/24/17 05:21 Bedside Glucose 172 mg/dl 164 mg/dl Pleural Fluid pH 7.13 White Blood Count 95.41 K/uL Red Blood Count 3.16 M/uL Hemoglobin 10.4 g/dL Hematocrit 29.8 % Mean Corpuscular Volume 94.3 fL Mean Corpuscular Hemoglobin 32.9 pg Mean Corpuscular Hemoglobin Concent 34.9 g/dl RDW Standard Deviation 68.1 fL RDW Coefficient of Variation 20.0 % Platelet Count 75 K/uL Platelet Estimate DECREASED Prothrombin Time 11.4 SECONDS Prothromb Time International Ratio 1.1 Test 02/24/17 06:42 02/24/17 08:56 02/24/17 09:50 02/24/17 11:13 Bedside Glucose 107 mg/dl 167 mg/dl Test 02/24/17 11:45 02/24/17 12:01 Blood Gas Sample Site R Radial Bedside Blood Gas pH (LAB) 7.10 Bedside Blood Gas pCO2 (LAB) 49 mmHg Bedside Blood Gas pO2 (LAB) < 32 mmHg Bedside Blood Gas HCO3 (LAB) 15 meq/L Bedside Blood Gas Total CO2 16 mEq/l Bedside Blood Gas Base Excess (LAB) -15.0 meq/L Bedside Blood Gas O2 Saturation 17.0 % Lowell Test Pass Imaging: MRI brain with and without contrast- A subcentimeter focus of restricted diffusion is again seen in the high left parietal white matter. This has significantly decreased in conspicuity from 02/21/2017. No new foci of restricted diffusion are identified. . Again seen is a 2 to 3 mm rim of thickening along the left convexity, unchanged from 02/21/2017. Mild similar appearing thickening is also seen along the posterior right convexity. These demonstrate contrast enhancement and likely represents dural thickening. Trace subdural hemorrhage is considered much less likely. Exam: Physical Exam: Constitutional:appearance nourished Ears, Nose, Mouth and Throat: mucous membranes moist, no injection and skin normal, eyes normal Cardiovascular: normal S-1 and S-2 and regular rate and rhythm Respiratory: clear to auscultation (CTA) and no rales, rhonchi or wheeze Musculoskeletal: no peripheral edema Skin: no stigmata of neurocutaneous disease noted and normal and intact Eyes: extraocular muscles intact (EOMI) and pupils equal, round and reactive to light (PERRL) NEUROLOGIC EXAMINATION: Mental status: Alert and interactive Oriented to full date and location Oriented to person Speech fluent with no evidence of aphasia Cranial Nerves smile eye brow raise symmetric, tongue midline Sensory: to cool touch Coordination: finger to nose without bi pass Gait/Stance: Posture sitting in bedside chair Motor: Negative for pronator drift of out stretched arms with eyes closed. 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 bilaterally 5/5, hip flex 5/5 bilaterally Current Inpatient Medications Medications (Trade) Dose Ordered Sig/Jarvis Route Start Time Stop Time Status Last Admin Dose Admin Metoprolol Tartrate (Lopressor Iv) 5 mg Q6 PRN IV 02/15/17 17:45 03/17/17 17:44 Allopurinol (Zyloprim Tab) 200 mg DAILY PO 02/17/17 09:00 03/19/17 08:59 02/24/17 08:35 200 MG Hydroxyurea (Hydrea Cap) 1,000 mg QDD PO 02/16/17 16:45 03/18/17 16:44 02/23/17 17:40 1,000 MG Vitamin B Complex (Vitamin B Complex) 1 tab DAILY PO 02/17/17 09:00 03/19/17 08:59 02/24/17 08:34 1 TAB Ondansetron HCl (Zofran Inj) 4 mg Q4H PRN IV 02/16/17 16:00 03/18/17 15:59 Morphine Sulfate (MoRPHine SULFATE INJ) Q1H PRN IV 02/16/17 16:00 03/02/17 15:59 Aspirin (Ecotrin Tab) 81 mg QAM PO 02/18/17 09:00 03/20/17 08:59 Future Hold 02/23/17 07:57 81 MG Pantoprazole Sodium (Protonix Tab) 40 mg QAM PO 02/18/17 09:00 03/20/17 08:59 02/24/17 08:34 40 MG Colchicine (Colchicine Tab) 0.6 mg QAM PO 02/18/17 09:00 03/20/17 08:59 02/24/17 08:35 0.6 MG Heparin Sodium (Porcine) (Heparin Sq 5000 Unit/0.5ml) 5,000 unit Q12 SQ 02/17/17 21:00 03/19/17 20:59 Future Hold 02/23/17 20:58 5,000 UNIT Glucose (Glucose 40% Gel) 15-30 GRAMS 15 GRAMS... UD PRN PO 02/17/17 10:00 03/19/17 09:59 Glucose (Glucose Chew Tab) 4-8 Tablets 4 Tabl... UD PRN PO 02/17/17 10:00 03/19/17 09:59 Dextrose (Dextrose 50% 50ML Syringe) 25-50ML OF 50% DW IV FOR... UD PRN IV 02/17/17 10:00 03/19/17 09:59 Glucagon (Glucagon Inj) 1 mg UD PRN SQ 02/17/17 10:00 03/19/17 09:59 Insulin Aspart (novoLOG ASPART) SLIDING SCALE ACHS SC 02/17/17 11:00 03/19/17 10:59 02/22/17 13:10 2 UNITS Acetaminophen (Tylenol Tab) 650 mg Q4H PRN PO 02/17/17 16:00 03/19/17 15:59 Metoprolol Tartrate (Lopressor Tab) 25 mg BID PO 02/18/17 21:00 03/20/17 20:59 02/24/17 08:33 25 MG Potassium Chloride (Klor-Con Tab) 20 meq QAM PO 02/20/17 09:00 03/22/17 08:59 02/24/17 08:34 20 MEQ Magnesium Chloride (Slow-Mag Tab) 64 mg BID PO 02/19/17 21:00 03/21/17 20:59 02/24/17 08:33 64 MG Prednisone (PredniSONE TAB) 15 mg DAILY PO 02/22/17 09:00 03/24/17 08:59 02/24/17 08:35 15 MG Magnesium Oxide (Mag-Ox Tab) 400 mg QAM PO 02/22/17 09:00 03/24/17 08:59 02/24/17 08:34 400 MG Amiodarone HCl (Cordarone Tab) 200 mg BIDM PO 02/22/17 16:45 03/20/17 11:29 02/24/17 08:35 200 MG Gadobutrol (Gadavist) 6.5 mmol UD PRN IV 02/23/17 17:15 02/27/17 17:14 Impression 81 year old male PMH CML, HTN, CKD, presentation cardiac and neurologic symptoms. cardiac window on 02/16-improving Plan 1. will wait on further neurologic work up until patient is stable from cardiac surgery 2. EEG no seizure focus seen 3. MRI evidence of 2 tiny cortical infarcts repeat MRI with meningeal thinking with enhancement 4. EEG no seizure activity Keppra was stopped It does not appear there was a seizure during this episode 5. cardiology -due to presents of a fib starting coumadin 2.5 mg daily with a goal of INR 2-2.5- stopped for scheduled LP 6. LP tomorrow for evaluation of cytology 7. once stable will return to [facility] for physical therapy I have seen and discussed above patient with Dr Mykel Hsu, neurology Above reviewed patient seen and case discussed with Dr Pollard of cardiology and with Ela Maxwell we need to hold the coumadin for now and go with a lumbar puncture to see if the enhancing dural thickening is infectious or possibly reflective of a luekemic infiltrating process but jana suspect this is residual of the old subdural hematomas will follow up tomorrow Mykel Hsu MD
[2017-02-24 13:15] LABS: PLEURAL FLUID APPEARANCE BLOODY; PLEURAL FLUID COLOR RED; PLEURAL FLUID MONONUC RELAT 31.7 %; PLEURAL FLUID POLYNUC 68.3 %; PLEURAL FLUID SOURCE RIGHT LUNG; PLEURAL FLUID WBC (A) 4473 /uL
[2017-02-24 13:23] LABS: PLEURAL FLUID TOTAL PROTEIN 4.4 g/dl
[2017-02-24 14:08] LABS: ALB/GLOB RATIO 0.7 (0.9-2); BUN/CREATININE RATIO 23.1 (10-20); CALCIUM 7.9 mg/dl (8.5-10.1); CREATININE 1.8 mg/dl (0.60-1.40); MAGNESIUM 1.7 mg/dl (1.8-2.4); POTASSIUM 4.8 mmol/L (3.5-5.1)
--- NOTE | 2017-02-24 15:28 | SURGERY PROGRESS NOTE ---
DATE: 02/24/2017 Mr. Tobar was seen today on 02/24/2017. He looks very good. I read the notes on another consultants and I agree with his management thus far. His INR is 1.1 today. He had decreased breath sounds in the right base and I did AP and lateral chest x-ray and I was surprised to see how large his right effusion was. His left lung appears clear. Plans are currently made for Coumadin administration. I am going to tap him today before his INR prolongs. I had a long discussion with him and he is agreeable.
[2017-02-24] MEDS: HYDROXYUREA 500 MG CAP PO SCH (17:46)
[2017-02-24] MEDS ORDERED: MAGNESIUM SULFATE 1GM / D5W 1 GM in PREMIXED IN D5W 100 ML IV SCH (18:00)
--- NOTE | 2017-02-24 18:41 | Progress Note ---
Internal Med Progress Note Date of Service: Feb 24, 2017. Provider Documentation: SUBJECTIVE: feels much better today , no complain of SOB or orthopnea breathing much better s.p rt sided thoracentesis today by Dr Bailey plan for possible LP tomorrow OBJECTIVE: Vital Signs-as noted below Exam: General-no sign of distress, very pleasant Eyes-sclera non icteric ENT-NAD Neck-no JVD Lungs-diminished Heart-regular S1/s2 Abdomen-soft, non tender Extremities-no lower ext rash,edema or deformity Neuro-no wheeze or rales Lab data as noted below. ASSESSMENT & PLAN: This is an 81 year old male with a PMH of 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, anemia of chronic disease on Procrit, HTN, CKD stage 3, BPH presented with multiple symptoms including dyspnea on exertion, shortness of breath, chest pain, word finding difficulty - subsequently found to have pericardial effusion with tamponade physiology Acute Pericarditis with Pericardial Effusion Pleural Effusions s/p pericardial window on 02/16/17 by cardiothoracic surgery appreciate cardiology input continue steroid taper, on Colchicine LARGE PLEURAL EFFUSION : s/p thoracentesis on rt side by Dr Bailey Paroxysmal A. Fib cardiology following on Amiodarone /beta juani Coumadin on hold -as pt will need LP Acute CVA will need rehab hold Coumadin for LP study MRI brain with and without contrast- A subcentimeter focus of restricted diffusion is again seen in the high left parietal white matter. This has significantly decreased in conspicuity from 02/21/2017. No new foci of restricted diffusion are identified. . Again seen is a 2 to 3 mm rim of thickening along the left convexity, unchanged from 02/21/2017. Mild similar appearing thickening is also seen along the posterior right convexity. These demonstrate contrast enhancement and likely represents dural thickening. Trace subdural hemorrhage is considered much less likely. neurology following pt will need LP to asses the cause of dural thickening infectious vs leukemia infiltrative process Acute Kidney Injury superimposed on CKD stage 3 kidney function improving monitor with diuretic use nephrology consulted Chronic Myelomonocytic Leukemia appreciate oncology input, continue chemo no acute management necessary Anemia of Chronic Disease continue Procrit as scheduled, monitor H/H Thrombocytopenia monitor platelet count as it is trending down Transient Aphasia - resolved appreciate neurology input EEG shows no episode of Seizure , Keppra D/lyndsay DVT ppx D/c Sub q heparin for LP FULL CODE DISPOSITION Pt/Ot eval will need rehab Vital Signs: Date Time Temp Pulse Resp B/P (MAP) Pulse Ox O2 Delivery O2 Flow Rate FiO2 02/24/17 19:18 37.0 84 18 109/68 (82) 97 Room Air 02/24/17 16:00 95 Room Air 02/24/17 15:13 36.2 79 20 119/75 (90) 96 Room Air 02/24/17 12:00 95 Room Air 02/24/17 11:28 37.2 73 18 109/69 (82) 97 Room Air 02/24/17 08:00 94 Room Air 02/24/17 07:29 36.8 89 18 122/74 (90) 91 Room Air 02/24/17 04:00 Room Air 02/24/17 04:00 36.7 78 18 143/76 (98) 96 Room Air 02/24/17 00:01 Room Air 02/24/17 00:00 36.6 72 18 130/77 (94) 97 Room Air Lab Results: Results Past 24 Hours Test 02/24/17 00:00 02/24/17 05:21 02/24/17 06:42 02/24/17 08:56 Range/Units Pleural Fluid pH 7.13 7.3-7.4 White Blood Count 95.41 4.8-10.8 K/uL Red Blood Count 3.16 4.7-6.1 M/uL Hemoglobin 10.4 14.0-18.0 g/dL Hematocrit 29.8 42-52 % Mean Corpuscular Volume 94.3 80-100 fL Mean Corpuscular Hemoglobin 32.9 25-34 pg Mean Corpuscular Hemoglobin Concent 34.9 32-36 g/dl RDW Standard Deviation 68.1 36.4-46.3 fL RDW Coefficient of Variation 20.0 11.5-14.5 % Platelet Count 75 130-400 K/uL Platelet Estimate DECREASED Prothrombin Time 11.4 9.0-12.0 SECONDS Prothromb Time International Ratio 1.1 0.9-1.1 Bedside Glucose 107 70-99 mg/dl Test 02/24/17 11:13 02/24/17 11:45 02/24/17 12:01 02/24/17 13:19 Range/Units Bedside Glucose 167 70-99 mg/dl Blood Gas Sample Site R Radial Bedside Blood Gas pH (LAB) 7.10 7.35-7.45 Bedside Blood Gas pCO2 (LAB) 49 35-46 mmHg Bedside Blood Gas pO2 (LAB) < 32 80-95 mmHg Bedside Blood Gas HCO3 (LAB) 15 19-24 meq/L Bedside Blood Gas Total CO2 16 24-31 mEq/l Bedside Blood Gas Base Excess (LAB) -15.0 -9-1.8 meq/L Bedside Blood Gas O2 Saturation 17.0 90-95 % Lowell Test Pass Pleural Fluid Source RIGHT LUNG Pleural Fluid Color RED Pleural Fluid Appearance BLOODY Pleural Fluid WBC 4473 /uL Pleural Fluid RBC 13046 /uL Pleural Fluid Polynuclear WBCs % 68.3 % Pleural Fluid Mononuclear WBCs % 31.7 % Pleural Fluid Total Protein 4.4 g/dl Pleural Fluid LDH 1366 IU Pleural Fluid Glucose 97 mg/dl Pleural Fluid Amylase 15 U/L Sodium Level 132 136-145 mmol/L Potassium Level 4.8 3.5-5.1 mmol/L Chloride Level 105 98-107 mmol/L Carbon Dioxide Level 20 21-32 mmol/L Anion Gap 7.0 3-11 mmol/L Blood Urea Nitrogen 42 7-18 mg/dl Creatinine 1.80 0.60-1.40 mg/dl Est Creatinine Clear Calc Drug Dose 30.2 ml/min Estimated GFR () 40.0 Estimated GFR (Non- 34.5 BUN/Creatinine Ratio 23.1 10-20 Random Glucose 188 70-99 mg/dl Calcium Level 7.9 8.5-10.1 mg/dl Magnesium Level 1.7 1.8-2.4 mg/dl Total Bilirubin 0.7 0.2-1 mg/dl Aspartate Amino Transf (AST/SGOT) 33 15-37 U/L Alanine Aminotransferase (ALT/SGPT) 60 12-78 U/L Alkaline Phosphatase 134 45-117 U/L Total Protein 6.6 6.4-8.2 gm/dl Albumin 2.6 3.4-5.0 gm/dl Globulin 4.0 2.5-4.0 gm/dl Albumin/Globulin Ratio 0.7 0.9-2 Test 02/24/17 15:44 Range/Units Bedside Glucose 187 70-99 mg/dl Microbiology Results 02/24/17 Cryptococcal Antigen, Ordered Pending 02/24/17 Acid Fast Stain, Yan Batch Pending 02/24/17 Mycobacterial Culture, Yan Batch Pending 02/24/17 Fungal Culture, Ordered Pending 02/24/17 Gram Stain, Ordered Pending 02/24/17 CSF Culture, Ordered Pending 02/24/17 Fungal Smear - Final, Resulted 02/24/17 Fungal Culture, Resulted Pending 02/24/17 Acid Fast Stain, Received Pending 02/24/17 Mycobacterial Culture, Received Pending 02/24/17 Gram Stain - Final, Resulted 02/24/17 Bacterial Culture, Resulted Pending
[2017-02-25] VITALS (10 sets, daily range): BP systolic 92–152; BP diastolic 55–79; PULSE 71–85; TEMP 36.5–37; O2SAT 95–98
--- NOTE | 2017-02-25 | OPERATIVE REPORT ---
DATE OF OPERATION: 02/24/2017 PROCEDURE: Right thoracentesis under ultrasound guidance. SURGEON: Dr. Bailey. SAMPLE BOX MAKER: Domingo Hernandez. ANESTHESIA: Local. SPECIFICS OF PROCEDURE: The patient in an upright position, single side of the bed and ultrasound was used to find a window. He has a rather long chest and we went fairly low, but it was above his diaphragm just lateral to the mid axillary line posteriorly. The patient was prepped and draped in usual sterile fashion in this area which had been marked with an indelible ink was anesthetized with 25 gauge needle and 1% Xylocaine. A large bore needle was used to anesthetize the deeper tissues and we got free flowing rust colored fluid. A guidewire was inserted through the needle and the needle removed. An introducer sheath was gently used to dilate the tract and removed. A triple lumen catheter was slid into 17 cm and the guidewire removed. 1700 mL of a neftaly dark colored fluid was drained. He had some very mild coughing, but no pain. We then withdrew the catheter and put an antimicrobial dressing. We got into no bleeding. His chest x-ray showed full expansion of his lung and no pneumothorax. We had good drainage of the effusion. I checked on him 2 hours later and he was much improved. I attest to the content of the Intraoperative Record and any orders documented therein. Any exception s are noted below.
[2017-02-25 07:00] LABS: INR 1.1 (0.9-1.1); PROTHROMBIN TIME (PATIENT) 11.4 SECONDS (9.0-12.0)
[2017-02-25] MEDS: INSULIN ASPART 100 UNITS/ML 3 ML PEN SC SCH ×4 (07:00→20:32)
[2017-02-25 07:09] LABS: HEMATOCRIT 31.5 % (42-52); MEAN CELL VOLUME 94.9 fL (80-100); MEAN CORPUSCULAR HEMOGLOBIN 33.1 pg (25-34); MEAN CORPUSCULAR HGB CONC 34.9 g/dl (32-36); PLATELET COUNT 67 K/uL (130-400); RED BLOOD COUNT 3.32 M/uL (4.7-6.1); WHITE BLOOD COUNT 91.33 K/uL (4.8-10.8)
[2017-02-25 07:11] LABS: BUN/CREATININE RATIO 25.7 (10-20); CALCIUM 7.9 mg/dl (8.5-10.1); CREATININE 1.6 mg/dl (0.60-1.40); MAGNESIUM 1.6 mg/dl (1.8-2.4); POTASSIUM 3.9 mmol/L (3.5-5.1)
--- NOTE | 2017-02-25 07:15 | DIAGNOSTIC IMAGING REPORT ---
CHEST ONE VIEW PORTABLE CLINICAL HISTORY: 81 years-old Male presenting with effusion . TECHNIQUE: Portable upright AP view of the chest was obtained. COMPARISON: 02/24/2017. FINDINGS: Cardiomediastinal silhouette normal. Minimal bibasilar opacities, unchanged. Small bilateral pleural effusions, right greater than left. No pneumothorax. Osseous structures normal. Upper abdomen normal. IMPRESSION: 1. Stable minimal bibasilar opacities and small bilateral pleural effusions. No pneumothorax. Electronically signed by: Lc Vogt M.D. 02/25/2017 7:14 AM Dictated Date/Time: 02/25/2017 7:13 AM
[2017-02-25 07:17] LABS: PLT ESTIMATE DECREASED
[2017-02-25] MEDS: VITAMIN B COMPLEX TAB PO SCH (08:00)
[2017-02-25] MEDS: POTASSIUM CHLORIDE 20 MEQ TABCR PO SCH (08:00)
[2017-02-25] MEDS: ALLOPURINOL 100 MG TAB PO SCH (08:03)
[2017-02-25] MEDS: PANTOprazole SOD 40 MG TAB PO SCH (08:03)
[2017-02-25] MEDS: AMIODARONE 200 MG TAB PO SCH ×2 (08:04→17:39)
[2017-02-25] MEDS: MAGNESIUM OXIDE 400 MG TAB PO SCH (08:04)
[2017-02-25] MEDS: COLCHICINE 0.6 MG TAB PO SCH (08:04)
[2017-02-25] MEDS: MAGNESIUM CHLORIDE 64MG DELAYED REL TAB PO SCH ×2 (09:00→20:32)
--- NOTE | 2017-02-25 09:23 | SURGERY PROGRESS NOTE ---
DATE: 02/25/2017 SUBJECTIVE: Mr. Tobar was seen today. He just finished eating breakfast and has no complaints. He is afebrile. His vital signs were stable, although this morning, his blood pressure is low at 97/62. He is on room air with 97% saturations. We performed a thoracentesis yesterday and his lungs are clear today. His hemoglobin is 11.0 and his platelet count is 67. His sodium is 134, potassium 3.9, chloride 103, bicarbonate 21, BUN and creatinine are 41 and 1.6 respectively. His x-ray today looks very good. I see no evidence of any reaccumulation of fluid. Good expansion of his lungs. In reviewing his labs from his pleural fluid, LDH is 1366. Protein is 4.4. No organisms noted even though the pH of this fluid was quite low. We had a pH of 7.10 and 7.13 respectively with pending cytology. ASSESSMENT AND PLAN: 1. Postoperative day #8, status post thoracoscopic pericardial window. 2. One day status post thoracentesis aspiration of 1700 mL of fluid from right pleural cavity. Clinically, he is much improved. The pleural fluid is still a bit concerning. He is scheduled for a lumbar puncture today for cytology and to ensure that he does not have involvement of his neural structures. CATRINA
[2017-02-25] MEDS ORDERED: MAGNESIUM SULFATE 1GM / D5W 1 GM in PREMIXED IN D5W 100 ML IV ONE (09:30)
--- NOTE | 2017-02-25 09:53 | DIAGNOSTIC IMAGING REPORT ---
FLUOROSCOPIC GUIDED LUMBAR PUNCTURE CLINICAL HISTORY: Aphasia. Chronic leukemia. PROCEDURE: The risks, benefits, and alternatives to the procedure is discussed with the patient who voiced understanding. Written informed consent was obtained. The patient was placed prone on the fluoroscopy table. The lower back was prepped and draped in the usual sterile fashion. 1% lidocaine was used for local anesthesia. A 20-gauge spinal needle was inserted into the L4-L5 interlaminar space, and approximately 10 cc of clear colorless cerebrospinal fluid was removed. The patient tolerated the procedure well. There were no immediate complications. The patient was returned to the medical floor for further observation. Fluoroscopy time: 0.6 minutes. IMPRESSION: Fluoroscopic guided lumbar puncture with removal of approximately 10 cc of cerebrospinal fluid. There were no immediate complications. Electronically signed by: Kamran Chavez M.D. 02/25/2017 9:52 AM Dictated Date/Time: 02/25/2017 9:51 AM
[2017-02-25 10:05] LABS: CSF APPEARANCE CLEAR; CSF COLOR COLORLESS; CSF XANTHOCHROMIC NO XANTHOCHROMIA
[2017-02-25 10:15] LABS: CSF TOTAL PROTEIN 82.3 mg/dl (15.0-45.0)
[2017-02-25] MEDS ORDERED: CRD200 PO ×2 (12:15→12:16)
[2017-02-25] MEDS ORDERED: LPR25 PO (12:15)
[2017-02-25] MEDS: METOPROLOL TARTRATE 25 MG TAB PO SCH ×2 (12:24→20:32)
--- NOTE | 2017-02-25 15:49 | Cardiology Follow-Up ---
Subjective General Date of Service: Feb 25, 2017. Chief Complaint: follow up chest pain, tachycardia Pt evaluation today including: conversation w/ patient, physical exam History of Present Illness The patient is a 81 year old male seen in follow up. Patient had lumbar puncture today and tolerated it well with no pain or headache at time of my interview. Allergies Coded Allergies: Lisinopril (Verified Allergy, Unknown, ., 02/15/17) Tamsulosin (Unverified Allergy, Unknown, EDEMA FACE,LIPS,TONGUE, 02/15/17) Social History Smoking Status: Never Smoker Hx Tobacco Use In Past Year?: No Hx Alcohol Use - Type And Amou: Yes (2oz of scotch daily) Hx Substance Use - Type And Am: No ( ) Problem List Medical Problems: (1) Aphasia Status: Acute Physical Exam Vital Signs Last Vital Signs Documentation Date Time Temp Pulse Resp B/P (MAP) Pulse Ox O2 Delivery O2 Flow Rate FiO2 02/25/17 15:25 37.0 74 16 92/55 (67) 96 Room Air 02/19/17 12:00 2.0 97 Physical Exam Constitutional: Level of Distress: NAD Head: normocephalic ENMT: normal ENT inspection, hearing grossly normal Neck: supple Lungs: Auscultation: no wheezing, no rhonchi, pertinent finding (Decreased BS bilatterally at the bases, R worse than Left ) Cardiovascular: Heart Auscultation: RRR, pertinent finding (1/6 systolic murmur) Musculoskeletal: normal Extremities: no edema Neurologic: Gait & Station: pertinent finding (word finding difficulty has resolved..) Assessment and Plan Assessment and Plan Impression: 81-year-old male 1. Acute idiopathic (likely post viral inflammatory) pericarditis with pericardial effusion/ early tamponade physiology for which patient is status post thoracoscopic pericardial window on .-Pathology in pericardial fluid is negative thus far with the exception of findings consistent with inflammation 2. Paroxysmal atrial fibrillation, pre op and post op-in SR now on amiodarone infusion, 14 beats of break through 2:29 am 02/23/17 3. ANOOP on CKD, creatine improved, trended up again slightly , but stable. 4. chronic myelomonocytic leukemia, with leukocytosis, thrombocytopenia 5. Moderate bilateral pleural effusions noted on CT scan , likely due to aggressive volume resuscitation perioperatively, with residual mod to large R pleural effusion despite diuretic therapy for which patient underwent large volume thoracentesis on 02/24/17 with favorable results on post procedure CXR 6. Elevated LFTs, likely due to congestive hepatopathy transient high RA pressures trending toward improvement 7. Presented with expressive aphasia, MRI brain concerning for 2 small infarct foci, and dural thickening. -pt does have h/o traumatic SDH in 2008 when he fell from a ladder , with neurosurgical evacuation necessary at that time. -Meningeal enhancement, per neuro possible infectious process, LP completed, non specific CSF protein elevation, CSF pathology pending Discussion/plan: Continue metoprolol and amiodarone. Continue prednisone taper. Prednisone 15 mg daily 5 days, started on 02/22/17. Prednisone 10 mg daily 5 days (start 02/27) Prednisone 5 mg daily 5 days Prednisone 2.5 mg daily 5 days Prednisone 2.5 mg every other day 3 doses. Resume ASA and coumadin 1 day post lumbar puncture as per discussion with neurology, 02/26/17. DVT prophylaxis: SQ heparin on hold given LP, SCDs reordered. Nolan Pollard DO Laboratory Results Last 24 Hours Test 02/24/17 15:44 02/24/17 20:24 02/25/17 06:21 02/25/17 07:07 Bedside Glucose 187 mg/dl 142 mg/dl 113 mg/dl White Blood Count 91.33 K/uL Red Blood Count 3.32 M/uL Hemoglobin 11.0 g/dL Hematocrit 31.5 % Mean Corpuscular Volume 94.9 fL Mean Corpuscular Hemoglobin 33.1 pg Mean Corpuscular Hemoglobin Concent 34.9 g/dl RDW Standard Deviation 68.1 fL RDW Coefficient of Variation 20.0 % Platelet Count 67 K/uL Platelet Estimate DECREASED Prothrombin Time 11.4 SECONDS Prothromb Time International Ratio 1.1 Sodium Level 134 mmol/L Potassium Level 3.9 mmol/L Chloride Level 103 mmol/L Carbon Dioxide Level 21 mmol/L Anion Gap 10.0 mmol/L Blood Urea Nitrogen 41 mg/dl Creatinine 1.60 mg/dl Est Creatinine Clear Calc Drug Dose 32.8 ml/min Estimated GFR () 46.1 Estimated GFR (Non- 39.8 BUN/Creatinine Ratio 25.7 Random Glucose 117 mg/dl Calcium Level 7.9 mg/dl Magnesium Level 1.6 mg/dl Test 02/25/17 09:20 02/25/17 10:58 CSF Color COLORLESS CSF Appearance CLEAR CSF WBC 2 /uL CSF RBC 10 /uL CSF Xanthrochromic NO XANTHOCHROMIA CSF Cell Count Tube # 3 CSF Chemistry Tube # 1 CSF Glucose 55 mg/dl CSF Total Protein 82.3 mg/dl Bedside Glucose 130 mg/dl
--- NOTE | 2017-02-25 17:33 | PROGRESS NOTE ---
DATE: 02/25/2017 SUBJECTIVE: Celestine looks good today. His speech is clear. There is no aphasia. I do not see any hemiparesis or indeed any evidence of the embolic infarctions. He has had his lumbar puncture. The fluid was clear and colorless, there were 2 white cells, about 10 red cells, likely due to some mild trauma and a nonspecific elevated ____ protein with a normal glucose. Many of the studies are still pending, but at this point, I doubt that we are going to find any evidence for malignancy or infectious process and we discussed the case with Dr. Pollard and he is going to go back on his Coumadin and aspirin tomorrow along with I believe some subQ heparin. ____ decided by Dr. Pollard. We are going to follow him periodically at this point and check back with a spinal fluid results, but from a neurologic point of view, I think he is well and hand with his anticoagulation program and as I said above, I doubt we are going to find anything significant in the CSF and frankly continue to suspected that what we are seeing is the results of his old subdural hematomas with some ongoing low grade inflammatory process or proliferation of capillary ____ enhancement.
[2017-02-25] MEDS: HYDROXYUREA 500 MG CAP PO SCH (17:41)
--- NOTE | 2017-02-25 19:14 | Progress Note ---
Internal Med Progress Note Date of Service: Feb 25, 2017. Provider Documentation: SUBJECTIVE: had lumber puncture , earlier today denies of any pain or discomfort in back no headache breathing much better OBJECTIVE: Vital Signs-as noted below Exam: General-no sign of distress, very pleasant Eyes-sclera non icteric ENT-NAD Neck-no JVD Lungs-diminished Heart-regular S1/s2 Abdomen-soft, non tender Extremities-no lower ext rash,edema or deformity Neuro-no wheeze or rales Lab data as noted below. ASSESSMENT & PLAN: This is an 81 year old male with a PMH of 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, anemia of chronic disease on Procrit, HTN, CKD stage 3, BPH presented with multiple symptoms including dyspnea on exertion, shortness of breath, chest pain, word finding difficulty - subsequently found to have pericardial effusion with tamponade physiology Acute Pericarditis with Pericardial Effusion Pleural Effusions s/p pericardial window on 02/16/17 by cardiothoracic surgery appreciate cardiology input continue steroid taper, on Colchicine LARGE PLEURAL EFFUSION : s/p thoracentesis on rt side by Dr Leo Ugalde cardiology following on Amiodarone /beta juani Coumadin was on hold -for need LP will be resumed tomorrow Acute CVA will need rehab MRI brain with and without contrast- A subcentimeter focus of restricted diffusion is again seen in the high left parietal white matter. This has significantly decreased in conspicuity from 02/21/2017. No new foci of restricted diffusion are identified. . Again seen is a 2 to 3 mm rim of thickening along the left convexity, unchanged from 02/21/2017. Mild similar appearing thickening is also seen along the posterior right convexity. These demonstrate contrast enhancement and likely represents dural thickening. Trace subdural hemorrhage is considered much less likely. neurology following s/p LP to asses the cause of dural thickening infectious vs leukemia infiltrative process Coumadin and aspirin will be resumed tomorrow Acute Kidney Injury superimposed on CKD stage 3 kidney function improving monitor with diuretic use nephrology consulted Chronic Myelomonocytic Leukemia appreciate oncology input, continue chemo no acute management necessary Anemia of Chronic Disease continue Procrit as scheduled, monitor H/H Transient Aphasia - resolved appreciate neurology input EEG shows no episode of Seizure , Keppra D/lyndsay DVT ppx scd and teds FULL CODE DISPOSITION Pt/Ot eval will need rehab plan to transfer to SNF tomorrow Vital Signs: Date Time Temp Pulse Resp B/P (MAP) Pulse Ox O2 Delivery O2 Flow Rate FiO2 02/25/17 18:59 36.9 77 16 100/63 (75) 98 Room Air 02/25/17 17:42 76 100/62 (75) 02/25/17 16:00 96 Room Air 02/25/17 15:25 37.0 74 16 92/55 (67) 96 Room Air 02/25/17 12:00 Room Air 02/25/17 10:57 36.7 79 16 119/73 (88) 95 Room Air 02/25/17 09:49 84 16 102/65 (77) 95 Room Air 02/25/17 08:00 Room Air 02/25/17 07:13 36.5 85 17 97/62 (74) 97 Room Air 02/25/17 04:00 Room Air 02/25/17 03:51 37.0 75 18 152/79 (103) 96 Room Air 02/25/17 00:19 36.8 71 17 126/72 (90) 96 Room Air 02/25/17 00:01 Room Air Lab Results: Results Past 24 Hours Test 02/25/17 06:21 02/25/17 07:07 02/25/17 09:20 02/25/17 10:58 Range/Units White Blood Count 91.33 4.8-10.8 K/uL Red Blood Count 3.32 4.7-6.1 M/uL Hemoglobin 11.0 14.0-18.0 g/dL Hematocrit 31.5 42-52 % Mean Corpuscular Volume 94.9 80-100 fL Mean Corpuscular Hemoglobin 33.1 25-34 pg Mean Corpuscular Hemoglobin Concent 34.9 32-36 g/dl RDW Standard Deviation 68.1 36.4-46.3 fL RDW Coefficient of Variation 20.0 11.5-14.5 % Platelet Count 67 130-400 K/uL Platelet Estimate DECREASED Prothrombin Time 11.4 9.0-12.0 SECONDS Prothromb Time International Ratio 1.1 0.9-1.1 Sodium Level 134 136-145 mmol/L Potassium Level 3.9 3.5-5.1 mmol/L Chloride Level 103 98-107 mmol/L Carbon Dioxide Level 21 21-32 mmol/L Anion Gap 10.0 3-11 mmol/L Blood Urea Nitrogen 41 7-18 mg/dl Creatinine 1.60 0.60-1.40 mg/dl Est Creatinine Clear Calc Drug Dose 32.8 ml/min Estimated GFR () 46.1 Estimated GFR (Non- 39.8 BUN/Creatinine Ratio 25.7 10-20 Random Glucose 117 70-99 mg/dl Calcium Level 7.9 8.5-10.1 mg/dl Magnesium Level 1.6 1.8-2.4 mg/dl Bedside Glucose 113 130 70-99 mg/dl CSF Color COLORLESS CSF Appearance CLEAR CSF WBC 2 0-5 /uL CSF RBC 10 0 /uL CSF Xanthrochromic NO XANTHOCHROMIA CSF Cell Count Tube # 3 CSF Chemistry Tube # 1 CSF Glucose 55 40-70 mg/dl CSF Total Protein 82.3 15.0-45.0 mg/dl Microbiology Results 02/25/17 Cryptococcal Antigen - Final, Complete NO CRYPTOCOCCAL ANTIGEN DETECTED 02/25/17 Acid Fast Stain, Received Pending 02/25/17 Mycobacterial Culture, Received Pending 02/25/17 Fungal Culture, Received Pending 02/25/17 Gram Stain - Final, Resulted 02/25/17 CSF Culture, Resulted Pending
[2017-02-26] VITALS (8 sets, daily range): BP systolic 98–121; BP diastolic 64–76; PULSE 72–81; TEMP 36.5–36.9; O2SAT 95–99
[2017-02-26 06:45] LABS: PROTHROMBIN TIME (PATIENT) 10.9 SECONDS (9.0-12.0)
[2017-02-26] MEDS: INSULIN ASPART 100 UNITS/ML 3 ML PEN SC SCH ×4 (07:00→20:45)
[2017-02-26] MEDS: PANTOprazole SOD 40 MG TAB PO SCH (09:47)
[2017-02-26] MEDS: METOPROLOL TARTRATE 25 MG TAB PO SCH ×2 (09:47→20:51)
[2017-02-26] MEDS: POTASSIUM CHLORIDE 20 MEQ TABCR PO SCH (09:48)
[2017-02-26] MEDS: COLCHICINE 0.6 MG TAB PO SCH (09:48)
[2017-02-26] MEDS: MAGNESIUM OXIDE 400 MG TAB PO SCH (09:48)
[2017-02-26] MEDS: AMIODARONE 200 MG TAB PO SCH ×2 (09:48→16:14)
[2017-02-26] MEDS: VITAMIN B COMPLEX TAB PO SCH (09:49)
[2017-02-26] MEDS: ALLOPURINOL 100 MG TAB PO SCH (09:49)
[2017-02-26] MEDS: MAGNESIUM CHLORIDE 64MG DELAYED REL TAB PO SCH ×2 (09:49→20:52)
--- NOTE | 2017-02-26 10:27 | Surgery Progress Note ---
Subjective Date of Service: Feb 26, 2017. Pt. denies SOB or CP. He notes he feels improved since time of admission. Objective Vitals Date Time Temp Pulse Resp B/P (MAP) Pulse Ox O2 Delivery O2 Flow Rate FiO2 02/26/17 04:00 Room Air 02/26/17 04:00 36.5 72 17 115/68 (84) 95 Room Air 02/26/17 00:00 36.6 81 20 121/76 (91) 99 Room Air 02/26/17 00:00 Room Air 02/25/17 20:00 95 Room Air 02/25/17 18:59 36.9 77 16 100/63 (75) 98 Room Air 02/25/17 17:42 76 100/62 (75) 02/25/17 16:00 96 Room Air 02/25/17 15:25 37.0 74 16 92/55 (67) 96 Room Air 02/25/17 12:00 Room Air 02/25/17 10:57 36.7 79 16 119/73 (88) 95 Room Air Physical Exam General: + well developed, + well nourished, No distress CV: + RRR Pulmonary: + lungs clear, No accessory muscle use, No respiratory distress Neurologic: + alert & oriented x 3 Assessment & Plan 81 year old male s/p RVATS with pericardial window -path from surgery (-) for malignancy -cultures of pericardial fluid have grown MSSA: -discussed with cardiology--they have arranged ID consult -right thoracentesis performed (02/25/17): -culture are (-) -at time of d/c pt. will be instructed to f/u with Dr. Bailey in 1 week with repeat CXR
[2017-02-26] MEDS ORDERED: ASPIRIN 81 MG ECTAB PO ONE (11:45)
[2017-02-26] MEDS ORDERED: WARFARIN SOD 1 MG TAB PO ONE (12:00)
--- NOTE | 2017-02-26 12:24 | Progress Note ---
Progress Note Date of Service Feb 26, 2017. Progress Note ADDENDUM : updated by Cardiology pericardial fluid culture ( 02/16/17 ) + ve staph aureus -MSSA blood culture ordered empirically started on IV Vancomycin ID consulted by Cardiology no plan to discharge to SNF today
[2017-02-26] MEDS ORDERED: VANCOMYCIN CONSULT ACTIVE PRN (12:30)
--- NOTE | 2017-02-26 12:33 | Cardiology Follow-Up ---
Subjective General Date of Service: Feb 26, 2017. Chief Complaint: follow up chest pain, tachycardia Pt evaluation today including: conversation w/ patient, physical exam History of Present Illness The patient is a 81 year old male seen in follow up. Patient feels well with the exception of stools with bowel movement yesterday and again this morning. He notes no back pain or residual headache from his lumbar puncture. Telemetry reveals sinus rhythm without any atrial fibrillation noted. He denies any chest discomfort or shortness of breath. Allergies Coded Allergies: Lisinopril (Verified Allergy, Unknown, ., 02/15/17) Tamsulosin (Unverified Allergy, Unknown, EDEMA FACE,LIPS,TONGUE, 02/15/17) Social History Smoking Status: Never Smoker Hx Tobacco Use In Past Year?: No Hx Alcohol Use - Type And Amou: Yes (2oz of scotch daily) Hx Substance Use - Type And Am: No ( ) Problem List Medical Problems: (1) Aphasia Status: Acute Physical Exam Vital Signs Last Vital Signs Documentation Date Time Temp Pulse Resp B/P (MAP) Pulse Ox O2 Delivery O2 Flow Rate FiO2 02/26/17 10:43 36.7 72 16 98/64 (75) 97 Room Air 02/19/17 12:00 2.0 97 Physical Exam Constitutional: Level of Distress: NAD Head: normocephalic ENMT: normal ENT inspection, hearing grossly normal Neck: supple Lungs: Auscultation: no wheezing, no rhonchi, pertinent finding (Decreased BS bilatterally at the bases, R worse than Left ) Cardiovascular: Heart Auscultation: RRR, pertinent finding (1/6 systolic murmur) Musculoskeletal: normal Extremities: no edema Neurologic: Gait & Station: pertinent finding (word finding difficulty has resolved..) Assessment and Plan Assessment and Plan Microbiology results of pericardial fluid sample from 02/16/17 have yielded sensitive staph aureus Impression: 81-year-old male 1. Acute pericarditis, in with pericardial effusion/ early tamponade physiology for which patient is status post thoracoscopic pericardial window on .-Pathology in pericardial fluid is negative thus far with the exception of findings consistent with inflammation -Pericardial fluid culture has grown Staphylococcus aureus -had suspected idiopathic inflammatory pericarditis, however, now has staph aureus from intra-operative pericardial fluid sample. 2. Paroxysmal atrial fibrillation, pre op and post op-in SR now on amiodarone infusion, 14 beats of break through 2:29 am 02/23/17 -Patient with two small infarct foci on MRI, perhaps related to AF. 3. ANOOP on CKD, creatine improved, trended up again slightly , but stable. 4. chronic myelomonocytic leukemia, with leukocytosis, thrombocytopenia, increasing WBC count 5. Moderate bilateral pleural effusions noted on CT scan on, likely due to aggressive volume resuscitation perioperatively, with residual mod to large R pleural effusion despite diuretic therapy for which patient underwent large volume thoracentesis on 02/24/17 with favorable results on post procedure CXR and follow up CXR a day post thoracentesis on 02/25/17 6. Presented with expressive aphasia, MRI brain concerning for 2 small infarct foci, and dural thickening. -pt does have h/o traumatic SDH in 2008 when he fell from a ladder , with neurosurgical evacuation necessary at that time. -Meningeal enhancement, per neuro possible infectious process, LP completed, non specific CSF protein elevation, CSF pathology pending Discussion/plan: Continue metoprolol and amiodarone. Continue prednisone taper. Completed 20 mg daily 5 days, completed 15 mg daily 5 days. Prednisone 10 mg daily 5 days (start 02/27) Prednisone 5 mg daily 5 days Prednisone 2.5 mg daily 5 days Prednisone 2.5 mg every other day 3 doses. Resume aspirin. Update echocardiogram to reassess for pericardial fluid. Check blood cultures given staph aureus in pericardial fluid. Start empiric antibiotics, and will consult infectious disease, case discussed with Dr. Gonzalez of infectious disease and Dr. Denis of hospitalist medicine. Updated Mr Hernandez of thoracic medicine by phone. DVT prophylaxis: SQ heparin on hold given LP, SCDs when patient is in bed Plan was to resume Coumadin, but given infectious issues, will await repeat echo. Nolan Pollard DO Laboratory Results Last 24 Hours Test 02/26/17 06:19 02/26/17 06:41 02/26/17 10:48 Prothrombin Time 10.9 SECONDS Prothromb Time International Ratio 1.0 Bedside Glucose 92 mg/dl 151 mg/dl
[2017-02-26] MEDS ORDERED: VANCOMYCIN INJ 1,250 MG in SODIUM CHLORIDE 0.9% 250ML 250 ML IV ONE (12:45)
--- NOTE | 2017-02-26 15:03 | Progress Note ---
Progress Note Date of Service Feb 26, 2017. Progress Note ID Consult Dictated #[id number] A/P: 1. Infected pericarditis -MSSA 2. 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
--- NOTE | 2017-02-26 15:08 | Pharmacy Progress Note ---
Pharmacy Abx Initial Consult Date of Service Feb 26, 2017. Pharmacy Dosing Scope Date of Consult: 02/26/17 Consultation requested by: Dr. Denis Pharmacy is consulted to initiate Vancomycin IV dosing therapy, order appropriate labs and adjust drug dose/frequency. Subjective The patient is a 81 year old male admitted on Feb 15, 2017 at 16:22 with potential stroke symptoms which were then felt to be seizure activity. Over the course of his complicated stay he had pericardial fluid cultured that grew staph aureus. Today Dr. Denis chose to treat empirically with Vancomycin for potential endocarditis. Objective Height (Feet): 6 Height (Inches): 0.00 Weight (Kilograms): 63.100 Vital Signs (Past 12Hrs) Vital Signs Past 12 Hours Date Time Temp Pulse Resp B/P (MAP) Pulse Ox O2 Delivery O2 Flow Rate FiO2 02/26/17 12:00 Room Air 02/26/17 10:43 36.7 72 16 98/64 (75) 97 Room Air 02/26/17 08:00 Room Air 02/26/17 04:00 Room Air 02/26/17 04:00 36.5 72 17 115/68 (84) 95 Room Air Micro Results Date/Time Source Procedure Growth Status 02/26/17 13:20 Blood Blood Culture Pending Received 02/26/17 13:02 Blood Blood Culture Pending Received 02/25/17 09:20 Cerebral Spinal Fluid Cryptococcal Antigen - Final NO CRYPTOCOCCAL ANTIGEN DETECTED Complete 02/25/17 09:20 Cerebral Spinal Fluid Acid Fast Stain Pending Received 02/25/17 09:20 Cerebral Spinal Fluid Mycobacterial Culture Pending Received 02/25/17 09:20 Cerebral Spinal Fluid Fungal Culture Pending Received 02/25/17 09:20 Cerebral Spinal Fluid Gram Stain - Final Resulted 02/25/17 09:20 Cerebral Spinal Fluid CSF Culture - Preliminary NO GROWTH TO DATE. Resulted 02/16/17 00:00 Nasal MRSA DNA Surveillance Screen - Final Specimen Negative for MRSA by DNA Probe Complete 02/15/17 21:30 Urine , Clean Catch Urine Culture - Final THREE TYPES OF ORGANISMS PRESENT, ALL... Complete 02/24/17 12:01 Pleural Fluid (Thoracentesis) Right Fungal Smear - Final Resulted 02/24/17 12:01 Pleural Fluid (Thoracentesis) Right Fungal Culture Pending Resulted 02/24/17 12:01 Pleural Fluid (Thoracentesis) Right Acid Fast Stain - Final Resulted 02/24/17 12:01 Pleural Fluid (Thoracentesis) Right Mycobacterial Culture Pending Resulted 02/24/17 12:01 Pleural Fluid (Thoracentesis) Right Gram Stain - Final Resulted 02/24/17 12:01 Pleural Fluid (Thoracentesis) Right Bacterial Culture - Preliminary NO GROWTH TO DATE. Resulted 02/16/17 15:33 Tissue Pericardial Acid Fast Stain - Final Resulted 02/16/17 15:33 Tissue Pericardial Mycobacterial Culture - Preliminary NO ACID-FAST BACILLI ISOLATED - REPOR... Resulted 02/16/17 15:33 Tissue Pericardial Fungal Smear - Final Resulted 02/16/17 15:33 Tissue Pericardial Fungal Culture - Preliminary NO YEAST OR FUNGUS ISOLATED - REPORT ... Resulted 02/16/17 15:33 Tissue Pericardial Gram Stain - Final Complete 02/16/17 15:33 Tissue Pericardial Bacterial Culture - Final NO GROWTH Complete 02/16/17 15:10 Pericardial Fluid Fungal Smear - Final Resulted 02/16/17 15:10 Pericardial Fluid Fungal Culture - Preliminary NO YEAST OR FUNGUS ISOLATED - REPORT ... Resulted 02/16/17 15:10 Pericardial Fluid Acid Fast Stain - Final Resulted 02/16/17 15:10 Pericardial Fluid Mycobacterial Culture - Preliminary NO ACID-FAST BACILLI ISOLATED - REPOR... Resulted 02/16/17 15:10 Pericardial Fluid Gram Stain - Final Complete 02/16/17 15:10 Bacterial Culture - Final Staphylococcus Aureus Complete 02/16/17 15:05 Pleural Fluid (Thoracentesis) Right Fungal Smear - Final Resulted 02/16/17 15:05 Pleural Fluid (Thoracentesis) Right Fungal Culture - Preliminary NO YEAST OR FUNGUS ISOLATED - REPORT ... Resulted Risk Factors for Resistance * Current hospitalization > 5 days Assessment & Plan Assessment 81 year old male with potential endocarditis Plan Vancomycin for treatment of Endocarditis Vancomycin IV * Loading dose: 1250 mg (~20 mg/kg) * Maintenance dose: 1000 mg IV (~16 mg/kg) every 24 hours * Goal trough level for Endocarditis : 15 to 20 mcg/mL * Trough level ordered prior to 1200 dose on 03/01/17 Pharmacy will continue to follow and will adjust dose/frequency as necessary. Thank you.
--- NOTE | 2017-02-26 15:14 | Neurology Progress Notes ---
Neurology Progress Note Date of Service Feb 26, 2017. 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 Clayton Fox of hematology who presented with multiple cardiac and neurological symptoms from home with early differential diagnosis of seizure as per emergency room physician in coordination with neurology teleconference with neurologist at [facility] vs stroke vs hyperviscosity complications from leukemia and also found to have tachycardia. There are various histories of what happened at home prior to admission. He was reading a book when he found that the text did not make sense to him. Denies changes in vision. Started having difficulty with finding words with his speech, but no obvious facial motor weakness or slurred speech or facial droop as per the patient's .He appears by this history to recognize these symptoms and did not lose consciousness and was able to follow directions and ambulate. His confirmed there was no tremors or jerking during this episode. When patient evaluated in the ED, stroke alert was called. He had negative head CT for intracranial bleed. In 2008 he had a SDH after falling off a ladder and had a bilateral chloe hole evacuation by Dr Huber. Was given aspirin. After consultation and evaluation with [facility] neurology by the ED physician, it was decided that patient more likely had seizure symptoms rather than stroke and the patient was given Keppra 500 mg per oral x 1 as loading dose for seizure treatment. This was also happening in context of tachycardia between 110s to 120s which was not treated in the emergency department and also chest discomfort. 02/16 he was taken to the OR by cardiology for a cardiac window and was not seen by neurology. Today his is in the room and they are disappointed that he is growing out staph. He was started on vancomycin and will be transitioned to Rocephin. Objective Date Time Temp Pulse Resp B/P (MAP) Pulse Ox O2 Delivery O2 Flow Rate FiO2 02/26/17 12:00 Room Air 02/26/17 10:43 36.7 72 16 98/64 (75) 97 Room Air 02/26/17 08:00 Room Air 02/26/17 04:00 Room Air 02/26/17 04:00 36.5 72 17 115/68 (84) 95 Room Air 02/26/17 00:00 36.6 81 20 121/76 (91) 99 Room Air 02/26/17 00:00 Room Air 02/25/17 20:00 95 Room Air 02/25/17 18:59 36.9 77 16 100/63 (75) 98 Room Air 02/25/17 17:42 76 100/62 (75) 02/25/17 16:00 96 Room Air 02/25/17 15:25 37.0 74 16 92/55 (67) 96 Room Air Last 24 Hours Test 02/25/17 16:16 02/26/17 06:19 02/26/17 06:41 02/26/17 10:48 Bedside Glucose 202 mg/dl 92 mg/dl 151 mg/dl Prothrombin Time 10.9 SECONDS Prothromb Time International Ratio 1.0 Imaging: no new imaging Exam: Physical Exam: Constitutional:appearance ill appearing Ears, Nose, Mouth and Throat: mucous membranes moist, no injection and skin normal, eyes normal Cardiovascular: normal S-1 and S-2 and regular rate and rhythm Respiratory: clear to auscultation (CTA) and no rales, rhonchi or wheeze Musculoskeletal: no peripheral edema and good distal pulses Skin: no stigmata of neurocutaneous disease noted and normal and intact Eyes: extraocular muscles intact (EOMI) and pupils equal, round and reactive to light (PERRL) NEUROLOGIC EXAMINATION: Mental status: Alert and interactive Oriented to full date and location Oriented to person Speech fluent with no evidence of aphasia Cranial Nerves smile eye brow raise symmetric, tongue midline Gait/Stance: Posture lying down Strength: hand biceps, triceps 5/5 bilaterally hip flex 5/5 bilaterally Current Inpatient Medications Medications (Trade) Dose Ordered Sig/Jarvis Route Start Time Stop Time Status Last Admin Dose Admin Metoprolol Tartrate (Lopressor Iv) 5 mg Q6 PRN IV 02/15/17 17:45 03/17/17 17:44 Allopurinol (Zyloprim Tab) 200 mg DAILY PO 02/17/17 09:00 03/19/17 08:59 02/26/17 09:49 200 MG Hydroxyurea (Hydrea Cap) 1,000 mg QDD PO 02/16/17 16:45 03/18/17 16:44 02/25/17 17:41 1,000 MG Vitamin B Complex (Vitamin B Complex) 1 tab DAILY PO 02/17/17 09:00 03/19/17 08:59 02/26/17 09:49 1 TAB Ondansetron HCl (Zofran Inj) 4 mg Q4H PRN IV 02/16/17 16:00 03/18/17 15:59 Morphine Sulfate (MoRPHine SULFATE INJ) Q1H PRN IV 02/16/17 16:00 03/02/17 15:59 Pantoprazole Sodium (Protonix Tab) 40 mg QAM PO 02/18/17 09:00 03/20/17 08:59 02/26/17 09:47 40 MG Colchicine (Colchicine Tab) 0.6 mg QAM PO 02/18/17 09:00 03/20/17 08:59 02/26/17 09:48 0.6 MG Heparin Sodium (Porcine) (Heparin Sq 5000 Unit/0.5ml) 5,000 unit Q12 SQ 02/17/17 21:00 03/19/17 20:59 Future Hold 02/23/17 20:58 5,000 UNIT Glucose (Glucose 40% Gel) 15-30 GRAMS 15 GRAMS... UD PRN PO 02/17/17 10:00 03/19/17 09:59 Glucose (Glucose Chew Tab) 4-8 Tablets 4 Tabl... UD PRN PO 02/17/17 10:00 03/19/17 09:59 Dextrose (Dextrose 50% 50ML Syringe) 25-50ML OF 50% DW IV FOR... UD PRN IV 02/17/17 10:00 03/19/17 09:59 Glucagon (Glucagon Inj) 1 mg UD PRN SQ 02/17/17 10:00 03/19/17 09:59 Insulin Aspart (novoLOG ASPART) SLIDING SCALE ACHS SC 02/17/17 11:00 03/19/17 10:59 02/22/17 13:10 2 UNITS Acetaminophen (Tylenol Tab) 650 mg Q4H PRN PO 02/17/17 16:00 03/19/17 15:59 Metoprolol Tartrate (Lopressor Tab) 25 mg BID PO 02/18/17 21:00 03/20/17 20:59 02/26/17 09:47 25 MG Potassium Chloride (Klor-Con Tab) 20 meq QAM PO 02/20/17 09:00 03/22/17 08:59 02/26/17 09:48 20 MEQ Magnesium Chloride (Slow-Mag Tab) 64 mg BID PO 02/19/17 21:00 03/21/17 20:59 02/26/17 09:49 64 MG Magnesium Oxide (Mag-Ox Tab) 400 mg QAM PO 02/22/17 09:00 03/24/17 08:59 02/26/17 09:48 400 MG Amiodarone HCl (Cordarone Tab) 200 mg BIDM PO 02/22/17 16:45 03/20/17 11:29 02/26/17 09:48 200 MG Gadobutrol (Gadavist) 6.5 mmol UD PRN IV 02/23/17 17:15 02/27/17 17:14 Prednisone (PredniSONE TAB) 10 mg DAILY PO 02/27/17 09:00 03/29/17 08:59 Aspirin (Ecotrin Tab) 81 mg QAM PO 02/27/17 09:00 03/29/17 08:59 Vancomycin HCl 1000 mg/Sodium Chloride 270 ml @ 125 mls/hr Q24H IV 02/27/17 12:00 04/10/17 11:59 Vancomycin HCl (Consult) 1 ea UD PRN N/A 02/26/17 12:30 03/28/17 12:29 Impression 81 year old male PMH CML, HTN, CKD, presentation cardiac and neurologic symptoms. cardiac window on 02/16-improving Plan 1. will wait on further neurologic work up until patient is stable from cardiac surgery 2. EEG no seizure focus seen 3. MRI evidence of 2 tiny cortical infarcts repeat MRI with meningeal thinking with enhancement 4. EEG no seizure activity Keppra was stopped It does not appear there was a seizure during this episode 5. cardiology -due to presents of a fib starting coumadin 2.5 mg daily with a goal of INR 2-2.5- stopped for scheduled LP 6. LP awaiting cytology results 7. once stable will return to [facility] for physical therapy 8. ID involved for staph resulting in cardiac fluid 9. will continue to follow labs for results, will be available as needed. I have seen and discussed above patient with Dr Mykel Hsu, neurology Seen and labs reviewed awaiting cytology and fungal and afb results but again doubt infectious or neoplastic infiltration of meninges cause of the pericardial effusion not clear but now there is concern again about malignancy We will continue to follw labs but not visit unless thee are changes Mykel Hsu MD
--- NOTE | 2017-02-26 15:46 | ECHOCARDIOGRAM REPORT ---
*NOTICE TO RECEIVING [employer] This information is strictly Confidential and protected under [place] law. [place] law prohibits you from making any further disclosure of this information unless further disclosure is expressly permitted by the written consent of the person to whom it pertains or is authorized by law. A general authorization for the release of medical or other information is not sufficient for this purpose. Hospital accepts no responsibility if the information is made available to any other person, INCLUDING THE PATIENT. Interpretation Summary * Name: FÁTIMA RAMIREZ Study Date: 02/26/2017 01:59 PM BP: 117/69 mmHg * Patient Location: C.2T\S\E218\S\1 HR: 88 * : 1935 (M/d/yyyy) Gender: Male Height: 72 in * Age: 81 yrs Ethnicity: [place] Weight: 139 lb * Ordering Physician: Adrian Pollard * Referring Physician: Jones Stone * Performed By: Bre Mariee RCS * * Reason For Study: Follow up Pericardial Effusion,S/P Surgical Drain * BSA: 1.8 m2 * -- Conclusions -- * A focused study was performed to reassess for pericardial effusion s/p surgical pericardial drainage on 02/16/17. * The LV septal motion is abnormal with a septal bounce concerning for possible constrictive physiology. * The LV wall motion is otherwise normal. * There is a trace loculated left lateral pericardial effusion. * There are no echocardiographic indications of cardiac tamponade. * Small right pleural effusion. Procedure Details * A two-dimensional transthoracic echocardiogram was performed. * A two-dimensional transthoracic echocardiogram with pulsed and continuous Doppler was performed. Left Ventricle * Ejection Fraction = 50-55%. * The LV septal motion is abnormal with a septal bounce concerning for possible contrictive physiology. The LV wall motion is othwerwise normal. Atria * The atrial septum is aneurysmal. Mitral Valve * There is moderate mitral annular calcification. * There is no mitral valve stenosis. Aortic Valve * The aortic valve is mildly calcified. Pericardium/Pleural * There is a trace loculated left lateral pericardial effuison. * There are no echocardiographic indications of cardiac tamponade. * Small right pleural effusion.
--- NOTE | 2017-02-26 15:55 | INFECT. DISEASE CONSULTATION ---
DATE OF CONSULTATION: 02/26/2017 DATE OF CONSULTATION: 02/26/2017 REQUESTING PHYSICIAN: Dr. Pollard. HISTORY OF PRESENT ILLNESS: This is an 81-year-old gentleman who was admitted to the hospital after he had neurologic symptoms which were concerning for stroke versus seizure. He did end up having an echocardiogram as part of his initial workup and he was found to have a significant pericardial effusion with a tamponade physiology. For this reason, he was taken to the operating room on the and he did undergo pericardial window. He had 1,700 mL of fluid which were removed. This fluid was sent for multiple cultures including routine fungal and AFB and fungal cultures from the procedure, do not have any yeast on Gram stain nor do they have yeast at 1 week. AFB smear was negative. cultures are negative 1 week. He also had cultures labeled thoracentesis on the right side, all of which are negative and routine cultures are final. He did have a pericardial fluid culture done routinely on the which is growing MSSA. This was finalized on the . Additional pericardial cultures are no growth and final. Additional AFB and fungal cultures are negative as well. He did continue to have improvement; however, he did have a neurologic change and underwent CSF analysis on the . CSF cultures are negative. He had only 2 WBCs. He was to be discharged back to his assisted living facility today; however, it was noted that he had staph aureus growing from the pericardial fluid and he was placed on vancomycin and infectious diseases was consulted. He did have a repeat echocardiogram done today to see if there is any reaccumulation of fluid. However, results of this are pending. The patient states he feels significantly better today. He denies any fevers or chills but also states he had no fevers or chills prior to admission. He denies any chest pain. He denies any difficulty breathing and states this is much improved since his pericardial window. He is tolerating antibiotics well. Blood cultures were obtained today and are pending. He has been afebrile since admission to the hospital, pulse is currently 72, respiratory rate is 16 and blood pressure is 98/64. He has had normal blood pressures, intermittently hypotensive episodes throughout his stay. He has no complaints on my examination. His is at his bedside. He is being followed by neurology, hematology, cardiology and nephrology. PAST MEDICAL HISTORY: Significant for hypertension, CML diagnosed in 2015 on treatment, type 2 diabetes. PAST SURGICAL HISTORY: Significant for chloe hole surgery as well as a recent pericardial window. FAMILY HISTORY: Noncontributory. SOCIAL HISTORY: Negative for tobacco use, alcohol use or drug use. He is and lives with his . They recently traveled to [place] 1-2 months ago. He denies any recent sick contacts. ALLERGIES: LISINOPRIL. CURRENT MEDICATIONS: Include vancomycin, prednisone, aspirin, Catapres, amiodarone, magnesium, potassium, Lopressor, Protonix, colchicine, Tylenol, insulin, vitamin D, hydroxyurea, Zofran, morphine. PHYSICAL EXAMINATION: VITAL SIGNS: Are as above. GENERAL: He is awake, alert and oriented x3. He is in no acute distress. HEAD, EYES, EARS, NOSE, AND THROAT: Mucous membranes are moist. HEART: Irregular. I do not auscultate a murmur. LUNGS: Clear bilaterally. ABDOMEN: Soft and nondistended. There is no edema bilaterally. SKIN: Without rash. LABORATORY STUDIES: CBC today reveals a white blood cell count of 91, down from 95 yesterday, hemoglobin 11, platelets are 67. Chemistry panel from the reveals a sodium of 134, potassium 3.9, chloride 103, bicarb 21, BUN 41, creatinine 1.6, improved from 1.8, glucose of 117. LFTs on the were normal. Urinalysis on admission had greater than 30 WBCs, but no bacteria. CSF studies done yesterday showed clear colorless fluid with only 2 WBCs. Lyme screen and CMB screens are pending. Cryptococcal antigen is negative. CSF cultures are negative. Blood cultures were obtained today and are pending. Multiple fungal and AFB cultures from pleural as well as pericardial fluid are negative. Again, a culture from the is growing MSSA. Most recent chest x-ray was done yesterday which shows bibasilar opacities and small effusions which are stable. An echocardiogram was done today. Results of this are pending. ASSESSMENT AND PLAN: Infected pericarditis. He will remain on IV antibiotics. I will transition him to IV Rocephin as he did grow MSSA. This will be 2 grams once daily dose. If his blood cultures return negative, he would be a candidate for PICC line and outpatient antibiotic therapy. He will need followup with infectious diseases postdischarge as well. We will follow along with you. Thank you for this consultation. CATRINA
[2017-02-26] MEDS: CEFTRIAXONE SOD INJ 2,000 MG in DEXTROSE 5% 50ML 50 ML IV SCH (16:10)
[2017-02-26] MEDS: HYDROXYUREA 500 MG CAP PO SCH (16:15)
--- NOTE | 2017-02-26 18:33 | Progress Note ---
Internal Med Progress Note Date of Service: Feb 26, 2017. Provider Documentation: SUBJECTIVE: no complain of SOB or discomfort remains afebrile OBJECTIVE: Vital Signs-as noted below Exam: General-no sign of distress, very pleasant Eyes-sclera non icteric ENT-NAD Neck-no JVD Lungs-diminished Heart-regular S1/s2 Abdomen-soft, non tender Extremities-no lower ext rash,edema or deformity Neuro-no wheeze or rales Lab data as noted below. ASSESSMENT & PLAN: This is an 81 year old male with a PMH of 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, anemia of chronic disease on Procrit, HTN, CKD stage 3, BPH presented with multiple symptoms including dyspnea on exertion, shortness of breath, chest pain, word finding difficulty - subsequently found to have pericardial effusion with tamponade physiology BACTERIAL PERICARDITIS -MSSA INFECTION s/p pericardial window on 02/16/17 by cardiothoracic surgery pericardial fluid culture 02/16/17 -STAPH AUREUS -MSSA ID consulted -appreciate input started on IV Rocephin repeat blood cultures ordered given staph aureus in pericardial fluid. will need PICC line for intermediate frame tender Abx tx repeat echocardiogram ordered to reassess for pericardial fluid. ECHO 02/26/17 : A focussed study was performed to reassess for pericardial effusion s/p surgical pericardial drainage on 02/16/17. * The LV septal motion is abnormal with a septal bounce concerning for possible contrictive physiology. * The LV wall motion is othwerwise normal. * There is a trace loculated left lateral pericardial effuison. * There are no echocardiographic indications of cardiac tamponade. * Small right pleural effusion. Paroxysmal A. Fib cardiology following on Amiodarone /beta juani Coumadin was on hold -for recent LP will continue to hold given MSSA infection in pericardial fluid Acute CVA will need rehab MRI brain with and without contrast- A subcentimeter focus of restricted diffusion is again seen in the high left parietal white matter. This has significantly decreased in conspicuity from 02/21/2017. No new foci of restricted diffusion are identified. . Again seen is a 2 to 3 mm rim of thickening along the left convexity, unchanged from 02/21/2017. Mild similar appearing thickening is also seen along the posterior right convexity. These demonstrate contrast enhancement and likely represents dural thickening. Trace subdural hemorrhage is considered much less likely. neurology following s/p LP to asses the cause of dural thickening infectious vs leukemia infiltrative process Acute Kidney Injury superimposed on CKD stage 3 kidney function improving monitor with diuretic use nephrology consulted Chronic Myelomonocytic Leukemia appreciate oncology input, continue chemo no acute management necessary Anemia of Chronic Disease continue Procrit as scheduled, monitor H/H Transient Aphasia - resolved appreciate neurology input EEG shows no episode of Seizure , Keppra D/lyndsay DVT ppx scd and teds FULL CODE DISPOSITION hold tx to SNF for new finding of staph aureus infection in pericardial fluid Vital Signs: Date Time Temp Pulse Resp B/P (MAP) Pulse Ox O2 Delivery O2 Flow Rate FiO2 02/26/17 20:12 36.9 73 18 114/67 (83) 99 Room Air 02/26/17 20:00 95 Room Air 02/26/17 16:00 97 Room Air 02/26/17 15:49 36.5 72 18 114/65 (81) 96 Room Air 02/26/17 12:00 Room Air 02/26/17 10:43 36.7 72 16 98/64 (75) 97 Room Air 02/26/17 08:00 Room Air 02/26/17 04:00 Room Air 02/26/17 04:00 36.5 72 17 115/68 (84) 95 Room Air 02/26/17 00:00 36.6 81 20 121/76 (91) 99 Room Air 02/26/17 00:00 Room Air Lab Results: Results Past 24 Hours Test 02/26/17 06:19 02/26/17 06:41 02/26/17 10:48 02/26/17 16:07 Range/Units Prothrombin Time 10.9 9.0-12.0 SECONDS Prothromb Time International Ratio 1.0 0.9-1.1 Bedside Glucose 92 151 178 70-99 mg/dl Test 02/26/17 20:12 Range/Units Bedside Glucose 116 70-99 mg/dl Microbiology Results 02/26/17 Blood Culture, Received Pending 02/26/17 Blood Culture, Received Pending
[2017-02-26] MEDS: HEPARIN SOD 5000 UNIT/0.5 ML CARP SQ SCH (20:51)
[2017-02-27] VITALS (7 sets, daily range): BP systolic 85–135; BP diastolic 54–76; PULSE 68–75; TEMP 36.4–36.9; O2SAT 98–100
[2017-02-27] MEDS: INSULIN ASPART 100 UNITS/ML 3 ML PEN SC SCH ×4 (07:00→20:09)
[2017-02-27 08:09] LABS: CREATININE 1.6 mg/dl (0.60-1.40)
--- NOTE | 2017-02-27 08:48 | Surgery Progress Note ---
Subjective Date of Service: Feb 27, 2017. Pt. offers no complaints today--no SOB, CP or palpitations. Objective Vitals Date Time Temp Pulse Resp B/P (MAP) Pulse Ox O2 Delivery O2 Flow Rate FiO2 02/27/17 07:25 36.8 75 18 85/54 (64) 100 Room Air 02/27/17 04:00 Room Air 02/27/17 03:45 36.5 75 18 135/76 (95) 98 Room Air 02/26/17 23:59 Room Air 02/26/17 23:32 36.6 76 18 116/69 (85) 99 Room Air 02/26/17 20:12 36.9 73 18 114/67 (83) 99 Room Air 02/26/17 20:00 95 Room Air 02/26/17 16:00 97 Room Air 02/26/17 15:49 36.5 72 18 114/65 (81) 96 Room Air 02/26/17 12:00 Room Air 02/26/17 10:43 36.7 72 16 98/64 (75) 97 Room Air Physical Exam General: + well developed, + well nourished, No distress CV: + RRR Pulmonary: + lungs clear, No accessory muscle use, No respiratory distress Neurologic: + alert & oriented x 3 Assessment & Plan 81 year old male s/p RVATS with pericardial window -path from surgery (-) for malignancy -cultures of pericardial fluid have grown MSSA: -ID consult noted--plans to continue rocephin; duration TBD but will depend on blood cultures results which are pending -right thoracentesis performed (02/25/17): -culture are (-) -at time of d/c pt. will be instructed to f/u with Dr. Bailey in 1 week with repeat CXR
[2017-02-27] MEDS: MAGNESIUM CHLORIDE 64MG DELAYED REL TAB PO SCH ×2 (09:04→20:04)
[2017-02-27] MEDS: MAGNESIUM OXIDE 400 MG TAB PO SCH (09:05)
[2017-02-27] MEDS: VITAMIN B COMPLEX TAB PO SCH (09:05)
[2017-02-27] MEDS: ASPIRIN 81 MG ECTAB PO SCH (09:05)
[2017-02-27] MEDS: COLCHICINE 0.6 MG TAB PO SCH (09:05)
[2017-02-27] MEDS: PANTOprazole SOD 40 MG TAB PO SCH (09:05)
[2017-02-27] MEDS: ALLOPURINOL 100 MG TAB PO SCH (09:05)
[2017-02-27] MEDS: AMIODARONE 200 MG TAB PO SCH ×2 (09:05→17:01)
[2017-02-27] MEDS: POTASSIUM CHLORIDE 20 MEQ TABCR PO SCH (09:06)
[2017-02-27] MEDS: METOPROLOL TARTRATE 25 MG TAB PO SCH ×2 (09:09→20:04)
[2017-02-27] MEDS: HEPARIN SOD 5000 UNIT/0.5 ML CARP SQ SCH ×2 (09:11→20:10)
--- NOTE | 2017-02-27 10:22 | Progress Note ---
Subjective Date of Service: Feb 27, 2017. Subjective Pt evaluation today including: conversation w/ patient, physical exam, chart review, lab review pt seen in followup, oob to chair, comfortable. anxious to go home. blood culture pending, csf culture negative, OR culture with MSSA x 1. all fungal and AFB culture negative to date. afebrile. tolerating abx. wbc No cp, no cough, no sob. no n/b/d. ate breakfast without difficulty. Echo with min fluid, small pleural effusion, no tamponade. All remaining ros reviewed and are negative. Problem List Medical Problems: (1) Aphasia Status: Acute Objective Vital Signs Date Time Temp Pulse Resp B/P (MAP) Pulse Ox O2 Delivery O2 Flow Rate FiO2 02/27/17 08:00 Room Air 02/27/17 07:25 36.8 75 18 85/54 (64) 100 Room Air 02/27/17 04:00 Room Air 02/27/17 03:45 36.5 75 18 135/76 (95) 98 Room Air 02/26/17 23:59 Room Air 02/26/17 23:32 36.6 76 18 116/69 (85) 99 Room Air 02/26/17 20:12 36.9 73 18 114/67 (83) 99 Room Air 02/26/17 20:00 95 Room Air 02/26/17 16:00 97 Room Air 02/26/17 15:49 36.5 72 18 114/65 (81) 96 Room Air 02/26/17 12:00 Room Air 02/26/17 10:43 36.7 72 16 98/64 (75) 97 Room Air Physical Exam General Appearance: WD/WN, no apparent distress Eyes: normal inspection, EOMI Neck: supple Respiratory/Chest: lungs clear, normal breath sounds, no respiratory distress Cardiovascular: regular rate, rhythm, no edema Abdomen: soft Extremities: non-tender, normal inspection, no pedal edema Neurologic/Psychiatric: alert, oriented x 3 Skin: normal color, warm/dry, no rash Laboratory Results Item Value Date Time Gram Stain - Final Complete 02/16/17 1510 Pericardial Fluid Last 24 Hours Test 02/26/17 10:48 02/26/17 16:07 02/26/17 20:12 02/27/17 06:35 Bedside Glucose 151 mg/dl 178 mg/dl 116 mg/dl 89 mg/dl Test 02/27/17 07:12 Prothrombin Time 11.0 SECONDS Prothromb Time International Ratio 1.0 Creatinine 1.60 mg/dl Est Creatinine Clear Calc Drug Dose 32.3 ml/min Estimated GFR () 46.1 Estimated GFR (Non- 39.8 Assessment and Plan (1) Purulent pericarditis Assessment & Plan: will continue with rocephin at current dose, awaiting picc line and insurance coverage for home IV abx. will need follow up with ID in 2-3 weeks. will need weekly cbc, cmp, esr while on abx. would give 4 weeks. tentative stop date 03/26. Ok for d/c when abx in place and pt otherwise stable. will plan to follow in office.
[2017-02-27] MEDS ORDERED: VANCOMYCIN INJ 1,000 MG in SODIUM CHLORIDE 0.9% 250ML 250 ML IV SCH (12:00)
--- NOTE | 2017-02-27 13:33 | Cardiology Follow-Up ---
Subjective General Date of Service: Feb 27, 2017. Chief Complaint: follow up chest pain, tachycardia Pt evaluation today including: conversation w/ patient, physical exam History of Present Illness The patient is a 81 year old male seen in follow up. His spouse is at the bedside. Telemetry reveals sinus rhythm with no additional atrial fibrillation. Allergies Coded Allergies: Lisinopril (Verified Allergy, Unknown, ., 02/15/17) Tamsulosin (Unverified Allergy, Unknown, EDEMA FACE,LIPS,TONGUE, 02/15/17) Social History Smoking Status: Never Smoker Hx Tobacco Use In Past Year?: No Hx Alcohol Use - Type And Amou: Yes (2oz of scotch daily) Hx Substance Use - Type And Am: No ( ) Problem List Medical Problems: (1) Aphasia Status: Acute Physical Exam Vital Signs Last Vital Signs Documentation Date Time Temp Pulse Resp B/P (MAP) Pulse Ox O2 Delivery O2 Flow Rate FiO2 02/27/17 12:00 Room Air 02/27/17 11:27 36.9 68 18 106/70 (82) 100 02/26/17 23:59 02/19/17 12:00 97 Physical Exam Constitutional: Level of Distress: NAD Head: normocephalic ENMT: normal ENT inspection, hearing grossly normal Neck: supple Lungs: Auscultation: no wheezing, no rhonchi, pertinent finding (Decreased BS bilatterally at the bases, R worse than Left ) Cardiovascular: Heart Auscultation: RRR, pertinent finding (1/6 systolic murmur) Musculoskeletal: normal Extremities: no edema Neurologic: Gait & Station: pertinent finding (word finding difficulty has resolved..) Assessment and Plan Assessment and Plan Microbiology results of pericardial fluid sample from 02/16/17 have yielded sensitive staph aureus Impression: 81-year-old male 1. Acute pericarditis, in with pericardial effusion/ early tamponade physiology for which patient is status post thoracoscopic pericardial window on .-Pathology in pericardial fluid is negative thus far with the exception of findings consistent with inflammation -Pericardial fluid culture has grown Staphylococcus aureus -had suspected idiopathic inflammatory pericarditis, however, now has staph aureus from intra-operative pericardial fluid sample. 2. Paroxysmal atrial fibrillation, pre op and post op-in SR now on amiodarone infusion, 14 beats of break through 2:29 am 02/23/17 -Patient with two small infarct foci on MRI, perhaps related to AF. 3. ANOOP on CKD, creatine improved, trended up again slightly , but stable. 4. chronic myelomonocytic leukemia, with leukocytosis, thrombocytopenia, increasing WBC count 5. Moderate bilateral pleural effusions noted on CT scan on, likely due to aggressive volume resuscitation perioperatively, with residual mod to large R pleural effusion despite diuretic therapy for which patient underwent large volume thoracentesis on 02/24/17 with favorable results on post procedure CXR and follow up CXR a day post thoracentesis on 02/25/17 6. Presented with expressive aphasia, MRI brain concerning for 2 small infarct foci, and dural thickening. -pt does have h/o traumatic SDH in 2008 when he fell from a ladder , with neurosurgical evacuation necessary at that time. -Meningeal enhancement, per neuro possible infectious process, LP completed, non specific CSF protein elevation, CSF pathology pending Discussion/plan: Continue metoprolol and amiodarone. Continue prednisone taper. Completed 20 mg daily 5 days, completed 15 mg daily 5 days. Prednisone 10 mg daily 5 days (start 02/27) Prednisone 5 mg daily 5 days Prednisone 2.5 mg daily 5 days Prednisone 2.5 mg every other day 3 doses. Pt back on ASA and SQ heparin (DVT prophylax) post lumbar puncture. Limited echo 02/26 trace residual pericardial fluid. Await blood cultures. Clinically , I think the likelihood of underlying endocarditis is low. Plan for IV recephin as per ID. If bacteremia present on blood cultures that will change duration of antibiotics. ID input noted and appreciated. Had initially recommended coumadin for stroke prevention. Given frailty, comorbidities, need for multiple medications ,feel risk of complication with coumadin is high, will therefore proceed with ASA instead for stroke prevention. Will reassess need for coumadin if he develops more AF Nolan Pollard, DO Laboratory Results Last 24 Hours Test 02/26/17 16:07 02/26/17 20:12 02/27/17 06:35 02/27/17 07:12 Bedside Glucose 178 mg/dl 116 mg/dl 89 mg/dl Prothrombin Time 11.0 SECONDS Prothromb Time International Ratio 1.0 Creatinine 1.60 mg/dl Est Creatinine Clear Calc Drug Dose 32.3 ml/min Estimated GFR () 46.1 Estimated GFR (Non- 39.8 Test 02/27/17 11:14 Bedside Glucose 114 mg/dl
--- NOTE | 2017-02-27 15:24 | PROGRESS NOTE ---
DATE: 02/27/2017 DATE: 02/27/2017 I did not see Celestine today but reviewed his laboratory studies. His CSF showed 2 white cells, 10 red cells, and elevated protein with normal glucose. 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 I refer the reader to the actual pathology report. This man is asymptomatic, has no headaches and the only reason we got involved was because he had 2 embolic strokes and is now back on anticoagulation. In the course of the workup, there was uptake of the meninges with the MRI contrast material, but he did have a remote history of subdural hematomas and I thought this was probably just leftover from that. I have discussed the case with Dr. Denis today. She is going to have oncology sign off or at least render an opinion on what to do about this man's "abnormal CSF cytology" but frankly at this point with his pericardial issues and other problems unless he would become symptomatic in his [employer] I would not do anything at all but again oncology is going to have to sign off on this. From a neurologic point of view, we will be happy to see him as needed if there are other issues. CATRINA
[2017-02-27] MEDS: HYDROXYUREA 500 MG CAP PO SCH (17:01)
[2017-02-27] MEDS: CEFTRIAXONE SOD INJ 2,000 MG in DEXTROSE 5% 50ML 50 ML IV SCH (17:07)
[2017-02-27 19:36] LABS: CMV DNA PCR QUANT SOURCE CSF; CMV DNA QN REAL TIME PCR <200 IU/mL (<200); LYME DNA PCR CSF OR SYNOVIAL Not detected (Not Detected); LYME DNA SOURCE CSF
--- NOTE | 2017-02-27 19:54 | Progress Note ---
Internal Med Progress Note Date of Service: Feb 27, 2017. Provider Documentation: SUBJECTIVE: no complain of chest pain or cough no SOB denies of any headache or visual symptoms no fever or chills OBJECTIVE: Vital Signs-as noted below Exam: General-no sign of distress, very pleasant Eyes-sclera non icteric ENT-NAD Neck-no JVD Lungs-diminished Heart-regular S1/s2 Abdomen-soft, non tender Extremities-no lower ext rash,edema or deformity Neuro-no wheeze or rales Lab data as noted below. ASSESSMENT & PLAN: This is an 81 year old male with a PMH of 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, anemia of chronic disease on Procrit, HTN, CKD stage 3, BPH presented with multiple symptoms including dyspnea on exertion, shortness of breath, chest pain, word finding difficulty - subsequently found to have pericardial effusion with tamponade physiology BACTERIAL PERICARDITIS -MSSA INFECTION s/p pericardial window on 02/16/17 by cardiothoracic surgery pericardial fluid culture 02/16/17 -STAPH AUREUS -MSSA ID consulted -appreciate input started on IV Rocephin repeat blood cultures ordered given staph aureus in pericardial fluid. will need PICC line for senior living Abx tx repeat echocardiogram ordered to reassess for pericardial fluid. ECHO 02/26/17 : A focussed study was performed to reassess for pericardial effusion s/p surgical pericardial drainage on 02/16/17. * The LV septal motion is abnormal with a septal bounce concerning for possible contrictive physiology. * The LV wall motion is othwerwise normal. * There is a trace loculated left lateral pericardial effuison. * There are no echocardiographic indications of cardiac tamponade. * Small right pleural effusion. Paroxysmal A. Fib cardiology following on Amiodarone /beta juani Coumadin was on hold -for recent LP will continue to hold given MSSA infection in pericardial fluid Acute CVA will need rehab MRI brain with and without contrast- A subcentimeter focus of restricted diffusion is again seen in the high left parietal white matter. This has significantly decreased in conspicuity from 02/21/2017. No new foci of restricted diffusion are identified. . Again seen is a 2 to 3 mm rim of thickening along the left convexity, unchanged from 02/21/2017. Mild similar appearing thickening is also seen along the posterior right convexity. These demonstrate contrast enhancement and likely represents dural thickening. Trace subdural hemorrhage is considered much less likely. neurology following s/p LP to asses the cause of dural thickening infectious vs leukemia infiltrative process cytology of spinal fluid suggestive of Leukemia infiltration , pt does not have any symptom of headache , visual symptoms will consult Hematology -oncology for opinion given active infection , multiple co -morbidities and significant functional decline -doubt will be candidate for Chemo tx Acute Kidney Injury superimposed on CKD stage 3 kidney function improving monitor with diuretic use nephrology consulted Chronic Myelomonocytic Leukemia follows with Heme Onc Dr Clayton Fox consulted -appreciate input LP done to asses the cause of dural thickening infectious vs leukemia infiltrative process cytology of spinal fluid suggestive of Leukemia infiltration , pt does not have any symptom of headache , visual symptoms will d/w Hematology -oncology for opinion given active infection , multiple co -morbidities and significant functional decline -doubt will be candidate for Chemo tx Anemia of Chronic Disease continue Procrit as scheduled, monitor H/H Transient Aphasia - resolved appreciate neurology input EEG shows no episode of Seizure , Keppra D/lyndsay DVT ppx scd and teds FULL CODE DISPOSITION pt was a resident at [facility] Personal long-term was accepted at [facility] hold transfer to [facility] given acute infective endocarditis Vital Signs: Date Time Temp Pulse Resp B/P (MAP) Pulse Ox O2 Delivery O2 Flow Rate FiO2 02/28/17 16:29 Room Air 02/28/17 15:55 37.0 73 16 125/73 (90) 98 Room Air 02/28/17 12:12 Room Air 02/28/17 10:56 36.8 65 16 91/55 (67) 100 Room Air 02/28/17 08:00 Room Air 02/28/17 06:42 36.8 76 17 109/67 (81) 99 Room Air 02/28/17 04:00 Room Air 02/28/17 03:17 36.6 73 17 130/74 (92) 97 Room Air 02/27/17 23:59 Room Air 02/27/17 23:37 36.4 71 16 129/74 (92) 100 Room Air 02/27/17 20:03 36.8 74 18 112/67 (82) 98 Room Air 02/27/17 20:00 Room Air Lab Results: Results Past 24 Hours Test 02/27/17 19:45 02/28/17 05:26 02/28/17 05:27 02/28/17 06:43 Range/Units Bedside Glucose 203 92 70-99 mg/dl Creatinine 1.40 0.60-1.40 mg/dl Est Creatinine Clear Calc Drug Dose 36.9 ml/min Estimated GFR () 54.2 Estimated GFR (Non- 46.8 Prothrombin Time 11.0 9.0-12.0 SECONDS Prothromb Time International Ratio 1.0 0.9-1.1 Test 02/28/17 16:20 Range/Units Bedside Glucose 144 70-99 mg/dl
[2017-02-28 03:17] VITALS: BP 130/74; PULSE 73; TEMP 36.6; O2SAT 97
[2017-02-28 06:17] LABS: CREATININE 1.4 mg/dl (0.60-1.40)
[2017-02-28 06:42] VITALS: BP 109/67; PULSE 76; TEMP 36.8; O2SAT 99
--- NOTE | 2017-02-28 06:57 | Surgery Progress Note ---
Subjective Date of Service: Feb 28, 2017. Pt. denies fevers, shakes, chills, SOB, CP, or palpitations. Objective Vitals Date Time Temp Pulse Resp B/P (MAP) Pulse Ox O2 Delivery O2 Flow Rate FiO2 02/28/17 06:42 36.8 76 17 109/67 (81) 99 Room Air 02/28/17 04:00 Room Air 02/28/17 03:17 36.6 73 17 130/74 (92) 97 Room Air 02/27/17 23:59 Room Air 02/27/17 23:37 36.4 71 16 129/74 (92) 100 Room Air 02/27/17 20:03 36.8 74 18 112/67 (82) 98 Room Air 02/27/17 20:00 Room Air 02/27/17 16:27 36.9 70 16 112/68 (83) 99 Room Air 02/27/17 16:00 Room Air 02/27/17 12:00 Room Air 02/27/17 11:27 36.9 68 18 106/70 (82) 100 Room Air 02/27/17 08:30 101/69 (80) 02/27/17 08:00 Room Air 02/27/17 07:25 36.8 75 18 85/54 (64) 100 Room Air Physical Exam General: + well developed, + well nourished, No distress CV: + RRR Pulmonary: + lungs clear, + accessory muscle use, + respiratory distress Extremities: No calf tenderness Neurologic: + alert & oriented x 3 Assessment & Plan 81 year old male s/p RVATS with pericardial window -path from surgery (-) for malignancy -cultures of pericardial fluid have grown MSSA: -ID consult noted--plans noted for IV rocephin with duration of 4 weeks; but will depend on -blood cultures results remain pending -right thoracentesis performed (02/25/17): -culture remain (-) to date
[2017-02-28] MEDS: INSULIN ASPART 100 UNITS/ML 3 ML PEN SC SCH ×2 (07:00→11:00)
[2017-02-28] MEDS: POTASSIUM CHLORIDE 20 MEQ TABCR PO SCH (07:41)
[2017-02-28] MEDS: ASPIRIN 81 MG ECTAB PO SCH (07:41)
[2017-02-28] MEDS: VITAMIN B COMPLEX TAB PO SCH (07:41)
[2017-02-28] MEDS: COLCHICINE 0.6 MG TAB PO SCH (07:41)
[2017-02-28] MEDS: AMIODARONE 200 MG TAB PO SCH ×2 (07:41→17:26)
[2017-02-28] MEDS: MAGNESIUM OXIDE 400 MG TAB PO SCH (07:41)
[2017-02-28] MEDS: ALLOPURINOL 100 MG TAB PO SCH (07:41)
[2017-02-28] MEDS: METOPROLOL TARTRATE 25 MG TAB PO SCH ×2 (07:42→19:45)
[2017-02-28] MEDS: MAGNESIUM CHLORIDE 64MG DELAYED REL TAB PO SCH ×2 (07:42→19:45)
[2017-02-28] MEDS: PANTOprazole SOD 40 MG TAB PO SCH (07:42)
[2017-02-28] MEDS: HEPARIN SOD 5000 UNIT/0.5 ML CARP SQ SCH ×2 (07:43→19:47)
[2017-02-28 10:56] VITALS: BP 91/55; PULSE 65; TEMP 36.8; O2SAT 100
[2017-02-28 15:55] VITALS: BP 125/73; PULSE 73; TEMP 37; O2SAT 98
[2017-02-28] MEDS: CEFTRIAXONE SOD INJ 2,000 MG in DEXTROSE 5% 50ML 50 ML IV SCH (17:26)
[2017-02-28] MEDS: HYDROXYUREA 500 MG CAP PO SCH (17:28)
--- NOTE | 2017-02-28 18:36 | Progress Note ---
Internal Med Progress Note Date of Service: Feb 28, 2017. Provider Documentation: SUBJECTIVE: remains stable no new complain of chest pain afebrile agreeable for PICC line OBJECTIVE: Vital Signs-as noted below Exam: General-no sign of distress, very pleasant Eyes-sclera non icteric ENT-NAD Neck-no JVD Lungs-diminished Heart-regular S1/s2 Abdomen-soft, non tender Extremities-no lower ext rash,edema or deformity Neuro-no wheeze or rales Lab data as noted below. ASSESSMENT & PLAN: This is an 81 year old male with a PMH of 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, anemia of chronic disease on Procrit, HTN, CKD stage 3, BPH presented with multiple symptoms including dyspnea on exertion, shortness of breath, chest pain, word finding difficulty - subsequently found to have pericardial effusion with tamponade physiology BACTERIAL PERICARDITIS -MSSA INFECTION s/p pericardial window on 02/16/17 by cardiothoracic surgery pericardial fluid culture 02/16/17 -STAPH AUREUS -MSSA ID consulted -appreciate input started on IV Rocephin repeat blood cultures ordered given staph aureus in pericardial fluid -no growth ordered for PICC line for [facility] Abx tx repeat echocardiogram ordered to reassess for pericardial fluid. ECHO 02/26/17 : A focussed study was performed to reassess for pericardial effusion s/p surgical pericardial drainage on 02/16/17. * The LV septal motion is abnormal with a septal bounce concerning for possible contrictive physiology. * The LV wall motion is othwerwise normal. * There is a trace loculated left lateral pericardial effuison. * There are no echocardiographic indications of cardiac tamponade. * Small right pleural effusion. per cardiology cont Prednisone taper for inflammatory pericarditis : Continue prednisone taper. Prednisone 10 mg daily 5 days (started on 02/27) Prednisone 5 mg daily 5 days Prednisone 2.5 mg daily 5 days Prednisone 2.5 mg every other day 3 doses. Paroxysmal A. Fib cardiology following on Amiodarone /beta juani Coumadin was on hold -for recent LP will continue to hold given MSSA infection in pericardial fluid Acute CVA will need rehab MRI brain with and without contrast- A subcentimeter focus of restricted diffusion is again seen in the high left parietal white matter. This has significantly decreased in conspicuity from 02/21/2017. No new foci of restricted diffusion are identified. . Again seen is a 2 to 3 mm rim of thickening along the left convexity, unchanged from 02/21/2017. Mild similar appearing thickening is also seen along the posterior right convexity. These demonstrate contrast enhancement and likely represents dural thickening. Trace subdural hemorrhage is considered much less likely. neurology following s/p LP to asses the cause of dural thickening infectious vs leukemia infiltrative process cytology of spinal fluid suggestive of Leukemia infiltration , pt does not have any symptom of headache , visual symptoms will consult Hematology -oncology for opinion given active infection , multiple co -morbidities and significant functional decline -doubt will be candidate for Chemo tx Acute Kidney Injury superimposed on CKD stage 3 kidney function improving monitor with diuretic use nephrology consulted Chronic Myelomonocytic Leukemia follows with Heme Onc Dr Clayton Fox consulted -appreciate input LP done to asses the cause of dural thickening infectious vs leukemia infiltrative process cytology of spinal fluid suggestive of Leukemia infiltration , pt does not have any symptom of headache , visual symptoms will d/w Hematology -oncology for opinion given active infection , multiple co -morbidities and significant functional decline -doubt will be candidate for Chemo tx Anemia of Chronic Disease continue Procrit as scheduled, monitor H/H Transient Aphasia - resolved appreciate neurology input EEG shows no episode of Seizure , Keppra D/lyndsay DVT ppx scd and teds FULL CODE DISPOSITION pt was a resident at [facility] Personal intermediate was accepted at [facility] hold transfer to [facility] given acute infective endocarditis Vital Signs: Date Time Temp Pulse Resp B/P (MAP) Pulse Ox O2 Delivery O2 Flow Rate FiO2 03/01/17 08:00 Room Air 2.0 03/01/17 07:01 36.5 84 17 98/64 (75) 98 Room Air 03/01/17 04:00 Room Air 03/01/17 03:24 36.5 74 16 132/78 (96) 96 Room Air 02/28/17 23:59 Room Air 02/28/17 23:34 36.4 72 17 127/75 (92) 99 Room Air 02/28/17 20:04 36.8 74 16 120/73 (89) 99 Room Air 02/28/17 20:00 Room Air 02/28/17 16:29 Room Air 02/28/17 15:55 37.0 73 16 125/73 (90) 98 Room Air 02/28/17 12:12 Room Air 02/28/17 10:56 36.8 65 16 91/55 (44) 100 Room Air Lab Results: Results Past 24 Hours Test 02/28/17 16:20 03/01/17 06:40 Range/Units Bedside Glucose 144 70-99 mg/dl Creatinine 1.50 0.60-1.40 mg/dl Est Creatinine Clear Calc Drug Dose 34.0 ml/min Estimated GFR () 49.9 Estimated GFR (Non- 43.0
[2017-02-28 20:04] VITALS: BP 120/73; PULSE 74; TEMP 36.8; O2SAT 99
[2017-02-28 23:34] VITALS: BP 127/75; PULSE 72; TEMP 36.4; O2SAT 99
[2017-03-01 03:24] VITALS: BP 132/78; PULSE 74; TEMP 36.5; O2SAT 96
[2017-03-01 07:01] VITALS: BP 98/64; PULSE 84; TEMP 36.5; O2SAT 98
[2017-03-01 07:34] LABS: CREATININE 1.5 mg/dl (0.60-1.40)
[2017-03-01] MEDS: AMIODARONE 200 MG TAB PO SCH ×2 (09:19→16:34)
[2017-03-01] MEDS: COLCHICINE 0.6 MG TAB PO SCH (09:20)
[2017-03-01] MEDS: POTASSIUM CHLORIDE 20 MEQ TABCR PO SCH (09:20)
[2017-03-01] MEDS: ASPIRIN 81 MG ECTAB PO SCH (09:20)
[2017-03-01] MEDS: METOPROLOL TARTRATE 25 MG TAB PO SCH ×2 (09:20→21:34)
[2017-03-01] MEDS: MAGNESIUM CHLORIDE 64MG DELAYED REL TAB PO SCH ×2 (09:21→21:34)
[2017-03-01] MEDS: VITAMIN B COMPLEX TAB PO SCH (09:21)
[2017-03-01] MEDS: MAGNESIUM OXIDE 400 MG TAB PO SCH (09:21)
[2017-03-01] MEDS: PANTOprazole SOD 40 MG TAB PO SCH (09:21)
[2017-03-01] MEDS: ALLOPURINOL 100 MG TAB PO SCH (09:22)
[2017-03-01] MEDS: HEPARIN SOD 5000 UNIT/0.5 ML CARP SQ SCH ×2 (09:25→21:37)
--- NOTE | 2017-03-01 10:31 | SURGERY PROGRESS NOTE ---
DATE: 03/01/2017 SUBJECTIVE: Mr. Tobar is seen today. He states that he has developed a bit more of a cough. I am going to recheck an x-ray in the department today. He did grow out a methicillin-sensitive staph aureus from his original pericardial fluid.
[2017-03-01 10:35] VITALS: BP 108/66; PULSE 66; TEMP 36.7; O2SAT 98
[2017-03-01] MEDS ORDERED: VANCOMYCIN TROUGH SCH (11:30)
[2017-03-01 16:13] VITALS: BP 128/72; PULSE 70; TEMP 36.7; O2SAT 98
[2017-03-01] MEDS: CEFTRIAXONE SOD INJ 2,000 MG in DEXTROSE 5% 50ML 50 ML IV SCH (16:33)
[2017-03-01] MEDS: HYDROXYUREA 500 MG CAP PO SCH (16:35)
--- NOTE | 2017-03-01 17:36 | Progress Note ---
Internal Med Progress Note Date of Service: Mar 01, 2017. Provider Documentation: SUBJECTIVE: offers no new complain remains afebrile no complain of SOB or chest discomfort OBJECTIVE: Vital Signs-as noted below Exam: General-no sign of distress, very pleasant Eyes-sclera non icteric ENT-NAD Neck-no JVD Lungs-diminished Heart-regular S1/s2 Abdomen-soft, non tender Extremities-no lower ext rash,edema or deformity Neuro-no wheeze or rales Lab data as noted below. ASSESSMENT & PLAN: This is an 81 year old male with a PMH of 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, anemia of chronic disease on Procrit, HTN, CKD stage 3, BPH presented with multiple symptoms including dyspnea on exertion, shortness of breath, chest pain, word finding difficulty - subsequently found to have pericardial effusion with tamponade physiology BACTERIAL PERICARDITIS -MSSA INFECTION s/p pericardial window on 02/16/17 by cardiothoracic surgery pericardial fluid culture 02/16/17 -STAPH AUREUS -MSSA ID consulted -appreciate input started on IV Rocephin repeat blood cultures ordered given staph aureus in pericardial fluid -no growth ordered for PICC line for [facility] Abx tx repeat echocardiogram ordered to reassess for pericardial fluid. ECHO 02/26/17 : A focussed study was performed to reassess for pericardial effusion s/p surgical pericardial drainage on 02/16/17. * The LV septal motion is abnormal with a septal bounce concerning for possible contrictive physiology. * The LV wall motion is othwerwise normal. * There is a trace loculated left lateral pericardial effuison. * There are no echocardiographic indications of cardiac tamponade. * Small right pleural effusion. per cardiology cont Prednisone taper for inflammatory pericarditis : Continue prednisone taper. Prednisone 10 mg daily 5 days (started on 02/27) Prednisone 5 mg daily 5 days Prednisone 2.5 mg daily 5 days Prednisone 2.5 mg every other day 3 doses. Paroxysmal A. Fib cardiology following on Amiodarone /beta juani Coumadin was on hold -for recent LP will continue to hold given MSSA infection in pericardial fluid Acute CVA will need rehab MRI brain with and without contrast- A subcentimeter focus of restricted diffusion is again seen in the high left parietal white matter. This has significantly decreased in conspicuity from 02/21/2017. No new foci of restricted diffusion are identified. . Again seen is a 2 to 3 mm rim of thickening along the left convexity, unchanged from 02/21/2017. Mild similar appearing thickening is also seen along the posterior right convexity. These demonstrate contrast enhancement and likely represents dural thickening. Trace subdural hemorrhage is considered much less likely. neurology following s/p LP to asses the cause of dural thickening infectious vs leukemia infiltrative process cytology of spinal fluid suggestive of Leukemia infiltration , pt does not have any symptom of headache , visual symptoms will consult Hematology -oncology for opinion given active infection , multiple co -morbidities and significant functional decline -doubt will be candidate for Chemo tx Acute Kidney Injury superimposed on CKD stage 3 kidney function improving monitor with diuretic use nephrology consulted Chronic Myelomonocytic Leukemia follows with Heme Onc Dr Clayton Fox consulted -appreciate input LP done to asses the cause of dural thickening infectious vs leukemia infiltrative process cytology of spinal fluid suggestive of Leukemia infiltration , pt does not have any symptom of headache , visual symptoms will d/w Hematology -oncology for opinion given active infection , multiple co -morbidities and significant functional decline -doubt will be candidate for Chemo tx Anemia of Chronic Disease continue Procrit as scheduled, monitor H/H Transient Aphasia - resolved appreciate neurology input EEG shows no episode of Seizure , Keppra D/lyndsay DVT ppx scd and teds FULL CODE DISPOSITION pt was a resident at [facility] Personal intermediate was accepted at [facility] hold transfer to [facility] given acute infective endocarditis Vital Signs: Date Time Temp Pulse Resp B/P (MAP) Pulse Ox O2 Delivery O2 Flow Rate FiO2 03/01/17 19:57 37.2 73 16 100/61 (74) 98 Room Air 03/01/17 16:13 36.7 70 18 128/72 (90) 98 Room Air 03/01/17 16:00 Room Air 03/01/17 12:00 Room Air 03/01/17 10:35 36.7 66 19 108/66 (80) 98 Room Air 03/01/17 08:00 Room Air 03/01/17 07:01 36.5 84 17 98/64 (75) 98 Room Air 03/01/17 04:00 Room Air 03/01/17 03:24 36.5 74 16 132/78 (96) 96 Room Air 02/28/17 23:59 Room Air 02/28/17 23:34 36.4 72 17 127/75 (92) 99 Room Air Lab Results: Results Past 24 Hours Test 03/01/17 06:40 Range/Units Creatinine 1.50 0.60-1.40 mg/dl Est Creatinine Clear Calc Drug Dose 34.0 ml/min Estimated GFR () 49.9 Estimated GFR (Non- 43.0
[2017-03-01 19:57] VITALS: BP 100/61; PULSE 73; TEMP 37.2; O2SAT 98
[2017-03-01 23:58] VITALS: BP 123/73; PULSE 81; TEMP 36.6; O2SAT 100
[2017-03-02] VITALS (8 sets, daily range): BP systolic 62–125; BP diastolic 53–73; PULSE 65–82; TEMP 36.6–37; O2SAT 95–99
--- NOTE | 2017-03-02 07:51 | DIAGNOSTIC IMAGING REPORT ---
CHEST 2 VIEWS ROUTINE CLINICAL HISTORY: 81 years-old Male presenting with PERICARDIAL WINDOW. TECHNIQUE: PA and lateral views of the chest were obtained. COMPARISON: 02/25/2017. FINDINGS: Cardiomediastinal silhouette normal. Persistent small right and trace left pleural effusions with minimal dependent bibasilar opacities. No pneumothorax. Degenerative changes of the glenohumeral joints, right greater than left. Upper abdomen normal. IMPRESSION: 1. Stable small right and trace left pleural effusions with minimal bibasilar atelectasis. Electronically signed by: Lc oVgt M.D. 03/02/2017 7:49 AM Dictated Date/Time: 03/02/2017 7:48 AM
[2017-03-02] MEDS: ASPIRIN 81 MG ECTAB PO SCH (08:09)
[2017-03-02] MEDS: PANTOprazole SOD 40 MG TAB PO SCH (08:09)
[2017-03-02] MEDS: ALLOPURINOL 100 MG TAB PO SCH (08:09)
[2017-03-02] MEDS: METOPROLOL TARTRATE 25 MG TAB PO SCH ×2 (08:09→20:47)
[2017-03-02] MEDS: POTASSIUM CHLORIDE 20 MEQ TABCR PO SCH (08:09)
[2017-03-02] MEDS: MAGNESIUM CHLORIDE 64MG DELAYED REL TAB PO SCH ×2 (08:09→20:47)
[2017-03-02] MEDS: MAGNESIUM OXIDE 400 MG TAB PO SCH (08:10)
[2017-03-02] MEDS: AMIODARONE 200 MG TAB PO SCH ×2 (08:10→16:38)
[2017-03-02] MEDS: COLCHICINE 0.6 MG TAB PO SCH (08:10)
[2017-03-02] MEDS: VITAMIN B COMPLEX TAB PO SCH (08:10)
[2017-03-02] MEDS: HEPARIN SOD 5000 UNIT/0.5 ML CARP SQ SCH ×2 (08:13→20:56)
--- NOTE | 2017-03-02 09:39 | SURGERY PROGRESS NOTE ---
DATE: 03/02/2017 Mr. Tobar looks very good today. He is eating well. There are a few issues with Mr. Tobar. His saturation on room air runs from 95-100%, although he states that he is having some "coughing". He has made good urine. I was surprised in looking back that he grew out this methicillin-sensitive Staph aureus from his pericardial fluid. His x-ray today is not very impressive from a fluid standpoint, although he has reaccumulated a bit on the right side. At this point, I think I would continue to watch him and if he has any more fluid accumulated in the right, we could put a PleurX catheter in.
--- NOTE | 2017-03-02 10:30 | CARDIOLOGY PROGRESS NOTE ---
DATE: 03/02/2017 The patient seen and examined. Chart, medications, telemetry reviewed. SUBJECTIVE: The patient notes no complaints, no fevers, no chills. Notes no sense of tachypalpitations. Does know blood pressure fluctuates, but notes no dizziness or lightheadedness when ambulatory in the hallway. OBJECTIVE: VITAL SIGNS: Telemetry reveals no atrial fibrillation. Heart rate is 80, blood pressures this morning was 91/53, though generally has been in the 110-120 systolic. HEENT: Normocephalic, atraumatic. NECK: There is no jugular venous distention. LUNGS: Revealed minimally diminished breath sounds at the right base, but otherwise are clear. CARDIOVASCULAR: Regular. There is no rub. Surgical incisions are healing. ABDOMEN: Soft. EXTREMITIES: Without cyanosis or clubbing. There is no peripheral edema. IMPRESSION: An 81-year-old male with issues as noted: 1. Acute pericarditis with pericardial effusion. 2. 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 3. Paroxysmal atrial fibrillation perioperatively, currently on metoprolol and amiodarone. RECOMMENDATIONS: Discussed anticoagulation as per Dr. Pollard. We will avoid anticoagulation at this time. The patient has been controlled in sinus rhythm. We will anticipate continue current dosing of amiodarone and metoprolol, though we will likely reduce amiodarone dosing in the next day's time having the patient had made sufficient load and now with without recurrence of atrial arrhythmias. We will follow patient in the hospital in case that he anticipates long-term antibiotic therapy for Staph aureus culture of pericardial fluid.
[2017-03-02] MEDS: CEFTRIAXONE SOD INJ 2,000 MG in DEXTROSE 5% 50ML 50 ML IV SCH (16:38)
[2017-03-02] MEDS: HYDROXYUREA 500 MG CAP PO SCH (16:39)
--- NOTE | 2017-03-02 22:45 | Progress Note ---
Internal Med Progress Note Date of Service: Mar 02, 2017. Provider Documentation: SUBJECTIVE: very pleasant , no new complain afebrile no complain of SOB or chest discomfort vitals remains stable unable to have a PICC line placed by IV team as pt found not a have suitable large vein in arm ICU team consulted for JACC line placement OBJECTIVE: Vital Signs-as noted below Exam: General-no sign of distress, very pleasant Eyes-sclera non icteric ENT-NAD Neck-no JVD Lungs-diminished Heart-regular S1/s2 Abdomen-soft, non tender Extremities-no lower ext rash,edema or deformity ; has a large area of ecchymosis on left flank area, non tender , no skin breakdown Neuro-no wheeze or rales Lab data as noted below. ASSESSMENT & PLAN: This is an 81 year old male with a PMH of chronic myelomonocytic leukemia o HTN , CKD stage 3, BPH presented with multiple symptoms including dyspnea on exertion, shortness of breath, chest pain, word finding difficulty - subsequently found to have pericardial effusion with tamponade physiology underwent pericardial window on 02/16/17 -pericardial fluid culture + ve Staph aureus MSSA BACTERIAL PERICARDITIS -MSSA INFECTION s/p pericardial window on 02/16/17 by cardiothoracic surgery pericardial fluid culture 02/16/17 -STAPH AUREUS -MSSA ID consulted -appreciate input started on IV Rocephin -2 gm daily -will need manager intermediate Abx ( 4-6 weeks ) and out pt follow up with infectious disease blood cultures ordered given staph aureus in pericardial fluid on 02/26/17 - no growth repeat echocardiogram ordered to reassess for pericardial fluid. ECHO 02/26/17 : A focussed study was performed to reassess for pericardial effusion s/p surgical pericardial drainage on 02/16/17. * The LV septal motion is abnormal with a septal bounce concerning for possible contrictive physiology. * The LV wall motion is otherwise normal. * There is a trace loculated left lateral pericardial effusion. * There are no echocardiographic indications of cardiac tamponade. * Small right pleural effusion. per cardiology cont Prednisone taper for inflammatory pericarditis : Continue prednisone taper. Prednisone 10 mg daily 5 days (started on 02/27) Prednisone 5 mg daily 5 days Prednisone 2.5 mg daily 5 days Prednisone 2.5 mg every other day 3 doses. 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 This has significantly decreased in conspicuity from 02/21/2017. No new foci of restricted diffusion are identified. . Again seen is a 2 to 3 mm rim of thickening along the left convexity, unchanged from 02/21/2017. Mild similar appearing thickening is also seen along the posterior right convexity. These demonstrate contrast enhancement and likely represents dural thickening. Trace subdural hemorrhage is considered much less likely. neurology following s/p LP to asses the cause of dural thickening infectious vs leukemia infiltrative process cytology of spinal fluid suggestive of Leukemia infiltration , pt does not have any symptom of headache , visual symptoms pt follows with Heme onc Dr Fox pt is cont with Hydrea given active infection , multiple co -morbidities and significant functional decline -doubt will be candidate for Chemo tx pt will need out pt follow up with Dr Fox once acute pericardial infection is treated Acute Kidney Injury superimposed on CKD stage 3 kidney function improved to baseline monitor with diuretic use nephrology consulted Chronic Myelomonocytic Leukemia follows with Heme Onc Dr Clayton Fox consulted -appreciate input LP done to asses the cause of dural thickening infectious vs leukemia infiltrative process cytology of spinal fluid suggestive of Leukemia infiltration , pt does not have any symptom of headache , visual symptoms d/w Hematology -oncology recommend to cont Hydrea pt will need out pt follow up with Dr Fox once acute pericardial infection is treated given active infection , multiple co -morbidities and significant functional decline -doubt will be candidate for Chemo tx Anemia of Chronic Disease continue Procrit as scheduled, monitor H/H Transient Aphasia - resolved appreciate neurology input EEG shows no episode of Seizure , Keppra D/lyndsay DVT ppx sub q heparin FULL CODE DISPOSITION pt was a resident at [facility] accepted at [facility] pt will have JACC line placed tomorrow plan to discharge pt to [facility] for SNF after IV access correction IV Rocephin tx is established social service following for discharge planning Vital Signs: Date Time Temp Pulse Resp B/P (MAP) Pulse Ox O2 Delivery O2 Flow Rate FiO2 03/03/17 04:00 Room Air 03/03/17 03:28 36.5 80 19 116/65 (82) 97 Room Air 03/03/17 00:00 Room Air 03/02/17 23:42 36.6 70 15 125/73 (90) 98 Room Air 03/02/17 20:00 Room Air 03/02/17 19:51 36.9 74 18 116/69 (85) 99 Room Air 03/02/17 16:00 97 Room Air 97 03/02/17 15:41 37.0 73 16 114/68 (83) 97 Room Air 03/02/17 15:32 36.8 74 18 111/65 (80) 97 Room Air 03/02/17 12:24 36.9 65 11 62/ (20) 99 Room Air 03/02/17 12:00 Room Air 03/02/17 08:00 Room Air 03/02/17 07:12 36.8 82 20 91/53 (66) 97 Room Air
[2017-03-03 03:28] VITALS: BP 116/65; PULSE 80; TEMP 36.5; O2SAT 97
[2017-03-03 06:46] VITALS: BP 101/66; PULSE 86; TEMP 36.6; O2SAT 100
[2017-03-03] MEDS: AMIODARONE 200 MG TAB PO SCH ×2 (08:34→16:37)
[2017-03-03] MEDS: VITAMIN B COMPLEX TAB PO SCH (08:34)
[2017-03-03] MEDS: HEPARIN SOD 5000 UNIT/0.5 ML CARP SQ SCH ×2 (08:34→21:04)
[2017-03-03] MEDS: POTASSIUM CHLORIDE 20 MEQ TABCR PO SCH (08:34)
[2017-03-03] MEDS: PANTOprazole SOD 40 MG TAB PO SCH (08:35)
[2017-03-03] MEDS: ASPIRIN 81 MG ECTAB PO SCH (08:35)
[2017-03-03] MEDS: ALLOPURINOL 100 MG TAB PO SCH (08:35)
[2017-03-03] MEDS: MAGNESIUM CHLORIDE 64MG DELAYED REL TAB PO SCH ×2 (08:35→21:05)
[2017-03-03] MEDS: COLCHICINE 0.6 MG TAB PO SCH (08:35)
[2017-03-03] MEDS: METOPROLOL TARTRATE 25 MG TAB PO SCH ×2 (08:35→21:05)
[2017-03-03] MEDS: MAGNESIUM OXIDE 400 MG TAB PO SCH (09:14)
--- NOTE | 2017-03-03 09:39 | SURGERY PROGRESS NOTE ---
DATE: 03/03/2017 Mr. Tobar was seen today on 03/03/2017. Mr. Tobar looks great. He is apparently to be discharged after an IV line is placed. He is on room air with 100% saturation, states his breathing is "fine." He does have a small pleural effusion on the right. At this point, I think I would continue to observe him. He needs to be sent to an extended care facility today or tomorrow. I will see him back in about a week in the office with a chest x-ray. Should he reaccumulate fluid on the right, I would consider placing a PleurX catheter.
--- NOTE | 2017-03-03 10:34 | CARDIOLOGY PROGRESS NOTE ---
DATE: 03/03/2017 The patient seen and examined. Chart, medications, laboratory studies reviewed. SUBJECTIVE: The patient notes no complaints today. Notes no fevers or chills. Notes no chest pains. Notes no palpitations. OBJECTIVE: VITAL SIGNS: Heart rate is 86. Blood pressure is 101/66. NECK: Thin. There is no jugular venous distention. There are no carotid bruits. LUNGS: Clear to auscultation. CARDIOVASCULAR: Regular. There is no S3 gallop. ABDOMEN: Soft. EXTREMITIES: Without edema. Telemetry reveals sinus rhythm with no breakthrough arrhythmias, no recent laboratory studies. IMPRESSION: An 81-year-old male with hospitalization with acute pericarditis with pericardial effusion and pending tamponade status post surgical window, postoperative paroxysmal atrial fibrillation. PLAN: Continue amiodarone on b.i.d. dosing given rate and heart rate control at least for another 1-2 weeks post-hospital discharge. All the medications will be continued. We will check electrolytes and CBC today. Anticipates central line placement to allow ongoing treatment with probable purulent pericarditis with anticipated 4-week course of antibiotic therapy. [facility]
[2017-03-03 11:33] VITALS: BP 119/72; PULSE 78; TEMP 37; O2SAT 98
--- NOTE | 2017-03-03 11:33 | Procedure Note ---
Procedure Note Procedure Date Mar 03, 2017. (Minh Underwood PA-C) Central Line Procedure time out: side/site verified, patient ID confirmed, sterile procedure used Consent obtained: written Time of procedure: 10:30 Performed by: attending, physician fuel island attendant Indications: poor venous access, central drug admin., long-term access Prep: chlorhexadine prep, sterile drape, sterile procedures used Anesthesia: lidocaine 1% without epi Volume anesthetic (ml's): 5 Central line lumen: single Central line location: subclavian (R) Additional details: percutaneous placement, ultrasound guidance, Selinger technique used, line not sutured, good blood return CXR: other (pending) Complications: none Patient tolerated procedure: well Post-procedure vital signs: reviewed and stable Comments: Initial attempt at cannulation of the vessel was not achieved by myself. At this point, the procedure was taken over by my attending physician. Point of Care Bedside Ultrasound Procedure: Procedural Ultrasound Procedure Date: 03/03/2017 Indication: Fur Blender Antibiotic Course - Poor venous access Attending: Kaylin Zamora DO Resident/Physician Armored Service Technician: Minh Underwood PA-C Artery AND Vein visualized: YES - Subclavian Compressible Vein: YES Guidewire or Short Catheter seen in vein prior to dilation: YES Line confirmed in Vein with ultrasound: YES Lung Sliding on side of attempt (if applicable): NONE If no lung sliding or not obtained has CXR been ordered: YES Images obtained are saved for permanent record (Minh Underwood PA-C) Procedure time out: side/site verified Consent obtained: written Time of procedure: 11:00 Performed by: attending Indications: poor venous access Prep: chlorhexadine prep, sterile drape, sterile procedures used Anesthesia: topical, lidocaine 1% without epi Volume anesthetic (ml's): 5 Central line lumen: single Central line location: subclavian (R) Additional details: ultrasound guidance, Selinger technique used, line not sutured (commercial securement device), good blood return CXR: appropriate position, no pneumothorax Complications: none Patient tolerated procedure: well Post-procedure vital signs: reviewed and stable Comments: Critical Care Medicine Point of Care Bedside Ultrasound Procedure: Procedural Ultrasound Procedure Date: 03/03/17 Indication: long-term antibiotic administration Attending: Kaylin Zamora DO Artery AND Vein visualized: y Compressible Vein: y Guidewire or Short Catheter seen in vein prior to dilation: y Line confirmed in Vein with ultrasound: y Lung Sliding on side of attempt (if applicable): y If no lung sliding or not obtained has CXR been ordered: reviewed chest x-ray for position. Impression: Successful right subclavian central venous catheter. Plan: Okay for ABX administration Images obtained are saved for permanent record (Eladio Zamora, D.O.)
--- NOTE | 2017-03-03 11:51 | DIAGNOSTIC IMAGING REPORT ---
CHEST ONE VIEW PORTABLE CLINICAL HISTORY: cyl dyspnea COMPARISON STUDY: 03/02/2017 FINDINGS: PICC catheter place a right-sided approach. Tip of the catheter is in the superior superior vena cava. No evidence pneumothorax. Slightly progressive pleural reactive change right base. IMPRESSION: Central catheter placed in the superior vena cava. No evidence pneumothorax. Small right effusion/ bibasilar atelectatic changes similar to minimally progressive. The above report was generated using voice recognition software. It may contain grammatical, syntax or spelling errors. Electronically signed by: Miles Barber M.D. 03/03/2017 11:50 AM Dictated Date/Time: 03/03/2017 11:49 AM
[2017-03-03] MEDS ORDERED: XYLOCAINE 1%/SOD BICARB 20 ML VIAL INFIL ONE (12:00)
[2017-03-03 12:59] LABS: BUN/CREATININE RATIO 22.2 (10-20); CALCIUM 7.4 mg/dl (8.5-10.1); CREATININE 1.8 mg/dl (0.60-1.40); POTASSIUM 4.2 mmol/L (3.5-5.1)
[2017-03-03 13:04] LABS: HEMATOCRIT 23.6 % (42-52); MEAN CELL VOLUME 95.2 fL (80-100); MEAN CORPUSCULAR HEMOGLOBIN 33.1 pg (25-34); MEAN CORPUSCULAR HGB CONC 34.7 g/dl (32-36); PLATELET COUNT 47 K/uL (130-400); RED BLOOD COUNT 2.48 M/uL (4.7-6.1); WHITE BLOOD COUNT 49.34 K/uL (4.8-10.8)
[2017-03-03 14:17] LABS: ANISOCYTOSIS PRESENT; BASO ABS # 0.44 K/uL (0-0.2); BASOPHIL % 0.9 % (0-2); COMPLETE YES; EOSINOPHIL % 0.9 %; HYPERSEGMENTED POLYS 1+; HYPOCHROMIA PRESENT; LYMPH ABS # 0.89 K/uL (1.2-3.4); LYMPHOCYTE % 1.8 %; MYELOCYTE % 0.9 %; NEUTROPHILS % 55.1 %
[2017-03-03] MEDS ORDERED: SLWMEC PO (15:40)
[2017-03-03] MEDS ORDERED: PRT40 PO (15:40)
[2017-03-03] MEDS ORDERED: MCRK20 PO (15:40)
--- NOTE | 2017-03-03 15:40 | Discharge Instructions ---
Discharge Instructions Date of Service Mar 03, 2017. Admission Reason for Admission: Aphasia, Chronic Leukemia Discharge Discharge Diagnosis / Problem: BACTERIAL PERICARDITIS /CHRONIC MYELOMONOCYTIC LEUKEMIA /ANOOP ON CKD STAGE 3 Discharge Goals Goal(s): Decrease discomfort, Improve function, Improve disease control, Diagnostic testing, Therapeutic intervention Activity Recommendations Activity Level: Assistance Required Therapies: Physical Therapy, Occupational Therapy . Additional Information Patient informed of condition: Yes Advance Directives: No DNR: No Level of Care: Skilled Communicable Disease: No Prognosis: Stable Noble Catheter: No Instructions / Follow-Up Instructions / Follow-Up LAB WORK : COMPLETE BLOOD COUNT , BASIC METABOLIC PANEL SCHEDULED : 03/06/2017 1:00 PM Lab [facility] FOLLOW UP : 03/10/2017 11:10 AM Kwasi Denney DO Family Practice [facility] CARDIOLOGY FOLLOW UP : 03/11/2017 9:45 AM Adrian Pollard DO Cardiology, [facility] PLEASE CALL HEME ONC /DR NUÑEZ OFFICE TO SCHEDULE DOSE FOR PROCRIT FOLLOW UP WITH INFECTIOUS DISEASE DR GAITAN IN 2-3 WEEKS Current Hospital Diet Patient's current hospital diet: Regular Diet Discharge Diet Recommended Diet: AHA Diet (Heart Healthy) Procedures Procedures Performed: Right thorascopic pericardial window Pending Studies Studies pending at discharge: yes List of pending studies: COMPLETE BLOOD COUNT , BASIC METABOLIC PANEL ON 03/06/17 Medical Emergencies . Who to Call and When: Medical Emergencies: If at any time you feel your situation is an emergency, please call 911 immediately. . Non-Emergent Contact Non-Emergency issues call your: Primary Care Provider . . "Provider Documentation" section prepared by Nena Denis. . Core Measure Problem Core Measures: None
[2017-03-03] MEDS: CEFTRIAXONE SOD INJ 2,000 MG in DEXTROSE 5% 50ML 50 ML IV SCH (16:37)
[2017-03-03] MEDS: HYDROXYUREA 500 MG CAP PO SCH (16:38)
--- NOTE | 2017-03-03 17:09 | Progress Note ---
Internal Med Progress Note Date of Service: Mar 03, 2017. Provider Documentation: SUBJECTIVE: midline placed via subclavian approach pt sitting on chair, offers no complain , no fever or chills no SOB family -daughters present at bedside -updated OBJECTIVE: Vital Signs-as noted below Exam: General-no sign of distress, very pleasant Eyes-sclera non icteric ENT-NAD Neck-no JVD Lungs-diminished Heart-regular S1/s2 Abdomen-soft, non tender Extremities-no lower ext rash,edema or deformity ; has a large area of ecchymosis on left flank area, non tender , no skin breakdown Neuro-no wheeze or rales Lab data as noted below. ASSESSMENT & PLAN: This is an 81 year old male with a PMH of chronic myelomonocytic leukemia o HTN , CKD stage 3, BPH presented with multiple symptoms including dyspnea on exertion, shortness of breath, chest pain, word finding difficulty - subsequently found to have pericardial effusion with tamponade physiology underwent pericardial window on 02/16/17 -pericardial fluid culture + ve Staph aureus MSSA BACTERIAL PERICARDITIS -MSSA INFECTION s/p pericardial window on 02/16/17 by cardiothoracic surgery pericardial fluid culture 02/16/17 -STAPH AUREUS -MSSA ID consulted -appreciate input started on IV Rocephin -2 gm daily -will need halfway Abx ( 4-6 weeks ) and out pt follow up with infectious disease blood cultures ordered given staph aureus in pericardial fluid on 02/26/17 - no growth repeat echocardiogram ordered to reassess for pericardial fluid. ECHO 02/26/17 : A focussed study was performed to reassess for pericardial effusion s/p surgical pericardial drainage on 02/16/17. * The LV septal motion is abnormal with a septal bounce concerning for possible contrictive physiology. * The LV wall motion is otherwise normal. * There is a trace loculated left lateral pericardial effusion. * There are no echocardiographic indications of cardiac tamponade. * Small right pleural effusion. per cardiology cont Prednisone taper for inflammatory pericarditis : Continue prednisone taper. Prednisone 10 mg daily 5 days (started on 02/27) Prednisone 5 mg daily 5 days Prednisone 2.5 mg daily 5 days Prednisone 2.5 mg every other day 3 doses. has midline placed via subclavian approach by ICU team today will need 4 weeks of IV Abx with Rocephin stable to be transferred to SNF tomorrow Paroxysmal A. 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 This has significantly decreased in conspicuity from 02/21/2017. No new foci of restricted diffusion are identified. . Again seen is a 2 to 3 mm rim of thickening along the left convexity, unchanged from 02/21/2017. Mild similar appearing thickening is also seen along the posterior right convexity. These demonstrate contrast enhancement and likely represents dural thickening. Trace subdural hemorrhage is considered much less likely. neurology following s/p LP to asses the cause of dural thickening infectious vs leukemia infiltrative process cytology of spinal fluid suggestive of Leukemia infiltration , pt does not have any symptom of headache , visual symptoms pt follows with Heme onc Dr Fox pt is cont with Hydrea given active infection , multiple co -morbidities and significant functional decline -doubt will be candidate for Chemo tx pt will need out pt follow up with Dr Fox once acute pericardial infection is treated Acute Kidney Injury superimposed on CKD stage 3 kidney function improved to baseline monitor with diuretic use nephrology following Chronic Myelomonocytic Leukemia follows with Heme Onc Dr Clayton Fox consulted -appreciate input LP done to asses the cause of dural thickening infectious vs leukemia infiltrative process cytology of spinal fluid suggestive of Leukemia infiltration , pt does not have any symptom of headache , visual symptoms d/w Hematology -oncology recommend to cont Hydrea pt will need out pt follow up with Dr Fox once acute pericardial infection is treated given active infection , multiple co -morbidities and significant functional decline -doubt will be candidate for Chemo tx Anemia of Chronic Disease continue Procrit as scheduled, monitor H/H Transient Aphasia - resolved appreciate neurology input EEG shows no episode of Seizure , Keppra D/lyndsay DVT ppx sub q heparin FULL CODE DISPOSITION pt was a resident at [facility] Personal snf accepted at SNF [facility] has Midline placement today plan to discharge pt to [facility] for SNF tomorrow family updated at bedside social service following for discharge planning Vital Signs: Date Time Temp Pulse Resp B/P (MAP) Pulse Ox O2 Delivery O2 Flow Rate FiO2 03/03/17 16:07 Room Air 03/03/17 12:00 Room Air 03/03/17 11:33 37.0 78 19 119/72 (88) 98 Room Air 03/03/17 08:00 Room Air 03/03/17 06:46 36.6 86 17 101/66 (78) 100 Room Air 03/03/17 04:00 Room Air 03/03/17 03:28 36.5 80 19 116/65 (82) 97 Room Air 03/03/17 00:00 Room Air 03/02/17 23:42 36.6 70 15 125/73 (90) 98 Room Air 03/02/17 20:00 Room Air 03/02/17 19:51 36.9 74 18 116/69 (85) 99 Room Air Lab Results: Results Past 24 Hours Test 03/03/17 12:26 Range/Units White Blood Count 49.34 4.8-10.8 K/uL Red Blood Count 2.48 4.7-6.1 M/uL Hemoglobin 8.2 14.0-18.0 g/dL Hematocrit 23.6 42-52 % Mean Corpuscular Volume 95.2 80-100 fL Mean Corpuscular Hemoglobin 33.1 25-34 pg Mean Corpuscular Hemoglobin Concent 34.7 32-36 g/dl Platelet Count 47 130-400 K/uL RDW Standard Deviation 66.3 36.4-46.3 fL RDW Coefficient of Variation 19.2 11.5-14.5 % Neutrophils % (Manual) 55.1 % Lymphocytes % (Manual) 1.8 % Monocytes % (Manual) 40.4 % Eosinophils % (Manual) 0.9 % Basophils % (Manual) 0.9 0-2 % Myelocytes % 0.9 % Neutrophils # (Manual) 27.19 1.4-6.5 K/uL Total Absolute Neutrophils 27.19 1.4-6.5 K/uL Lymphocytes # (Manual) 0.89 1.2-3.4 K/uL Total Absolute Lymphocytes 0.89 1.2-3.4 K/uL Monocytes # (Manual) 19.93 0.11-0.59 K/uL Eosinophils # (Manual) 0.44 0-0.5 K/uL Basophils # (Manual) 0.44 0-0.2 K/uL Myelocytes # 0.44 0-0 K/uL Hypersegmented Polys 1+ Hypochromasia PRESENT Anisocytosis PRESENT Sodium Level 133 136-145 mmol/L Potassium Level 4.2 3.5-5.1 mmol/L Chloride Level 103 98-107 mmol/L Carbon Dioxide Level 20 21-32 mmol/L Anion Gap 10.0 3-11 mmol/L Blood Urea Nitrogen 40 7-18 mg/dl Creatinine 1.80 0.60-1.40 mg/dl Est Creatinine Clear Calc Drug Dose 27.7 ml/min Estimated GFR () 40.0 Estimated GFR (Non- 34.5 BUN/Creatinine Ratio 22.2 10-20 Random Glucose 137 70-99 mg/dl Calcium Level 7.4 8.5-10.1 mg/dl
[2017-03-03 19:36] VITALS: BP 106/65; PULSE 76; TEMP 36.5; O2SAT 100
[2017-03-03 20:00] VITALS: O2SAT 100
[2017-03-03 23:53] VITALS: BP 125/75; PULSE 79; TEMP 36.5; O2SAT 100
[2017-03-04 03:33] VITALS: BP 115/70; PULSE 75; TEMP 36.6; O2SAT 98
[2017-03-04 07:59] VITALS: BP 99/64; PULSE 79; TEMP 36.5; O2SAT 99
[2017-03-04] MEDS: ASPIRIN 81 MG ECTAB PO SCH (08:04)
[2017-03-04] MEDS: PANTOprazole SOD 40 MG TAB PO SCH (08:05)
[2017-03-04] MEDS: METOPROLOL TARTRATE 25 MG TAB PO SCH (08:05)
[2017-03-04] MEDS: ALLOPURINOL 100 MG TAB PO SCH (08:06)
[2017-03-04] MEDS: VITAMIN B COMPLEX TAB PO SCH (08:06)
[2017-03-04] MEDS: AMIODARONE 200 MG TAB PO SCH (08:06)
[2017-03-04] MEDS: COLCHICINE 0.6 MG TAB PO SCH (08:06)
[2017-03-04] MEDS: MAGNESIUM OXIDE 400 MG TAB PO SCH (08:06)
[2017-03-04] MEDS: MAGNESIUM CHLORIDE 64MG DELAYED REL TAB PO SCH (08:07)
[2017-03-04] MEDS: POTASSIUM CHLORIDE 20 MEQ TABCR PO SCH (08:07)
[2017-03-04] MEDS: HEPARIN SOD 5000 UNIT/0.5 ML CARP SQ SCH (08:08)
[2017-03-04 08:15] VITALS: BP 100/61; PULSE 88
[2017-03-04] MEDS ORDERED: CEFT1INJ57 IV ×2 (09:45→10:04)
[2017-03-04] MEDS ORDERED: PRED10TA PO (09:48)
[2017-03-04] MEDS ORDERED: CLC6 PO (11:22)
--- NOTE | 2017-03-04 11:24 | Progress Note ---
Internal Med Progress Note Date of Service: Mar 04, 2017. Provider Documentation: SUBJECTIVE: Seen and examined at bedside States feeling well Offers no complaints Denies cp/sob Planned to be discharged today OBJECTIVE: Vital Signs-as noted below Physical Exam: General Appearance:chronically ill appearing, no apparent distress Head: normocephalic, Atraumatic Eyes: normal inspection, EOMI, PERRL Neck: supple, Trachea midline Respiratory/Chest: Decreased breath sounds, CTA Cardiovascular: S1, S2, No murmur Abdomen/GI:Soft, Non tender, Bowel sounds present Extremities/Musculoskelatal:normal inspection, no edema Neurologic/Psych: grossly no focal neurological deficits Skin: normal color, warm Lab data as noted below ASSESSMENT & PLAN: Patient is an 81 yr old male with PMH of CML, HTN, CKD III, BPH presented with multiple symptoms including dyspnea on exertion, shortness of breath, chest pain , word finding difficulty - subsequently found to have pericardial effusion with tamponade physiology underwent pericardial window on 02/16/17 -pericardial fluid culture + ve Staph aureus MSSA BACTERIAL PERICARDITIS -MSSA INFECTION s/p pericardial window on 02/16/17 by cardiothoracic surgery pericardial fluid culture 02/16/17 -STAPH AUREUS -MSSA Appreciate ID input continue IV Rocephin -2 gm daily -will need detention Abx ( 4-6 weeks ) Needs follow up with infectious disease Blood cultures:no growth ECHO 02/26/17 : A focussed study was performed to reassess for pericardial effusion s/p surgical pericardial drainage on 02/16/17. * The LV septal motion is abnormal with a septal bounce concerning for possible constrictive physiology. * The LV wall motion is otherwise normal. * There is a trace loculated left lateral pericardial effusion. * There are no echocardiographic indications of cardiac tamponade. * Small right pleural effusion. On Colchicine, plan to continue for atleast 3 months per cardiology per cardiology cont Prednisone taper for inflammatory pericarditis : Continue prednisone taper. Prednisone 10 mg daily 5 days (started on 02/27) Prednisone 5 mg daily 5 days Prednisone 2.5 mg daily 5 days Prednisone 2.5 mg every other day 3 doses. has midline placed for IV Abx will need 4 weeks of IV Abx with Rocephin stable to be transferred to SNF today Paroxysmal A. 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 This has significantly decreased in conspicuity from 02/21/2017. No new foci of restricted diffusion are identified. . Again seen is a 2 to 3 mm rim of thickening along the left convexity, unchanged from 02/21/2017. Mild similar appearing thickening is also seen along the posterior right convexity. These demonstrate contrast enhancement and likely represents dural thickening. Trace subdural hemorrhage is considered much less likely. neurology following s/p LP to asses the cause of dural thickening infectious vs leukemia infiltrative process cytology of spinal fluid suggestive of Leukemia infiltration , pt does not have any symptom of headache , visual symptoms pt follows with Heme onc Dr Fox pt is cont with Hydrea given active infection , multiple co -morbidities and significant functional decline -doubt will be candidate for Chemo tx pt will need out pt follow up with Dr Fox once acute pericardial infection is treated Acute Kidney Injury superimposed on CKD stage 3 kidney function improved to baseline monitor with diuretic use nephrology following Cr slightly increased today, Irbesartan held Plan to repeat Renal function outpatient Chronic Myelomonocytic Leukemia follows with Heme Onc Dr Clayton Fox consulted -appreciate input LP done to asses the cause of dural thickening infectious vs leukemia infiltrative process cytology of spinal fluid suggestive of Leukemia infiltration , pt does not have any symptom of headache , visual symptoms d/w Hematology -oncology recommend to cont Hydrea pt will need out pt follow up with Dr Fox once acute pericardial infection is treated given active infection , multiple co -morbidities and significant functional decline -doubt will be candidate for Chemo tx Anemia of Chronic Disease continue Procrit as scheduled, monitor H/H Transient Aphasia - resolved appreciate neurology input EEG shows no episode of Seizure , Keppra D/lyndsay DVT ppx sub q heparin FULL CODE DISPOSITION pt was a resident at [facility] accepted [facility] plan to discharge pt to [facility] for SNF today family updated at bedside social service following for discharge planning Vital Signs: Date Time Temp Pulse Resp B/P (MAP) Pulse Ox O2 Delivery O2 Flow Rate FiO2 03/04/17 08:15 88 100/61 (74) 03/04/17 07:59 36.5 79 20 99/64 (76) 99 Room Air 03/04/17 07:45 Room Air 03/04/17 04:00 Room Air 03/04/17 03:33 36.6 75 18 115/70 (85) 98 Room Air 03/04/17 00:00 Room Air 03/03/17 23:53 36.5 79 18 125/75 (92) 100 Room Air 03/03/17 20:00 100 Room Air 97 03/03/17 19:36 36.5 76 16 106/65 (79) 100 Room Air 03/03/17 16:07 Room Air 03/03/17 12:00 Room Air 03/03/17 11:33 37.0 78 19 119/72 (88) 98 Room Air Lab Results: Results Past 24 Hours Test 03/03/17 12:26 Range/Units White Blood Count 49.34 4.8-10.8 K/uL Red Blood Count 2.48 4.7-6.1 M/uL Hemoglobin 8.2 14.0-18.0 g/dL Hematocrit 23.6 42-52 % Mean Corpuscular Volume 95.2 80-100 fL Mean Corpuscular Hemoglobin 33.1 25-34 pg Mean Corpuscular Hemoglobin Concent 34.7 32-36 g/dl Platelet Count 47 130-400 K/uL RDW Standard Deviation 66.3 36.4-46.3 fL RDW Coefficient of Variation 19.2 11.5-14.5 % Neutrophils % (Manual) 55.1 % Lymphocytes % (Manual) 1.8 % Monocytes % (Manual) 40.4 % Eosinophils % (Manual) 0.9 % Basophils % (Manual) 0.9 0-2 % Myelocytes % 0.9 % Neutrophils # (Manual) 27.19 1.4-6.5 K/uL Total Absolute Neutrophils 27.19 1.4-6.5 K/uL Lymphocytes # (Manual) 0.89 1.2-3.4 K/uL Total Absolute Lymphocytes 0.89 1.2-3.4 K/uL Monocytes # (Manual) 19.93 0.11-0.59 K/uL Eosinophils # (Manual) 0.44 0-0.5 K/uL Basophils # (Manual) 0.44 0-0.2 K/uL Myelocytes # 0.44 0-0 K/uL Hypersegmented Polys 1+ Hypochromasia PRESENT Anisocytosis PRESENT Sodium Level 133 136-145 mmol/L Potassium Level 4.2 3.5-5.1 mmol/L Chloride Level 103 98-107 mmol/L Carbon Dioxide Level 20 21-32 mmol/L Anion Gap 10.0 3-11 mmol/L Blood Urea Nitrogen 40 7-18 mg/dl Creatinine 1.80 0.60-1.40 mg/dl Est Creatinine Clear Calc Drug Dose 27.7 ml/min Estimated GFR () 40.0 Estimated GFR (Non- 34.5 BUN/Creatinine Ratio 22.2 10-20 Random Glucose 137 70-99 mg/dl Calcium Level 7.4 8.5-10.1 mg/dl
--- NOTE | 2017-03-04 11:31 | Discharge Summary ---
Discharge Summary Date of Service Mar 04, 2017. Discharge Summary Admission Date: Feb 15, 2017 at 16:22 Discharge Date: Mar 04, 2017 Discharge Disposition: senior living facility Principal Diagnosis: BACTERIAL PERICARDITIS /CHRONIC MYELOMONOCYTIC LEUKEMIA /ANOOP ON CKD STAGE 3 Procedures: s/p pericardial window on 02/16/17 by cardiothoracic surgery s/p LP CT head: Chronic and postoperative change. No acute process MRI Brain: 1. A subcentimeter focus of restricted diffusion is again seen in the high left parietal white matter. This has significantly decreased in conspicuity from 02/21/2017. 2. No new foci of restricted diffusion are identified. 3. Again seen is a 2 to 3 mm rim of thickening along the left convexity, unchanged from 02/21/2017. Mild similar appearing thickening is also seen along the posterior right convexity. These demonstrate contrast enhancement and likely represents dural thickening. Trace subdural hemorrhage is considered much less likely. Consultations: Nephrology, cardiology, CT surgery, Neurology, Infectious disease, Master Control Technician Pending Studies/Follow-Up: COMPLETE BLOOD COUNT , BASIC METABOLIC PANEL SCHEDULED : 03/06/2017 1:00 PM Lab [facility] HOSPITAL FOLLOW UP : 03/10/2017 11:10 AM Kwasi Denney DO [facility] CARDIOLOGY FOLLOW UP : 03/11/2017 9:45 AM Adrian Pollard DO Cardiology, [facility] PLEASE CALL HEME ONC /DR NUÑEZ OFFICE TO SCHEDULE DOSE FOR PROCRIT FOLLOW UP WITH INFECTIOUS DISEASE DR GAITAN IN 2-3 WEEKS Medication Reconciliation New Medications: Ceftriaxone Sod (Rocephin) 1 Gm Inj 2 GM IV DAILY for 30 Days, #30 VIAL MSSA STAPH AUREUS BACTERIAL PERICARDITIS Prednisone Tab (Prednisone) 10 Mg Tab 10 MG PO UD, #10 TAB Prednisone 5 mg daily 5 days Prednisone 2.5 mg daily 5 days Prednisone 2.5 mg every other day 3 doses. Amiodarone HCl (Amiodarone HCl) 200 Mg Tab 200 MG PO BID for 30 Days, #60 TAB 1 Refill Colchicine (Colcrys) 0.6 Mg Tab 0.6 MG PO QAM for 30 Days, #30 TAB 2 Refills Magnesium Chloride (Slow-Mag Tab) 64 Mg Tabcr 64 MG PO BID for 30 Days Metoprolol Tartrate (Lopressor) 25 Mg Tab 25 MG PO BID for 30 Days, #60 TAB 1 Refill Pantoprazole (Pantoprazole Sodium) 40 Mg Tab 40 MG PO QAM for 30 Days, #30 TAB Potassium Chloride (Klor-Con M20) 20 Meq Tabcr 20 MEQ PO QAM for 30 Days Continued Medications: Acetaminophen (Tylenol) 500 Mg Tab 500 MG PO TID PRN Allopurinol (Allopurinol) 100 Mg Tab 200 MG PO DAILY Aspirin (Aspirin Chewable) 81 Mg Chew 81 MG PO DAILY, TAB B-Complex W/ Folic Acid (B Complex) 1 Tab Tab 1 TAB PO DAILY Dutasteride (Avodart) 0.5 Mg Cap 0.5 MG PO DAILY, CAP Glucosamine Sulfate (Glucosamine) 500 Mg Cap 1 CAP PO DAILY Hydroxyurea (Hydrea Cap) 500 Mg Cap 1000 MG PO QDD, CAP Megestrol Acetate (Megace Oral) 40 Mg/Ml Kristen 20 MG PO DAILY Multivitamin (Multivitamin) Tab 1 TAB PO DAILY Discontinued Medications: Irbesartan (Irbesartan) 75 Mg Tab 37.5 MG PO DAILY Admission Information HPI (per Admitting provider): Celestine Tobar is an 81 year old year old male with chronic myelomonocytic leukemia on hydroxyurea and procrit with admission WBC > 50,000 who 1 month ago as per outpatient records WBC around 80,[address] [facility] who presented with multiple cardiac and neurological symptoms from home with early differential diagnosis of seizure as per emergency room physician in coordination with neurology teleconference with neurologist at [facility] vs stroke vs hyperviscosity complications from leukemia and also found to have tachycardia. There are various histories of what happened at home prior to admission. As per the HPI given to me from the patient and his at bedside ([phone]), patient was reading a book when he found that the text did not make sense to him. Denies changes in vision. Started having difficulty with finding words with his speech, but no obvious facial motor weakness or slurred speech or facial droop as per the patient's . Patient's denies that he was staring into space. Patient appears by this history to recognize these symptoms and did not lose consciousness and was able to follow directions and ambulate. But with these symptoms, also developed concurrently left upper extremity tremors which are new in onset. When patient evaluated in the ED, stroke alert was called. Patient had negative head CT for intracranial bleed (of note patient had history of subdural hematoma around 7 years ago which needed to be relieved by chloe holes). Was given aspirin. After consultation and evaluation with [facility] neurology by the ED physician, it was decided that patient more likely had seizure symptoms rather than stroke and the patient was given Keppra 500 mg per oral x 1 as loading dose for seizure treatment. This was also happening in context of tachycardia between 110s to 120s which was not treated in the emergency department and also chest discomfort. At the request of internal medicine hospitalist, patient then evaluated by management expert Dr. Pollard who had previously placed a Zio XT monitor as outpatient recently when patient had been seen for tachycardia and also history of relative hypotension and presyncopal symptoms. Expanding Machine Operator obtained bedside transthoracic echo of the heart and preliminary results communicated to me by Dr. Pollard of pericarditis and he also started patient on Beta juani. Have consulted neurology Dr. Niño who recommended brain MRI and carotid ultrasound when patient less tachycardic. However patent has titanium rip hip as per history and likely contraindicated for MRI. Have consulted hemoncology with Dr. Gregg who has low suspicion that patient's elevated cell counts would lead to hyperviscosity related neurological/vascular etiologies explaining for symptoms. Patient passed dysphagia screening by nursing but will keep NPO except medications Physical Exam (per Admitting): General Appearance: no apparent distress Head: normocephalic, atraumatic Eyes: normal inspection, PERRL, EOMI ENT: hearing grossly normal, pharynx normal Neck: supple, trachea midline Respiratory/Chest: chest non-tender, lungs clear, normal breath sounds, no respiratory distress, no accessory muscle use Cardiovascular: + tachycardia Abdomen/GI: normal bowel sounds, non tender, soft Back: normal inspection Extremities/Musculoskelatal: normal inspection, no calf tenderness, normal range of motion, non-tender Neurologic/Psych: gauge and instrument inspector II-XII nml as tested, no motor/sensory deficits, alert , normal mood/affect, oriented x 3 Skin: warm/dry, no rash Hospital Course Patient is an 81 yr old male with PMH of CML, HTN, CKD III, BPH presented with multiple symptoms including dyspnea on exertion, shortness of breath, chest pain , word finding difficulty - subsequently found to have pericardial effusion with tamponade physiology underwent pericardial window on 02/16/17 -pericardial fluid culture + ve Staph aureus MSSA BACTERIAL PERICARDITIS -MSSA INFECTION s/p pericardial window on 02/16/17 by cardiothoracic surgery pericardial fluid culture 02/16/17 -STAPH AUREUS -MSSA Appreciate ID input continue IV Rocephin -2 gm daily -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 * The LV septal motion is abnormal with a septal bounce concerning for possible constrictive physiology. * The LV wall motion is otherwise normal. * There is a trace loculated left lateral pericardial effusion. * There are no echocardiographic indications of cardiac tamponade. * Small right pleural effusion. On Colchicine, plan to continue for atleast 3 months per cardiology per cardiology cont Prednisone taper for inflammatory pericarditis : Continue prednisone taper. Prednisone 10 mg daily 5 days (started on 02/27) Prednisone 5 mg daily 5 days Prednisone 2.5 mg daily 5 days Prednisone 2.5 mg every other day 3 doses. has midline placed for IV Abx will need 4 weeks of IV Abx with Rocephin stable to be transferred to SNF today Paroxysmal A. 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 This has significantly decreased in conspicuity from 02/21/2017. No new foci of restricted diffusion are identified. . Again seen is a 2 to 3 mm rim of thickening along the left convexity, unchanged from 02/21/2017. Mild similar appearing thickening is also seen along the posterior right convexity. These demonstrate contrast enhancement and likely represents dural thickening. Trace subdural hemorrhage is considered much less likely. neurology following s/p LP to asses the cause of dural thickening infectious vs leukemia infiltrative process cytology of spinal fluid suggestive of Leukemia infiltration , pt does not have any symptom of headache , visual symptoms pt follows with Heme onc Dr Nuñez pt is cont with Hydrea given active infection , multiple co -morbidities and significant functional decline -doubt will be candidate for Chemo tx pt will need out pt follow up with Dr Nuñez once acute pericardial infection is treated Acute Kidney Injury superimposed on CKD stage 3 kidney function improved to baseline monitor with diuretic use nephrology following Cr slightly increased today, Irbesartan held Plan to repeat Renal function outpatient Chronic Myelomonocytic Leukemia follows with Heme Onc Dr Clayton Nuñez consulted -appreciate input LP done to asses the cause of dural thickening infectious vs leukemia infiltrative process cytology of spinal fluid suggestive of Leukemia infiltration , pt does not have any symptom of headache , visual symptoms d/w Hematology -oncology recommend to cont Hydrea pt will need out pt follow up with Dr Nuñez once acute pericardial infection is treated given active infection , multiple co -morbidities and significant functional decline -doubt will be candidate for Chemo tx Anemia of Chronic Disease continue Procrit as scheduled, monitor H/H Transient Aphasia - resolved appreciate neurology input EEG shows no episode of Seizure , Keppra D/lyndsay DVT ppx sub q heparin FULL CODE DISPOSITION pt was a resident at [facility] accepted at [facility] plan to discharge pt to [facility] for [facility] today family updated at bedside social service following for discharge planning Total time spent on discharge = 35 minutes This includes examination of the patient, discharge planning, medication reconciliation, and communication with other providers. Discharge Instructions Discharge Instructions Date of Service Mar 03, 2017. Admission Reason for Admission: Aphasia, Chronic Leukemia Discharge Discharge Diagnosis / Problem: BACTERIAL PERICARDITIS /CHRONIC MYELOMONOCYTIC LEUKEMIA /ANOOP ON CKD STAGE 3 Discharge Goals Goal(s): Decrease discomfort, Improve function, Improve disease control, Diagnostic testing, Therapeutic intervention Activity Recommendations Activity Level: Assistance Required Therapies: Physical Therapy, Occupational Therapy . Additional Information Patient informed of condition: Yes Advance Directives: No DNR: No Level of Care: Skilled Communicable Disease: No Prognosis: Stable Noble Catheter: No Instructions / Follow-Up Instructions / Follow-Up LAB WORK : COMPLETE BLOOD COUNT , BASIC METABOLIC PANEL SCHEDULED : 03/06/2017 1:00 PM Lab [facility] FOLLOW UP : 03/10/2017 11:10 AM Kwasi Denney DO Family Practice [facility] CARDIOLOGY FOLLOW UP : 03/11/2017 9:45 AM Adrian Pollard DO Cardiology, [facility] PLEASE CALL HEME ONC /DR NUÑEZ OFFICE TO SCHEDULE DOSE FOR PROCRIT FOLLOW UP WITH INFECTIOUS DISEASE DR GAITAN IN 2-3 WEEKS Current Hospital Diet Patient's current hospital diet: Regular Diet Discharge Diet Recommended Diet: AHA Diet (Heart Healthy) Procedures Procedures Performed: Right thorascopic pericardial window Pending Studies Studies pending at discharge: yes List of pending studies: COMPLETE BLOOD COUNT , BASIC METABOLIC PANEL ON 03/06/17 Medical Emergencies . Who to Call and When: Medical Emergencies: If at any time you feel your situation is an emergency, please call 911 immediately. . Non-Emergent Contact Non-Emergency issues call your: Primary Care Provider . . "Provider Documentation" section prepared by Nena Denis. . Core Measure Problem Core Measures: None
[2017-03-04 12:57] VITALS: BP 100/61; PULSE 88; TEMP 36.5; O2SAT 99
[2017-03-12] MEDS ORDERED: EPGI40M SQ (08:44)
[2017-03-12] MEDS ORDERED: dulcolax suppository RE (08:44)
[2017-03-12] MEDS ORDERED: MOML PO (08:44)
[2017-03-12] MEDS ORDERED: LACT1TAB4 PO (08:44)
[2017-03-12] MEDS ORDERED: VANCOMYCIN HCL PO (08:44)
[2017-03-12] MEDS ORDERED: MEGESTROL PO (08:44)
[2017-03-12] MEDS ORDERED: BISA-16 PO (08:44)
[2017-03-12] MEDS ORDERED: SODI1ENE RE (08:44)
== END 2017-03-04 13:55 | DRG 314 ==
LOC: C.EDB 12:25 → EEVIPCON 16:22 → C.2T 16:22 → ENRESERV 16:39 → C.MSICU 02-16 17:46 → EDBEDREQ 02-17 15:58 → CANBEDREQ 02-17 16:05 → ENRESERV 02-17 16:20 → C.2T 02-17 16:44
PROVIDERS: ADMIT Hospitalist; ATTEND Internal Medicine
PROC: 0W9 Anatomical Regions, General, Drainage (ICD-10-PCS; principal; 2017-02-16 11:00)
PROC: 0B9N4ZX Drainage of Right Pleura, Percutaneous Endoscopic Approach, Diagnostic (ICD-10-PCS; principal; 2017-02-16 11:00)
DX: I31.9 Disease of pericardium, unspecified (principal); N17.0 Acute kidney failure with tubular necrosis; I63.9 Cerebral infarction, unspecified; C93.10 Chronic myelomonocytic leukemia not having achieved remission; R47.01 Aphasia; E87.1 Hypo-osmolality and hyponatremia; E11.9 Type 2 diabetes mellitus without complications; I12.9 Hypertensive chronic kidney disease with stage 1 through stage 4 chronic kidney disease, or unspecified chronic kidney disease; N18.3 Chronic kidney disease, stage 3 (moderate); I48.0 Paroxysmal atrial fibrillation; R56.9 Unspecified convulsions; Z83.3 Family history of diabetes mellitus; Z79.82 Long term (current) use of aspirin; Z82.49 Family history of ischemic heart disease and other diseases of the circulatory system

== ENCOUNTER → 2017-03-16 | Outpatient (CLI) | payer BC ==
[~2017-03-16] MED LIST changes: -ACET-1256 PO; +ALL100 PO; +BISA-16 PO; +CEFT1INJ57 IV; +CLC6 PO; +CRD200 PO; +EPGI40M SQ; -GLC500 PO; -IRBE-37 PO; +LACT1TAB4 PO; +LPR25 PO; +MCRK20 PO; +MEGE40SU PO; +MEGESTROL PO; -METO1TAB31 PO; -MINEOIL26; +MOML PO; -OMEGCAP2 PO; +PRED10TA PO; +PRT40 PO; +SLWMEC PO; +SODI1ENE RE; +TRAM-10 PO; +VANCOMYCIN HCL PO; +dulcolax suppository RE
[2017-03-16 09:00] LABS: BLOOD UREA NITROGEN 24 mg/dl (7-18); BUN/CREATININE RATIO 15.8 (10-20); CALCIUM 7.8 mg/dl (8.5-10.1); CARBON DIOXIDE 19 mmol/L (21-32); CHLORIDE 106 mmol/L (98-107); GLUCOSE 94 mg/dl (70-99); POTASSIUM 4.6 mmol/L (3.5-5.1); SODIUM 136 mmol/L (136-145)
[2017-03-16 09:58] LABS: HEMATOCRIT 28.8 % (42-52); MEAN CELL VOLUME 93.2 fL (80-100); MEAN CORPUSCULAR HGB CONC 34.4 g/dl (32-36); PLATELET COUNT 35 K/uL (130-400); RED BLOOD COUNT 3.09 M/uL (4.7-6.1); WHITE BLOOD COUNT 34.96 K/uL (4.8-10.8)
[2017-03-16 10:09] LABS: ANISOCYTOSIS PRESENT; COMPLETE YES; ECHINOCYTES 1+; LYMPH ABS # 2.45 K/uL (1.2-3.4); NEUTROPHILS % 70.2 %; SPHEROCYTE 1+; TEAR DROP CELLS 1+; VACUOLIZATION 1+
== END ==
LOC: C.LABFOXAE 08:32
PROVIDERS: ATTEND Internal Medicine
DX: I30.9 Acute pericarditis, unspecified (principal)

== ENCOUNTER → 2017-03-17 | Outpatient (CLI) | payer BC ==
--- NOTE | 2017-03-17 10:00 | DIAGNOSTIC IMAGING REPORT ---
TWO VIEW CHEST CLINICAL HISTORY: Pleural effusion. FINDINGS: AP and lateral chest radiographs are compared to study dated 03/03/2017 and correlated with chest CT dated 02/19/2017. The AP view is degraded by patient rotation. A right subclavian central venous infusion port is unchanged in position. The heart is enlarged. The pulmonary vasculature is noncongested. There are moderate right and small left pleural effusions with bibasilar consolidation. The upper lobes appear clear. There is no pneumothorax. The skeletal structures are osteopenic. Degenerative change is noted throughout the spine. IMPRESSION: 1. Cardiomegaly without radiographic evidence of congestive failure. 2. Small left and moderate right pleural effusions with associated bibasilar consolidation. This likely represents atelectasis. Correlate clinically for evidence of superimposed pneumonia. The right pleural effusion has increased in size from 03/03/2017. Electronically signed by: Kamran Chavez M.D. 03/17/2017 9:59 AM Dictated Date/Time: 03/17/2017 9:57 AM
== END | disposition home or self-care (01) ==
LOC: C.RAD 09:17
PROVIDERS: ATTEND Surgery
DX: J90 Pleural effusion, not elsewhere classified (principal)

== ENCOUNTER → 2017-03-19 | Day surgery (SDC) | payer BC ==
[~2017-03-19] VITALS: Ht 185.4 cm; Wt 61.7 kg
[~2017-03-19] MED LIST changes: +ACETAMINOPHEN 325 MG TAB PO PRN; +DiphenhydrAMINE HCL 50 MG/ML VIAL IV PRN; +FUROSEMIDE INJ 40 MG in SYRINGE 0 ML IV SCH; +TRAMADOL HCL 50 MG TAB ONE; +TRAMADOL HCL 50 MG TAB PO PRN
[2017-03-19 13:10] VITALS: BP 112/69; PULSE 79; TEMP 36.6; O2SAT 95; Ht 185.4 cm; Wt 61.7 kg
[2017-03-19 13:55] VITALS: BP 89/54; PULSE 82; TEMP 36.5; O2SAT 97
[2017-03-19 14:10] VITALS: BP 91/50; PULSE 79; O2SAT 96
[2017-03-19 14:11] LABS: ISTAT ARTERIAL BLOOD GAS HCO3 14 meq/L (19-24); ISTAT ARTERIAL BLOOD GAS PCO2 36 mmHg (35-46); ISTAT ARTERIAL BLOOD GAS PO2 < 32 mmHg (80-95); ISTAT ARTERIAL BLOOD GAS pH 7.21 (7.35-7.45); ISTAT CARBON DIOXIDE 15 mEq/l (24-31); ISTAT SITE Heel Stick
[2017-03-19 14:40] VITALS: BP 101/62; PULSE 80; TEMP 36.5; O2SAT 95
[2017-03-19 14:52] LABS: PLEURAL FLUID APPEARANCE BLOODY; PLEURAL FLUID COLOR RED; PLEURAL FLUID WBC (A) 1165 /uL
[2017-03-19 14:53] LABS: PLEURAL FLUID MONONUC RELAT 37.9 %; PLEURAL FLUID POLYNUC 62.1 %; PLEURAL FLUID SOURCE LEFT LUNG. RIGHT LUN
--- NOTE | 2017-03-19 14:54 | DIAGNOSTIC IMAGING REPORT ---
CT SCAN OF THE CHEST WITHOUT IV CONTRAST CLINICAL HISTORY: Pleural effusion. COMPARISON STUDY: Chest x-ray dated 03/17/2017. Chest CT scan dated 02/19/2017 TECHNIQUE: CT scan of the thorax was performed from the thoracic inlet to the upper abdomen. Images are reviewed in the axial, sagittal, and coronal planes. IV contrast was not administered for this examination as per the referring clinician. A dose lowering technique was utilized adhering to the principles of ALARA. CT DOSE: 341.76 mGy.cm FINDINGS: Thyroid: Imaged portions of the thyroid gland are normal in size and attenuation. Thoracic aorta: There is mild atherosclerotic calcification of the thoracic aorta. There is ectasia of the ascending thoracic aorta which measures up to 4.3 cm. The remainder of the thoracic aorta is normal in caliber. The arch demonstrates standard 3-vessel anatomy. A right subclavian central venous catheter is in place. Heart: The heart is enlarged and there is a small pericardial effusion. There are coronary artery calcifications. There is diminished attenuation of the cardiac blood pool as compared to the myocardium suggesting anemia. The pulmonary trunk is dilated measuring 3.6 cm in diameter. This suggests pulmonary artery hypertension. Lungs and pleural spaces: A pleural drain is present at the right lung base, and during between the right posterior 9th and 10th ribs. There is a small to moderate right pleural effusion which has decreased in size from 02/19/2017. There is only trace pleural effusion on the left. There is a trace pneumothorax seen at the right lung base. Patchy groundglass opacities are present at the right lung base and throughout the left lung. Intralobular septal thickening is noted in the right lower lobe. There is relative sparing of the apices. Apical scarring is noted. The trachea and central airways are clear. Again seen is a 2.4 cm irregular nodule in the right lower lobe on image #180. Hyperdense material at the right lung base within the pleural space seen previously has resolved and likely represented blood products in the prior study. Process of the talus gas are present along the right chest wall. Mediastinum: Scattered subcentimeter mediastinal lymph nodes are not pathologically enlarged by size criteria. Phyllis: Not well assessed without IV contrast. Axillae: There is no axillary lymphadenopathy. Upper abdomen: Partially visualized upper abdominal viscera is within normal limits. Skeletal structures: The skeletal structures are osteopenic. Degenerative change is present in the shoulders and thoracic spine. There is a mild superior endplate compression deformity of T12. This appears acute to subacute. No lytic or blastic bony lesions are seen. IMPRESSION: 1. A pleural drain has been placed at the right lung base. There is a small to moderate residual right pleural effusion which has significantly decreased in size from 02/19/2017. 2. Trace pneumothorax is seen at the right lung base. 3. Patchy groundglass opacities are present throughout the right lung base. This could represent reexpansion edema, congestive change/edema, versus infectious/inflammatory pneumonitis. 4. Patchy groundglass consolidation is seen throughout the left lung. Different considerations remain pulmonary edema versus an infectious/inflammatory pneumonitis. 5. Only trace pleural effusion is seen at the left lung base. 6. There is a 2.4 cm irregular pulmonary nodule in the right lower lobe. This was also seen on 02/19/2017 and although pathologically indeterminant the appearance is concerning for pulmonary neoplasm. 7. Cardiomegaly with evidence of pulmonary artery hypertension and anemia. 8. There is ectasia of the ascending thoracic aorta which measures up to 4.3 cm. 9. There is a mild and age indeterminant but acute to subacute appearing superior end plate compression deformity of T12. Correlate for point tenderness at this level. 10. Additional findings as above. Electronically signed by: Kamran Chavez M.D. 03/19/2017 2:53 PM Dictated Date/Time: 03/19/2017 2:40 PM
--- NOTE | 2017-03-19 14:57 | Discharge Instructions ---
Discharge Instructions Date of Service Mar 19, 2017. Visit Reason for Visit: Pleural Effusion C93.10 N18.6 D63.1 Discharge Discharge Diagnosis / Problem: Pleural Effusion Discharge Goals Goal(s): Decrease discomfort, Improve function, Learn about illness Activity Recommendations Activity Limitations: resume your previous activity (in 24 hours) Anesthesia . Post Anesthesia Instructions: If you have had General Anesthesia or IV Sedation: * Do not drive today. * Resume driving when surgeon permits. * Do not make important decisions or sign legal documents today. * Call surgeon for: 1. Temperature elevations greater than 101 degrees F. 2. Uncontrollable pain. 3. Excessive bleeding. 4. Persistent nausea and vomiting. 5. Medication intolerance (nausea, vomiting or rash). * For nausea and vomiting use only clear liquids such as: tea, soda, bouillon until nausea subsides, then gradually increase diet as tolerated. * If you have any concerns or questions, call your surgeon's office. If physician is unavailable and it is an emergency, call 911 or go to the nearest emergency room. . Instructions / Follow-Up Instructions / Follow-Up 1. Pleurx catheter to be drained daily. Call Dr. Bailey's office every with drainage amounts. Please weigh patient daily AFTER pleurx drained. 2. Keep pleurx dry and do not shower until seen by Dr. Bailey. 3. Keep your scheduled appointment with Dr. Bailey March 26, 2017 @ 10:30. Go to hospital 1 hour before appointment to have chest x-ray taken. Diet Recommendations Recommended Home Diet: resume previous diet Procedures Procedures Performed: Insertio of right pleurx catheter Pending Studies Studies pending at discharge: no Medical Emergencies . Who to Call and When: Medical Emergencies: If at any time you feel your situation is an emergency, please call 911 immediately. . Non-Emergent Contact Non-Emergency issues call your: Surgeon Call Non-Emergent contact if: you have a fever, your pain is not controlled . . "Provider Documentation" section prepared by Domingo Hernandez. .
[2017-03-19 15:10] VITALS: BP 103/61; PULSE 78; TEMP 36.4; O2SAT 95
[2017-03-19 15:40] VITALS: BP 102/67; PULSE 82; TEMP 36.4; O2SAT 95
--- NOTE | 2017-03-19 18:50 | OPERATIVE REPORT ---
DATE OF OPERATION: 03/19/2017 PROCEDURE: Insertion of right PleurX catheter. SURGEON: Dr. Bailey. ASSISTANT THERAPY AIDE: GOLDY Roque. ANESTHESIA: Local. 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 His right chest was then evaluated with an ultrasound and we marked an area for insertion of the PleurX catheter. He has a recurrent persistent right pleural effusion. The patient was placed in left lateral decubitus position and right chest prepped, draped in usual sterile fashion. After appropriate timeout had been called, a 25 gauge needle, 1% Xylocaine was used to anesthetize the skin wheal, a bit posterior to the mid axillary line at about the eighth interspace. After the skin wheal had been raised, a large bore needle was used to anesthetize the skin, subcutaneous tissues and free-flowing rust-colored fluid was drained. A guidewire was inserted through the needle and the needle removed. About 1 cm incision was made. Approximately 12 cm anterior to this, another skin wheal was raised, 25 gauge needle, 1% Xylocaine and 1 cm incision was made. A long needle was used with 1% Xylocaine without epinephrine to anesthetize subcutaneous tissues between these 2 incisions and a tunnel was attached to the PleurX catheter and dragged from the anterior to posterior incision. The tunnel was removed. Introducer sheath entered with a peel away catheter which was slid over the guidewire posteriorly and then the inner cannula and guidewire removed and the PleurX catheter placed through this peel away sheath which was then removed. Two separate 3-0 silk sutures used to close the skin posteriorly and a 3-0 silk suture was used to anchor the catheter to the patient's skin anteriorly. Approximately 1300 mL of fluid was drained. This was a rust-colored fluid. He developed some pain with this, which as expected. He had been complaining of chest pain across his back and I and his was extremely concerned because she said this is how he was when he had his bacterial pericarditis. We did a CT scan without contrast that showed a small amount of fluid still left in the right chest and he had incomplete expansion of his lung, more importantly it did not appear to have any much in the way of pericardial fluid. We placed sterile dressings on his PleurX catheter after disconnecting it, a sterile cath had been placed. Antimicrobial dressings were placed in both incisions. The patient's white count was 22,450 with a hemoglobin of 8.7. The pH of the fluid we sent off was 7.25 and had a large amount of red cells of 122,000. I had a long talk with the patient's . 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 This seen as involvement is a terrible prognosis and I have discussed this in detail with Dr. Wallace, as did the patient and her yesterday. They understand that this is a terrible prognosis and that he is not going to recover. He looked like he has lost some ground just since I saw him in the hospital 2 weeks ago. We will see how he looks in the office next week and have him drained. He is breathing better. I attest to the content of the Intraoperative Record and any orders documented therein. Any exception s are noted below.
== END | disposition home or self-care (01) ==
LOC: C.ACU 12:32
PROVIDERS: ATTEND Surgery
DX: J90 Pleural effusion, not elsewhere classified (principal); C93.10 Chronic myelomonocytic leukemia not having achieved remission; N18.6 End stage renal disease; D63.1 Anemia in chronic kidney disease